=== PATIENT | male | born 1955 | race Caucasian/White ===

== ENCOUNTER 2016-10-27 09:26 | Day surgery (SDC) | payer BC ==
[2016-10-26 10:07] VITALS: BMI 25.8
[~2016-10-27 09:26] MED LIST: ceFAZolin SODIUM 1 GM VIAL IVPB ONE
[2016-10-27] MEDS ORDERED: LIDOCAINE HCL 1%, 10 MG/ML (20ML VIAL) ONE (10:04)
[2016-10-27] MEDS ORDERED: HEPARIN NA (PORCINE) 5,000 UNITS/ML 1ML VIAL ONE ×4 (10:04→16:48)
[2016-10-27] MEDS ORDERED: MIDAZOLAM HCL 2 MG/2 ML SINGLE DOSE VIAL ONE (10:46)
[2016-10-27] MEDS ORDERED: PROPOFOL 20 ML ONE ×3 (10:46→16:26)
[2016-10-27] MEDS ORDERED: ceFAZolin SODIUM 1 GM VIAL ONE (10:57)
[2016-10-27] MEDS ORDERED: ceFAZolin SODIUM 1 GM VIAL IVPB ONE (11:10)
[2016-10-27] MEDS ORDERED: ONDANSETRON 4 MG/2 ML VIAL IVPUSH PRN (11:17)
[2016-10-27] MEDS ORDERED: oxyCODONE HCL 5 MG TABLET PO PRN ×2 (11:17→17:28)
[2016-10-27] MEDS ORDERED: ACETAMINOPHEN 325 MG TABLET (FP) PO PRN (11:17)
[2016-10-27] MEDS ORDERED: LACTATED RINGERS SOLUTION 1,000 ML IV SCH (11:30)
[2016-10-27] MEDS ORDERED: LIDOCAINE HCL 1%, 10 MG/ML (50 mL VIAL) IJ ONE ×2 (12:09)
[2016-10-27] MEDS ORDERED: CLOPIDOGREL BISULFATE 75 MG TABLET (FP) PO ONE (12:32)
--- NOTE | 2016-10-27 12:35 | OP ---
Operative Note - Note: Operative Date: 10/27/16 Pre-Operative Diagnosis: Left great toe ulcer Operation: Aortogram, CO2 angiogram left leg, atherectomy anterior tibial artery , angioplasty anterior tibial artery Post-Operative Diagnosis: Same as Pre-op Surgeon: Benedict Echavarria Anesthesia: Fractional Estimated Blood Loss (mls): 10 Operative Report Dictated: Yes
--- NOTE | 2016-10-27 12:36 | HP ---
Admitting History and Physical - Admission Chief Complaint: left great toe ulcer - Smoking History Smoking history: Never smoked - Alcohol/Substance Use Hx Alcohol Use: No Home Medications - Allergies Allergies/Adverse Reactions: Allergies Allergy/AdvReac Type Severity Reaction Status Date / Time No Known Drug Allergies Allergy Verified 08/27/15 12:33 - Home Medications Home Medications: Ambulatory Orders Amlodipine Besylate 10 mg PO DAILY 01/31/13 Atorvastatin Ca [Lipitor] 40 mg PO HS 01/31/13 Folic Acid 1 mg PO DAILY 01/31/13 Prednisone 5 mg PO DAILY 01/31/13 Tacrolimus [Prograf] 3 mg PO DAILY 01/31/13 Insulin Glargine,Hum.rec.anlog [Lantus Solostar PEN -] 15 units SCJ HS 06/05/15 Apixaban [Eliquis] 5 mg PO BID 10/26/16 Aspirin [ASA -] 81 mg PO DAILY 10/26/16 Febuxostat [Uloric -] 40 mg PO DAILY 10/26/16 Clopidogrel Bisulfate [Plavix -] 75 mg PO DAILY #30 tablet 10/27/16 Clopidogrel Bisulfate [Plavix -] 75 mg PO DAILY #30 tablet 10/27/16 Physical Examination Vital Signs: Vital Signs Temperature 98.6 F 10/27/16 10:21 Pulse Rate 87 10/27/16 10:21 Respiratory Rate 18 10/27/16 10:21 Blood Pressure 141/83 10/27/16 10:21 O2 Sat by Pulse Oximetry (%) 98 10/27/16 10:21 Constitutional: Yes: Well Nourished Eyes: Yes: WNL HENT: Yes: WNL Neck: Yes: WNL Cardiovascular: Yes: WNL Respiratory: Yes: WNL Gastrointestinal: Yes: WNL Assessment/Plan Left great toe ulcer 1. For CO2 angiogram today
[2016-10-27] MEDS ORDERED: CLOPIDOGREL BISULFATE 75 MG TABLET (FP) ONE (13:32)
[2016-10-27] MEDS ORDERED: LIDOCAINE HCL 2% (20ML MULTI-DOSE VIAL) NR ONE (16:25)
[2016-10-27] MEDS ORDERED: SUCCINYLCHOLINE CHLORIDE 200 MG/10 ML VIAL ONE (16:26)
[2016-10-27] MEDS ORDERED: LIDOCAINE HCL 1%, 10 MG/ML (20ML VIAL) IJ ONE (16:30)
[2016-10-27] MEDS ORDERED: IOHEXOL 300 MG/ML INFUS..BTL IV ONE (16:30)
--- NOTE | 2016-10-27 17:23 | OP ---
Operative Note - Note: Operative Date: 10/27/16 Pre-Operative Diagnosis: Left lower extremity ischemia Operation: Aortogram, LLE angiogram, SFA angioplasty with stent placement Findings: SFA stenosis 90% Post-Operative Diagnosis: Same as Pre-op Surgeon: Beendict Echavarria Anesthesia: General Operative Report Dictated: Yes
[2016-10-27 18:31] VITALS: TEMP 98.2
[2016-10-27 20:40] VITALS: BP 154/70; PULSE 76
[2016-10-27] MEDS ORDERED: APIXABAN 2.5 MG TABLET PO SCH (22:00)
--- NOTE | 2016-11-20 23:36 | OP ---
DATE OF OPERATION: 10/27/2016 PREOPERATIVE DIAGNOSIS: Left lower extremity ischemia. POSTOPERATIVE DIAGNOSIS: Left lower extremity ischemia. PROCEDURE: Aortogram, left lower extremity angiogram, superficial femoral artery angioplasty with stent placement, superficial femoral artery stenosis of 90%. SURGEON: Benedict Yuen D.O. ANESTHESIA: General. INDICATION: The patient is a 61-year-old male that comes in with left lower extremity ischemia. He is feeling numbness in his leg, and it was decided that he would need an angiogram. Patient was consented for the procedure understanding all risks, benefits, and alternatives and was then taken to the operating room. DESCRIPTION OF PROCEDURE: Once in the operating room, he was laid on the operating table in a supine manner, and the right lower quadrant was prepped and draped in a sterile surgical manner. We then injected 10 mL of lidocaine 1% over the right common femoral artery. We then went ahead and took a Micropuncture needle and punctured the right common femoral artery. A Micropuncture wire was inserted, and a traditional 5-Irish sheath was inserted. We then inserted a 0.035 floppy guidewire up into the aorta followed by an Omniflush catheter. We then shot an aortogram by injection showing that the aorta and the iliac arteries were without any disease. We then placed our 0.035 floppy guide wire up and over to the left common femoral artery followed by an Omniflush catheter. We then shot an angiogram of the left lower extremity showing that the proximal SFA had a 95% stenosis and a filling defect. At this point, we placed 0.035 stiff guidewire across the lesion, placed a 6 x 45 crossover sheath. 5000 units of IV heparin were administered to the patient. We then went ahead and placed 6 x 4 stent into the SFA which was ballooned in place using a 6 x 4 balloon. Completion angiogram showed that the SFA was now patent. There was no deficit, there was no recoiling of the artery, and there was good brisk flow. At this point, we brought our sheath up and over, and right common femoral artery no bleeding. Areas were then dried and Dermabond was placed. Patient tolerated the procedure without complications. Patient was transferred to PACU in stable condition. BENEDICT YUEN DO [id number]
--- NOTE | 2016-11-25 14:55 | OP ---
DATE OF OPERATION: 10/27/2016 PREOPERATIVE DIAGNOSIS: Left great toe ulcer. POSTOPERATIVE DIAGNOSIS: Left great toe ulcer. PROCEDURE: Aortogram, CO2 angiogram of left lower extremity; atherectomy, anterior tibial artery; angioplasty, anterior tibial artery. SURGEON: Benedict Yuen DO ANESTHESIA: Fractional. BLOOD LOSS: 10 mL. DESCRIPTION OF PROCEDURE: The patient is a 61-year-old male who has a left great toe ulcer. It was decided that he would need a CO2 angiogram due to an increased creatinine. Patient was consented for the procedure, understanding all risks, benefits, and alternatives. He was then taken to the operating room. Once in the operating room, he was laid on the operating table in supine manner. The area of the right groin was prepped and draped in sterile surgical manner. We then injected 10 mL of lidocaine 1% over the right common femoral artery. Micropuncture needle was used to recannulate the right common femoral artery. Micropuncture wire was inserted, A traditional 5-[place] sheath was inserted. A 0.035 floppy guidewire was inserted into the aorta, followed by an Omniflush catheter. We then shot a CO2 aortogram showing that the aorta and the aortic arteries were without any disease. We then used our 0.035 floppy guidewire and went up and over to the left common femoral artery, and our Omniflush catheter was placed there as well. We then shot a CO2 angiogram of the left lower extremity showing that the common femoral artery, the profunda, and the SFA were patent. Popliteal artery was patent. There was severe stenosis of 80% in the anterior tibial artery. There was 2-vessel runoff into the foot. At this point we placed a 0.035 stiff guidewire into the SFA, took out our Omniflush catheter, placed a 6 x 55 crossover sheath up and over. IV heparin 5000 units was administered to the patient. We then went ahead and placed a 0.035 stiff guidewire followed by a Quick-Cross catheter, and we were able to cross our lesion in the anterior tibial artery and place the wire in the foot. We then exchanged for a Viper Wire. We then went ahead and performed CSI Orbital Atherectomy of the anterior tibial artery where the artery was stenotic. Once we finished doing atherectomy on the medium setting, we went ahead placed a 2.5 x 10 balloon and performed angioplasty of the anterior tibial artery. We then shot a completion angiogram by CO2 which showed that the anterior tibial artery was now completely patent all the way into the foot. At this point we brought our sheath up and over, and was deployed in the right common femoral artery. Pressure was held for 5 minutes. There was no bleeding. Area was wet and dried and Dermabond was placed. The patient tolerated the procedure with no complication. Patient transferred to PACU in stable condition. BENEDICT YUEN DO [id number]
== END 2016-10-27 20:43 | disposition home or self-care (01) ==
LOC: JASU-SURG 09:26
PROVIDERS: ATTEND Surgery Vascular Surgery
PROC: B41DZZZ Fluoroscopy of Aorta and Bilateral Lower Extremity Arteries (ICD-10-PCS; 2016-10-27)
PROC: 047L3DZ Dilation of Left Femoral Artery with Intraluminal Device, Percutaneous Approach (ICD-10-PCS; principal; 2016-10-27 10:30)
DX: I70.212 Atherosclerosis of native arteries of extremities with intermittent claudication, left leg (principal); I10 Essential (primary) hypertension; E11.9 Type 2 diabetes mellitus without complications
CPT/HCPCS: 37226; C1877; 76000-TC; 94760; J1644

== ENCOUNTER 2017-05-25 08:00 | Day surgery (SDC) | payer BC ==
[2017-05-24 17:02] VITALS: BMI 24.2
[2017-05-25 09:13] LABS: INR 1.03 (0.82-1.09); PROTHROMBIN TIME (PATIENT) 11.3 SEC (9.98-11.88)
[2017-05-25] MEDS ORDERED: LIDOCAINE HCL 1%, 10 MG/ML (20ML VIAL) ONE (10:23)
[2017-05-25] MEDS ORDERED: HEPARIN NA (PORCINE) 5,000 UNITS/ML 1ML VIAL ONE ×2 (10:23→10:42)
[2017-05-25] MEDS ORDERED: PROPOFOL 20 ML ONE ×2 (10:42)
[2017-05-25] MEDS ORDERED: MIDAZOLAM HCL 2 MG/2 ML SINGLE DOSE VIAL ONE (10:42)
[2017-05-25] MEDS ORDERED: ceFAZolin SODIUM 1 GM VIAL IVPB ONE (11:01)
[2017-05-25] MEDS ORDERED: LIDOCAINE HCL 1%, 10 MG/ML (50 mL VIAL) IJ ONE ×2 (11:07)
[2017-05-25] MEDS ORDERED: LACTATED RINGERS SOLUTION 1,000 ML IV SCH (11:30)
[2017-05-25] MEDS ORDERED: ACETAMINOPHEN 325 MG TABLET (FP) PO PRN (11:30)
[2017-05-25] MEDS ORDERED: oxyCODONE HCL 5 MG TABLET PO PRN (11:30)
[2017-05-25] MEDS ORDERED: ONDANSETRON 4 MG/2 ML VIAL IVPUSH PRN (11:30)
--- NOTE | 2017-05-25 12:04 | OP ---
Operative Note - Note: Operative Date: 05/25/17 Pre-Operative Diagnosis: Right great toe gangrene Operation: Aortogram, RLE angiogram, ant tibial artery atherectomy with angioplasty Post-Operative Diagnosis: Same as Pre-op Surgeon: Benedict Echavarria Anesthesia: Fractional Estimated Blood Loss (mls): 50 Operative Report Dictated: Yes
--- NOTE | 2017-05-25 12:05 | HP ---
Admitting History and Physical - Admission Chief Complaint: right great toe gangrene for 2 weeks - Smoking History Smoking history: Never smoked - Alcohol/Substance Use Hx Alcohol Use: No Home Medications - Allergies Allergies/Adverse Reactions: Allergies Allergy/AdvReac Type Severity Reaction Status Date / Time No Known Drug Allergies Allergy Verified 05/25/17 08:47 - Home Medications Home Medications: Ambulatory Orders Amlodipine Besylate 10 mg PO DAILY 01/31/13 Atorvastatin Ca [Lipitor] 40 mg PO HS 01/31/13 Folic Acid 1 mg PO DAILY 01/31/13 Prednisone 5 mg PO DAILY 01/31/13 Tacrolimus [Prograf] 3 mg PO DAILY 01/31/13 Insulin Glargine,Hum.rec.anlog [Lantus Solostar PEN -] 5 units SCJ TIDCM Apixaban [Eliquis] 5 mg PO BID 10/26/16 Aspirin [ASA -] 81 mg PO DAILY 10/26/16 Febuxostat [Uloric -] 40 mg PO DAILY 10/26/16 Collagenase Clostridium Hist. [Santyl] 1 applic TP DAILY #90 oint...g. 11/14/16 Collagenase Clostridium Hist. [Santyl] 1 applic TP DAILY #90 oint...g. 01/20/17 Physical Examination Vital Signs: Vital Signs Temperature 98.3 F 05/25/17 08:29 Pulse Rate 85 05/25/17 08:29 Respiratory Rate 18 05/25/17 08:29 Blood Pressure 145/84 05/25/17 08:29 O2 Sat by Pulse Oximetry (%) 100 05/25/17 08:38 Constitutional: Yes: Well Nourished Eyes: Yes: WNL HENT: Yes: WNL Neck: Yes: WNL Cardiovascular: Yes: WNL Respiratory: Yes: WNL Gastrointestinal: Yes: WNL Extremities: Yes: WNL Edema: No Peripheral Pulses WNL: No Integumentary: Yes: WNL Wound/Incision: Yes: Clean/Dry Neurological: Yes: WNL ...Motor Strength: WNL Psychiatric: Yes: WNL Assessment/Plan Right great toe gangrene for 2 weeks. 1. For angiogram today
[2017-05-25] MEDS ORDERED: ceFAZolin SODIUM 1 GM VIAL ONE (12:12)
[2017-05-25 14:03] VITALS: PULSE 70
[2017-05-25 14:05] VITALS: BP 130/70; TEMP 98
--- NOTE | 2017-05-25 14:52 | EKG ---
Test Reason : Blood Pressure : / mmHG Vent. Rate : 075 BPM Atrial Rate : 075 BPM P-R Int : 154 ms QRS Dur : 128 ms QT Int : 400 ms P-R-T Axes : 069 063 061 degrees QTc Int : 446 ms NORMAL SINUS RHYTHM RIGHT BUNDLE BRANCH BLOCK ABNORMAL ECG WHEN COMPARED WITH ECG OF 27-AUG-2015 11:02, QUESTIONABLE CHANGE IN QRS AXIS Confirmed by SHRUTI FRAZIER MD ([id number]) on 05/25/2017 2:52:27 PM Referred By: Benedict Echavarria Confirmed By:SHRUTI FRAZIER MD
--- NOTE | 2017-05-25 18:53 | OP ---
DATE OF OPERATION: 05/25/2017 PREOPERATIVE DIAGNOSIS: Right great toe gangrene. POSTOPERATIVE DIAGNOSIS: Right great toe gangrene. PROCEDURE: Aortogram, right lower extremity angiogram, anterior tibial artery atherectomy with angioplasty. SURGEON: Benedict Yuen D.O. ANESTHESIA: Fractional. BLOOD LOSS: 50 mL. INDICATION: The patient is a 62-year-old male who has a 2-week history of right great toe gangrene. It was found he would need an angiogram. Patient was brought in through ambulatory surgery. Patient was consented for the procedure, understanding all risks, benefits, and alternatives, and was then taken to the operating room. DESCRIPTION OF PROCEDURE: Once in the operating room, he was laid on the operating table in a supine manner, and the area of the left and right groin are prepped and draped in a sterile surgical manner. We then injected 10 mL of lidocaine 1% over the left common femoral artery. We then took a Micropuncture needle and punctured the left common femoral artery. A Micropuncture wire was inserted, Micropuncture sheath was inserted, and a traditional 5-[place] Islander sheath was inserted. A 0.035 floppy guidewire was placed into the aorta followed by an Omniflush catheter. We then shot an aortogram via hand injection showing that the aorta and the iliac arteries were without any disease. We were well aware of the fact that the patient had a creatinine of 3.2, and we wanted to minimize our contrast load. All the contrast was diluted 3 to 1, and we were going to only use minimal amount of contrast. A 0.035 stiff guidewire was then placed up and over to the right common femoral artery and Omniflush catheter followed. We then shot an angiogram of the right lower extremity showing that the common femoral artery, the profunda, the SFA were patent. The popliteal artery was patent. The anterior artery had disease beyond the takeoff where there was stenosis of at least 95%, and artery was occluded going from the ankle into the foot. So at this point, we placed a 0.035 stiff guidewire into the SFA. We then took out our Omniflush catheter, 6 x 45 crossover sheath. We then got the wire in the below-knee popliteal artery, and we then used a Quick-Cross catheter. We were able to negotiate the wire into the anterior tibial artery, and across the occlusion. We then placed a Fiberwire down across the occlusion and all the way into the foot. We then went ahead and performed atherectomy, orbital atherectomy of the anterior tibial artery from beyond its takeoff for about 5 cm, and we did that on low and medium. We then used a 2.5 x 6 balloon and performed angioplasty of the anterior tibial artery. We then took the same balloon and went down into the foot and from the forefoot all the way up above the ankle, we were able to perform angioplasty of the anterior tibial artery. Completion angiogram done of the right lower extremity showed that the anterior tibial artery was patent, there was good brisk flow, and it was patent all the way into the foot. Patient now had a palpable DP pulse. We now brought our sheath up and over, and was successfully deployed in the left common femoral artery. Pressure was applied for 5 minutes, and there was no bleeding. Areas were then dried and Dermabond was placed. Patient tolerated the procedure without complications. Total dye load was only 20 mL. Total blood loss 50 mL. Patient tolerated procedure with no complication. Patient had palpable DP pulse in the recovery room. BENEDICT YUEN DO [id number]
--- NOTE | 2017-07-27 07:37 | OP ---
DATE OF OPERATION: 05/25/2017 PREOPERATIVE DIAGNOSIS: Right great toe gangrene. POSTOPERATIVE DIAGNOSIS: Right great toe gangrene. PROCEDURE: Aortogram, right lower extremity angiogram, anterior tibial artery atherectomy with angioplasty. SURGEON: Benedict Yuen MD ANESTHESIA: Fractional. BLOOD LOSS: 50 mL. INDICATIONS: The patient is a 62-year-old male who has right great toe gangrene. 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 It was decided that he would need an angioplasty. Patient was consented for the procedure understanding all risks, benefits, and alternatives, and The patient came into ambulatory surgery. PROCEDURE IN DETAIL: Once the patient was consented for the procedure understanding all risks and benefits, patient was brought into the operating room and laid down in a supine manner. The area of the right and left groin were prepped and draped in the sterile surgical manner. We then went ahead and injected 10 mL of 0.5% lidocaine over the left common femoral artery. We then went ahead and used our micropuncture needle to puncture the left common femoral artery. A micropuncture wire inserted, and a traditional 5-[place] Islander sheath was inserted. A 0.035 floppy guidewire was then placed up into the aorta followed by an Omni Flush catheter. We then shot an aortogram via hand injection showing that the aorta and iliac arteries were without any disease. We then placed our wire back into the Omni Flush catheter and went up and over to the right common femoral artery, and our Omni Flush catheter followed. We then shot an angiogram of the right lower extremity showing that the common femoral artery, the profunda, and the SFA were patent. Popliteal artery was patent. The anterior tibial artery had significant disease at the takeoff and for 5 cm and then reconstituted and then went all the way down into the foot. Patient also had a peritoneal artery. At this point, we placed a 0.035 stiff guidewire into the SFA, removed our Omni Flush catheter, and we then placed a 6 x 45 crossover sheath. Then, 5000 units of IV heparin were administered to the patient. We then placed a 0.035 stiff guidewire down into the popliteal artery followed by a Quick-Cross catheter, and we then selectively were able to cross our anterior tibial artery lesion and place the wire down into the distal anterior tibial artery. We then exchanged the wire for a FiberWire. We then went ahead and used a [employer] Orbital Atherectomy device and performed atherectomy of the anterior tibial artery from its takeoff to about 10 cm. Once that was completed, we shot an angiogram showing that the artery was now patent, and we went ahead and used a 2.5 x 10 balloon and performed angioplasty of the anterior tibial artery. Completion angiogram now showed that the anterior tibial artery was complete . There was a good brisk flow into the foot, and the patient had a palpable DP pulse in his right foot. At this point, no intervention was needed. We brought our sheath up and over, and [employer] device was successfully deployed in the left common femoral artery. The area was wet and dried, and Dermabond was placed. The patient tolerated the procedure with no complications. Patient transferred to PACU in stable condition. Total blood loss was 50 mL. BENEDICT YUEN DO [id number]
== END 2017-05-25 14:08 | disposition home or self-care (01) ==
LOC: JASU-SURG 08:00
PROVIDERS: ATTEND Surgery Vascular Surgery
PROC: 047L3ZZ Dilation of Left Femoral Artery, Percutaneous Approach (ICD-10-PCS; 2017-05-25)
PROC: 047W3ZZ Dilation of Left Foot Artery, Percutaneous Approach (ICD-10-PCS; 2017-05-25)
PROC: B41DYZZ Fluoroscopy of Aorta and Bilateral Lower Extremity Arteries using Other Contrast (ICD-10-PCS; 2017-05-25)
PROC: 047P3ZZ Dilation of Right Anterior Tibial Artery, Percutaneous Approach (ICD-10-PCS; principal; 2017-05-25 09:30)
DX: I70.261 Atherosclerosis of native arteries of extremities with gangrene, right leg (principal); E11.52 Type 2 diabetes mellitus with diabetic peripheral angiopathy with gangrene; Z79.4 Long term (current) use of insulin; I10 Essential (primary) hypertension
CPT/HCPCS: 36247; 37229; C1726; 36415; 76000-TC; 85610; 85730; 93005; 93010; 94760; J1644

== ENCOUNTER 2017-10-25 13:52 | Inpatient (IN) | payer BC ==
[2017-10-25 14:07] VITALS: BMI 24.2
--- NOTE | 2017-10-25 20:24 | PDOC ---
Attending Attestation - Resident Resident Name: Bj Smith - ED Attending Attestation I have performed the following: I have examined & evaluated the patient, The case was reviewed & discussed with the resident, I agree w/resident's findings & plan, Exceptions are as noted - Medical Decision Making 10/25/17 20:24 I, Dr. Isis Hernandez, DO, attest that this document has been prepared under my direction and personally reviewed by me in its entirety. I further attest, that it accurately reflects all work, treatment, procedures and medical decision -making performed by me. 10/25/17 21:51 a/p: 62yo male with 1 week hx of RUE swelling, edema, pain -has a healing scab/wound to lateral aspect of RUE -suspect poss cause of cellulits vs dvt vs. bleeding on coumadin into the arm -pitting edema -bedside doppler + radial pulse -brisk cap refill -will obtain labs, ultrasound, xrays -will start abx given immunosupressed state with cellulitis 10/25/17 22:29 doppler negative for DVT in RUE pt with acute renal failure on labs 10/25/17 22:38 discussed the case with Dr. Celina Andrade who recommends admission, ivf hydration, will add ua added ESR/CRP 10/25/17 22:39 Dr. Andrade recommends admission to the hospitalist service 10/25/17 23:[address] 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 He denies any recent falls or trauma to the area. He does report having a history of lower extremity DVTs. The patient denies any fever or chills. He denies any chest pain, shortness of breath. Denies any abdominal pain. - Physicial Exam PE: 10/25/17 23:09 GENERAL: Awake, alert, and fully oriented, in no acute distress HEAD: No signs of trauma ENT: Auricles normal inspection, hearing grossly normal, nares patent, oropharynx clear EYES: PERRLA, EOMI, sclera anicteric, conjunctiva clear without exudates. Moist mucosa. NECK: Normal ROM, supple, no lymphadenopathy, JVD, or masses LUNGS: Breath sounds equal, clear to auscultation bilaterally. No wheezes, and no crackles HEART: Regular rate and rhythm, normal S1 and S2, no murmurs, rubs or gallops ABDOMEN: Soft, nontender, normoactive bowel sounds. No guarding, no rebound. No masses EXTREMITIES: (+)Right Arm: ecchymosis and coolness to hand, warmth to arm, scab to lateral aspect of forearm, appears very edematous with purple discoloration, pitting edema up to the elbow. Normal range of motion. No clubbing. No cords. Normal pulses and cap refill. NEUROLOGICAL: Cranial nerves II through XII grossly intact. Normal speech, normal gait SKIN: Warm, Dry, normal turgor. <Bridgette Barrios - Last Filed: 10/25/17 23:15> Discharge Disposition - Discharge Dispostion Admit: Yes <Isis Hernandez - Last Filed: 10/25/17 23:07> <Bridgette Barrios - Last Filed: 10/25/17 23:15> - Diagnosis Diabetes, Pain and swelling of right upper extremity, Acute renal failure (ARF) , Cellulitis - Discharge Dispostion Condition at time of disposition: Guarded - Referrals Referrals: Celina Herbert MD [Primary Care Provider] - - Patient Instructions - Post Discharge Activity Attestations - Attestations 10/25/17 23:14 Documentation prepared by Bridgette Barrios, acting as medical billing associate for Isis Hernandez DO. <Bridgette Barrios - Last Filed: 10/25/17 23:15>
[2017-10-25] MEDS ORDERED: PIPERACILLIN/TAZOB 2.25 GM/50 ML PREMIX BAG IVPB ONE (20:39)
--- NOTE | 2017-10-25 20:59 | PDOC ---
History of Present Illness - General Chief Complaint: Edema Stated Complaint: RIGHT HAND SWOLLEN Time Seen by Provider: 10/25/17 19:59 - History of Present Illness Initial Comments: Mr. 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 The patient started noticing R wrist pain 2 weeks ago, assumed it was from his prior gouty flares. He then started to experience pain and swelling in his R upper forearm that progressed down to his distal fingers. He denies inciting trauma to the arm. However, there is a pinpoint superficial scab noted on his R forearm, but patient was unaware of this. He denies generalized symptoms such as fevers, chills, malaise. Denies CP, SOB, abd pain. He does have a history of lower extremity DVTs, but denies any upper extremity clots. States he is compliant with his Warfarin. Past History - Past Medical History Allergies/Adverse Reactions: Allergies Allergy/AdvReac Type Severity Reaction Status Date / Time No Known Drug Allergies Allergy Verified 10/25/17 14:07 Home Medications: Ambulatory Orders Amlodipine Besylate 10 mg PO DAILY 01/31/13 Atorvastatin Ca [Lipitor] 40 mg PO HS 01/31/13 Folic Acid 1 mg PO DAILY 01/31/13 Prednisone 5 mg PO DAILY 01/31/13 Tacrolimus [Prograf] 1.5 mg PO BID 01/31/13 Insulin Glargine,Hum.rec.anlog [Lantus Solostar PEN -] 5 units SCJ TIDCM Aspirin [ASA -] 81 mg PO DAILY 10/26/16 Febuxostat [Uloric -] 40 mg PO DAILY 10/26/16 Warfarin Sodium [Coumadin] 0.5 mg PO HS 10/25/17 Anemia: No Asthma: No Cancer: No Cardiac Disorders: Yes (stentsx2 2010) CVA: No COPD: No CHF: No Dementia: No Diabetes: Yes (IDDM) GI Disorders: No Disorders: No HTN: Yes Hypercholesterolemia: Yes Kidney Stones: No (KIDNEY TRANSPLANT) Liver Disease: No Seizures: No Thyroid Disease: No Other medical history: VASCULAR CIRCULATION PROBLEMS. - Surgical History Abdominal Surgery: No Appendectomy: No Cardiac Surgery: Yes (stentsx2) Cholecystectomy: No Lung Surgery: No Neurologic Surgery: No Orthopedic Surgery: Yes (LEFT FEMUR FRACTURE) - Suicide/Smoking/Psychosocial Hx Smoking History: Never smoked Hx Alcohol Use: No Drug/Substance Use Hx: No Substance Use Type: None Hx Substance Use Treatment: No *Physical Exam - Vital Signs Last Vital Signs Temp Pulse Resp BP Pulse Ox 97.6 F 96 H 20 194/102 99 10/25/17 14:03 10/25/17 14:03 10/25/17 14:03 10/25/17 14:03 10/25/17 14:03 - Physical Exam Comments: GEN: AAOx3, NAD, Lying comfortably HEENT: PERRLA, EOMi, no JVD CV: S1, S2, RRR LUNG: CTABL ABD: Soft, NT, ND, normoactive BS MSK: Circumferential redness and 3+ pitting edema from R elbow to distal fingers. Area of notable warmth in upper forearm with pinpoint superficial scab. R hand is cool, bluish coloration. Difficult to assess pulse w/ edema but loud pulse heard w/ doppler. LUE wnl. Lower extremity nilateral 2-3+ pitting lower extremity edema with mild venous stasis changes (pt states this is due to kidney disease, not heart failure) NEURO: CN 2-12 grossly intact ED Treatment Course - LABORATORY CBC & Chemistry Diagram: 10/26/17 06:00 10/26/17 06:00 - RADIOLOGY Radiology Studies Ordered: Category Date Time Status FOREARM- RIGHT [RAD] Stat Radiology 10/25/17 20:34 Ordered WRIST- RIGHT [RAD] Stat Radiology 10/25/17 20:35 Ordered DUPLEX ART. 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 DDx include Cellulitis especially with possible point of entry and immunocompromised state. Other DDx include RUE DVT (including Phlegmasia Cerulea) but is unlikely in setting of compliance w/ AC. - CBC, CMP, PT/INR - Blood Cx - Will start Vanc/Zosyn renally dosed to cover for possible infection - RUE XR, and Venous + Arterial U/S - Tylenol for pain control - Will give patient's home Norvasc (did not take this AM), and recheck BP Dispo will likely be admission. Patient sees Celina Castellon as his PCP. Will ultimately be admitted as hospital service patient *DC/Admit/Observation/Transfer Diagnosis at time of Disposition: Diabetes, Pain and swelling of right upper extremity, Acute renal failure (ARF) , Cellulitis - Discharge Dispostion Condition at time of disposition: Guarded - Referrals - Patient Instructions - Post Discharge Activity
[2017-10-25] MEDS ORDERED: PIPERACILLIN/TAZOB 2.25 GM 2.25 GM in DEXTROSE 5%-WATER - 100 ML IVPB ONE (21:00)
[2017-10-25] MEDS ORDERED: ACETAMINOPHEN 325 MG TABLET (FP) PO ONE (21:00)
[2017-10-25 21:01] LABS: BASO % 0.2 % (0-2.0); EOS % 1.2 % (0-4.5); HEMOGLOBIN 8.8 GM/dL (11.7-16.9); MCH 28.1 pg (25.7-33.7); MCHC 31.4 g/dl (32.0-35.9); MEAN CELL VOLUME 89.6 fl (80-96); MEAN PLT VOLUME 9.2 fl (7.5-11.1); MONO % 7.4 % (3.8-10.2); NEUT % 79.2 % (42.8-82.8); PLATELET COUNT 250 K/MM3 (134-434); RBC 3.12 M/mm3 (4.00-5.60); RDW 18.2 % (11.9-15.9); WHITE BLOOD COUNT 12.6 K/mm3 (4.0-10.0)
[2017-10-25] MEDS ORDERED: ACETAMINOPHEN 325 MG TABLET (FP) ONE (21:14)
[2017-10-25] MEDS ORDERED: PIPERACILLIN/TAZOBACTAM 2.25 GM VIAL IVPB ONE (21:14)
[2017-10-25] MEDS ORDERED: VANCOMYCIN 1 GRAM (PRE-DOCKED) 1,000 MG/250 ML BAG IVPB ONE (21:14)
[2017-10-25 21:32] LABS: ALBUMIN 2.3 g/dl (3.4-5.0); ALK PHOS 71 U/L (45-117); ANION GAP 13 (8-16); BILIRUBIN,TOTAL 0.4 mg/dL (0.2-1.0); CALCIUM 7.1 mg/dL (8.5-10.1); CHLORIDE 111 mmol/L (98-107); CO2 18 mmol/L (21-32); CREATININE 7.4 mg/dL (0.7-1.3); SGPT/ALT 15 U/L (12-78); SODIUM 142 mmol/L (136-145); TOT PROT 5.5 g/dl (6.4-8.2)
[2017-10-25 21:42] LABS: POTASSIUM 4.6 mmol/L (3.5-5.1); SGOT/AST 15 U/L (15-37)
[2017-10-25 21:44] LABS: BLOOD UREA NITROGEN 150 mg/dL (7-18); GLUCOSE,RANDOM 311 mg/dL (74-106)
[2017-10-25] MEDS ORDERED: SODIUM CHLORIDE 0.9% 1000 ML INFUS.BAG IV ONE (22:35)
[2017-10-25] MEDS: VANCOMYCIN 1,000 MG in DEXTROSE 5%-WATER - 250 ML IVPB SCH (22:37)
[2017-10-25 23:22] LABS: INR 3.96 (0.82-1.09); PROTHROMBIN TIME (PATIENT) 44.7 SEC (9.98-11.88)
[2017-10-25 23:25] LABS: ACTIVATED PTT 46.9 SECONDS (26.9-34.4)
[2017-10-25] MEDS ORDERED: amLODIPine BESYLATE 5 MG TABLET (FP) ONE (23:27)
[2017-10-25] MEDS: amLODIPine BESYLATE 10 MG TABLET (FP) PO SCH (23:29)
--- NOTE | 2017-10-26 00:21 | HP ---
<Rashel Elkins - Last Filed: 10/26/17 00:53> CHIEF COMPLAINT: Right arm swelling PCP: Celina Castellon HISTORY OF PRESENT ILLNESS: Pt is a 62 y/o M with PMH unprovoked LE DVT (on Coumadin w/ INR 5.9 2 days ago, skipped yesterday's dose), b/l LE PAD s/p percutaneous angioplasty by Benedict Echavarria with R Hallux ischemic ulcer, and gout who presented to ED with 2wk of R wrist pain with progressive swelling and redness of the forearm. Pt states he initially thought this was a gouty attack. Denies fever, chills, nausea, vomiting, diarrhea, cough. BP normally 130/80. ER course was notable for: (1) WBC 12.6, Bark Grinder 7.4 (baseline 2.1) (2) Duplex of RUE: superficial thrombphlebitis of superficial basilic vein. No DVT (3) 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), b/l LE PAD s/p percutaneous angioplasty w/ stent 2010 by Benedict Echavarria with R Hallux gangrene, DM, L femur fracture and gout PAST SURGICAL HISTORY: Social History: Smoking: denies Alcohol: denies Drugs: denies Family History: Allergies No Known Drug Allergies Allergy (Verified 10/25/17 14:07) HOME MEDICATIONS: Home Medications Medication Instructions Recorded Amlodipine Besylate 10 mg PO DAILY 01/31/13 Atorvastatin Ca [Lipitor] 40 mg PO HS 01/31/13 Folic Acid 1 mg PO DAILY 01/31/13 Prednisone 5 mg PO DAILY 01/31/13 Tacrolimus [Prograf] 1.5 mg PO BID 01/31/13 Insulin Glargine,Hum.rec.anlog 5 units IDJ TIDCM 06/05/15 [Lantus Solostar PEN -] Aspirin [ASA -] 81 mg PO DAILY 10/26/16 Febuxostat [Uloric -] 40 mg PO DAILY 10/26/16 Warfarin Sodium [Coumadin] 0.5 mg PO HS 10/25/17 REVIEW OF SYSTEMS CONSTITUTIONAL: Absent: fever, chills, diaphoresis, generalized weakness, malaise, loss of appetite, weight change HEENT: Absent: rhinorrhea, nasal congestion, throat pain, throat swelling, difficulty swallowing, mouth swelling, ear pain, eye pain, visual changes CARDIOVASCULAR: Absent: chest pain, syncope, palpitations, irregular heart rate, lightheadedness , peripheral edema RESPIRATORY: Absent: cough, shortness of breath, dyspnea with exertion, orthopnea, wheezing, stridor, hemoptysis GASTROINTESTINAL: Absent: abdominal pain, abdominal distension, nausea, vomiting, diarrhea, constipation, melena, hematochezia GENITOURINARY: Absent: dysuria, frequency, urgency, hesitancy, hematuria, flank pain, genital pain MUSCULOSKELETAL: myalgia, arthralgia, joint swelling Absent: , back pain, neck pain SKIN: rash Absent: , itching, pallor HEMATOLOGIC/IMMUNOLOGIC: Absent: easy bleeding, easy bruising, lymphadenopathy, frequent infections ENDOCRINE: Absent: unexplained weight gain, unexplained weight loss, heat intolerance, cold intolerance NEUROLOGIC: Absent: headache, focal weakness or paresthesias, dizziness, unsteady gait, seizure, mental status changes, bladder or bowel incontinence PSYCHIATRIC: Absent: anxiety, depression, suicidal or homicidal ideation, hallucinations. PHYSICAL EXAMINATION Vital Signs - 24 hr 10/25/17 10/25/17 14:03 23:24 Temperature 97.6 F Pulse Rate 96 H Pulse Rate [ 66 Apical] Respiratory 20 18 Rate Blood Pressure 194/102 Blood Pressure 216/88 [Left Arm] O2 Sat by Pulse 99 100 Oximetry (%) GENERAL: Awake, alert, and fully oriented, in no acute distress. HEAD: Normal with no signs of trauma. EYES: Pupils equal, round and reactive to light, extraocular movements intact, sclera anicteric, conjunctiva clear. No lid lag. EARS, NOSE, THROAT: oropharynx clear without exudates. Moist mucous membranes. NECK: Normal range of motion, supple without lymphadenopathy, JVD, or masses. LUNGS: Breath sounds equal, clear to auscultation bilaterally. No wheezes, and no crackles. No accessory muscle use. HEART: Regular rate and rhythm, normal S1 and S2 with 3/6 syst murmur at LUSB, no rub or gallop. ABDOMEN: Soft, nontender, not distended, normoactive bowel sounds, no guarding, no rebound, no masses. No hepatomegaly or splenomegaly. MUSCULOSKELETAL: inability to make fist w/ right hand limited by pain. Pt can wiggle fingers and has intact sensation. No bony deformities or tenderness. No CVA tenderness. UPPER EXTREMITIES: RUE neurovasc intact. 1+ edema, erythematous. Arm is NOT taught. TTP right medial compartment prox forearm. Small lesion ant prox forearm with surrounding erythema. 1+ pulses, warm, well-perfused. No cyanosis. No clubbing. LOWER EXTREMITIES: 1+ DP on the right. brisk cap refill b/l. R great toe lat aspect ulcer. No calf tenderness. 1+ peripheral edema b/l. NEUROLOGICAL: Cranial nerves II-XII intact. Normal speech. Normal gait. PSYCHIATRIC: Cooperative. Good eye contact. Appropriate mood and affect. SKIN: as above Laboratory Results - last 24 hr 10/25/17 10/25/17 10/25/17 20:40 20:40 22:48 WBC 12.6 H RBC 3.12 L Hgb 8.8 L D Hct 28.0 L MCV 89.6 MCH 28.1 MCHC 31.4 L RDW 18.2 H D Plt Count 250 D MPV 9.2 Neutrophils % 79.2 Lymphocytes % 12.0 D Monocytes % 7.4 Eosinophils % 1.2 Basophils % 0.2 PT with INR 44.70 H INR 3.96 H D PTT (Actin FS) 46.9 H D Sodium 142 Potassium 4.6 Chloride 111 H Carbon Dioxide 18 L Anion Gap 13 BUN 150 H* D Creatinine 7.4 H D Creat Clearance w eGFR 7.49 Random Glucose 311 H* D Uric Acid Calcium 7.1 L Total Bilirubin 0.4 D AST 15 ALT 15 D Alkaline Phosphatase 71 C-Reactive Protein Total Protein 5.5 L Albumin 2.3 L D 10/25/17 10/25/17 22:48 22:48 WBC RBC Hgb Hct MCV MCH MCHC RDW Plt Count MPV Neutrophils % Lymphocytes % Monocytes % Eosinophils % Basophils % PT with INR INR PTT (Actin FS) Sodium Potassium Chloride Carbon Dioxide Anion Gap BUN Creatinine Creat Clearance w eGFR Random Glucose Uric Acid 5.5 Calcium Total Bilirubin AST ALT Alkaline Phosphatase C-Reactive Protein 0.5 H Total Protein Albumin ASSESSMENT/PLAN: Pt is a 62 y/o M w/ PMH R renal transplant, unprovoked DVT, gout who presents to ED with R wrist pain and progressive RUE swelling x 2 weeks. #R arm pain/swelling -DDx includes coumadin tox bleed, coumadin induced skin necrosis, cellulitis -Gout unlikely as swelling is not limited to the joint -arterial disease unlikely as pt has pulses confirmed by doppler, is on AC, and had only superficial thrombophlebitis on Duplex -Demarcate lesion -elevate arm -vascular checks -Emperic vanc/zosyn -repeat doppler if no improvement #Acute on chronic CKD -discussed with Dr. Castellon by ED physician. Dr. Castellon recommended fluid trial -1/2 NS at 125 (pt hypertensive in ED) -monitor urine output -repeat labs in AM -nephro consult (Dr. Celina Castellon) #HTN -Baseline BP 130/80. BP in ED 216/88 -Norvasc in ED -Lopressor PRN for BP > 165/80 #Hx DVT -Pt on Coumadin -INR in ED 3.9 -Hold Coumadin for now #FEN -1/2 NS at 125 -hyperchloremia, pseudohypocalcemia -DM/renal diet #PPx -elevated INR. No Hep #Dispo -Inpt Rashel Elkins MD PGY-1 Visit type - Emergency Visit Emergency Visit: Yes ED Registration Date: 10/25/17 Care time: The patient presented to the Emergency Department on the above date and was hospitalized for further evaluation of their emergent condition. - New Patient This patient is new to me today: Yes Date on this admission: 10/26/17 - Critical Care Critical Care patient: No <Ashlee Almonte - Last Filed: 10/26/17 01:35> ATTENDING PHYSICIAN STATEMENT I saw and evaluated the patient. I reviewed the resident's note and discussed the case with the resident. I agree with the resident's findings and plan as documented. CHIEF COMPLAINT: right arm swelling x 2 weeks 62 year old male with PVD and history of DVT presents with RUE swelling and ecchymoses x 2 weeks . INR is above 3 . HOME MEDICATIONS: Home Medications Medication Instructions Recorded Amlodipine Besylate 10 mg PO DAILY 01/31/13 Atorvastatin Ca [Lipitor] 40 mg PO HS 01/31/13 Folic Acid 1 mg PO DAILY 01/31/13 Prednisone 5 mg PO DAILY 01/31/13 Tacrolimus [Prograf] 1.5 mg PO BID 01/31/13 Insulin Glargine,Hum.rec.anlog 5 units SCJ TIDCM 06/05/15 [Lantus Solostar PEN -] Aspirin [ASA -] 81 mg PO DAILY 10/26/16 Febuxostat [Uloric -] 40 mg PO DAILY 10/26/16 Warfarin Sodium [Coumadin] 0.5 mg PO HS 10/25/17 PHYSICAL EXAMINATION Vital Signs - 24 hr 10/25/17 10/25/17 14:03 23:24 Temperature 97.6 F Pulse Rate 96 H Pulse Rate [ 66 Apical] Respiratory 20 18 Rate Blood Pressure 194/102 Blood Pressure 216/88 [Left Arm] O2 Sat by Pulse 99 100 Oximetry (%) GENERAL: Awake, alert, and fully oriented, in no acute distress. HEAD: Normal with no signs of trauma. EYES: Pupils equal, round and reactive to light, extraocular movements intact, sclera anicteric, conjunctiva clear. No lid lag. EARS, NOSE, THROAT: Ears normal, nares patent, oropharynx clear without exudates. Moist mucous membranes. NECK: Normal range of motion, supple without lymphadenopathy, JVD, or masses. LUNGS: Breath sounds equal, clear to auscultation bilaterally. No wheezes, and no crackles. No accessory muscle use. HEART: Regular rate and rhythm, normal S1 and S2 without murmur, rub or gallop. ABDOMEN: Soft, nontender, not distended, normoactive bowel sounds, no guarding, no rebound, no masses. No hepatomegaly or splenomegaly. MUSCULOSKELETAL: Normal range of motion at all joints. No bony deformities or tenderness. No CVA tenderness. UPPER EXTREMITIES: RUE edema and ecchymoses , pulses are palpable , erytheme of forearm , small scab with surrounding erythema LOWER EXTREMITIES: 2 plus edema NEUROLOGICAL: Cranial nerves II-XII intact. Normal speech. Normal gait. PSYCHIATRIC: Cooperative. Good eye contact. Appropriate mood and affect. SKIN: Warm, dry, normal turgor, no rashes or lesions noted, normal capillary refill. Laboratory Results - last 24 hr 10/25/17 10/25/17 10/25/17 20:40 20:40 22:48 WBC 12.6 H RBC 3.12 L Hgb 8.8 L D Hct 28.0 L MCV 89.6 MCH 28.1 MCHC 31.4 L RDW 18.2 H D Plt Count 250 D MPV 9.2 Neutrophils % 79.2 Lymphocytes % 12.0 D Monocytes % 7.4 Eosinophils % 1.2 Basophils % 0.2 ESR PT with INR 44.70 H INR 3.96 H D PTT (Actin FS) 46.9 H D Sodium 142 Potassium 4.6 Chloride 111 H Carbon Dioxide 18 L Anion Gap 13 BUN 150 H* D Creatinine 7.4 H D Creat Clearance w eGFR 7.49 Random Glucose 311 H* D Uric Acid Calcium 7.1 L Total Bilirubin 0.4 D AST 15 ALT 15 D Alkaline Phosphatase 71 C-Reactive Protein Total Protein 5.5 L Albumin 2.3 L D 10/25/17 10/25/17 10/25/17 22:48 22:48 22:48 WBC RBC Hgb Hct MCV MCH MCHC RDW Plt Count MPV Neutrophils % Lymphocytes % Monocytes % Eosinophils % Basophils % ESR 73 H PT with INR INR PTT (Actin FS) Sodium Potassium Chloride Carbon Dioxide Anion Gap BUN Creatinine Creat Clearance w eGFR Random Glucose Uric Acid 5.5 Calcium Total Bilirubin AST ALT Alkaline Phosphatase C-Reactive Protein 0.5 H Total Protein Albumin ASSESSMENT/PLAN: Agree with assessment and plan above .
[2017-10-26] MEDS ORDERED: METOPROLOL TARTRATE 5 MG/5 ML VIAL IVPUSH PRN (00:45)
[2017-10-26] MEDS ORDERED: SODIUM CHLORIDE 0.45% 1,000 ML IV SCH (00:45)
[2017-10-26 05:16] LABS: URINE APPEARANCE CLEAR; URINE BILIRUBIN NEGATIVE (NEGATIVE); URINE BLOOD 1+ (NEGATIVE); URINE COLOR LTYELLOW; URINE GLUCOSE (UA) 3+ (NEGATIVE); URINE KETONE NEGATIVE (NEGATIVE); URINE LEUK ESTERASE NEGATIVE (NEGATIVE); URINE NITRITE NEGATIVE (NEGATIVE); URINE UROBILINOGEN NEGATIVE mg/dL (0.2-1.0)
[2017-10-26 05:27] LABS: URINE PROTEIN 3+ (NEGATIVE)
[2017-10-26 05:32] LABS: EPI CELLS RARE /HPF (FEW); URINE BACTERIA FEW /hpf (NONE SEEN); URINE MUCUS RARE
[2017-10-26 06:55] LABS: BASO % 0.1 % (0-2.0); EOS % 1.1 % (0-4.5); HEMATOCRIT 27.3 % (35.4-49); HEMOGLOBIN 8.8 GM/dL (11.7-16.9); LYMPH % 12.9 % (8-40); MCH 28.7 pg (25.7-33.7); MCHC 32.3 g/dl (32.0-35.9); MEAN CELL VOLUME 88.7 fl (80-96); MEAN PLT VOLUME 9.7 fl (7.5-11.1); MONO % 6.8 % (3.8-10.2); NEUT % 79.1 % (42.8-82.8); PLATELET COUNT 259 K/MM3 (134-434); RBC 3.08 M/mm3 (4.00-5.60); RDW 18.2 % (11.9-15.9); WHITE BLOOD COUNT 11.8 K/mm3 (4.0-10.0)
[2017-10-26 07:23] LABS: ALBUMIN 2.3 g/dl (3.4-5.0); ANION GAP 13 (8-16); CHLORIDE 112 mmol/L (98-107); CO2 18 mmol/L (21-32); MAGNESIUM 1.8 mg/dL (1.8-2.4); PHOSPHOROUS 5.2 mg/dL (2.5-4.9); POTASSIUM 4.5 mmol/L (3.5-5.1); SGOT/AST 15 U/L (15-37); SGPT/ALT 14 U/L (12-78); SODIUM 143 mmol/L (136-145)
[2017-10-26 07:31] LABS: ALK PHOS 70 U/L (45-117); BILIRUBIN,TOTAL 0.6 mg/dL (0.2-1.0); CREATININE 7.1 mg/dL (0.7-1.3); GLUCOSE,RANDOM 297 mg/dL (74-106); TOT PROT 5.5 g/dl (6.4-8.2)
[2017-10-26 08:10] LABS: BLOOD UREA NITROGEN 142 mg/dL (7-18)
--- NOTE | 2017-10-26 09:15 | PN ---
Teaching Attending Note Name of Resident: Shaka Christensen ATTENDING PHYSICIAN STATEMENT I saw and evaluated the patient. I reviewed the resident's note and discussed the case with the resident. I agree with the resident's findings and plan as documented. SUBJECTIVE: OBJECTIVE: Vital Signs Temperature 98.8 F 10/26/17 07:12 Pulse Rate 85 10/26/17 07:12 Respiratory Rate 16 10/26/17 07:12 Blood Pressure 160/67 10/26/17 07:12 O2 Sat by Pulse Oximetry (%) 100 10/26/17 07:12 CBCD WBC 11.8 K/mm3 (4.0-10.0) H 10/26/17 06:00 RBC 3.08 M/mm3 (4.00-5.60) L 10/26/17 06:00 Hgb 8.8 GM/dL (11.7-16.9) L 10/26/17 06:00 Hct 27.3 % (35.4-49) L 10/26/17 06:00 MCV 88.7 fl (80-96) 10/26/17 06:00 MCHC 32.3 g/dl (32.0-35.9) 10/26/17 06:00 RDW 18.2 % (11.9-15.9) H 10/26/17 06:00 Plt Count 259 K/MM3 (134-434) 10/26/17 06:00 MPV 9.7 fl (7.5-11.1) 10/26/17 06:00 CMP Sodium 143 mmol/L (136-145) 10/26/17 06:00 Potassium 4.5 mmol/L (3.5-5.1) 10/26/17 06:00 Chloride 112 mmol/L (98-107) H 10/26/17 06:00 Carbon Dioxide 18 mmol/L (21-32) L 10/26/17 06:00 Anion Gap 13 (8-16) 10/26/17 06:00 BUN 142 mg/dL (7-18) H* 10/26/17 06:00 Creatinine 7.1 mg/dL (0.7-1.3) H 10/26/17 06:00 Creat Clearance w eGFR 7.86 (>60) 10/26/17 06:00 Random Glucose 297 mg/dL (74-106) H 10/26/17 06:00 Calcium 7.0 mg/dL (8.5-10.1) L 10/26/17 06:00 Total Bilirubin 0.6 mg/dL (0.2-1.0) D 10/26/17 06:00 AST 15 U/L (15-37) 10/26/17 06:00 ALT 14 U/L (12-78) 10/26/17 06:00 Alkaline Phosphatase 70 U/L (45-117) 10/26/17 06:00 Total Protein 5.5 g/dl (6.4-8.2) L 10/26/17 06:00 Albumin 2.3 g/dl (3.4-5.0) L 10/26/17 06:00 Current Medications Generic Name Dose Route Start Last Admin Trade Name Freq PRN Reason Stop Dose Admin Amlodipine Besylate 10 mg 10/25/17 21:30 10/25/17 23:29 Norvasc - PO 10 mg DAILY OZIEL Administration Atorvastatin Calcium 40 mg 10/26/17 22:00 Lipitor - PO HS OZIEL Febuxostat 40 mg 10/26/17 10:00 Uloric - PO DAILY OZIEL Folic Acid 1 mg 10/26/17 10:00 Folic Acid - PO DAILY OZIEL Vancomycin HCl 1,000 mg/ 250 mls @ 250 mls/hr 10/25/17 22:00 10/25/17 22:37 Dextrose IVPB 250 mls/hr BID OZIEL Administration Protocol Sodium Chloride 1,000 mls @ 125 mls/hr 10/26/17 00:45 10/26/17 05:49 1/2 Normal Saline IV 125 mls/hr ASDIR OZIEL Administration Metoprolol Tartrate 5 mg 10/26/17 00:45 Lopressor Injection - IVPUSH Q4H PRN HYPERTENSION Home Medications Medication Instructions Recorded Amlodipine Besylate 10 mg PO DAILY 01/31/13 Atorvastatin Ca [Lipitor] 40 mg PO HS 01/31/13 Folic Acid 1 mg PO DAILY 01/31/13 Prednisone 5 mg PO DAILY 01/31/13 Tacrolimus [Prograf] 1.5 mg PO BID 01/31/13 Insulin Glargine,Hum.rec.anlog 5 units SCJ TIDCM 06/05/15 [Lantus Solostar PEN -] Aspirin [ASA -] 81 mg PO DAILY 10/26/16 Febuxostat [Uloric -] 40 mg PO DAILY 10/26/16 Warfarin Sodium [Coumadin] 0.5 mg PO HS 10/25/17 ASSESSMENT AND PLAN: Patient is a 62 year old gentleman with PMhx of Renal Transplant (2000, [facility]) with baseline cr 3.8-4.5, T2DM,, Hyperetnsion, Gout, Hx of DVT on coumadin who presented with complaints of right arm swelling and pain with possible cellulitis/hematoma. # Acute Right arm swelling/Celluliits cannot r/o hematoma, possible fasciitis ; will get ID , Nephro and vascular to see him, given IV antibiotic. #Acute on chronic Kidney disease with a baseline of creatinine of 3.81 , for a consult #Anion gap Metabolic acidosis , will check his Lactic acid level #Anemia will monitor,iron panel # Acute coagulopathy will hold coumadin since INR is elevated. DVT Px: coumadin on hold
[2017-10-26] MEDS: FOLIC ACID 1 MG TABLET (FP) PO SCH (09:42)
[2017-10-26] MEDS: amLODIPine BESYLATE 10 MG TABLET (FP) PO SCH (09:42)
[2017-10-26] MEDS: VANCOMYCIN 1,000 MG in DEXTROSE 5%-WATER - 250 ML IVPB SCH (09:42)
[2017-10-26] MEDS: FEBUXOSTAT 40 MG TAB PO SCH (09:42)
[2017-10-26] MEDS ORDERED: VANCOMYCIN 1 GRAM (PRE-DOCKED) 1,000 MG/250 ML BAG IVPB ONE (09:43)
--- NOTE | 2017-10-26 11:10 | CON.NEP ---
Consult Consult Specialty:: Nephrology Referred by:: Dr. 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 Pt reports the pain started at the wrist about 2 weeks ago. Arm was red, tender and swollen. Denies fever, chills. On Prograf and Prednisone for immunosuppression. No N/V/D. Reports preserved apatite. No graft tenderness. Making urine. No hematuria, or dysuria. No SOB, Chest pain. - History Source History Provided By: Patient Limitations to Obtaining History: No Limitations - Past Medical History Cardio/Vascular: Yes: HTN Renal/: Yes: Renal Failure, Renal Inusuff Endocrine: Yes: Diabetes Mellitus - Alcohol/Substance Use Hx Alcohol Use: No - Smoking History Smoking history: Never smoked Home Medications - Allergies Allergies/Adverse Reactions: Allergies Allergy/AdvReac Type Severity Reaction Status Date / Time No Known Drug Allergies Allergy Verified 10/25/17 14:07 - Home Medications Home Medications: Ambulatory Orders Amlodipine Besylate 10 mg PO DAILY 01/31/13 Atorvastatin Ca [Lipitor] 40 mg PO HS 01/31/13 Folic Acid 1 mg PO DAILY 01/31/13 Prednisone 5 mg PO DAILY 01/31/13 Tacrolimus [Prograf] 1.5 mg PO BID 01/31/13 Insulin Glargine,Hum.rec.anlog [Lantus Solostar PEN -] 5 units SCJ TIDCM Aspirin [ASA -] 81 mg PO DAILY 10/26/16 Febuxostat [Uloric -] 40 mg PO DAILY 10/26/16 Warfarin Sodium [Coumadin] 0.5 mg PO HS 10/25/17 Review of Systems - Review of Systems Constitutional: denies: Chills, Fever, Lethargy, Loss of Appetite Eyes: reports: No Symptoms HENT: reports: No Symptoms Neck: reports: No Symptoms Cardiovascular: denies: Chest Pain, Edema, Palpitations, Shortness of Breath Respiratory: denies: Cough, Orthopnea, PND, SOB Gastrointestinal: reports: No Symptoms Genitourinary: reports: No Symptoms Musculoskeletal: reports: Joint Pain, Joint Swelling, Muscle Pain, Muscle Weakness Neurological: reports: No Symptoms Nephrology Consult - Height Height: 5 ft 6 in - Weight Weight: 68.039 kg - BMI Body Mass Index (BMI): 24.2 - Lab Results CBC,BMP: CBC, BMP 10/26/17 06:00 10/26/17 06:00 Anion Gap: Anion Gap Anion Gap 13 (8-16) 10/26/17 06:00 - Physical Examination Vital Signs: Vital Signs Temperature 98.8 F 10/26/17 07:12 Pulse Rate 85 10/26/17 07:12 Respiratory Rate 16 10/26/17 07:12 Blood Pressure 160/67 10/26/17 07:12 O2 Sat by Pulse Oximetry (%) 100 10/26/17 07:12 Assessment/Plan 62 year old gentleman with PMhx of Renal Transplant (2000, [facility]) 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 #WESTON on CKD Outpatient Cr was 3.81 in July and 4.39 in may Chronic rise in Cr likely due to chronic allograft nephropathy vs. diabetic nephropathy of transplanted kidney WESTON likely due to renal hypoprofusion in setting of acute infection vs. obstruction vs. tacrolimus toxicity Check US of transplanted kidney r/o obstruction check Urine studies for FeNa, UPCR check Tacrolimus level tomorrow before dose continue prednisone and tacrolimus for now no aute indication for CHILD CARE at this time Dose all meds for CrCl less then 10 #Right arm swelling/Celluliits concern for fasciitis given pt is immunocompromised will get CT of the arm w/o contrast ID and Vascular Surgery consulted continue Abx Dose Vanco by levels #Anion gap Metabolic acidosis check Lactic acid levels isontonic saline trend serum bicarb #Anemia Baseline Hgb ~10 as outpatient check iron studies no acute indication for transfusion Thank you Will follow Eagle Thomas DO
[2017-10-26] MEDS ORDERED: hydrALAZINE HCL 25 MG TABLET (FP) PO PRN (11:18)
--- NOTE | 2017-10-26 11:53 | PN ---
Progress Note (short form) - Note Progress Note: Vascular Surgery Pt seen and examined. Well known to wound care clinic. Comes in with 2 week history of pain in right upper ext. Recently started on prednisone for gout of right wrist. Started to then develop redness in the arm and came to ER. CT scan of right upper ext is ordered to rule out necrotizing fascitis. Blood cultures pending. Will follow Benedict nelson DO
--- NOTE | 2017-10-26 12:10 | PN ---
Progress Note, Physician Chief Complaint: ID Full note dictated Forearm right has blown up and become red and painful over the last week. Preceeding history of gout treated with prednisone with improvement of right wrist and ankle. He is on anticoagulation with coumadin. Denies fever or chills N preceeding trauma histort animal bites or unusual exposures. He is a renal transplant patient and he is diabetic ! - Current Medication List Current Medications: Active Medications Amlodipine Besylate (Norvasc -) 10 mg PO DAILY [facility] Last Admin: 10/26/17 09:42 Dose: 10 mg Atorvastatin Calcium (Lipitor -) 40 mg PO HS OZIEL Febuxostat (Uloric -) 40 mg PO DAILY OZIEL Last Admin: 10/26/17 09:42 Dose: 40 mg Folic Acid (Folic Acid -) 1 mg PO DAILY [facility] Last Admin: 10/26/17 09:42 Dose: 1 mg Hydralazine HCl (Apresoline -) 25 mg PO Q8H PRN PRN Reason: HYPERTENSION Vancomycin HCl 1,000 mg/ (Dextrose) 250 mls @ 250 mls/hr IVPB BID OZIEL PRN Reason: Protocol Last Admin: 10/26/17 09:42 Dose: 250 mls/hr Sodium Chloride (Normal Saline -) 1,000 mls @ 100 mls/hr IV ASDIR OZIEL Prednisone (Deltasone -) 5 mg PO DAILY OZIEL Tacrolimus 1 mg/ Tacrolimus 0. (5 mg) 1.5 mg PO BID [facility] - Objective Vital Signs: Vital Signs Temperature 97.4 F L 10/26/17 11:59 Pulse Rate 80 10/26/17 11:59 Respiratory Rate 19 10/26/17 11:59 Blood Pressure 166/94 10/26/17 11:59 O2 Sat by Pulse Oximetry (%) 100 10/26/17 11:59 Labs: CBC, BMP 10/26/17 06:00 10/26/17 06:00 INR, PTT INR 3.96 (0.82-1.09) H D 10/25/17 22:48 Problem List - Problems (1) Renal transplant disorder Code(s): T86.10 - UNSPECIFIED COMPLICATION OF KIDNEY TRANSPLANT (2) Cellulitis Code(s): L03.90 - CELLULITIS, UNSPECIFIED (3) Diabetes Code(s): E11.9 - TYPE 2 DIABETES MELLITUS WITHOUT COMPLICATIONS Assessment/Plan Microbiology Laboratory Tests 10/25/17 10/25/17 10/25/17 20:40 20:40 22:48 WBC 12.6 H Hgb 8.8 L D Hct 28.0 L Plt Count 250 D ESR BUN 150 H* D Creat Clearance w eGFR 7.49 Random Glucose 311 H* D Total Bilirubin 0.4 D AST 15 ALT 15 D Alkaline Phosphatase 71 C-Reactive Protein 0.5 H 10/25/17 22:48 WBC Hgb Hct Plt Count ESR 73 H BUN Creat Clearance w eGFR Random Glucose Total Bilirubin AST ALT Alkaline Phosphatase C-Reactive Protein Assessment Severe cellulitis of the right forearm with dry eschar anteriorly suggesting portal of entry for infection in this diabetic renal transplant patient. Anterior indurated area but not fluctuant and no air palpated. I doubt necrotizing faciitis but agree with CT scan for collection and extent of infection. No evidence for compartment syndrome as hand is very swollen with echymotic areas of the freedman hand fingers ( on coumadin) Anticoagulation may be playing a role here as well ? could he have bled ?? in the arm Concern would be compartment syndrome related to severe edema of the extremity Plan Blood cultures x [address] imaging of the arm Elevated the hand and arm Luciana Chowdhury MD
[2017-10-26] MEDS: SODIUM CHLORIDE 1,000 ML IV SCH (12:22)
[2017-10-26] MEDS: predniSONE 5 MG TABLET (UD) PO SCH (12:22)
[2017-10-26] MEDS: TACROLIMUS ANHYDROUS 1 MG PO SCH ×2 (12:23→22:51)
[2017-10-26] MEDS: TACROLIMUS 0.5 MG PO SCH ×2 (12:23→22:51)
--- NOTE | 2017-10-26 12:31 | EKG ---
Test Reason : Blood Pressure : / mmHG Vent. Rate : 077 BPM Atrial Rate : 077 BPM P-R Int : 152 ms QRS Dur : 130 ms QT Int : 416 ms P-R-T Axes : 065 043 054 degrees QTc Int : 470 ms NORMAL SINUS RHYTHM RIGHT BUNDLE BRANCH BLOCK ABNORMAL ECG WHEN COMPARED WITH ECG OF 25-MAY-2017 08:04, NO SIGNIFICANT CHANGE WAS FOUND Confirmed by SHRUTI FRAZIER MD ([id number]) on 10/26/2017 12:31:15 PM Referred By: Confirmed By:SHRUTI FRAZIER MD
--- NOTE | 2017-10-26 12:50 | CONS ---
DATE OF CONSULTATION: HISTORY: This is a 62-year-old male with a history of a failed renal transplant in 2000, diabetic, hypertensive with a history of DVT and gout who presents with a [id number] of redness, pain, and swelling predominantly of the right hand and forearm. Because of his history of DVT, he had originally been on Eliquis, but this was recently changed to Coumadin, and according to the patient, his Coumadin levels have been high. Two weeks ago, he developed an episode of gout involving the right wrist and right ankle, which he says he has had before and was treated by Dr. 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 Normally, he is on immunosuppressive therapy for his renal transplant including 5 mg of prednisone, but this was increased. His gouty symptoms improved; however, within the last week, the right forearm began to get red, swollen, and painful for which he is brought to the hospital now. He denies any fevers or chills, and I am asked to see him for necrotizing fasciitis. He had Doppler studies done here of his arm, which showed superficial vein thrombophlebitis but no DVT. He is not on dialysis and does not have any venous access in that arm. He has no history of proceeding trauma to the arm and has no pets, unusual hobbies, or unusual contacts. He lives at home with his son and daughter. PAST MEDICAL HISTORY: As noted above. CURRENT MEDICATIONS: Amlodipine, atorvastatin, prednisone, Tacrolimus, insulin, aspirin, Uloric, Coumadin 0.5 mg. ALLERGIES: None known. SOCIAL HISTORY: Nonsmoker. No history of ETOH. HIV status unknown. FAMILY HISTORY: Reviewed and noncontributory. REVIEW OF SYSTEMS: All systems reviewed and noncontributory. PHYSICAL EXAMINATION: General: He is an alert male in no acute distress. Vital Signs: Temperature 98.8, pulse 85, blood pressure 160/67, respirations 16. Neck: Supple without adenopathy. Lungs: Clear to P and A. Heart: S1, S2. Regular rhythm without murmur. Abdomen: Soft, nontender without organomegaly. Extremities: Reveal diffuse swelling of the right forearm and right hand. He had limited capacity to open his fist due to hand edema. The area of the forearm below the elbow joint was red with confluent erythema and tenderness with induration noted within the anterior forearm area, which was tender to touch but not fluctuant. In the middle of the redness anteriorly was a small, dry, crusted eschar. No lymphadenopathy was noted in the axilla. No erythema, swelling above the elbow joint. The white count was 12.6, hemoglobin 8.8, platelets 250, sedimentation rate 73, BUN 150, creatinine 7.4. Liver enzymes within normal limits. Urinalysis: 3 RBC, 8 WBCs. Two sets of blood cultures drawn on the thus far no growth. ASSESSMENT: A 62-year-old male diabetic with failed renal transplant though not on dialysis presents with right forearm swelling with a background history of recent treatment with steroids for gout. He has a small eschar on the anterior forearm, which may be a portal of entry for infection. I do not feel any gas to suggest a gas-forming organism and/or necrotizing fasciitis, but a CAT scan has been ordered by his restaurant hospitality manager. At this point, it would be important to monitor him for any impending evidence of compartment syndrome related to the significant edema that he has in his hand, though I am able to feel pulses at this time. He should have his arm placed in a sling for management of severe hand edema, and empiric treatment for possible necrotizing fasciitis, which I do not think he has, with vancomycin, clindamycin, and Zosyn. Sedimentation rate and CRP have been ordered. The case was discussed with is restaurant hospitality manager, and a CAT scan of the arm has been suggested and currently pending. Lastly, the possibility of a bleed into the forearm is considered as he was recently switched to Coumadin and has, according to the patient, elevated INR recently. ANGUS KING M.D. [id number]
--- NOTE | 2017-10-26 14:59 | PN ---
Addendum entered and electronically signed by Shaka Christensen, RESIDENT 10/26 15:57: Kidney transplant surgeon is Dr. Rangel at [facility] Original Note: <Shaka Christensen - Last Filed: 10/26/17 15:45> Physical Exam: SUBJECTIVE: Patient seen and examined at bedside. Patient states that his wrist has worsening pain and swelling compared to yesterday. He states that it no extends down to his elbow. Patient states that this has been progressing for around 2 weeks. He is a renal transplant patient who has a hx of unprovoked DVT on coumadin. He states that he was previously on eliquis but was switched to coumadin 2 weeks ago, around the same time the swelling and pain started. Yesterday patient's INR was 5.9 so coumadin was held - today it was 3.96. Patient states that this has not happened to him before. Denies chest pain, SOB , fevers, chills, nausea or vomiting. Patient does say he has some swelling of his legs as well, which he states is new. He is a patient of Dr. Echavarria's for a R hallux ulcer. OBJECTIVE: Vital Signs Period Temp Pulse Resp BP Sys/Lane Pulse Ox Last 24 Hr 97.4 F-98.8 F 66-88 16-20 160-216/67-94 99-100 GENERAL: The patient is awake, alert, and fully oriented, in no acute distress. LUNGS: Breath sounds equal, clear to auscultation bilaterally, no wheezes, no crackles, no accessory muscle use. HEART: Regular rate and rhythm, S1, S2, 3/6 systolic murmur at the 2nd intercostal space. ABDOMEN: Soft, nontender, nondistended, normoactive bowel sounds, no guarding, no rebound, no hepatosplenomegaly, no masses. EXTREMITIES: peripheral pulses intact bilaterally. L arm significant swelling and erythema both on dorsal and ventral side of arm. Tender to palpation on anterior forearm. Scab present on anterior forearm. Decreased ROM of L arm. R arm is without any abnormalities. NEUROLOGICAL: Cranial nerves II through XII grossly intact. Normal speech, gait not observed. PSYCH: Normal mood, normal affect. SKIN: Warm, dry, normal turgor, no rashes or lesions noted Laboratory Results - last 24 hr 10/25/17 10/25/17 10/25/17 20:40 20:40 22:48 WBC 12.6 H RBC 3.12 L Hgb 8.8 L D Hct 28.0 L MCV 89.6 MCH 28.1 MCHC 31.4 L RDW 18.2 H D Plt Count 250 D MPV 9.2 Neutrophils % 79.2 Lymphocytes % 12.0 D Monocytes % 7.4 Eosinophils % 1.2 Basophils % 0.2 ESR PT with INR 44.70 H INR 3.96 H D PTT (Actin FS) 46.9 H D Sodium 142 Potassium 4.6 Chloride 111 H Carbon Dioxide 18 L Anion Gap 13 BUN 150 H* D Creatinine 7.4 H D Creat Clearance w eGFR 7.49 POC Glucometer Random Glucose 311 H* D Uric Acid Calcium 7.1 L Phosphorus Magnesium Total Bilirubin 0.4 D AST 15 ALT 15 D Alkaline Phosphatase 71 C-Reactive Protein Total Protein 5.5 L Albumin 2.3 L D Urine Color Urine Appearance Urine pH Ur Specific Angie Urine Protein Urine Glucose (UA) Urine Ketones Urine Blood Urine Nitrite Urine Bilirubin Urine Urobilinogen Ur Leukocyte Esterase Urine WBC (Auto) Urine RBC (Auto) Ur Epithelial Cells Urine Bacteria Urine Mucus U Random Total Protein Ur Random Sodium Urine Creatinine 10/25/17 10/25/17 10/25/17 22:48 22:48 22:48 WBC RBC Hgb Hct MCV MCH MCHC RDW Plt Count MPV Neutrophils % Lymphocytes % Monocytes % Eosinophils % Basophils % ESR 73 H PT with INR INR PTT (Actin FS) Sodium Potassium Chloride Carbon Dioxide Anion Gap BUN Creatinine Creat Clearance w eGFR POC Glucometer Random Glucose Uric Acid 5.5 Calcium Phosphorus Magnesium Total Bilirubin AST ALT Alkaline Phosphatase C-Reactive Protein 0.5 H Total Protein Albumin Urine Color Urine Appearance Urine pH Ur Specific Angie Urine Protein Urine Glucose (UA) Urine Ketones Urine Blood Urine Nitrite Urine Bilirubin Urine Urobilinogen Ur Leukocyte Esterase Urine WBC (Auto) Urine RBC (Auto) Ur Epithelial Cells Urine Bacteria Urine Mucus U Random Total Protein Ur Random Sodium Urine Creatinine 10/26/17 10/26/17 10/26/17 05:05 06:00 06:00 WBC 11.8 H RBC 3.08 L Hgb 8.8 L Hct 27.3 L MCV 88.7 MCH 28.7 MCHC 32.3 RDW 18.2 H Plt Count 259 MPV 9.7 Neutrophils % 79.1 Lymphocytes % 12.9 Monocytes % 6.8 Eosinophils % 1.1 Basophils % 0.1 ESR PT with INR INR PTT (Actin FS) Sodium 143 Potassium 4.5 Chloride 112 H Carbon Dioxide 18 L Anion Gap 13 BUN 142 H* Creatinine 7.1 H Creat Clearance w eGFR 7.86 POC Glucometer Random Glucose 297 H Uric Acid Calcium 7.0 L Phosphorus 5.2 H Magnesium 1.8 Total Bilirubin 0.6 D AST 15 ALT 14 Alkaline Phosphatase 70 C-Reactive Protein Total Protein 5.5 L Albumin 2.3 L Urine Color Ltyellow Urine Appearance Clear Urine pH 5.0 Ur Specific Angie 1.018 Urine Protein 3+ H Urine Glucose (UA) 3+ H Urine Ketones Negative Urine Blood 1+ H Urine Nitrite Negative Urine Bilirubin Negative Urine Urobilinogen Negative Ur Leukocyte Esterase Negative Urine WBC (Auto) 3 Urine RBC (Auto) 8 Ur Epithelial Cells Rare Urine Bacteria Few Urine Mucus Rare U Random Total Protein Ur Random Sodium Urine Creatinine 10/26/17 10/26/17 10/26/17 12:15 13:12 13:12 WBC RBC Hgb Hct MCV MCH MCHC RDW Plt Count MPV Neutrophils % Lymphocytes % Monocytes % Eosinophils % Basophils % ESR PT with INR INR PTT (Actin FS) Sodium Potassium Chloride Carbon Dioxide Anion Gap BUN Creatinine Creat Clearance w eGFR POC Glucometer [phone] Random Glucose Uric Acid Calcium Phosphorus Magnesium Total Bilirubin AST ALT Alkaline Phosphatase C-Reactive Protein Total Protein Albumin Urine Color Urine Appearance Urine pH Ur Specific Angie Urine Protein Urine Glucose (UA) Urine Ketones Urine Blood Urine Nitrite Urine Bilirubin Urine Urobilinogen Ur Leukocyte Esterase Urine WBC (Auto) Urine RBC (Auto) Ur Epithelial Cells Urine Bacteria Urine Mucus U Random Total Protein Ur Random Sodium 31 Urine Creatinine 62.3 10/26/17 13:12 WBC RBC Hgb Hct MCV MCH MCHC RDW Plt Count MPV Neutrophils % Lymphocytes % Monocytes % Eosinophils % Basophils % ESR PT with INR INR PTT (Actin FS) Sodium Potassium Chloride Carbon Dioxide Anion Gap BUN Creatinine Creat Clearance w eGFR POC Glucometer Random Glucose Uric Acid Calcium Phosphorus Magnesium Total Bilirubin AST ALT Alkaline Phosphatase C-Reactive Protein Total Protein Albumin Urine Color Urine Appearance Urine pH Ur Specific Angie Urine Protein Urine Glucose (UA) Urine Ketones Urine Blood Urine Nitrite Urine Bilirubin Urine Urobilinogen Ur Leukocyte Esterase Urine WBC (Auto) Urine RBC (Auto) Ur Epithelial Cells Urine Bacteria Urine Mucus U Random Total Protein 1061 H Ur Random Sodium Urine Creatinine INR, PTT INR 3.96 (0.82-1.09) H D 10/25/17 22:48 Active Medications Generic Name Dose Route Start Last Admin Trade Name Freq PRN Reason Stop Dose Admin Amlodipine Besylate 10 mg 10/25/17 21:30 10/26/17 09:42 Norvasc - PO 10 mg DAILY OZIEL Administration Atorvastatin Calcium 40 mg 10/26/17 22:00 Lipitor - PO HS OZIEL Febuxostat 40 mg 10/26/17 10:00 10/26/17 09:42 Uloric - PO 40 mg DAILY OZIEL Administration Folic Acid 1 mg 10/26/17 10:00 10/26/17 09:42 Folic Acid - PO 1 mg DAILY OZIEL Administration Hydralazine HCl 25 mg 10/26/17 11:18 Apresoline - PO Q8H PRN HYPERTENSION Sodium Chloride 1,000 mls @ 100 mls/hr 10/26/17 11:30 10/26/17 12:22 Normal Saline - IV 100 mls/hr ASDIR OZIEL Administration Piperacillin/Tazobactam/Dextrose 2.25 gm in 50 mls @ 100 mls/hr 10/26/17 12: 30 Zosyn 2.25gm Ivpb (Premix) IVPB BID [facility] Protocol Clindamycin Phosphate 600 mg in 50 mls @ 100 mls/hr 10/26/17 12:30 Cleocin 600 Mg Premix Ivpb - IVPB Q8H-IV OZIEL Vancomycin HCl 1,000 mg/ 250 mls @ 250 mls/hr 10/26/17 22:00 Dextrose IVPB BID OZIEL Protocol Prednisone 5 mg 10/26/17 11:15 10/26/17 12:22 Deltasone - PO 5 mg DAILY OZIEL Administration Tacrolimus 1 mg/ Tacrolimus 0. 1.5 mg 10/26/17 11:30 10/26/17 12:23 5 mg PO 1.5 mg BID OZIEL Administration ASSESSMENT/PLAN: 62 year old male wiht a past medical history of right renal transplant, unprovoked DVT on coumadin, DM, s/p percutaneous angioplasty of R leg, R hallux ulcer presented to the ED with R hand and arm swelling, tenderness, and erythema suspect for cellulitis #Right Arm Cellulitis: likely 2/2 infection vs reaction of coumadin vs thrombophlebitis -patient was on vancomycin, clindamycin, and zosyn in the ED, continue these medications -US RUE shows superficial thrombphlebitis - but still appears cellulitic in nature -f/u blood cultures -f/u upper extremity CT scan -elevate arm and put in sling #Acute on Chronic Kidney Disease - likely 2/2 chronic nephropathy due to transplant -appreciate nephrology recommendations -hydrate with NS @ 100cc/hr #Right Kidney Transplant: increasing cre suggestive of possible chronic nephropathy -continue tacrolimus -continue prednisone -order tacrolimus level in AM -contact renal transplant physician #Hypertension: hypertensive today -continue amlodipine 10 qd -continue hydralazine 25 q8 #Gout: stable -continue febuxostat #Diabetes Mellitus -will confirm DM medications #Supratherapeutic INR -hold coumadin -repeat [place]/INR in Am -start heparin in AM #FEN: -NS @ 100 -careful with electrolyte repletion in [place]/CKD in renal transplant -diabetic, low sodium diet Prophylaxis: -hold coumadin now due to supratherapeutic state -start heparin in the morning Disposition: -monitor on med surg -Full code Visit type - Emergency Visit Emergency Visit: No - New Patient This patient is new to me today: Yes Date on this admission: 10/26/17 - Critical Care Critical Care patient: No <Gail Doll - Last Filed: 10/26/17 19:45> Physical Exam: SUBJECTIVE: Patient seen and examined Patient seen and examine. will repeat PT/INR in am , continue to hold the coumadin for now. official report of CT of the arm reviewed, discussed with , ID will place the patient's arm on a sling
[2017-10-26 15:12] LABS: INR 3.94 (0.82-1.09); PROTHROMBIN TIME (PATIENT) 44.5 SEC (9.98-11.88)
--- NOTE | 2017-10-26 15:26 | MSN ---
Progress Note (SOAP) - Subjective Chief Complaint: RUE Swelling and pain History of Present Illness: Pt is a 62 y/o male with pmhx of frequent DVT, type II DM, right kidney transplant and gout. Pt came to ED with edema of right upper extremity. Symptoms began 2 weeks ago when he noticed swelling in right wrist which was attributed to gout. Pt decided to come in when swelling started to spread proximally and distally. Swelling currently is up to elbows and tips of fingers. Pt has never experienced this before. He was recently started on coumadin and noticed that these symptoms appeared right after. Pt denies and nausea, chills, vomiting, fever, shortness of breath, chest pain or abdominal pain. - Current Medications Current Medications: Active Medications Amlodipine Besylate (Norvasc -) 10 mg PO DAILY [facility] Last Admin: 10/26/17 09:42 Dose: 10 mg Atorvastatin Calcium (Lipitor -) 40 mg PO HS OZIEL Febuxostat (Uloric -) 40 mg PO DAILY [facility] Last Admin: 10/26/17 09:42 Dose: 40 mg Folic Acid (Folic Acid -) 1 mg PO DAILY [facility] Last Admin: 10/26/17 09:42 Dose: 1 mg Hydralazine HCl (Apresoline -) 25 mg PO Q8H PRN PRN Reason: HYPERTENSION Sodium Chloride (Normal Saline -) 1,000 mls @ 100 mls/hr IV ASDIR [facility] Last Admin: 10/26/17 12:22 Dose: 100 mls/hr Piperacillin/Tazobactam/Dextrose (Zosyn 2.25gm Ivpb (Premix)) 2.25 gm in 50 mls @ 100 mls/hr IVPB BID [facility] PRN Reason: Protocol Clindamycin Phosphate (Cleocin 600 Mg Premix Ivpb -) 600 mg in 50 mls @ 100 mls /hr IVPB Q8H-IV OZIEL Vancomycin HCl 1,000 mg/ (Dextrose) 250 mls @ 250 mls/hr IVPB BID [facility] PRN Reason: Protocol Prednisone (Deltasone -) 5 mg PO DAILY [facility] Last Admin: 10/26/17 12:22 Dose: 5 mg Tacrolimus 1 mg/ Tacrolimus 0. (5 mg) 1.5 mg PO BID [facility] Last Admin: 10/26/17 12:23 Dose: 1.5 mg - Objective Vital Signs: Vital Signs Temperature 97.4 F L 10/26/17 11:59 Pulse Rate 80 10/26/17 11:59 Respiratory Rate 19 10/26/17 11:59 Blood Pressure 166/94 10/26/17 11:59 O2 Sat by Pulse Oximetry (%) 100 10/26/17 11:59 Constitutional: Yes: Well Nourished, No Distress, Calm Cardiovascular: Yes: Regular Rate and Rhythm Respiratory: Yes: Regular, CTA Bilaterally Musculoskeletal: Yes: Joint Swelling, Muscle Pain Extremities: Yes: Erythema, Other (edema) Edema: Yes Edema: RUE: 3+, LLE: 2+, RLE: 2+ Integumentary: Yes: Rash Neurological: Yes: Alert, Oriented ...Motor Strength: Yes: RUE (2/5 routeman) Labs Lab Results: CBC, BMP 10/26/17 06:00 10/26/17 06:00 Problem List - Problems (1) Pain and swelling of right upper extremity Assessment/Plan: MRA of right arm pending Continue abx Code(s): M79.601 - PAIN IN RIGHT ARM; M79.89 - OTHER SPECIFIED SOFT TISSUE DISORDERS (2) Diabetes Assessment/Plan: Continue Novolog and Levemir Monitor blood sugar Code(s): E11.9 - TYPE 2 DIABETES MELLITUS WITHOUT COMPLICATIONS Qualifiers: Diabetes mellitus type: type 2 (3) Diabetic toe ulcer Assessment/Plan: Had angioplasty done Have Dr. Jericho carr Code(s): E11.621 - TYPE 2 DIABETES MELLITUS WITH FOOT ULCER; L97.509 - NON- PRESSURE CHRONIC ULCER OTH PRT UNSP FOOT W UNSP SEVERITY Qualifiers: Diabetes mellitus type: type 2 Laterality: right (4) Renal transplant disorder Assessment/Plan: Continue tacrolimus for immunosuppession Code(s): T86.10 - UNSPECIFIED COMPLICATION OF KIDNEY TRANSPLANT
[2017-10-26] MEDS: CLINDAMYCIN 600MG PREMIX IVPB 600 MG/50 ML BAG IVPB SCH ×2 (17:38→17:41)
[2017-10-26] MEDS: PIPERACILLIN/TAZOB 2.25 GM 2.25 GM/50 ML BAG IVPB SCH ×2 (17:45→22:50)
[2017-10-26] MEDS ORDERED: PT OWN MED DRAWER 7, Y5N ONE (19:19)
[2017-10-26] MEDS ORDERED: VANCOMYCIN 1,000 MG in DEXTROSE 5%-WATER - 250 ML IVPB SCH (22:00)
[2017-10-26] MEDS: ATORVASTATIN CA 40 MG TABLET (FP) PO SCH (22:50)
[2017-10-26] MEDS: INSULIN DETEMIR 100 UNITS/ML MDV SQ SCH (22:50)
[2017-10-26] MEDS: INSULIN SLIDING SCALE (NOVOLOG) 1 VIAL SQ SCH (22:51)
[2017-10-27] MEDS: CLINDAMYCIN 600MG PREMIX IVPB 600 MG/50 ML BAG IVPB SCH ×2 (01:55→11:25)
[2017-10-27] MEDS: INSULIN SLIDING SCALE (NOVOLOG) 1 VIAL SQ SCH ×5 (06:29→22:45)
[2017-10-27 07:40] LABS: BASO % 0.2 % (0-2.0); EOS % 0.7 % (0-4.5); HEMATOCRIT 21.9 % (35.4-49); HEMOGLOBIN 7.1 GM/dL (11.7-16.9); LYMPH % 8.7 % (8-40); MCH 28.6 pg (25.7-33.7); MCHC 32.4 g/dl (32.0-35.9); MEAN CELL VOLUME 88.2 fl (80-96); MEAN PLT VOLUME 9.5 fl (7.5-11.1); NEUT % 83.4 % (42.8-82.8); PLATELET COUNT 190 K/MM3 (134-434); RBC 2.48 M/mm3 (4.00-5.60); RDW 17.7 % (11.9-15.9); WHITE BLOOD COUNT 9.8 K/mm3 (4.0-10.0)
[2017-10-27 07:58] LABS: INR 4.21 (0.82-1.09)
[2017-10-27 08:02] LABS: ALBUMIN 1.9 g/dl (3.4-5.0); ANION GAP 13 (8-16); BILIRUBIN,TOTAL 0.6 mg/dL (0.2-1.0); CHLORIDE 114 mmol/L (98-107); CO2 16 mmol/L (21-32); CREATININE 7.2 mg/dL (0.7-1.3); GLUCOSE,RANDOM 154 mg/dL (74-106); POTASSIUM 4.5 mmol/L (3.5-5.1); SGOT/AST 12 U/L (15-37); SGPT/ALT 11 U/L (12-78); SODIUM 143 mmol/L (136-145); TOT PROT 4.5 g/dl (6.4-8.2)
[2017-10-27 08:03] LABS: ALK PHOS 49 U/L (45-117)
[2017-10-27] MEDS: SODIUM CHLORIDE 1,000 ML IV SCH ×2 (08:12→12:22)
[2017-10-27 08:23] LABS: BLOOD UREA NITROGEN 133 mg/dL (7-18); CALCIUM 6.3 mg/dL (8.5-10.1)
[2017-10-27 08:33] LABS: PROTHROMBIN TIME (PATIENT) 47.6 SEC (9.98-11.88)
[2017-10-27 09:41] LABS: MAGNESIUM 1.7 mg/dL (1.8-2.4); PHOSPHOROUS 5.2 mg/dL (2.5-4.9)
[2017-10-27] MEDS ORDERED: PT OWN MED DRAWER 7, Y5N ONE ×2 (11:09→21:55)
[2017-10-27] MEDS: amLODIPine BESYLATE 10 MG TABLET (FP) PO SCH (11:25)
[2017-10-27] MEDS: FEBUXOSTAT 40 MG TAB PO SCH (11:25)
[2017-10-27] MEDS: TACROLIMUS ANHYDROUS 1 MG PO SCH ×2 (11:26→22:39)
[2017-10-27] MEDS: FOLIC ACID 1 MG TABLET (FP) PO SCH (11:26)
[2017-10-27] MEDS: TACROLIMUS 0.5 MG PO SCH ×2 (11:26→22:39)
[2017-10-27] MEDS: predniSONE 5 MG TABLET (UD) PO SCH (11:26)
[2017-10-27] MEDS: PIPERACILLIN/TAZOB 2.25 GM 2.25 GM/50 ML BAG IVPB SCH ×2 (11:31→22:39)
--- NOTE | 2017-10-27 11:32 | PN ---
Progress Note (short form) - Note Progress Note: Renal follow up for WESTON on CKD/Renal Transplant Pt seen and examined at the bedside no acute complaints arm feels better, still swollen, redness improved no sob, chest pain, abd pain making urine no metallic taste in mouth, N/V, confusion, lethargy, or muscle weakness Vital Signs Temperature 99.3 F 10/27/17 06:51 Pulse Rate 80 10/27/17 06:51 Respiratory Rate 20 10/27/17 06:51 Blood Pressure 133/59 10/27/17 06:51 O2 Sat by Pulse Oximetry (%) 98 10/26/17 21:00 Intake & Output 10/24/17 10/25/17 10/26/17 10/27/17 23:59 23:59 23:59 23:59 Intake Total 128 1999 Balance 128 1999 Weight 68.039 kg 68.039 kg 71.668 kg NAD awake and alert RRR DEc BS at lung bases soft NT/ND Right arm edema, erythema improved, + tenderness no myoclonis/asterxis on left arm CBC, BMP 10/27/17 05:25 10/27/17 05:25 Laboratory Tests 10/27/17 10/27/17 05:25 08:15 Calcium 6.3 L* Phosphorus 5.2 H Magnesium 1.7 L Albumin 1.9 L Current Medications Amlodipine Besylate (Norvasc -) 10 mg PO DAILY [facility] Last Admin: 10/26/17 09:42 Dose: 10 mg Atorvastatin Calcium (Lipitor -) 40 mg PO HS [facility] Last Admin: 10/26/17 22:50 Dose: 40 mg Febuxostat (Uloric -) 40 mg PO DAILY [facility] Last Admin: 10/26/17 09:42 Dose: 40 mg Folic Acid (Folic Acid -) 1 mg PO DAILY [facility] Last Admin: 10/26/17 09:42 Dose: 1 mg Hydralazine HCl (Apresoline -) 25 mg PO Q8H PRN PRN Reason: HYPERTENSION Sodium Chloride (Normal Saline -) 1,000 mls @ 100 mls/hr IV ASDIR [facility] Last Admin: 10/27/17 08:12 Dose: 100 mls/hr Piperacillin/Tazobactam/Dextrose (Zosyn 2.25gm Ivpb (Premix)) 2.25 gm in 50 mls @ 100 mls/hr IVPB BID [facility] PRN Reason: Protocol Last Admin: 10/26/17 22:50 Dose: 100 mls/hr Clindamycin Phosphate (Cleocin 600 Mg Premix Ivpb -) 600 mg in 50 mls @ 100 mls /hr IVPB Q8H-IV [facility] Last Admin: 10/27/17 01:55 Dose: 100 mls/hr Vancomycin HCl 1,000 mg/ (Dextrose) 250 mls @ 250 mls/hr IVPB BID [facility] PRN Reason: Protocol Insulin Aspart (Novolog Vial Sliding Scale -) 1 vial SQ ACHS [facility] PRN Reason: Protocol Last Admin: 10/27/17 06:29 Dose: Not Given Insulin Detemir (Levemir Vial) 15 units SQ HS [facility] Last Admin: 10/26/17 22:50 Dose: 15 units Prednisone (Deltasone -) 5 mg PO DAILY [facility] Last Admin: 10/26/17 12:22 Dose: 5 mg Tacrolimus 1 mg/ Tacrolimus 0. 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 #WESTON on CKD Outpatient Cr was 3.81 in July and 4.39 in may Urine studies consistent with tubular damage pt is non-oliguric by his report no acute indication for [facility] (no overt uremia, hyperkalmeia). Pt does have low serum bicab, will check ABG Tacrolimus level collected, result pending continue Tacrolimus 1.5mg BID, Prednisone 5mg Daily Decrease IVF rate to 75cc per hour and can plan to stop in 24 hours if there is no significant change in renal function Keep MAP > 65 would avoid CHRALES/ARB/NSAIDs/IV contrast at this time dose all meds for CrCl less then 10 if there is no significant improvement in renal function in next 48-72 hour pt may warrant stating dialysis #Right arm swelling/Celluliits CT showed cellulitis and fluid collection (? hematoma) continue Abx as per ID Vascular Sx follow up #Anion gap Metabolic acidosis check Lactic acid levels check ABG if ph < 7.2 will need to start bicarb #Anemia check iron studies transfuse as per protocol if iron stores are replete can start KADE as well Thank you Will follow Eagle Thomas DO
[2017-10-27] MEDS: CALCIUM ACETATE 667 MG CAPSULE (FP) PO SCH ×2 (12:34→17:59)
--- NOTE | 2017-10-27 14:33 | PN ---
Physical Exam: SUBJECTIVE: Patient seen and examined at bedside. Patient states that the pain has subsided in his arm but that the swelling still persists. Patient denies chest pain, SOB, nausea, vomiting diarrhea. OBJECTIVE: Vital Signs Period Temp Pulse Resp BP Sys/Lane Pulse Ox Last 24 Hr 97.6 F-99.3 F 80-95 18-20 123-153/59-92 98-100 GENERAL: The patient is awake, alert, and fully oriented, in no acute distress. HEAD: Normal with no signs of trauma. NECK: Trachea midline, full range of motion, supple. LUNGS: Breath sounds equal, clear to auscultation bilaterally, no wheezes, no crackles, no accessory muscle use. HEART: Regular rate and rhythm, 3/6 systolic murmur noted on exam ABDOMEN: Soft, nontender, nondistended, normoactive bowel sounds, no guarding, no rebound, no hepatosplenomegaly, no masses. EXTREMITIES: 2+ pulses, warm, well-perfused. R arm edematous and erythematous, improved from yesterday's exam. Non-tender to palpation of R arm. Laboratory Results - last 24 hr 10/26/17 10/26/17 10/26/17 06:00 16:32 22:47 WBC RBC Hgb Hct MCV MCH MCHC RDW Plt Count MPV Neutrophils % Lymphocytes % Monocytes % Eosinophils % Basophils % PT with INR 44.50 H INR 3.94 H Sodium Potassium Chloride Carbon Dioxide Anion Gap BUN Creatinine Creat Clearance w eGFR POC Glucometer 269 233 Random Glucose Calcium Phosphorus Magnesium Ferritin Total Bilirubin AST ALT Alkaline Phosphatase Total Protein Albumin Random Vancomycin 10/27/17 10/27/17 10/27/17 05:25 05:25 05:25 WBC 9.8 RBC 2.48 L Hgb 7.1 L D Hct 21.9 L D MCV 88.2 MCH 28.6 MCHC 32.4 RDW 17.7 H Plt Count 190 D MPV 9.5 Neutrophils % 83.4 H Lymphocytes % 8.7 D Monocytes % 7.0 Eosinophils % 0.7 Basophils % 0.2 PT with INR 47.60 H INR 4.21 H* Sodium 143 Potassium 4.5 Chloride 114 H Carbon Dioxide 16 L Anion Gap 13 BUN 133 H* Creatinine 7.2 H Creat Clearance w eGFR 7.73 POC Glucometer Random Glucose 154 H D Calcium 6.3 L* Phosphorus Magnesium Ferritin 336.125 H Total Bilirubin 0.6 AST 12 L ALT 11 L D Alkaline Phosphatase 49 D Total Protein 4.5 L Albumin 1.9 L Random Vancomycin 10/27/17 10/27/17 10/27/17 06:27 08:15 08:15 WBC RBC Hgb Hct MCV MCH MCHC RDW Plt Count MPV Neutrophils % Lymphocytes % Monocytes % Eosinophils % Basophils % PT with INR INR Sodium Potassium Chloride Carbon Dioxide Anion Gap BUN Creatinine Creat Clearance w eGFR POC Glucometer 135 Random Glucose Calcium Phosphorus 5.2 H Magnesium 1.7 L Ferritin Total Bilirubin AST ALT Alkaline Phosphatase Total Protein Albumin Random Vancomycin 20.340 10/27/17 12:18 WBC RBC Hgb Hct MCV MCH MCHC RDW Plt Count MPV Neutrophils % Lymphocytes % Monocytes % Eosinophils % Basophils % PT with INR INR Sodium Potassium Chloride Carbon Dioxide Anion Gap BUN Creatinine Creat Clearance w eGFR POC Glucometer 151 Random Glucose Calcium Phosphorus Magnesium Ferritin Total Bilirubin AST ALT Alkaline Phosphatase Total Protein Albumin Random Vancomycin Active Medications Generic Name Dose Route Start Last Admin Trade Name Freq PRN Reason Stop Dose Admin Amlodipine Besylate 10 mg 10/25/17 21:30 10/27/17 11:25 Norvasc - PO 10 mg DAILY [facility] Administration Atorvastatin Calcium 40 mg 10/26/17 22:00 10/26/17 22:50 Lipitor - PO 40 mg HS [facility] Administration Calcium Acetate 667 mg 10/27/17 12:00 10/27/17 12:34 Phoslo - PO 667 mg TIDCM [facility] Administration Febuxostat 40 mg 10/26/17 10:00 10/27/17 11:25 Uloric - PO 40 mg DAILY [facility] Administration Folic Acid 1 mg 10/26/17 10:00 10/27/17 11:26 Folic Acid - PO 1 mg DAILY [facility] Administration Hydralazine HCl 25 mg 10/26/17 11:18 Apresoline - PO Q8H PRN HYPERTENSION Sodium Chloride 1,000 mls @ 100 mls/hr 10/26/17 11:30 10/27/17 12:22 Normal Saline - IV Not Given ASDIR [facility] Piperacillin/Tazobactam/Dextrose 2.25 gm in 50 mls @ 100 mls/hr 10/26/17 12: 30 10/27/17 11:31 Zosyn 2.25gm Ivpb (Premix) IVPB 100 mls/hr BID [facility] Administration Protocol Clindamycin Phosphate 600 mg in 50 mls @ 100 mls/hr 10/26/17 12:30 10/27/17 11:25 Cleocin 600 Mg Premix Ivpb - IVPB 100 mls/hr Q8H-IV [facility] Administration Vancomycin HCl 1,000 mg/ 250 mls @ 250 mls/hr 10/26/17 22:00 Dextrose IVPB BID [facility] Protocol Insulin Aspart 1 vial 10/26/17 22:00 10/27/17 12:34 Novolog Vial Sliding Scale - SQ 2 units ACHS [facility] Administration Protocol Insulin Detemir 15 units 10/26/17 22:00 10/26/17 22:50 Levemir Vial SQ 15 units HS [facility] Administration Prednisone 5 mg 10/26/17 11:15 10/27/17 11:26 Deltasone - PO 5 mg DAILY [facility] Administration Tacrolimus 1 mg/ Tacrolimus 0. 1.5 mg 10/26/17 11:30 10/27/17 11:26 5 mg PO 1.5 mg BID [facility] Administration INR, PTT INR 4.21 (0.82-1.09) H* 10/27/17 05:25 ASSESSMENT/PLAN: 62 year old male with a history of unprovoked DVT, R renal transplant admitted with R arm swelling and erythema 2/2 cellulitis and muscular hematoma and 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 #Cellulitis of the R arm: improving, arm is still swollen, but less tender to palpation and significantly less erythematous -continue vancomycin 1000 BID, zosyn 2.25 BID, clindamycin 600 Q8 -monitor pulse -US RUE: superficial thrombophlebitis -CT RUE: fluid collection in arm and likely intramuscular hematoma -keep R arm elevated and in a sling #Intramuscular hematoma: improving, less erythematous and edematous -patient had anticoagulation held due to supratherapeutic INR -keep arm in sling -monitor H&H -vascular surgery consultation #Acute on Chronic Kidney Disease with R Renal Transplant: 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 -continue Tacrolimus -continue prednisone -Monitor electrolytes, creatinine -fluids at 75cc/hr and stop after the bag -watch Cre -appreciate nephrology consultation #Diabetes Mellitus: controlled -continue levemir 15 -continue ISS #Hypertension: controlled -continue hydralazine 25 TID -continue amlodipine 10 QD #Gout: stable -continue febuxostat #Supratherapeutic INR: INR 4.21 today -hold anticoagulation #FEN: NS @ 75cc/hr then stop Low Ca and Mg, replete Mg with 64mg MgCl Diabetic, Low sodium diet #Prophylaxis: -AC held due to INR -SCDs #Dispo: -continue to monitor Shaka Christensen D.O., PGY1 Case Discussed with Dr. Russo Visit type - Emergency Visit Emergency Visit: No - New Patient This patient is new to me today: No - Critical Care Critical Care patient: No
--- NOTE | 2017-10-27 15:22 | PN ---
Progress Note, Physician Chief Complaint: ID CT seen and case discussed wit Dr Echavarria Still on Vancomycin Clindamycin Zosyn - Current Medication List Current Medications: Active Medications Amlodipine Besylate (Norvasc -) 10 mg PO DAILY [facility] Last Admin: 10/27/17 11:25 Dose: 10 mg Atorvastatin Calcium (Lipitor -) 40 mg PO HS [facility] Last Admin: 10/26/17 22:50 Dose: 40 mg Calcium Acetate (Phoslo -) 667 mg PO TIDCM [facility] Last Admin: 10/27/17 12:34 Dose: 667 mg Febuxostat (Uloric -) 40 mg PO DAILY [facility] Last Admin: 10/27/17 11:25 Dose: 40 mg Folic Acid (Folic Acid -) 1 mg PO DAILY [facility] Last Admin: 10/27/17 11:26 Dose: 1 mg Hydralazine HCl (Apresoline -) 25 mg PO Q8H PRN PRN Reason: HYPERTENSION Sodium Chloride (Normal Saline -) 1,000 mls @ 100 mls/hr IV ASDIR [facility] Last Admin: 10/27/17 12:22 Dose: Not Given Piperacillin/Tazobactam/Dextrose (Zosyn 2.25gm Ivpb (Premix)) 2.25 gm in 50 mls @ 100 mls/hr IVPB BID [facility] PRN Reason: Protocol Last Admin: 10/27/17 11:31 Dose: 100 mls/hr Clindamycin Phosphate (Cleocin 600 Mg Premix Ivpb -) 600 mg in 50 mls @ 100 mls /hr IVPB Q8H-IV [facility] Last Admin: 10/27/17 11:25 Dose: 100 mls/hr Vancomycin HCl 1,000 mg/ (Dextrose) 250 mls @ 250 mls/hr IVPB BID [facility] PRN Reason: Protocol Insulin Aspart (Novolog Vial Sliding Scale -) 1 vial SQ [facility] PRN Reason: Protocol Last Admin: 10/27/17 12:34 Dose: 2 units Insulin Detemir (Levemir Vial) 15 units SQ [facility] Last Admin: 10/26/17 22:50 Dose: 15 units Magnesium Chloride (Slow-Mag -) 64 mg PO DAILY [facility] Prednisone (Deltasone -) 5 mg PO DAILY [facility] Last Admin: 10/27/17 11:26 Dose: 5 mg Tacrolimus 1 mg/ Tacrolimus 0. (5 mg) 1.5 mg PO BID [facility] Last Admin: 10/27/17 11:26 Dose: 1.5 mg - Objective Vital Signs: Vital Signs Temperature 99.3 F 10/27/17 06:51 Pulse Rate 80 10/27/17 06:51 Respiratory Rate 20 10/27/17 06:51 Blood Pressure 133/59 10/27/17 06:51 O2 Sat by Pulse Oximetry (%) 98 10/26/17 21:00 Constitutional: Yes: No Distress Neck: Yes: WNL, Supple Cardiovascular: Yes: S1, S2 Respiratory: Yes: WNL, Regular, CTA Bilaterally Extremities: Yes: Other (Right thand in sling hand edema less) Labs: CBC, BMP 10/27/17 05:25 10/27/17 05:25 INR, PTT INR 4.21 (0.82-1.09) H* 10/27/17 05:25 Problem List - Problems (1) Renal transplant disorder Code(s): T86.10 - UNSPECIFIED COMPLICATION OF KIDNEY TRANSPLANT (2) Cellulitis Code(s): L03.90 - CELLULITIS, UNSPECIFIED (3) Diabetes Code(s): E11.9 - TYPE 2 DIABETES MELLITUS WITHOUT COMPLICATIONS Qualifiers: Diabetes mellitus type: type 2 Assessment/Plan Microbiology 10/25/17 20:40 Blood - Peripheral Venous Blood Culture - Preliminary NO GROWTH OBTAINED AFTER 24 HOURS, INCUBATION TO CONTINUE FOR 4 DAYS. 10/25/17 20:40 Blood - Peripheral Venous Blood Culture - Preliminary NO GROWTH OBTAINED AFTER 24 HOURS, INCUBATION TO CONTINUE FOR 4 DAYS. Laboratory Tests 10/25/17 10/25/17 10/27/17 22:48 22:48 05:25 WBC 9.8 Hct 21.9 L D Plt Count 190 D ESR 73 H C-Reactive Protein 0.5 H Assessment Extensive hematoma of the right forearm on anticoagulation Less likely infection Plan STOP ZOSYN CLINDA Vanco level Discussed with SABA Chowdhury MD
--- NOTE | 2017-10-27 15:24 | PN ---
Teaching Attending Note Name of Resident: Shaka Christensen ATTENDING PHYSICIAN STATEMENT I saw and evaluated the patient. I reviewed the resident's note and discussed the case with the resident. I agree with the resident's findings and plan as documented. SUBJECTIVE: Patient is feeling better with no acute distress. Denies any shortness of breath , No hemodynamic instability. OBJECTIVE: Vital Signs Temperature 99.3 F 10/27/17 06:51 Pulse Rate 80 10/27/17 06:51 Respiratory Rate 20 10/27/17 06:51 Blood Pressure 133/59 10/27/17 06:51 O2 Sat by Pulse Oximetry (%) 98 10/26/17 21:00 CBCD WBC 9.8 K/mm3 (4.0-10.0) 10/27/17 05:25 RBC 2.48 M/mm3 (4.00-5.60) L 10/27/17 05:25 Hgb 7.1 GM/dL (11.7-16.9) L D 10/27/17 05:25 Hct 21.9 % (35.4-49) L D 10/27/17 05:25 MCV 88.2 fl (80-96) 10/27/17 05:25 MCHC 32.4 g/dl (32.0-35.9) 10/27/17 05:25 RDW 17.7 % (11.9-15.9) H 10/27/17 05:25 Plt Count 190 K/MM3 (134-434) D 10/27/17 05:25 MPV 9.5 fl (7.5-11.1) 10/27/17 05:25 CMP Sodium 143 mmol/L (136-145) 10/27/17 05:25 Potassium 4.5 mmol/L (3.5-5.1) 10/27/17 05:25 Chloride 114 mmol/L (98-107) H 10/27/17 05:25 Carbon Dioxide 16 mmol/L (21-32) L 10/27/17 05:25 Anion Gap 13 (8-16) 10/27/17 05:25 BUN 133 mg/dL (7-18) H* 10/27/17 05:25 Creatinine 7.2 mg/dL (0.7-1.3) H 10/27/17 05:25 Creat Clearance w eGFR 7.73 (>60) 10/27/17 05:25 Random Glucose 154 mg/dL (74-106) H D 10/27/17 05:25 Calcium 6.3 mg/dL (8.5-10.1) L* 10/27/17 05:25 Total Bilirubin 0.6 mg/dL (0.2-1.0) 10/27/17 05:25 AST 12 U/L (15-37) L 10/27/17 05:25 ALT 11 U/L (12-78) L D 10/27/17 05:25 Alkaline Phosphatase 49 U/L (45-117) D 10/27/17 05:25 Total Protein 4.5 g/dl (6.4-8.2) L 10/27/17 05:25 Albumin 1.9 g/dl (3.4-5.0) L 10/27/17 05:25 Current Medications Generic Name Dose Route Start Last Admin Trade Name Freq PRN Reason Stop Dose Admin Amlodipine Besylate 10 mg 10/25/17 21:30 10/27/17 11:25 Norvasc - PO 10 mg DAILY [facility] Administration Atorvastatin Calcium 40 mg 10/26/17 22:00 10/26/17 22:50 Lipitor - PO 40 mg HS [facility] Administration Calcium Acetate 667 mg 10/27/17 12:00 10/27/17 12:34 Phoslo - PO 667 mg TIDCM [facility] Administration Febuxostat 40 mg 10/26/17 10:00 10/27/17 11:25 Uloric - PO 40 mg DAILY [facility] Administration Folic Acid 1 mg 10/26/17 10:00 10/27/17 11:26 Folic Acid - PO 1 mg DAILY [facility] Administration Hydralazine HCl 25 mg 10/26/17 11:18 Apresoline - PO Q8H PRN HYPERTENSION Sodium Chloride 1,000 mls @ 100 mls/hr 10/26/17 11:30 10/27/17 12:22 Normal Saline - IV Not Given ASDIR [facility] Piperacillin/Tazobactam/Dextrose 2.25 gm in 50 mls @ 100 mls/hr 10/26/17 12: 30 10/27/17 11:31 Zosyn 2.25gm Ivpb (Premix) IVPB 100 mls/hr BID [facility] Administration Protocol Insulin Aspart 1 vial 10/26/17 22:00 10/27/17 12:34 Novolog Vial Sliding Scale - SQ 2 units ACHS [facility] Administration Protocol Insulin Detemir 15 units 10/26/17 22:00 10/26/17 22:50 Levemir Vial SQ 15 units HS [facility] Administration Magnesium Chloride 64 mg 10/27/17 15:00 Slow-Mag - PO DAILY [facility] Prednisone 5 mg 10/26/17 11:15 10/27/17 11:26 Deltasone - PO 5 mg DAILY [facility] Administration Tacrolimus 1 mg/ Tacrolimus 0. 1.5 mg 10/26/17 11:30 10/27/17 11:26 5 mg PO 1.5 mg BID [facility] Administration Home Medications Medication Instructions Recorded Amlodipine Besylate 10 mg PO DAILY 01/31/13 Atorvastatin Ca [Lipitor] 40 mg PO HS 01/31/13 Folic Acid 1 mg PO DAILY 01/31/13 Prednisone 5 mg PO DAILY 01/31/13 Tacrolimus [Prograf] 1.5 mg PO BID 01/31/13 Insulin Glargine,Hum.rec.anlog 5 units MIJ TIDCM 06/05/15 [Lantus Solostar PEN -] Aspirin [ASA -] 81 mg PO DAILY 10/26/16 Febuxostat [Uloric -] 40 mg PO DAILY 10/26/16 Warfarin Sodium [Coumadin] 0.5 mg PO HS 10/25/17 Insulin Aspart [Novolog Flexpen] 5 units BID 10/26/17 Insulin Detemir [Levemir Flextouch] 15 units SCJ DAILY 10/26/17 PE: sitting on the bed with no acute distress LUE: swelling slightly better, wrapped the arm. IMPRESSION: 1. Approximately 4.7 x 4.1 x 7.3 cm heterogeneously hyperdense round lesion within the deep volar muscles overlying the mid radius and ulna is presumably an intramuscular hematoma. Underlying neoplasm cannot be excluded. Please correlate clinically and with clinical follow-up to resolution. If there is no meter changes records clerk time, then follow-up contrast-enhanced MRI of the forearm is suggested. 2. Extensive confluent fluid within the subcutaneous fat extending from the mid humerus through the hand, most prominent in the dorsal soft tissues overlying the left hand, wrist and forearm. This fluid is nonspecific but may be attributed to cellulitis in the appropriate clinical setting. 3. Cannot exclude drainable collection/abscess without IV contrast. Please correlate with physical exam. Compartment syndrome cannot be excluded radiologically, requiring clinical correlation. 4. Chronic fragmentation and deformity of the capitate as described above may be attributed to osteonecrosis. Reported By: Cesar Dominguez DO 10/26/17 1726 US of the kidney: Morphologically normal right lower quadrant renal transplant with arterial and venous flow documented to the kidney. Please see above discussion. Reported By: Taurus oCrtez MD 10/26/17 1400 IMPRESSION: There is no sonographic evidence of DVT involving the right arm. Superficial thrombophlebitis is identified. Specifically there is involvement of the superficial basilic vein. RIGHT UPPER EXTREMITY ARTERIAL DOPPLER ULTRASOUND Clinical information: evaluate arterial circulation The exam was performed utilizing grayscale as well as color flow and spectral Doppler sonography. Biphasic waveforms are noted within the right subclavian, axillary, and brachial arteries. There is diminished monophasic waveform flow within the radial and ulnar arteries. Impression: As noted above. Reported By: Glenn Hill MD 10/25/17 2211 ASSESSMENT AND PLAN: Patient is a 62 year old gentleman with PMhx of Renal Transplant ( [facility]) with baseline cr 3.8-4.5, T2DM,, Hyperetnsion, Gout, Hx of DVT on coumadin who presented with complaints of right arm swelling and pain with possible cellulitis/hematoma. # Acute Right arm swelling/Cellulitis, seen by ID was started on IV antibiotic , but CT reported as above hematoma, and as per no fasciitis/ or compartment syndrome , discussed with to discontinue IV antibiotics since no indication of infection at this time, patient is afebrile , will hold IV antibiotics . #Anemia hemoglobin dropped further , will repeat the level now , type and screen if drops further will transfuse one unit, also will give him vit k po 2.5mg x1 discussed with , to give a unit if hemoglobin drops further. #Acute on chronic Kidney disease with a baseline of creatinine of 3.81 , for a consult # Acute coagulopathy will hold coumadin since INR is elevated.continue to hold, will give him a dose of vit.2.5mg x1 DVT Px: coumadin on hold
--- NOTE | 2017-10-27 16:55 | PN ---
Progress Note (short form) - Note Progress Note: Pt seen and examined today. His right hand swelling is a little improved. Vital Signs Period Temp Pulse Resp BP Sys/Lane Pulse Ox Last 24 Hr 97.6 F-99.3 F 80-95 18-20 120-145/59-79 98 RUE:evidence of improved swelling to the hand. Good radial pulse/warm extremity. weakness to finger abduction/adduction. Able to extend thumb. decreased manager quality improvement strength and ability to make a fist. Placed miya wrap from fingers to above elbow and stockingette to hang extremity from IV pole. Ct scan 7x4x4 cm intramuscular collection hyperdense lesion ?hematoma versus mass-no acute fractures viasualized-MRA pending INR, PTT INR 4.21 (0.82-1.09) H* 10/27/17 05:25 CBC, BMP 10/27/17 05:25 10/27/17 05:25 A/P: 62 yo male with most likely hematoma to his RUE holding coumadin, INR 4.2 Strict elevation with miya wrap/stockingette and hanging extremity D/w Dr. Echavarria
[2017-10-27] MEDS ORDERED: PHYTONADIONE 5 MG TABLET PO ONE (17:03)
[2017-10-27] MEDS: MAGNESIUM CL 64 MG TABLET.SA PO SCH (18:01)
--- NOTE | 2017-10-27 18:04 | CONSULT ---
Consult - text type - Consultation Consultation Note: This is a 62 year old gentleman with 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 Pt reports the pain started at the wrist about 2 weeks ago. Arm was red, tender and swollen. Denies fever, chills. On Prograf and Prednisone for immunosuppression. No N/V/D. Reports preserved apatite. No graft tenderness. Making urine. No hematuria, or dysuria. No SOB, Chest pain. - Past Medical History Cardio/Vascular: Yes: HTN Renal/: Yes: Renal Failure, Renal Inusuff Endocrine: Yes: Diabetes Mellitus - Smoking History Smoking history: Never smoked Home Medications - Allergies Allergies/Adverse Reactions: Allergies Allergy/AdvReac Type Severity Reaction Status Date / Time No Known Drug Allergies Allergy Verified 10/25/17 14:07 - Home Medications Home Medications: Ambulatory Orders Amlodipine Besylate 10 mg PO DAILY 01/31/13 Atorvastatin Ca [Lipitor] 40 mg PO HS 01/31/13 Folic Acid 1 mg PO DAILY 01/31/13 Prednisone 5 mg PO DAILY 01/31/13 Tacrolimus [Prograf] 1.5 mg PO BID 01/31/13 Insulin Glargine,Hum.rec.anlog [Lantus Solostar PEN -] 5 units PAJ TIDCM Aspirin [ASA -] 81 mg PO DAILY 10/26/16 Febuxostat [Uloric -] 40 mg PO DAILY 10/26/16 Warfarin Sodium [Coumadin] 0.5 mg PO HS 10/25/17 Current Medications Amlodipine Besylate (Norvasc -) 10 mg PO DAILY [facility] Last Admin: 10/27/17 11:25 Dose: 10 mg Atorvastatin Calcium (Lipitor -) 40 mg PO [facility] Last Admin: 10/26/17 22:50 Dose: 40 mg Calcium Acetate (Phoslo -) 667 mg PO TIDCM [facility] Last Admin: 10/27/17 17:59 Dose: 667 mg Febuxostat (Uloric -) 40 mg PO DAILY [facility] Last Admin: 10/27/17 11:25 Dose: 40 mg Folic Acid (Folic Acid -) 1 mg PO DAILY [facility] Last Admin: 10/27/17 11:26 Dose: 1 mg Hydralazine HCl (Apresoline -) 25 mg PO Q8H PRN PRN Reason: HYPERTENSION Sodium Chloride (Normal Saline -) 1,000 mls @ 100 mls/hr IV ASDIR [facility] Last Admin: 10/27/17 12:22 Dose: Not Given Piperacillin/Tazobactam/Dextrose (Zosyn 2.25gm Ivpb (Premix)) 2.25 gm in 50 mls @ 100 mls/hr IVPB BID [facility] PRN Reason: Protocol Last Admin: 10/27/17 11:31 Dose: 100 mls/hr Insulin Aspart (Novolog Vial Sliding Scale -) 1 vial SQ ACHS [facility] PRN Reason: Protocol Last Admin: 10/27/17 18:01 Dose: 4 units Insulin Detemir (Levemir Vial) 15 units SQ HS [facility] Last Admin: 10/26/17 22:50 Dose: 15 units Magnesium Chloride (Slow-Mag -) 64 mg PO DAILY [facility] Last Admin: 10/27/17 18:01 Dose: 64 mg Prednisone (Deltasone -) 5 mg PO DAILY [facility] Last Admin: 10/27/17 11:26 Dose: 5 mg Tacrolimus 1 mg/ Tacrolimus 0. (5 mg) 1.5 mg PO BID [facility] Last Admin: 10/27/17 11:26 Dose: 1.5 mg - Physical Examination Vital Signs: Last Vital Signs Temp Pulse Resp BP Pulse Ox 99 F 85 20 120/76 98 10/27/17 14:00 10/27/17 14:00 10/27/17 14:00 10/27/17 14:00 10/26/17 21:00 Cor: RSR, No murmurs, No gallops Lungs: Clear to P&A Abd: Soft, Normal bowel sounds, No organomegaly Ext:No significant edema Skin: No rashes, Integument intact Assessment/Plan 62 year old gentleman with PMhx of Renal Transplant (2000, 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 Being treated for cellulitis Anemia : anemia of chronic disease due to [place] on CKD f/u iron studies replete iron based on iron studies and to consider procrit per renal protocol once iron repleted transfuse PRBCs if hempglobin drops further Coagulopathy--coumadin on hold ? due to ongoing infection/meds? 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
[2017-10-27 19:43] LABS: BASO % 0.1 % (0-2.0); EOS % 0.2 % (0-4.5); HEMATOCRIT 23.2 % (35.4-49); HEMOGLOBIN 7.5 GM/dL (11.7-16.9); LYMPH % 3.8 % (8-40); MCH 28.8 pg (25.7-33.7); MCHC 32.3 g/dl (32.0-35.9); MEAN PLT VOLUME 9.2 fl (7.5-11.1); MONO % 3.7 % (3.8-10.2); NEUT % 92.2 % (42.8-82.8); PLATELET COUNT 199 K/MM3 (134-434); RBC 2.61 M/mm3 (4.00-5.60); RDW 17.9 % (11.9-15.9); WHITE BLOOD COUNT 9.9 K/mm3 (4.0-10.0)
[2017-10-27] MEDS ORDERED: INSULIN (NOVOLOG) ASPART 100 UNITS/ML 10ML VIAL ONE (22:35)
[2017-10-27] MEDS: INSULIN DETEMIR 100 UNITS/ML MDV SQ SCH (22:37)
[2017-10-27] MEDS: ATORVASTATIN CA 40 MG TABLET (FP) PO SCH (22:38)
[2017-10-28] MEDS: SODIUM CHLORIDE 1,000 ML IV SCH ×2 (00:42→12:34)
[2017-10-28] MEDS: INSULIN SLIDING SCALE (NOVOLOG) 1 VIAL SQ SCH ×4 (07:40→22:01)
[2017-10-28 07:43] LABS: BASO % 0.5 % (0-2.0); EOS % 0.8 % (0-4.5); HEMATOCRIT 22.9 % (35.4-49); HEMOGLOBIN 7.4 GM/dL (11.7-16.9); LYMPH % 9.8 % (8-40); MCH 28.8 pg (25.7-33.7); MCHC 32.2 g/dl (32.0-35.9); MEAN CELL VOLUME 89.3 fl (80-96); MEAN PLT VOLUME 9.3 fl (7.5-11.1); MONO % 7.1 % (3.8-10.2); NEUT % 81.8 % (42.8-82.8); PLATELET COUNT 198 K/MM3 (134-434); RBC 2.56 M/mm3 (4.00-5.60); RDW 18.7 % (11.9-15.9); WHITE BLOOD COUNT 10.7 K/mm3 (4.0-10.0)
[2017-10-28 08:05] LABS: INR 2.47 (0.82-1.09); PROTHROMBIN TIME (PATIENT) 27.9 SEC (9.98-11.88)
[2017-10-28 08:07] LABS: SERUM IRON SATURATION 24 % (15-55); TOTAL IRON BINDING CAPACITY 204 ug/dL (250-450); UIBC 156 ug/dL (111-343)
[2017-10-28 08:37] LABS: ALK PHOS 50 U/L (45-117)
[2017-10-28] MEDS: FOLIC ACID 1 MG TABLET (FP) PO SCH ×2 (08:52→10:40)
[2017-10-28] MEDS: CALCIUM ACETATE 667 MG CAPSULE (FP) PO SCH ×3 (08:52→16:51)
[2017-10-28] MEDS: predniSONE 5 MG TABLET (UD) PO SCH ×2 (08:52→10:40)
[2017-10-28] MEDS: amLODIPine BESYLATE 10 MG TABLET (FP) PO SCH ×2 (08:52→10:40)
[2017-10-28] MEDS: MAGNESIUM CL 64 MG TABLET.SA PO SCH ×2 (08:53→10:41)
[2017-10-28] MEDS ORDERED: PT OWN MED DRAWER 7, Y5N ONE ×2 (09:00→22:03)
[2017-10-28] MEDS: TACROLIMUS ANHYDROUS 1 MG PO SCH ×2 (09:03→22:48)
[2017-10-28] MEDS: TACROLIMUS 0.5 MG PO SCH ×2 (09:03→22:48)
[2017-10-28] MEDS: PIPERACILLIN/TAZOB 2.25 GM 2.25 GM/50 ML BAG IVPB SCH ×2 (09:05→21:05)
[2017-10-28] MEDS: FEBUXOSTAT 40 MG TAB PO SCH (09:05)
[2017-10-28 11:33] LABS: ANION GAP 13 (8-16); BILIRUBIN,TOTAL 0.4 mg/dL (0.2-1.0); CHLORIDE 119 mmol/L (98-107); CO2 16 mmol/L (21-32); GLUCOSE,RANDOM 160 mg/dL (74-106); MAGNESIUM 1.7 mg/dL (1.8-2.4); PHOSPHOROUS 5.4 mg/dL (2.5-4.9); POTASSIUM 5.2 mmol/L (3.5-5.1); SGOT/AST 15 U/L (15-37); SGPT/ALT 15 U/L (12-78); SODIUM 148 mmol/L (136-145)
--- NOTE | 2017-10-28 11:43 | PN ---
Physical Exam: SUBJECTIVE: Patient seen and examined Patient is comfortable with no acute distress, arm is better, continues to elevate the arm. OBJECTIVE: Vital Signs Temperature 98.3 F 10/28/17 10:00 Pulse Rate 84 10/28/17 10:00 Respiratory Rate 20 10/28/17 10:00 Blood Pressure 147/65 10/28/17 10:00 O2 Sat by Pulse Oximetry (%) 99 10/27/17 21:00 GENERAL: The patient is awake, alert, and fully oriented, in no acute distress. HEAD: Normal with no signs of trauma. EYES: PERRL, extraocular movements intact, sclera anicteric, conjunctiva clear. ENT: Ears normal, oropharynx clear without exudates, moist mucous membranes. NECK: Trachea midline, full range of motion, supple. LUNGS: Breath sounds equal, clear to auscultation bilaterally, no wheezes, no crackles, no accessory muscle use. HEART: Regular rate and rhythm, S1, S2 without murmur, rub or gallop. ABDOMEN: Soft, nontender, nondistended, normoactive bowel sounds, no guarding, no rebound, no masses. EXTREMITIES: 2+ pulses, warm, well-perfused, no edema. NEUROLOGICAL: Cranial nerves II through XII grossly intact. Normal speech, gait not observed. PSYCH: Normal mood, normal affect. SKIN: Warm, dry, normal turgor, no rashes or lesions noted CBCD WBC 10.7 K/mm3 (4.0-10.0) H 10/28/17 05:25 RBC 2.56 M/mm3 (4.00-5.60) L 10/28/17 05:25 Hgb 7.4 GM/dL (11.7-16.9) L 10/28/17 05:25 Hct 22.9 % (35.4-49) L 10/28/17 05:25 MCV 89.3 fl (80-96) 10/28/17 05:25 MCHC 32.2 g/dl (32.0-35.9) 10/28/17 05:25 RDW 18.7 % (11.9-15.9) H 10/28/17 05:25 Plt Count 198 K/MM3 (134-434) 10/28/17 05:25 MPV 9.3 fl (7.5-11.1) 10/28/17 05:25 CMP Sodium 143 mmol/L (136-145) 10/27/17 05:25 Potassium 4.5 mmol/L (3.5-5.1) 10/27/17 05:25 Chloride 114 mmol/L (98-107) H 10/27/17 05:25 Carbon Dioxide 16 mmol/L (21-32) L 10/27/17 05:25 Anion Gap 13 (8-16) 10/27/17 05:25 BUN 133 mg/dL (7-18) H* 10/27/17 05:25 Creatinine 7.2 mg/dL (0.7-1.3) H 10/27/17 05:25 Creat Clearance w eGFR 7.73 (>60) 10/27/17 05:25 Random Glucose 154 mg/dL (74-106) H D 10/27/17 05:25 Calcium 6.3 mg/dL (8.5-10.1) L* 10/27/17 05:25 Total Bilirubin 0.6 mg/dL (0.2-1.0) 10/27/17 05:25 AST 12 U/L (15-37) L 10/27/17 05:25 ALT 11 U/L (12-78) L D 10/27/17 05:25 Alkaline Phosphatase 49 U/L (45-117) D 10/27/17 05:25 Total Protein 4.5 g/dl (6.4-8.2) L 10/27/17 05:25 Albumin 1.9 g/dl (3.4-5.0) L 10/27/17 05:25 Active Medications Generic Name Dose Route Start Last Admin Trade Name Freq PRN Reason Stop Dose Admin Amlodipine Besylate 10 mg 10/25/17 21:30 10/28/17 10:40 Norvasc - PO Not Given DAILY OZIEL Atorvastatin Calcium 40 mg 10/26/17 22:00 10/27/17 22:38 Lipitor - PO 40 mg HS [facility]IEL Administration Calcium Acetate 667 mg 10/27/17 12:00 10/28/17 08:52 Phoslo - PO 667 mg TIDCM [facility] Administration Febuxostat 40 mg 10/26/17 10:00 10/28/17 09:05 Uloric - PO 40 mg DAILY [facility] Administration Folic Acid 1 mg 10/26/17 10:00 10/28/17 10:40 Folic Acid - PO Not Given DAILY [facility] Hydralazine HCl 25 mg 10/26/17 11:18 Apresoline - PO Q8H PRN HYPERTENSION Sodium Chloride 1,000 mls @ 100 mls/hr 10/26/17 11:30 10/28/17 00:42 Normal Saline - IV 100 mls/hr ASDIR [facility] Administration Piperacillin/Tazobactam/Dextrose 2.25 gm in 50 mls @ 100 mls/hr 10/26/17 12: 30 10/28/17 09:05 Zosyn 2.25gm Ivpb (Premix) IVPB 100 mls/hr BID [facility] Administration Protocol Insulin Aspart 1 vial 10/26/17 22:00 10/28/17 07:40 Novolog Vial Sliding Scale - SQ Not Given ACHS [facility] Protocol Insulin Detemir 15 units 10/26/17 22:00 10/27/17 22:37 Levemir Vial SQ 15 units [facility] Administration Magnesium Chloride 64 mg 10/27/17 15:00 10/28/17 10:41 Slow-Mag - PO Not Given DAILY [facility] Prednisone 5 mg 10/26/17 11:15 10/28/17 10:40 Deltasone - PO Not Given DAILY [facility] Tacrolimus 1 mg/ Tacrolimus 0. 1.5 mg 10/26/17 11:30 10/28/17 09:03 5 mg PO 1.5 mg BID [facility] Administration Home Medications Medication Instructions Recorded Amlodipine Besylate 10 mg PO DAILY 01/31/13 Atorvastatin Ca [Lipitor] 40 mg PO HS 01/31/13 Folic Acid 1 mg PO DAILY 01/31/13 Prednisone 5 mg PO DAILY 01/31/13 Tacrolimus [Prograf] 1.5 mg PO BID 01/31/13 Insulin Glargine,Hum.rec.anlog 5 units SCJ TIDCM 06/05/15 [Lantus Solostar PEN -] Aspirin [ASA -] 81 mg PO DAILY 10/26/16 Febuxostat [Uloric -] 40 mg PO DAILY 10/26/16 Warfarin Sodium [Coumadin] 0.5 mg PO HS 10/25/17 Insulin Aspart [Novolog Flexpen] 5 units BID 10/26/17 Insulin Detemir [Levemir Flextouch] 15 units SCJ DAILY 10/26/17 IMPRESSION: 1. Approximately 4.7 x 4.1 x 7.3 cm heterogeneously hyperdense round lesion within the deep volar muscles overlying the mid radius and ulna is presumably an intramuscular hematoma. Underlying neoplasm cannot be excluded. Please correlate clinically and with clinical follow-up to resolution. If there is no loom changer time, then follow-up contrast-enhanced MRI of the forearm is suggested. 2. Extensive confluent fluid within the subcutaneous fat extending from the mid humerus through the hand, most prominent in the dorsal soft tissues overlying the left hand, wrist and forearm. This fluid is nonspecific but may be attributed to cellulitis in the appropriate clinical setting. 3. Cannot exclude drainable collection/abscess without IV contrast. Please correlate with physical exam. Compartment syndrome cannot be excluded radiologically, requiring clinical correlation. 4. Chronic fragmentation and deformity of the capitate as described above may be attributed to osteonecrosis. Reported By: Cesar Dominguez DO 10/26/17 1726 US of the kidney: Morphologically normal right lower quadrant renal transplant with arterial and venous flow documented to the kidney. Please see above discussion. Reported By: Taurus Cortez MD 10/26/17 1400 IMPRESSION: There is no sonographic evidence of DVT involving the right arm. Superficial thrombophlebitis is identified. Specifically there is involvement of the superficial basilic vein. RIGHT UPPER EXTREMITY ARTERIAL DOPPLER ULTRASOUND Clinical information: evaluate arterial circulation The exam was performed utilizing grayscale as well as color flow and spectral Doppler sonography. Biphasic waveforms are noted within the right subclavian, axillary, and brachial arteries. There is diminished monophasic waveform flow within the radial and ulnar arteries. Impression: As noted above. Reported By: Glenn Hill MD 10/25/17 2211 ASSESSMENT AND PLAN: Patient is a 62 year old gentleman with PMhx of Renal Transplant (2000, [place]) with baseline cr 3.8-4.5, T2DM,, Hyperetnsion, Gout, Hx of DVT on coumadin who presented with complaints of right arm swelling and pain with possible cellulitis/hematoma. # Acute Right arm swelling/Cellulitis, seen by ID was started on IV antibiotic , but CT reported as above hematoma, and as per no fasciitis/ or compartment syndrome , discussed with to discontinue IV antibiotics since no indication of infection at this time, patient is afebrile , will hold IV antibiotics . #Anemia hemoglobin dropped further , will repeat the level now , type and screen if drops further will transfuse one unit, also will give him vit k po 2.5mg x1 ,discussed with , to give a unit if hemoglobin drops further. #Acute on chronic Kidney disease with a baseline of creatinine of 3.81 , for a consult # Acute coagulopathy will hold coumadin since INR is elevated.continue to hold, will give him a dose of vit. 2.5mg x1 DVT Px: coumadin 0.5mg ordered, dsicussed with as per sugegestion to start him back on coumadin 0.5mg
[2017-10-28 11:44] LABS: BLOOD UREA NITROGEN 120 mg/dL (7-18); CALCIUM 6.1 mg/dL (8.5-10.1); CREATININE 7.4 mg/dL (0.7-1.3)
[2017-10-28] MEDS ORDERED: FUROSEMIDE 40 MG/4 ML INJECTABLE VIAL IVPUSH ONE (15:00)
[2017-10-28] MEDS ORDERED: WARFARIN NA 1 MG TABLET (FP) PO ONE (18:00)
[2017-10-28] MEDS ORDERED: HEPARIN NA (PORCINE) 5,000 UNITS/ML 1ML VIAL IVPUSH PRN ×2 (20:04)
[2017-10-28] MEDS ORDERED: SODIUM CHLORIDE 0.45% IV SCH (20:15)
[2017-10-28] MEDS ORDERED: HEPARIN IV SCH (20:15)
[2017-10-28] MEDS: ATORVASTATIN CA 40 MG TABLET (FP) PO SCH (21:59)
[2017-10-28] MEDS: INSULIN DETEMIR 100 UNITS/ML MDV SQ SCH (22:00)
--- NOTE | 2017-10-28 22:06 | PN ---
Progress Note (short form) - Note Progress Note: esrd s/p allograft kidney admitted with randee s/p ivf developed gen edema and sob Current Medications Amlodipine Besylate (Norvasc -) 10 mg PO DAILY [facility] Last Admin: 10/28/17 10:40 Dose: Not Given Atorvastatin Calcium (Lipitor -) 40 mg PO HS [facility] Last Admin: 10/27/17 22:38 Dose: 40 mg Calcium Acetate (Phoslo -) 667 mg PO TIDCM [facility] Last Admin: 10/28/17 16:51 Dose: 667 mg Febuxostat (Uloric -) 40 mg PO DAILY [facility] Last Admin: 10/28/17 09:05 Dose: 40 mg Folic Acid (Folic Acid -) 1 mg PO DAILY [facility] Last Admin: 10/28/17 10:40 Dose: Not Given Heparin Sodium (Porcine) (Heparin -) 1,000 unit IVPUSH PRN PRN PRN Reason: Heparin Heparin Sodium (Porcine) (Heparin -) 5,000 unit IVPUSH PRN PRN PRN Reason: Heparin Hydralazine HCl (Apresoline -) 25 mg PO Q8H PRN PRN Reason: HYPERTENSION Sodium Chloride (Normal Saline -) 1,000 mls @ 100 mls/hr IV ASDIR [facility] Last Admin: 10/28/17 12:34 Dose: 100 mls/hr Piperacillin/Tazobactam/Dextrose (Zosyn 2.25gm Ivpb (Premix)) 2.25 gm in 50 mls @ 100 mls/hr IVPB BID [facility] PRN Reason: Protocol Last Admin: 10/28/17 21:05 Dose: 100 mls/hr Heparin Sodium (Porcine) 25, (000 unit/ Sodium Chloride) 500 mls @ 20 mls/hr IV TITR OZIEL; 1,000 UNIT/HR PRN Reason: Protocol Insulin Aspart (Novolog Vial Sliding Scale -) 1 vial SQ ACHS [facility] PRN Reason: Protocol Last Admin: 10/28/17 17:30 Dose: 2 units Insulin Detemir (Levemir Vial) 15 units SQ HS [facility] Last Admin: 10/27/17 22:37 Dose: 15 units Magnesium Chloride (Slow-Mag -) 64 mg PO DAILY [facility] Last Admin: 10/28/17 10:41 Dose: Not Given Prednisone (Deltasone -) 5 mg PO DAILY [facility] Last Admin: 10/28/17 10:40 Dose: Not Given Tacrolimus 1 mg/ Tacrolimus 0. (5 mg) 1.5 mg PO BID [facility] Last Admin: 10/28/17 09:03 Dose: 1.5 mg Last Vital Signs Temp Pulse Resp BP Pulse Ox 98.8 F 88 18 130/65 99 10/28/17 17:30 10/28/17 17:30 10/28/17 17:30 10/28/17 17:30 10/28/17 10:00 lungs clear heart reg abd soft nontender ext no edema IMP- randee/ckd s/p kidney transplant Plan- trial of iv lasix for fluid overload symptoms daily wights strict I and O
[2017-10-29 01:24] LABS: HEMATOCRIT 22.9 % (35.4-49); HEMOGLOBIN 7.5 GM/dL (11.7-16.9); MCH 28.9 pg (25.7-33.7); MCHC 32.6 g/dl (32.0-35.9); MEAN CELL VOLUME 88.6 fl (80-96); MEAN PLT VOLUME 9.5 fl (7.5-11.1); PLATELET COUNT 210 K/MM3 (134-434); RBC 2.59 M/mm3 (4.00-5.60); RDW 18.4 % (11.9-15.9); WHITE BLOOD COUNT 9.6 K/mm3 (4.0-10.0)
[2017-10-29] MEDS: INSULIN SLIDING SCALE (NOVOLOG) 1 VIAL SQ SCH ×4 (06:25→23:09)
[2017-10-29 07:32] LABS: INR 1.42 (0.82-1.09)
[2017-10-29] MEDS: CALCIUM ACETATE 667 MG CAPSULE (FP) PO SCH ×3 (08:53→17:21)
[2017-10-29] MEDS: predniSONE 5 MG TABLET (UD) PO SCH (09:17)
[2017-10-29] MEDS: FOLIC ACID 1 MG TABLET (FP) PO SCH (09:17)
[2017-10-29] MEDS: amLODIPine BESYLATE 10 MG TABLET (FP) PO SCH (09:18)
[2017-10-29] MEDS: FEBUXOSTAT 40 MG TAB PO SCH (09:18)
[2017-10-29] MEDS: MAGNESIUM CL 64 MG TABLET.SA PO SCH (09:18)
[2017-10-29] MEDS: TACROLIMUS ANHYDROUS 1 MG PO SCH ×2 (09:20→23:09)
[2017-10-29] MEDS: TACROLIMUS 0.5 MG PO SCH ×2 (09:20→23:09)
[2017-10-29] MEDS ORDERED: PT OWN MED DRAWER 7, Y5N ONE ×3 (09:22→22:44)
[2017-10-29] MEDS: PIPERACILLIN/TAZOB 2.25 GM 2.25 GM/50 ML BAG IVPB SCH ×2 (09:27→23:10)
[2017-10-29] MEDS ORDERED: HEPARIN SOD,PORK IN 0.45% NACL 25,000 UNITS/500 ML INFUS.BAG IVPB SCH (10:43)
[2017-10-29] MEDS ORDERED: SODIUM POLYSTYRENE SULFONATE 15 GM/60 ML BOTTLE PO ONE (11:37)
--- NOTE | 2017-10-29 11:44 | PN ---
Progress Note (short form) - Note Progress Note: Vital Signs Temperature 98.2 F 10/29/17 08:13 Pulse Rate 85 10/29/17 08:13 Respiratory Rate 20 10/29/17 08:15 Blood Pressure 143/79 10/29/17 08:13 O2 Sat by Pulse Oximetry (%) 100 10/29/17 08:15 GENERAL: The patient is awake, alert, and fully oriented, in no acute distress. HEAD: Normal with no signs of trauma. EYES: PERRL, extraocular movements intact, sclera anicteric, conjunctiva clear. ENT: Ears normal, oropharynx clear without exudates, moist mucous membranes. NECK: Trachea midline, full range of motion, supple. LUNGS: Breath sounds equal, clear to auscultation bilaterally, no wheezes, no crackles, no accessory muscle use. HEART: Regular rate and rhythm, S1, S2 without murmur, rub or gallop. ABDOMEN: Soft, nontender, nondistended, normoactive bowel sounds, no guarding, no rebound, no masses. EXTREMITIES: 2+ pulses, warm, well-perfused, no edema. NEUROLOGICAL: Cranial nerves II through XII grossly intact. Normal speech, gait not observed. PSYCH: Normal mood, normal affect. SKIN: Warm, dry, normal turgor, no rashes or lesions noted CBCD WBC 9.6 K/mm3 (4.0-10.0) 10/29/17 00:55 RBC 2.59 M/mm3 (4.00-5.60) L 10/29/17 00:55 Hgb 7.5 GM/dL (11.7-16.9) L 10/29/17 00:55 Hct 22.9 % (35.4-49) L 10/29/17 00:55 MCV 88.6 fl (80-96) 10/29/17 00:55 MCHC 32.6 g/dl (32.0-35.9) 10/29/17 00:55 RDW 18.4 % (11.9-15.9) H 10/29/17 00:55 Plt Count 210 K/MM3 (134-434) 10/29/17 00:55 MPV 9.5 fl (7.5-11.1) 10/29/17 00:55 CMP Sodium 148 mmol/L (136-145) H 10/28/17 05:25 Potassium 5.2 mmol/L (3.5-5.1) H 10/28/17 05:25 Chloride 119 mmol/L (98-107) H 10/28/17 05:25 Carbon Dioxide 16 mmol/L (21-32) L 10/28/17 05:25 Anion Gap 13 (8-16) 10/28/17 05:25 BUN 120 mg/dL (7-18) H* 10/28/17 05:25 Creatinine 7.4 mg/dL (0.7-1.3) H 10/28/17 05:25 Creat Clearance w eGFR 7.49 (>60) 10/28/17 05:25 Random Glucose 160 mg/dL (74-106) H 10/28/17 05:25 Calcium 6.1 mg/dL (8.5-10.1) L* 10/28/17 05:25 Total Bilirubin 0.4 mg/dL (0.2-1.0) D 10/28/17 05:25 AST 15 U/L (15-37) D 10/28/17 05:25 ALT 15 U/L (12-78) D 10/28/17 05:25 Alkaline Phosphatase 50 U/L (45-117) 10/28/17 05:25 Total Protein 5.0 g/dl (6.4-8.2) L 10/28/17 05:25 Albumin 2.0 g/dl (3.4-5.0) L 10/28/17 05:25 Current Medications Generic Name Dose Route Start Last Admin Trade Name Cori PRN Reason Stop Dose Admin Amlodipine Besylate 10 mg 10/25/17 21:30 10/29/17 09:18 Norvasc - PO 10 mg DAILY [facility] Administration Atorvastatin Calcium 40 mg 10/26/17 22:00 10/28/17 21:59 Lipitor - PO 40 mg HS [facility] Administration Calcium Acetate 667 mg 10/27/17 12:00 10/29/17 08:53 Phoslo - PO 667 mg TIDCM [facility] Administration Febuxostat 40 mg 10/26/17 10:00 10/29/17 09:18 Uloric - PO 40 mg DAILY [facility] Administration Folic Acid 1 mg 10/26/17 10:00 10/29/17 09:17 Folic Acid - PO 1 mg DAILY [facility] Administration Heparin Sodium (Porcine) 1,000 unit 10/28/17 20:04 Heparin - IVPUSH PRN PRN Heparin Heparin Sodium (Porcine) 5,000 unit 10/28/17 20:04 Heparin - IVPUSH PRN PRN Heparin Hydralazine HCl 25 mg 10/26/17 11:18 Apresoline - PO Q8H PRN HYPERTENSION Sodium Chloride 1,000 mls @ 100 mls/hr 10/26/17 11:30 10/28/17 12:34 Normal Saline - IV 100 mls/hr ASDIR [facility] Administration Piperacillin/Tazobactam/Dextrose 2.25 gm in 50 mls @ 100 mls/hr 10/26/17 12: 30 10/29/17 09:27 Zosyn 2.25gm Ivpb (Premix) IVPB 100 mls/hr BID [facility]EL Administration Protocol HEPARIN SOD,PORK IN 0.45% NACL 25,000 units in 500 mls @ 20 mls/hr 10/29/17 10 :43 10/29/17 11:20 Heparin-1/2ns 25,000 Units/500 IVPB 1,000 unit/hr TITR OZIEL 20 mls/hr Protocol Administration 1,000 UNIT/HR Insulin Aspart 1 vial 10/26/17 22:00 10/29/17 11:20 Novolog Vial Sliding Scale - SQ Not Given ACHS [facility] Protocol Insulin Detemir 15 units 10/26/17 22:00 10/28/17 22:00 Levemir Vial SQ 5 units HS [facility] Administration Magnesium Chloride 64 mg 10/27/17 15:00 10/29/17 09:18 Slow-Mag - PO 64 mg DAILY [facility] Administration Prednisone 5 mg 10/26/17 11:15 10/29/17 09:17 Deltasone - PO 5 mg DAILY [facility] Administration Sodium Polystyrene Sulfonate 30 gm 10/29/17 11:37 Kayexalate - PO 10/29/17 11:38 ONCE ONE Tacrolimus 1 mg/ Tacrolimus 0. 1.5 mg 10/26/17 11:30 10/29/17 09:20 5 mg PO 1.5 mg BID O[facility]EL Administration Warfarin Sodium 1 mg 10/29/17 18:00 Coumadin - PO 10/29/17 18:01 ONCE@1800 ONE Home Medications Medication Instructions Recorded Amlodipine Besylate 10 mg PO DAILY 01/31/13 Atorvastatin Ca [Lipitor] 40 mg PO HS 01/31/13 Folic Acid 1 mg PO DAILY 01/31/13 Prednisone 5 mg PO DAILY 01/31/13 Tacrolimus [Prograf] 1.5 mg PO BID 01/31/13 Insulin Glargine,Hum.rec.anlog 5 units SCJ TIDCM 06/05/15 [Lantus Solostar PEN -] Aspirin [ASA -] 81 mg PO DAILY 10/26/16 Febuxostat [Uloric -] 40 mg PO DAILY 10/26/16 Warfarin Sodium [Coumadin] 0.5 mg PO HS 10/25/17 Insulin Aspart [Novolog Flexpen] 5 units BID 10/26/17 Insulin Detemir [Levemir Flextouch] 15 units SCJ DAILY 10/26/17 IMPRESSION: 1. Approximately 4.7 x 4.1 x 7.3 cm heterogeneously hyperdense round lesion within the deep volar muscles overlying the mid radius and ulna is presumably an intramuscular hematoma. Underlying neoplasm cannot be excluded. Please correlate clinically and with clinical follow-up to resolution. If there is no roll changer time, then follow-up contrast-enhanced MRI of the forearm is suggested. 2. Extensive confluent fluid within the subcutaneous fat extending from the mid humerus through the hand, most prominent in the dorsal soft tissues overlying the left hand, wrist and forearm. This fluid is nonspecific but may be attributed to cellulitis in the appropriate clinical setting. 3. Cannot exclude drainable collection/abscess without IV contrast. Please correlate with physical exam. Compartment syndrome cannot be excluded radiologically, requiring clinical correlation. 4. Chronic fragmentation and deformity of the capitate as described above may be attributed to osteonecrosis. Reported By: Cesar Dominguez DO 10/26/17 1726 US of the kidney: Morphologically normal right lower quadrant renal transplant with arterial and venous flow documented to the kidney. Please see above discussion. Reported By: Taurus Cortez MD 10/26/17 1400 IMPRESSION: There is no sonographic evidence of DVT involving the right arm. Superficial thrombophlebitis is identified. Specifically there is involvement of the superficial basilic vein. RIGHT UPPER EXTREMITY ARTERIAL DOPPLER ULTRASOUND Clinical information: evaluate arterial circulation The exam was performed utilizing grayscale as well as color flow and spectral Doppler sonography. Biphasic waveforms are noted within the right subclavian, axillary, and brachial arteries. There is diminished monophasic waveform flow within the radial and ulnar arteries. Impression: As noted above. Reported By: Glenn Hill MD 10/25/17 1723 ASSESSMENT AND PLAN: Patient is a 62 year old gentleman with PMhx of Renal Transplant ( [facility]) with baseline cr 3.8-4.5, T2DM,, Hyperetnsion, Gout, Hx of DVT on coumadin who presented with complaints of right arm swelling and pain with possible cellulitis/hematoma. #Acute on chronic Kidney disease with a baseline of creatinine of 3.81 with transplanted kidney , no change in terms of BUN/Cr. most likely will be needing Dialysis , on the case discussed with covering for , will hold IVF for now # Acute Right arm swelling/Cellulitis, seen by ID was started on IV antibiotic , but CT reported as above hematoma, and as per no fasciitis/ or compartment syndrome , discussed with to discontinue IV antibiotics since no indication of infection at this time, patient is afebrile , will hold IV antibiotics . #Anemia hemoglobin dropped further , will repeat the level now , type and screen if drops further will transfuse one unit, also will give him vit k po 2.5mg x1 ,discussed with , to give a unit if hemoglobin drops further. # Acute coagulopathy will hold coumadin since INR is elevated.continue to hold, will give him a dose of vit. 2.5mg x1 DVT Px: coumadin 0.5mg ordered, dsicussed with as per sugegestion to start him back on coumadin 0.5mg
[2017-10-29] MEDS: SODIUM CHLORIDE 1,000 ML IV SCH ×2 (12:14→12:20)
[2017-10-29] MEDS ORDERED: WARFARIN NA 1 MG TABLET (FP) PO ONE (18:00)
--- NOTE | 2017-10-29 19:03 | PN ---
Progress Note (short form) - Note Progress Note: esrd s/p allograft kidney admitted with randee s/p ivf developed gen edema and sob Active Medications Amlodipine Besylate (Norvasc -) 10 mg PO DAILY [facility] Last Admin: 10/29/17 09:18 Dose: 10 mg Atorvastatin Calcium (Lipitor -) 40 mg PO HS [facility] Last Admin: 10/28/17 21:59 Dose: 40 mg Calcium Acetate (Phoslo -) 667 mg PO TIDCM [facility] Last Admin: 10/29/17 17:21 Dose: 667 mg Febuxostat (Uloric -) 40 mg PO DAILY [facility] Last Admin: 10/29/17 09:18 Dose: 40 mg Folic Acid (Folic Acid -) 1 mg PO DAILY [facility] Last Admin: 10/29/17 09:17 Dose: 1 mg Heparin Sodium (Porcine) (Heparin -) 1,000 unit IVPUSH PRN PRN PRN Reason: Heparin Heparin Sodium (Porcine) (Heparin -) 5,000 unit IVPUSH PRN PRN PRN Reason: Heparin Hydralazine HCl (Apresoline -) 25 mg PO Q8H PRN PRN Reason: HYPERTENSION Sodium Chloride (Normal Saline -) 1,000 mls @ 100 mls/hr IV ASDIR [facility] Last Admin: 10/29/17 12:20 Dose: Not Given Piperacillin/Tazobactam/Dextrose (Zosyn 2.25gm Ivpb (Premix)) 2.25 gm in 50 mls @ 100 mls/hr IVPB BID ZOIEL PRN Reason: Protocol Last Admin: 10/29/17 09:27 Dose: 100 mls/hr HEPARIN SOD,PORK IN 0.45% NACL (Heparin-1/2ns 25,000 Units/500) 25,000 units in 500 mls @ 20 mls/hr IVPB TITR OZIEL; 1,000 UNIT/HR PRN Reason: Protocol Last Admin: 10/29/17 11:20 Dose: 1,000 unit/hr, 20 mls/hr Insulin Aspart (Novolog Vial Sliding Scale -) 1 vial SQ ACHS [facility] PRN Reason: Protocol Last Admin: 10/29/17 17:21 Dose: 4 units Insulin Detemir (Levemir Vial) 15 units SQ HS [facility] Last Admin: 10/28/17 22:00 Dose: 5 units Magnesium Chloride (Slow-Mag -) 64 mg PO DAILY [facility] Last Admin: 10/29/17 09:18 Dose: 64 mg Prednisone (Deltasone -) 5 mg PO DAILY [facility] Last Admin: 10/29/17 09:17 Dose: 5 mg Tacrolimus 1 mg/ Tacrolimus 0. (5 mg) 1.5 mg PO BID [facility] Last Admin: 10/29/17 09:20 Dose: 1.5 mg Last Vital Signs Temp Pulse Resp BP Pulse Ox 98.6 F 88 20 140/78 100 10/29/17 16:54 10/29/17 16:54 10/29/17 16:54 10/29/17 16:54 10/29/17 08:15 Intake & Output 10/26/17 10/27/17 10/28/17 10/29/17 23:59 23:59 23:59 23:59 Intake Total 128 2100 840 500 Output Total 2 Balance 128 2100 838 500 Weight 150 lb 158 lb 161 lb 161 lb 6.4 oz lungs clear heart reg abd soft nontender ext no edema CBC, BMP 10/29/17 00:55 10/28/17 05:25 IMP- randee/ckd s/p kidney transplant Plan- trial of iv lasix x1 for fluid overload symptoms daily weights strict I and O
[2017-10-29] MEDS: ATORVASTATIN CA 40 MG TABLET (FP) PO SCH (23:08)
[2017-10-29] MEDS: INSULIN DETEMIR 100 UNITS/ML MDV SQ SCH (23:10)
[2017-10-30] MEDS: INSULIN SLIDING SCALE (NOVOLOG) 1 VIAL SQ SCH ×4 (06:32→23:32)
[2017-10-30 07:13] LABS: MCH 28.6 pg (25.7-33.7); MCHC 31.8 g/dl (32.0-35.9); MEAN CELL VOLUME 90.2 fl (80-96); MEAN PLT VOLUME 9.2 fl (7.5-11.1); PLATELET COUNT 211 K/MM3 (134-434); RBC 2.33 M/mm3 (4.00-5.60); WHITE BLOOD COUNT 11.9 K/mm3 (4.0-10.0)
[2017-10-30 07:32] LABS: INR 1.27 (0.82-1.09); PROTHROMBIN TIME (PATIENT) 14.4 SEC (9.98-11.88)
[2017-10-30 07:38] LABS: ALBUMIN 1.9 g/dl (3.4-5.0); ANION GAP 13 (8-16); BILIRUBIN,TOTAL 0.5 mg/dL (0.2-1.0); CHLORIDE 115 mmol/L (98-107); CO2 17 mmol/L (21-32); GLUCOSE,RANDOM 186 mg/dL (74-106); POTASSIUM 4.6 mmol/L (3.5-5.1); SGOT/AST 20 U/L (15-37); SGPT/ALT 17 U/L (12-78); SODIUM 145 mmol/L (136-145); TOT PROT 5.3 g/dl (6.4-8.2)
[2017-10-30 07:44] LABS: ALK PHOS 44 U/L (45-117)
[2017-10-30] MEDS: CALCIUM ACETATE 667 MG CAPSULE (FP) PO SCH ×3 (07:50→17:31)
[2017-10-30 08:24] LABS: HEMOGLOBIN 6.7 GM/dL (11.7-16.9)
[2017-10-30] MEDS: morphine CARPU-JECT 10 MG/1 ML DISP.SYRIN IVPUSH ONE ×2 (09:04→09:56)
[2017-10-30] MEDS: TACROLIMUS 0.5 MG PO SCH (09:05)
[2017-10-30] MEDS: TACROLIMUS ANHYDROUS 1 MG PO SCH (09:05)
[2017-10-30] MEDS: FEBUXOSTAT 40 MG TAB PO SCH (09:05)
[2017-10-30] MEDS: MAGNESIUM CL 64 MG TABLET.SA PO SCH (09:05)
[2017-10-30] MEDS: amLODIPine BESYLATE 10 MG TABLET (FP) PO SCH (09:07)
[2017-10-30] MEDS: FOLIC ACID 1 MG TABLET (FP) PO SCH (09:10)
[2017-10-30] MEDS: predniSONE 5 MG TABLET (UD) PO SCH (09:10)
[2017-10-30 09:12] LABS: BLOOD UREA NITROGEN 138 mg/dL (7-18); CALCIUM 6.5 mg/dL (8.5-10.1); CREATININE 8.1 mg/dL (0.7-1.3)
[2017-10-30] MEDS: PIPERACILLIN/TAZOB 2.25 GM 2.25 GM/50 ML BAG IVPB SCH (09:12)
--- NOTE | 2017-10-30 09:50 | PN ---
Progress Note (short form) - Note Progress Note: Pt with right arm swelling, no pain noted. Vital Signs Period Temp Pulse Resp BP Sys/Lane Pulse Ox Last 24 Hr 98.3 F-98.8 F 85-91 18-81 112-140/33-78 100-100 RUE: good cap refill, hand with swelling and ecchymosis. forearm/upper ext soft. Replaced miya wraps and hung RUE on stockingette and pillow elevation. US: Left popliteal DVT INR, PTT INR 1.27 (0.82-1.09) H 10/30/17 06:15 CBC, BMP 10/30/17 05:10 10/30/17 05:10 A/P: 62 yo male with RUE swelling, on IV heparin for new DVT on LLE strict RUE arm elevation renal f/u if HD is needed, pt with slight worsening of BUN/Cret Pt on IV heparin and slight drop in h&H, continue to monitor closely Surgery to follow pt for RUE swelling and any other vascular needs regarding DVT and rising BUn/Cret levels D/w Dr. Echavarria
[2017-10-30] MEDS: HYDROmorphone HCL CARPU-JECT 2 MG/1 ML DISP.SYRIN IVPUSH PRN ×2 (12:42→16:31)
[2017-10-30] MEDS ORDERED: FUROSEMIDE 40 MG/4 ML INJECTABLE VIAL IVPUSH ONE ×2 (15:30→18:15)
--- NOTE | 2017-10-30 15:35 | PN ---
<Shaka Christensen - Last Filed: 10/30/17 15:58> Physical Exam: SUBJECTIVE: Patient seen and examined at bedside. Patient reports significant left sided abdominal pain since last night. He states that the pain does not radiate anywhere and was sudden in onset. He states it is exacerbated by movement. Patient reports no associated nausea, vomiting, diarrhea, fevers, or chills. OBJECTIVE: Vital Signs Period Temp Pulse Resp BP Sys/Lane Pulse Ox Last 24 Hr 98.3 F-98.8 F 85-91 18-81 112-140/33-78 100-100 GENERAL: The patient is awake, alert, and fully oriented, in moderate distress HEAD: Normal with no signs of trauma. EYES: PERRL, extraocular movements intact, sclera anicteric, conjunctiva clear. No ptosis. ENT: Ears normal, nares patent, oropharynx clear without exudates, moist mucous membranes. NECK: Trachea midline, full range of motion, supple. LUNGS: Breath sounds equal, clear to auscultation bilaterally, no wheezes, no crackles, no accessory muscle use. HEART: Regular rate and rhythm, S1, S2, 3/6 systolic murmur appreciated on exam ABDOMEN: Soft, mildly tender to palpation on L side, nondistended, normoactive bowel sounds, no guarding, norebound, no hepatosplenomegaly, no masses. EXTREMITIES: 2+ pulses, warm, well-perfused, R arm mildly swollen and erythema that has improved since previous exam. Patient has improved mobility in arm and hand. Less tender to palpation. NEUROLOGICAL: Cranial nerves II through XII grossly intact. Normal speech, gait not observed. PSYCH: Normal mood, normal affect. SKIN: Warm, dry, normal turgor, no rashes or lesions noted Laboratory Results - last 24 hr 10/27/17 10/27/17 10/29/17 08:15 19:20 16:54 WBC RBC Hgb Hct MCV MCH MCHC RDW Plt Count MPV PT with INR INR PTT (Actin FS) Sodium Potassium Chloride Carbon Dioxide Anion Gap BUN Creatinine Creat Clearance w eGFR POC Glucometer 230 Random Glucose Calcium Total Bilirubin AST ALT Alkaline Phosphatase Total Protein Albumin Tacrolimus 6.8 Blood Type O POSITIVE Antibody Screen Negative Crossmatch See Detail 10/29/17 10/30/17 10/30/17 22:35 05:10 05:10 WBC 11.9 H RBC 2.33 L Hgb 6.7 L* D Hct 21.0 L MCV 90.2 MCH 28.6 MCHC 31.8 L RDW 19.0 H Plt Count 211 MPV 9.2 PT with INR INR PTT (Actin FS) Sodium 145 Potassium 4.6 Chloride 115 H Carbon Dioxide 17 L Anion Gap 13 BUN 138 H* Creatinine 8.1 H* Creat Clearance w eGFR 6.75 POC Glucometer 234 Random Glucose 186 H Calcium 6.5 L* Total Bilirubin 0.5 D AST 20 D ALT 17 Alkaline Phosphatase 44 L Total Protein 5.3 L Albumin 1.9 L Tacrolimus Blood Type Antibody Screen Crossmatch 10/30/17 10/30/17 10/30/17 06:09 06:15 06:15 WBC RBC Hgb Hct MCV MCH MCHC RDW Plt Count MPV PT with INR 14.40 H INR 1.27 H PTT (Actin FS) 87.8 H D Sodium Potassium Chloride Carbon Dioxide Anion Gap BUN Creatinine Creat Clearance w eGFR POC Glucometer 227 Random Glucose Calcium Total Bilirubin AST ALT Alkaline Phosphatase Total Protein Albumin Tacrolimus Blood Type Antibody Screen Crossmatch 10/30/17 10/30/17 10:35 11:49 WBC RBC Hgb Hct MCV MCH MCHC RDW Plt Count MPV PT with INR INR PTT (Actin FS) Sodium Potassium Chloride Carbon Dioxide Anion Gap BUN Creatinine Creat Clearance w eGFR POC Glucometer 257 Random Glucose Calcium Total Bilirubin AST ALT Alkaline Phosphatase Total Protein Albumin Tacrolimus Blood Type O POSITIVE Antibody Screen Crossmatch Active Medications Generic Name Dose Route Start Last Admin Trade Name Freq PRN Reason Stop Dose Admin Amlodipine Besylate 10 mg 10/25/17 21:30 10/30/17 09:07 Norvasc - PO 10 mg DAILY OZIEL Administration Atorvastatin Calcium 40 mg 10/26/17 22:00 10/29/17 23:08 Lipitor - PO 40 mg HS OZIEL Administration Calcium Acetate 667 mg 10/27/17 12:00 10/30/17 11:53 Phoslo - PO Not Given TIDCM OZIEL Febuxostat 40 mg 10/26/17 10:00 10/30/17 09:05 Uloric - PO 40 mg DAILY O[facility]IEL Administration Folic Acid 1 mg 10/26/17 10:00 10/30/17 09:10 Folic Acid - PO 1 mg DAILY O[facility]IEL Administration Heparin Sodium (Porcine) 1,000 unit 10/28/17 20:04 Heparin - IVPUSH PRN PRN Heparin Heparin Sodium (Porcine) 5,000 unit 10/28/17 20:04 Heparin - IVPUSH PRN PRN Heparin Hydralazine HCl 25 mg 10/26/17 11:18 Apresoline - PO Q8H PRN HYPERTENSION Hydromorphone HCl 1 mg 10/30/17 12:16 10/30/17 12:42 Dilaudid Injection - IVPUSH 1 mg Q6H PRN Administration PAIN Piperacillin/Tazobactam/Dextrose 2.25 gm in 50 mls @ 100 mls/hr 10/26/17 12: 30 10/30/17 09:12 Zosyn 2.25gm Ivpb (Premix) IVPB 100 mls/hr BID OZIEL Administration Protocol HEPARIN SOD,PORK IN 0.45% NACL 25,000 units in 500 mls @ 20 mls/hr 10/29/17 10 :43 10/30/17 08:29 Heparin-1/2ns 25,000 Units/500 IVPB 900 unit/hr TITR OZIEL 18 mls/hr Protocol Titration 1,000 UNIT/HR Insulin Aspart 1 vial 10/26/17 22:00 10/30/17 11:51 Novolog Vial Sliding Scale - SQ 6 units ACHS OZIEL Administration Protocol Insulin Detemir 15 units 10/26/17 22:00 10/29/17 23:10 Levemir Vial SQ 5 units HS OZIEL Administration Magnesium Chloride 64 mg 10/27/17 15:00 10/30/17 09:05 Slow-Mag - PO 64 mg DAILY [facility] Administration Prednisone 5 mg 10/26/17 11:15 10/30/17 09:10 Deltasone - PO 5 mg DAILY [facility] Administration Tacrolimus 1 mg/ Tacrolimus 0. 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 #Hematoma of the R arm: improving, arm is still swollen, but less tender to palpation and significantly less erythematous -continue -zosyn 2.25 BID for previous suspicion of cellulitis -anticoagulation held, heparin drip held -keep R arm elevated and in a sling -monitor H&H -appreciate vascular surgery recommendations #Hematoma of L flank: new in onset from last night, 14.4 x 7.2 x 12.1cm in size -hold heparin drip -Transfuse 2 FFP and 2 PRBC -f/u CT abdomen/pelvis NO contrast for evaluation of the extent of the hematoma -appreciate vascular recommendations #Anemia: Hgb of 6.7 today, likely 2/2 acute blood loss -transfuse 2U PRBCs -transfuse 2 FFP -remeasure CBC at 7pm #Acute on Chronic Kidney Disease with R Renal Transplant: 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 -continue Tacrolimus -continue prednisone -Dr. Echavarria to perform filter and permacath procedure tomorrow, dialysis to follow -NPO for now -Monitor electrolytes, creatinine -held fluids, pt receiving blood -appreciate nephrology consultation #DVT of Left Lower Extremity -Heparin held due to acute bleed -IVC filter placement tomorrow #Diabetes Mellitus: controlled -continue levemir 15 -continue ISS #Hypertension: controlled -continue hydralazine 25 TID -continue amlodipine 10 QD #Gout: stable -continue febuxostat #Supratherapeutic INR: INR 1.42 today -hold anticoagulation, hold heparin drip #FEN: No standing fluids replete lytes as necessary NPO for now #Prophylaxis: -AC held due to INR -SCDs #Dispo: -continue to monitor Shaka Christensen D.O., PGY1 Case Discussed with Dr. Russo Visit type - Emergency Visit Emergency Visit: No - New Patient This patient is new to me today: No - Critical Care Critical Care patient: No <Gail Doll - Last Filed: 10/30/17 22:23> Physical Exam: Patient seen and examined with the education intern. will discontinue all the anticoagulation, discussed with , patient received 2 units of pRBC, 2 units of FFP. Patient has an iVC filter, no further AC is needed since patient is very sensitive to coumadin. Patient is going to permacat in am for dialysis since having WESTON; patient agrees to the plan. npo after midnight .
--- NOTE | 2017-10-30 17:46 | PN ---
Progress Note (short form) - Note Progress Note: Renal follow up for WESTON on CKD/Renal Transplant Pt seen and examined at the bedside complaining of left LQ pain no sob, sob, N/V Hgb droped to 6.7 Vital Signs Temperature 98.4 F 10/30/17 07:32 Pulse Rate 91 H 10/30/17 07:32 Respiratory Rate 18 10/30/17 07:48 Blood Pressure 118/37 10/30/17 07:32 O2 Sat by Pulse Oximetry (%) 100 10/30/17 07:48 Intake & Output 10/27/17 10/28/17 10/29/17 10/30/17 23:59 23:59 23:59 23:59 Intake Total 2100 840 1100 1342 Output Total 2 Balance 2100 838 1100 1342 Weight 71.668 kg 73.028 kg 73.21 kg 73.936 kg NAD awake and alert RRR DEc BS at lung bases soft NT/ND Right arm edema, erythema improved, + tenderness no myoclonis/asterxis on left arm CBC, BMP 10/30/17 05:10 10/30/17 05:10 Current Medications Amlodipine Besylate (Norvasc -) 10 mg PO DAILY [facility] Last Admin: 10/30/17 09:07 Dose: 10 mg Atorvastatin Calcium (Lipitor -) 40 mg PO HS [facility] Last Admin: 10/29/17 23:08 Dose: 40 mg Calcium Acetate (Phoslo -) 667 mg PO TIDCM [facility] Last Admin: 10/30/17 17:31 Dose: 667 mg Febuxostat (Uloric -) 40 mg PO DAILY [facility] Last Admin: 10/30/17 09:05 Dose: 40 mg Folic Acid (Folic Acid -) 1 mg PO DAILY [facility] Last Admin: 10/30/17 09:10 Dose: 1 mg Heparin Sodium (Porcine) (Heparin -) 1,000 unit IVPUSH PRN PRN PRN Reason: Heparin Heparin Sodium (Porcine) (Heparin -) 5,000 unit IVPUSH PRN PRN PRN Reason: Heparin Hydralazine HCl (Apresoline -) 25 mg PO Q8H PRN PRN Reason: HYPERTENSION Hydromorphone HCl (Dilaudid Injection -) 1 mg IVPUSH Q6H PRN PRN Reason: PAIN Last Admin: 10/30/17 16:31 Dose: 1 mg Piperacillin/Tazobactam/Dextrose (Zosyn 2.25gm Ivpb (Premix)) 2.25 gm in 50 mls @ 100 mls/hr IVPB BID OZIEL PRN Reason: Protocol Last Admin: 10/30/17 09:12 Dose: 100 mls/hr HEPARIN SOD,PORK IN 0.45% NACL (Heparin-1/2ns 25,000 Units/500) 25,000 units in 500 mls @ 20 mls/hr IVPB TITR OZIEL; 1,000 UNIT/HR PRN Reason: Protocol Last Titration: 10/30/17 08:29 Dose: 900 unit/hr, 18 mls/hr Insulin Aspart (Novolog Vial Sliding Scale -) 1 vial SQ ACHS OZIEL PRN Reason: Protocol Last Admin: 10/30/17 17:28 Dose: 2 units Insulin Detemir (Levemir Vial) 15 units SQ HS [facility] Last Admin: 10/29/17 23:10 Dose: 5 units Magnesium Chloride (Slow-Mag -) 64 mg PO DAILY [facility] Last Admin: 10/30/17 09:05 Dose: 64 mg Prednisone (Deltasone -) 5 mg PO DAILY [facility] Last Admin: 10/30/17 09:10 Dose: 5 mg Tacrolimus 1 mg/ Tacrolimus 0. 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 #WESTON on CKD renal function w/o improvement thus far will plan to start dialysis as inpatient tomorrow will need tunneled HD catheter, Dr. Echavarria aware continue tacrolimus, prednsone will decrease tacrolimus to 1mg Dialy as level was 6 #Arm Hematoma supportive care Abx as per ID #Acute Anemia holding heparin gtt b/c of worsening anemia pt reports having a IVF filter Vascular following for DVT repeat CBC transfuse PRBC as per primary Thank you Will follow Eagle Thomas DO
[2017-10-30] MEDS ORDERED: HYDROmorphone HCL CARPU-JECT 2 MG/1 ML DISP.SYRIN IVPUSH PRN (19:16)
--- NOTE | 2017-10-30 20:24 | PN ---
Progress Note (short form) - Note Progress Note: VAscular Surgery Pt seen and examined. CT scan reviewed. Pt has a IVC filter in place. Will do permacath [place] at 3pm. Benedict nelson DO
[2017-10-30 20:30] LABS: HEMATOCRIT 17.7 % (35.4-49); MCH 29.5 pg (25.7-33.7); MCHC 31.6 g/dl (32.0-35.9); MEAN CELL VOLUME 93.4 fl (80-96); MEAN PLT VOLUME 9.6 fl (7.5-11.1); PLATELET COUNT 165 K/MM3 (134-434); RDW 16.8 % (11.9-15.9); WHITE BLOOD COUNT 17.8 K/mm3 (4.0-10.0)
[2017-10-30 20:42] LABS: HEMOGLOBIN 5.6 GM/dL (11.7-16.9)
--- NOTE | 2017-10-30 20:53 | PN ---
Progress Note (short form) - Note Progress Note: PAtient seen and examined c/o LLQ pain DEnies any pain in RUE lethargic but answering questions appropriately Last Vital Signs Temp Pulse Resp BP Pulse Ox 98.4 F 91 H 18 118/37 100 10/30/17 07:32 10/30/17 07:32 10/30/17 07:48 10/30/17 07:32 10/30/17 07:48 Cor: RSR, No murmurs, No gallops Lungs: Clear to P&A Abd: Soft, Normal bowel sounds, mildLLQ tenderness Ext:1+ edema Abnormal Lab Results 10/27/17 10/30/17 10/30/17 19:20 05:10 05:10 WBC 11.9 H RBC 2.33 L Hgb 6.7 L* D Hct 21.0 L MCHC 31.8 L RDW 19.0 H PT with INR INR PTT (Actin FS) Chloride 115 H Carbon Dioxide 17 L BUN 138 H* Creatinine 8.1 H* Random Glucose 186 H Calcium 6.5 L* Alkaline Phosphatase 44 L Total Protein 5.3 L Albumin 1.9 L Crossmatch See Detail 10/30/17 10/30/17 10/30/17 06:15 06:15 19:50 WBC 17.8 H D RBC 1.90 L Hgb 5.6 L* D Hct 17.7 L D MCHC 31.6 L RDW 16.8 H D PT with INR 14.40 H INR 1.27 H PTT (Actin FS) 87.8 H D Chloride Carbon Dioxide BUN Creatinine Random Glucose Calcium Alkaline Phosphatase Total Protein Albumin Crossmatch Home Medication List Medication Instructions Recorded Confirmed Type Amlodipine Besylate 10 mg PO DAILY 01/31/13 10/25/17 History Atorvastatin Ca [Lipitor] 40 mg PO HS 01/31/13 10/25/17 History Folic Acid 1 mg PO DAILY 01/31/13 10/25/17 History Prednisone 5 mg PO DAILY 01/31/13 10/25/17 History Tacrolimus [Prograf] 1.5 mg PO BID 01/31/13 10/25/17 History Insulin Glargine,Hum.rec.anlog 5 units SCJ TIDCM 06/05/15 10/25/17 History [Lantus Solostar PEN -] Aspirin [ASA -] 81 mg PO DAILY 10/26/16 10/25/17 History Febuxostat [Uloric -] 40 mg PO DAILY 10/26/16 10/25/17 History Warfarin Sodium [Coumadin] 0.5 mg PO HS 10/25/17 10/25/17 History Insulin Aspart [Novolog Flexpen] 5 units BID 10/26/17 10/26/17 History Insulin Detemir [Levemir Flextouch] 15 units SCJ DAILY 10/26/17 10/26/17 History Active Medications Generic Name Dose Route Start Last Admin Trade Name Freq PRN Reason Stop Dose Admin Amlodipine Besylate 10 mg 10/25/17 21:30 10/30/17 09:07 Norvasc - PO 10 mg DAILY OZIEL Administration Atorvastatin Calcium 40 mg 10/26/17 22:00 10/29/17 23:08 Lipitor - PO 40 mg HS OZIEL Administration Calcium Acetate 667 mg 10/27/17 12:00 10/30/17 17:31 Phoslo - PO 667 mg TIDCM OZIEL Administration Febuxostat 40 mg 10/26/17 10:00 10/30/17 09:05 Uloric - PO 40 mg DAILY O[facility]IEL Administration Folic Acid 1 mg 10/26/17 10:00 10/30/17 09:10 Folic Acid - PO 1 mg DAILY O[facility]IEL Administration Hydralazine HCl 25 mg 10/26/17 11:18 Apresoline - PO Q8H PRN HYPERTENSION Hydromorphone HCl 0.5 mg 10/30/17 19:16 Dilaudid Injection - IVPUSH Q6H PRN PAIN >6 Piperacillin/Tazobactam/Dextrose 2.25 gm in 50 mls @ 100 mls/hr 10/26/17 12: 30 10/30/17 09:12 Zosyn 2.25gm Ivpb (Premix) IVPB 100 mls/hr BID [facility] Administration Protocol Insulin Aspart 1 vial 10/26/17 22:00 10/30/17 17:28 Novolog Vial Sliding Scale - SQ 2 units ACHS [facility] Administration Protocol Insulin Detemir 15 units 10/26/17 22:00 10/29/17 23:10 Levemir Vial SQ 5 units HS O[facility]IEL Administration Magnesium Chloride 64 mg 10/27/17 15:00 10/30/17 09:05 Slow-Mag - PO 64 mg DAILY OZIEL Administration Prednisone 5 mg 10/26/17 11:15 10/30/17 09:10 Deltasone - PO 5 mg DAILY O[facility]IEL Administration Tacrolimus 1 mg 10/30/17 22:00 Prograf PO BID OZIEL A/P 62 year old gentleman with PMhx of Renal Transplant (2000, [facility]) 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 Being treated for cellulitis/RUE hematoma.INR 4 .21 on presentation Coumadin held. INR corrected and became subtherapeutic.Dveloped LLE DVT. Was on heparin. Now with Lt. perirenal hematoma\ Suspect uremic platelet dysfunction Given active LT. perirenal bleeding, dropping hgb despite blood transfusion will give DDAVP to correct uremic platelet dysfunction--0.3mcg/kg over 30mins. PT/PTT-nl off a/c discussed with renal and primary teams disucssed benefits risks of DDAVP with patients daughter Carese [phone]. discussed side effects including allergic reactions, hyponatermia, thrombosis But given active bleeding/ benefits outweigh risks Anemia : anemia of chronic disease due to WESTON on CKD + acute bleed acute perirenal hematoma transfuse PRBCs to hgb >8 h/o multiple DVTs in lower extremity--off a/c due to bleed h/o ivc filter
--- NOTE | 2017-10-30 21:47 | HOSP ---
Subjective - Review of Symptoms Subjective: Pt. Seen at bedside States he feel ok Physical: VS: Vital Signs Period Temp Pulse Resp BP Sys/Lane Pulse Ox Last 24 Hr 98.4 F-98.5 F 87-91 18-81 118-135/37-52 100 GEN:NAD, AA0X3 CARD: RRR S1, S2 RESP: CTAB ABD: Soft, Non-Distended, NTD EXT: RUE edema and erythema R. Arm Hematoma/ Abdominal Hematoma S/P 1 U PRBC w. 1 more ordered H&H As follows 5.03/25, 1 more U PRBC ordered, repeat to keep Hgb >7 Will give PRBC until Hgb >7 Contacted IR, No urgent treatment at this point, will continue to Stabilize DDVAP 4mcg/kg IVPB Rest as per resident note Physical Examination Vital Signs: Vital Signs Temperature 98.4 F 10/30/17 07:32 Pulse Rate 91 H 10/30/17 07:32 Respiratory Rate 18 10/30/17 07:48 Blood Pressure 118/37 10/30/17 07:32 O2 Sat by Pulse Oximetry (%) 100 10/30/17 07:48 Labs: CBC, BMP 10/30/17 19:50 10/30/17 05:10
[2017-10-30 22:17] LABS: INR 1.27 (0.82-1.09); PROTHROMBIN TIME (PATIENT) 14.4 SEC (9.98-11.88)
[2017-10-30] MEDS ORDERED: DESMOPRESSIN ACETATE 4 MCG/ML AMP IVPB ONE (22:27)
--- NOTE | 2017-10-30 22:30 | HOSP ---
Subjective - Review of Symptoms Events since last encounter: Was called to see pt because Hb decreased from 6.7 to 5.6 after 1 PRBC. On review of record, CT abd/pelv revealed a 10cm perinephric hematoma. Pt was also noted to be uremic. Pt was noted to have INR 1.27. On exam, pt was hemodynamically stable and responsive. PT had purple discoloration of RUE with bruising on both UE. Heart, lung, abd unremarkable. Current plan is to give 2 PRBCs, f/u CBC and give DDAVP for likely uremic platelet dysfunction. Spoke with IR (Dr. Alonzo). As pt is currently stable, IR reccomends no intervention at this moment. He noted that if an IR procedure would be pursued, pt would first need a CT angio as he would have to confirm the location of a bleed prior to performing a procedure. 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 Benedict Echavarria) who follows the pt. Dr. Echavarria noted that pt is due to have a port placed tomorrow and that he will need HD. But he also felt that since the patient is currently stable, 2 PRBCs and DDAVP would be an appropriate course of action. He noted that a Hb above 8 would be ideal for tomorrow. Spoke with Heme/Onc (Dr. Grace) who was also in contact with Dr. Thomas regarding this patient. Both felt that the patient very likely has uremic platelet dysfunction and would benefit from DDAVP. Dr. Grace recommended that the patient be followed closely, and if there is an indication that he is bleeding/continues to bleed, 10 units of cryoprecipitate should be given. She noted that the low volume infusion should have minimal effect on the patient's volume status. Physical Examination Vital Signs: Vital Signs Temperature 98.4 F 10/30/17 07:32 Pulse Rate 91 H 10/30/17 07:32 Respiratory Rate 18 10/30/17 07:48 Blood Pressure 118/37 10/30/17 07:32 O2 Sat by Pulse Oximetry (%) 100 10/30/17 07:48 Labs: CBC, BMP 10/30/17 19:50 10/30/17 05:10 Visit type - Emergency Visit Emergency Visit: No - New Patient This patient is new to me today: Yes Date on this admission: 10/30/17 - Critical Care Critical Care patient: No
[2017-10-30] MEDS: INSULIN DETEMIR 100 UNITS/ML MDV SQ SCH (23:32)
[2017-10-30] MEDS ORDERED: PT OWN MED DRAWER 7, Y5N ONE (23:34)
[2017-10-30] MEDS: ATORVASTATIN CA 40 MG TABLET (FP) PO SCH (23:59)
[2017-10-30] MEDS: TACROLIMUS ANHYDROUS 1 MG CAPSULE PO SCH (23:59)
[2017-10-31] MEDS: PIPERACILLIN/TAZOB 2.25 GM 2.25 GM/50 ML BAG IVPB SCH
--- NOTE | 2017-10-31 05:59 | PN ---
<Shaka Christensen - Last Filed: 10/31/17 13:14> Physical Exam: SUBJECTIVE: Patient seen and examined at bedside. Patient's arm is wrapped in a white bandage. He states that he has some L sided abdominal pain, non-radiating 3/10. He states that his arm has significantly improved with decreased swelling and erythema. Patient complains of mild hiccups that prevented him from sleeping. Patient denies chest pain, SOB, nausea, vomiting diarrhea. OBJECTIVE: Vital Signs Period Temp Pulse Resp BP Sys/Lane Pulse Ox Last 24 Hr 97.1 F-98.4 F 80-94 - 107-129/37-70 99-100 GENERAL: The patient is awake, alert, and fully oriented, in no acute distress. HEAD: Normal with no signs of trauma. EYES: PERRL, extraocular movements intact, sclera anicteric, conjunctiva clear. No ptosis. LUNGS: Breath sounds equal, clear to auscultation bilaterally, no wheezes, no crackles, no accessory muscle use. HEART: Regular rate and rhythm, S1, S2, 3/6 systolic murmur appreciated on exam ABDOMEN: Soft, mildly tender to palpation on L side, non-radiating, nondistended , normoactive bowel sounds, no guarding, norebound, no hepatosplenomegaly, no masses. EXTREMITIES: 2+ pulses, warm, well-perfused, R arm mildly swollen and erythema that has improved since previous exam. Patient has improved mobility in arm and hand. NEUROLOGICAL: Cranial nerves II through XII grossly intact. Normal speech, gait not observed. PSYCH: Normal mood, normal affect. SKIN: Warm, dry, normal turgor, no rashes or lesions noted Laboratory Results - last 24 hr 10/27/17 10/27/17 10/30/17 08:15 19:20 05:10 WBC 11.9 H RBC 2.33 L Hgb 6.7 L* D Hct 21.0 L MCV 90.2 MCH 28.6 MCHC 31.8 L RDW 19.0 H Plt Count 211 MPV 9.2 PT with INR INR PTT (Actin FS) Fibrinogen Sodium Potassium Chloride Carbon Dioxide Anion Gap BUN Creatinine Creat Clearance w eGFR POC Glucometer Random Glucose Calcium Total Bilirubin AST ALT Alkaline Phosphatase Total Protein Albumin Tacrolimus 6.8 Blood Type O POSITIVE Antibody Screen Negative Crossmatch See Detail 10/30/17 10/30/17 10/30/17 05:10 06:09 06:15 WBC RBC Hgb Hct MCV MCH MCHC RDW Plt Count MPV PT with INR 14.40 H INR 1.27 H PTT (Actin FS) Fibrinogen Sodium 145 Potassium 4.6 Chloride 115 H Carbon Dioxide 17 L Anion Gap 13 BUN 138 H* Creatinine 8.1 H* Creat Clearance w eGFR 6.75 POC Glucometer 227 Random Glucose 186 H Calcium 6.5 L* Total Bilirubin 0.5 D AST 20 D ALT 17 Alkaline Phosphatase 44 L Total Protein 5.3 L Albumin 1.9 L Tacrolimus Blood Type Antibody Screen Crossmatch 10/30/17 10/30/17 10/30/17 06:15 10:35 11:49 WBC RBC Hgb Hct MCV MCH MCHC RDW Plt Count MPV PT with INR INR PTT (Actin FS) 87.8 H D Fibrinogen Sodium Potassium Chloride Carbon Dioxide Anion Gap BUN Creatinine Creat Clearance w eGFR POC Glucometer 257 Random Glucose Calcium Total Bilirubin AST ALT Alkaline Phosphatase Total Protein Albumin Tacrolimus Blood Type O POSITIVE Antibody Screen Crossmatch 10/30/17 10/30/17 10/30/17 17:16 19:50 19:50 WBC 17.8 H D RBC 1.90 L Hgb 5.6 L* D Hct 17.7 L D MCV 93.4 MCH 29.5 MCHC 31.6 L RDW 16.8 H D Plt Count 165 D MPV 9.6 PT with INR INR PTT (Actin FS) 29.0 D Fibrinogen Sodium Potassium Chloride Carbon Dioxide Anion Gap BUN Creatinine Creat Clearance w eGFR POC Glucometer 187 Random Glucose Calcium Total Bilirubin AST ALT Alkaline Phosphatase Total Protein Albumin Tacrolimus Blood Type Antibody Screen Crossmatch 10/30/17 10/30/17 10/30/17 21:30 21:50 21:50 WBC RBC Hgb Hct MCV MCH MCHC RDW Plt Count MPV PT with INR 14.40 H INR 1.27 H PTT (Actin FS) Fibrinogen 400.0 Sodium Potassium Chloride Carbon Dioxide Anion Gap BUN Creatinine Creat Clearance w eGFR POC Glucometer Random Glucose Calcium Total Bilirubin AST ALT Alkaline Phosphatase Total Protein Albumin Tacrolimus Blood Type O POSITIVE Antibody Screen Negative Crossmatch See Detail Active Medications Generic Name Dose Route Start Last Admin Trade Name Freq PRN Reason Stop Dose Admin Amlodipine Besylate 10 mg 10/25/17 21:30 10/30/17 09:07 Norvasc - PO 10 mg DAILY OZIEL Administration Atorvastatin Calcium 40 mg 10/26/17 22:00 10/30/17 23:59 Lipitor - PO 40 mg HS OZIEL Administration Calcium Acetate 667 mg 10/27/17 12:00 10/30/17 17:31 Phoslo - PO 667 mg TIDCM OZIEL Administration Febuxostat 40 mg 10/26/17 10:00 10/30/17 09:05 Uloric - PO 40 mg DAILY OZIEL Administration Folic Acid 1 mg 10/26/17 10:00 10/30/17 09:10 Folic Acid - PO 1 mg DAILY OZIEL Administration Hydralazine HCl 25 mg 10/26/17 11:18 Apresoline - PO Q8H PRN HYPERTENSION Hydromorphone HCl 0.5 mg 10/30/17 19:16 Dilaudid Injection - IVPUSH Q6H PRN PAIN >6 Piperacillin/Tazobactam/Dextrose 2.25 gm in 50 mls @ 100 mls/hr 10/26/17 12: 30 10/31/17 00:00 Zosyn 2.25gm Ivpb (Premix) IVPB 100 mls/hr BID [facility] Administration Protocol Insulin Aspart 1 vial 10/26/17 22:00 10/30/17 23:32 Novolog Vial Sliding Scale - SQ Not Given ACHS [facility] Protocol Insulin Detemir 15 units 10/26/17 22:00 10/30/17 23:32 Levemir Vial SQ Not Given HS [facility] Magnesium Chloride 64 mg 10/27/17 15:00 10/30/17 09:05 Slow-Mag - PO 64 mg DAILY OZIEL Administration Prednisone 5 mg 10/26/17 11:15 10/30/17 09:10 Deltasone - PO 5 mg DAILY OZIEL Administration Tacrolimus 1 mg 10/30/17 22:00 10/30/17 23:59 Prograf PO 1 mg BID OZIEL Administration ASSESSMENT/PLAN: US Pelvis: 14.4cm x 7.2cm x 12.1cm collection in L flank suspicious for hematoma CT Abd/Pelvis: An approximately 26 x 10 x 8 cm acute left posterior perirenal/ perirenal hematoma is seen at the level of the abdomen and pelvis. The hematoma appears partially clotted. 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 #Acute on Chronic Kidney Disease with R Renal Transplant: 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, creatinine stable -continue Tacrolimus -continue prednisone -Pt to get dialyzed today using 2k bath to decrease the potassium -to get 2nd dialysis tomorrow -appreciate nephrology consultation -NPO for now -Monitor electrolytes, creatinine -s/p 2 U PRBC, 2 more ordered by nephrology with dialysis to maintain a Hgb > 8 -Nephrology giving [id number] units Epogen IV with hemodialysis #Hematoma of L flank: progressing, [id number] -d/c heparin drip -s/p transfusion of 2UPRBC and 2 FFP, giving 2 more with dialysis today -monitor H&H -monitor BP -s/p DDAVP administration -appreciate vascular recommendations #Hematoma of the R arm: Arm wrapped in miya - improved -continue -zosyn 2.25 BID for previous suspicion of cellulitis -> consider D/ Cing abx -anticoagulation held, heparin drip held in the setting of acute blood loss anemia -keep R arm elevated and in a sling -monitor H&H -appreciate vascular surgery recommendations #Anemia: Hgb of 6.6 today after 1 U PRBC, likely 2/2 acute blood loss -s/p 2 U PRBC, 2 more ordered by nephrology with dialysis to maintain a Hgb > 8 , total of 4 units will be transfused today -Nephrology giving [id number] units Epogen IV with hemodialysis -transfused 2 FFP -repeat CBC in at midnight #DVT of Left Lower Extremity: pt has IVC filter -Heparin held due to acute bleed #Diabetes Mellitus: controlled -continue levemir 15 -continue ISS #Hypertension: controlled -continue hydralazine 25 TID -continue amlodipine 10 QD #Gout: stable -continue febuxostat #Supratherapeutic INR: INR -hold anticoagulation, hold heparin drip #FEN: No standing fluids, patient is receiving blood products as stated above Careful with repletion - pt getting dialysis NPO for now #Prophylaxis: -AC held due to INR -SCDs #Disposition: -transfer to ICU for hemodynamic monitoring Shaka Christensen D.O., PGY1 Case Discussed with Dr. Russo Visit type - Emergency Visit Emergency Visit: No - New Patient This patient is new to me today: No - Critical Care Critical Care patient: Yes Total Critical Care Time (in minutes): 50 Critical Care Statement: The care of this patient involved high complexity decision making to prevent further life threatening deterioration of the patient 's condition and/or to evaluate & treat vital organ system(s) failure or risk of failure. <Gail Doll - Last Filed: 11/08/17 08:29> Physical Exam: Coumadin and heparin was on hold since patient was getting it for having DVT of lower extremity.
[2017-10-31] MEDS: INSULIN SLIDING SCALE (NOVOLOG) 1 VIAL SQ SCH ×4 (06:42→22:47)
[2017-10-31 07:33] LABS: BASO % 0.4 % (0-2.0); HEMATOCRIT 20.8 % (35.4-49); LYMPH % 3.2 % (8-40); MCH 29.8 pg (25.7-33.7); MCHC 32.8 g/dl (32.0-35.9); MEAN CELL VOLUME 90.7 fl (80-96); MEAN PLT VOLUME 9.6 fl (7.5-11.1); MONO % 5.5 % (3.8-10.2); NEUT % 90.9 % (42.8-82.8); PLATELET COUNT 130 K/MM3 (134-434); RBC 2.29 M/mm3 (4.00-5.60); RDW 16.5 % (11.9-15.9); WHITE BLOOD COUNT 19.2 K/mm3 (4.0-10.0)
[2017-10-31] MEDS: CALCIUM ACETATE 667 MG CAPSULE (FP) PO SCH ×3 (08:00→17:09)
[2017-10-31 08:19] LABS: ANION GAP 17 (8-16); CALCIUM 6.4 mg/dL (8.5-10.1); CHLORIDE 112 mmol/L (98-107); CO2 13 mmol/L (21-32); CREATININE 8.7 mg/dL (0.7-1.3); GLUCOSE,RANDOM 235 mg/dL (74-106); MAGNESIUM 1.8 mg/dL (1.8-2.4); PHOSPHOROUS 7.8 mg/dL (2.5-4.9); SODIUM 142 mmol/L (136-145)
[2017-10-31 08:27] LABS: BLOOD UREA NITROGEN 134 mg/dL (7-18); POTASSIUM 6.3 mmol/L (3.5-5.1)
[2017-10-31] MEDS ORDERED: CALCIUM GLUCONATE 10% - 1,000 MG/10 ML VIAL IVPUSH ONE (08:28)
[2017-10-31] MEDS ORDERED: ONDANSETRON 4 MG/2 ML VIAL IVPUSH ONE ×2 (08:29→10:45)
[2017-10-31 08:35] LABS: INR 1.29 (0.82-1.09)
[2017-10-31 08:37] LABS: ACTIVATED PTT 28.8 SECONDS (26.9-34.4)
--- NOTE | 2017-10-31 08:37 | HOSP ---
Subjective - Review of Symptoms Subjective: Rapid response was called at 8:25am and nurse reported that patient had 1 episode of hematemesis. On examination, patient states that he just recently became nauseous. He has felt pressure and discomfort in his stomach since last night. Patient's vitals were stable with a BP of 136/62 and a HR of 90. Patient' s vomitus appeared dark brown/black with clots/coffee ground-type material. Patient is currently receiving 2nd unit of PRBCs for anemia 2/2 retroperitoneal bleed. A/P: Vomiting, no obvious GI bleed - looks like dependency case manager-colored coffee material that he ingested last night, but not classic "coffee ground" appearance -4mg zofran given -1gm calcium gluconate given -call put out to Dr. Mccarty to have pt transferred to ICU Physical Examination Vital Signs: Vital Signs Temperature 97.1 F L 10/31/17 05:58 Pulse Rate 94 H 10/31/17 05:58 Respiratory Rate 22 10/31/17 05:58 Blood Pressure 129/45 10/31/17 05:58 O2 Sat by Pulse Oximetry (%) 99 10/30/17 21:00 Labs: CBC, BMP 10/31/17 06:30 Visit type - Emergency Visit Emergency Visit: No - New Patient This patient is new to me today: No - Critical Care Critical Care patient: No
[2017-10-31] MEDS ORDERED: CALCIUM GLUCONATE 10% - 1,000 MG/10 ML VIAL IVPB ONE (08:45)
[2017-10-31 08:48] LABS: HEMOGLOBIN 6.8 GM/dL (11.7-16.9)
[2017-10-31 09:01] LABS: PROTHROMBIN TIME (PATIENT) 14.6 SEC (9.98-11.88)
[2017-10-31] MEDS ORDERED: INSULIN REGULAR HUMAN 100 UNITS/ML *VIAL IVPUSH ONE (09:41)
[2017-10-31] MEDS ORDERED: DEXTROSE 50%-WATER - 25 GM/50 ML VIAL IVPUSH ONE (09:41)
--- NOTE | 2017-10-31 09:59 | PN ---
Progress Note (short form) - Note Progress Note: Renal follow up for WESTON on CKD/Renal Transplant Pt transferred to ICU s/p coffee ground emesis Hgb 6.8 this am continues to have Abd pain K is 6.3 this am BP is low Vital Signs Temperature 97.7 F 10/31/17 09:08 Pulse Rate 88 10/31/17 09:08 Respiratory Rate 20 10/31/17 09:08 Blood Pressure 132/61 10/31/17 09:08 O2 Sat by Pulse Oximetry (%) 99 10/30/17 21:00 Intake & Output 10/28/17 10/29/17 10/30/17 10/31/17 23:59 23:59 23:59 23:59 Intake Total 840 1100 1342 Output Total 2 Balance 838 1100 1342 Weight 73.028 kg 73.21 kg 73.936 kg NAD awake and alert RRR DEc BS at lung bases soft NT/ND Right arm edema, erythema improved, + tenderness no myoclonis/asterxis on left arm CBC, BMP 10/31/17 06:30 10/31/17 06:30 Current Medications Albumin Human (Albumin Human 25%) 12.5 gm IVPB Q30M [facility] Amlodipine Besylate (Norvasc -) 10 mg PO DAILY [facility] Last Admin: 10/30/17 09:07 Dose: 10 mg Atorvastatin Calcium (Lipitor -) 40 mg PO HS [facility] Last Admin: 10/30/17 23:59 Dose: 40 mg Calcium Acetate (Phoslo -) 667 mg PO TIDCM [facility] Last Admin: 10/30/17 17:31 Dose: 667 mg Chlorhexidine Gluconate (Hibiclens For Decolonization -) 1 applic TP HS [facility] Epoetin Agustín (Epogen -) 20,000 unit IVPUSH ONCE ONE Stop: 10/31/17 09:52 Febuxostat (Uloric -) 40 mg PO DAILY [facility] Last Admin: 10/30/17 09:05 Dose: 40 mg Folic Acid (Folic Acid -) 1 mg PO DAILY [facility] Last Admin: 10/30/17 09:10 Dose: 1 mg Hydralazine HCl (Apresoline -) 25 mg PO Q8H PRN PRN Reason: HYPERTENSION Hydromorphone HCl (Dilaudid Injection -) 0.5 mg IVPUSH Q6H PRN PRN Reason: PAIN >6 Piperacillin/Tazobactam/Dextrose (Zosyn 2.25gm Ivpb (Premix)) 2.25 gm in 50 mls @ 100 mls/hr IVPB BID OZIEL PRN Reason: Protocol Last Admin: 10/31/17 00:00 Dose: 100 mls/hr Insulin Aspart (Novolog Vial Sliding Scale -) 1 vial SQ ACHS OZIEL PRN Reason: Protocol Last Admin: 10/31/17 06:42 Dose: Not Given Insulin Detemir (Levemir Vial) 15 units SQ HS [facility] Last Admin: 10/30/17 23:32 Dose: Not Given Magnesium Chloride (Slow-Mag -) 64 mg PO DAILY [facility] Last Admin: 10/30/17 09:05 Dose: 64 mg Mupirocin (Bactroban Ointment (For Decolonization) -) 1 applic NS BID [facility] Stop: 11/05/17 09:59 Prednisone (Deltasone -) 5 mg PO DAILY [facility] Last Admin: 10/30/17 09:10 Dose: 5 mg Tacrolimus (Prograf) 1 mg PO BID [facility] Last Admin: 10/30/17 23:59 Dose: 1 mg 62 year old gentleman with PMhx of Renal Transplant (2000, [facility]) 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 #WESTON on CKD pt will need urgent dialysis via temporary dialysis catheter this am will use 2k bath to bring down the potassium continue tacrolimus and prednsone will plan for 2nd dialysis tomorrow #Acute Anemia holding heparin gtt b/c of worsening anemia no further need for A/C as pt has IVC filter will transfuse 2 units PRBC with dialysis this am with goal Hgb > 8 will give Epogen [id number] units IV with HD #Anion Gap metabolic acidosis from renal failure check lactic acid #Hypocalcemia corrected Ca is 8.08 Eagle Thomas DO
--- NOTE | 2017-10-31 10:25 | PN ---
Progress Note (short form) - Note Progress Note: Patient seen and examined. Events noted transferred to ICU O/E: GEneral: Slightly lethargic HEENT: NCAT Cor: RRR Lungs: CTA b/l Neuro: drowsy Extremities: RUE +edema +hematoma. , +edema bilateral LE. Last Vital Signs Temp Pulse Resp BP Pulse Ox 97.7 F 88 20 132/61 100 10/31/17 09:08 10/31/17 09:08 10/31/17 09:08 10/31/17 09:08 10/31/17 08:30 CBC, BMP 10/31/17 06:30 10/31/17 06:30 Current Medications Generic Name Dose Route Start Last Admin Trade Name Freq PRN Reason Stop Dose Admin Albumin Human 12.5 gm 10/31/17 12:00 Albumin Human 25% IVPB 10/31/17 13:31 Q30M [facility] Amlodipine Besylate 10 mg 10/25/17 21:30 10/30/17 09:07 Norvasc - PO 10 mg DAILY OZIEL Administration Atorvastatin Calcium 40 mg 10/26/17 22:00 10/30/17 23:59 Lipitor - PO 40 mg HS [facility] Administration Calcium Acetate 667 mg 10/27/17 12:00 10/31/17 08:00 Phoslo - PO Not Given TIDCM [facility] Chlorhexidine Gluconate 1 applic 10/31/17 22:00 Hibiclens For Decolonization - TP HS OZIEL Epoetin Agustín 20,000 unit 10/31/17 12:00 Procrit - IVPUSH 10/31/17 12:01 ONCE ONE Febuxostat 40 mg 10/26/17 10:00 10/30/17 09:05 Uloric - PO 40 mg DAILY OZIEL Administration Folic Acid 1 mg 10/26/17 10:00 10/30/17 09:10 Folic Acid - PO 1 mg DAILY OZIEL Administration Hydralazine HCl 25 mg 10/26/17 11:18 Apresoline - PO Q8H PRN HYPERTENSION Hydromorphone HCl 0.5 mg 10/30/17 19:16 Dilaudid Injection - IVPUSH Q6H PRN PAIN >6 Piperacillin/Tazobactam/Dextrose 2.25 gm in 50 mls @ 100 mls/hr 10/26/17 12: 30 10/31/17 00:00 Zosyn 2.25gm Ivpb (Premix) IVPB 100 mls/hr BID OZIEL Administration Protocol Insulin Aspart 1 vial 10/26/17 22:00 10/31/17 06:42 Novolog Vial Sliding Scale - SQ Not Given ACHS [facility] Protocol Insulin Detemir 15 units 10/26/17 22:00 10/30/17 23:32 Levemir Vial SQ Not Given HS OZIEL Magnesium Chloride 64 mg 10/27/17 15:00 10/30/17 09:05 Slow-Mag - PO 64 mg DAILY OZIEL Administration Mupirocin 1 applic 10/31/17 10:00 Bactroban Ointment (For Decolonization) - NS 11/05/17 09:59 BID OZIEL Prednisone 5 mg 10/26/17 11:15 10/30/17 09:10 Deltasone - PO 5 mg DAILY OZIEL Administration Tacrolimus 1 mg 10/30/17 22:00 10/30/17 23:59 Prograf PO 1 mg BID OZIEL Administration High suspicion for Uremic bleeding Progressive Renal Failure. H/o Renal Transplant on tacro/Prednisone h/o DVT ( on coumadin as an OP ) Danielle-renal Hematoma RUE hematoma / cellulitis Supratherapeutic INR on presentation DM HTN Gout. For HD today Continued Uremic bleed s/p ddAVP x 1 on 10/30 PRBCs transfusions in HD if continued bleed post HD, need to consider cryo, d/w Renal CBC q12h, Type/screen active epogen per renal Therapeutic AC on hold, due to active bleeding. monitor tacro levels, low suspicion for MAHA, check labs critically ill.
[2017-10-31] MEDS ORDERED: DEXTROSE 50%-WATER - 25 GM/50 ML VIAL ONE (10:30)
[2017-10-31] MEDS ORDERED: INSULIN REGULAR HUMAN 100 UNITS/ML *VIAL ONE (10:31)
[2017-10-31] MEDS ORDERED: HYDROmorphone HCL CARPU-JECT 2 MG/1 ML DISP.SYRIN IVPUSH PRN (10:45)
[2017-10-31] MEDS ORDERED: hydrALAZINE HCL 25 MG TABLET (FP) PO PRN (10:45)
[2017-10-31 11:52] LABS: LDH 296 U/L (87-241)
[2017-10-31] MEDS: ALBUMIN HUMAN 25% 12.5 GM/50 ML VIAL IVPB SCH ×4 (12:00→14:00)
[2017-10-31] MEDS ORDERED: EPOETIN ALFA 20,000 UNIT/1 ML VIAL IVPUSH ONE (12:00)
[2017-10-31] MEDS: MUPIROCIN 2% TOPICAL OINTMENT FOR DECOLONIZATION NS SCH ×2 (14:09→23:30)
--- NOTE | 2017-10-31 14:21 | CONSULT ---
Consultation: REQUESTING PROVIDER: CONSULT REQUEST: We have been asked to medically evaluate this patient for ( specify). HISTORY OF PRESENT ILLNESS: The patient is a 62 year old male with a history of DM, right kidney transplant , and DVT on warfarin who presented to the ED for RUE swelling and redness. The patient was subsequently admitted for treatment of cellulitis in the setting of acute renal failure. He was noted to have coffe ground emesis earlier this morning with associated abdominal pain. He had a notable anemia with a hgb of 6.8, hyperkalemia to 6.3 as well as hypotension prompting him to be transferred to the ICU for urgent dialysis and further management. 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), b/l LE PAD s/p percutaneous angioplasty w/ stent 2010 by Benedict Echavarria with R Hallux gangrene, DM, L femur fracture and gout PAST SURGICAL HISTORY: Social History: Smoking: denies Alcohol: denies Drugs: denies Family History: Allergies No Known Drug Allergies Allergy (Verified 10/25/17 14:07) REVIEW OF SYSTEMS: CONSTITUTIONAL: Absent: fever, chills, diaphoresis, generalized weakness, malaise, loss of appetite, weight change HEENT: Absent: rhinorrhea, nasal congestion, throat pain, throat swelling, difficulty swallowing, mouth swelling, ear pain, eye pain, visual changes CARDIOVASCULAR: Absent: chest pain, syncope, palpitations, irregular heart rate, lightheadedness , RESPIRATORY: Absent: cough, shortness of breath, dyspnea with exertion, orthopnea, wheezing, stridor, hemoptysis GASTROINTESTINAL: Lower abdominal pain, Nausea, Vomiting Absent: abdominal distension, diarrhea, constipation, melena, GENITOURINARY: Absent: dysuria, frequency, urgency, hesitancy, hematuria, flank pain, genital pain MUSCULOSKELETAL: Peripheral edema Absent: myalgia, arthralgia, joint swelling, back pain, neck pain SKIN: Right arm redness Absent: itching, pallor HEMATOLOGIC/IMMUNOLOGIC: Absent: easy bleeding, easy bruising, lymphadenopathy, frequent infections ENDOCRINE: Absent: unexplained weight gain, unexplained weight loss, heat intolerance, cold intolerance NEUROLOGIC: Absent: headache, focal weakness or paresthesias, dizziness, unsteady gait, seizure, mental status changes, bladder or bowel incontinence PSYCHIATRIC: Absent: anxiety, depression, suicidal or homicidal ideation, hallucinations. PHYSICAL EXAMINATION Vital Signs - 24 hr 10/30/17 10/30/17 10/30/17 21:00 22:00 23:00 Temperature 98.1 F Pulse Rate 80 Respiratory 20 Rate Blood Pressure 107/70 110/48 O2 Sat by Pulse 99 Oximetry (%) 10/31/17 10/31/17 10/31/17 05:58 08:30 09:08 Temperature 97.1 F L 97.7 F Pulse Rate 94 H 88 Respiratory 22 20 Rate Blood Pressure 129/45 132/61 O2 Sat by Pulse 100 Oximetry (%) 10/31/17 10/31/17 10/31/17 09:30 10:00 10:50 Temperature 97.7 F Pulse Rate 88 90 105 H Respiratory 18 18 20 Rate Blood Pressure 126/80 119/76 129/58 O2 Sat by Pulse Oximetry (%) 10/31/17 10/31/17 10/31/17 10:55 11:25 11:55 Temperature Pulse Rate 104 H 105 H 102 H Respiratory 20 20 20 Rate Blood Pressure 106/65 119/76 114/70 O2 Sat by Pulse Oximetry (%) 10/31/17 10/31/17 10/31/17 12:02 12:25 12:55 Temperature Pulse Rate 98 H 97 H 95 H Respiratory 18 20 18 Rate Blood Pressure 114/82 136/79 154/98 O2 Sat by Pulse Oximetry (%) 10/31/17 10/31/17 10/31/17 13:25 13:30 14:02 Temperature 97.6 F Pulse Rate 95 H 94 H 98 H Respiratory 18 18 18 Rate Blood Pressure 159/86 146/82 112/62 O2 Sat by Pulse Oximetry (%) GENERAL: Awake, alert, and fully oriented, in no acute distress. HEAD: Normal with no signs of trauma. EYES: Pupils equal, round and reactive to light, extraocular movements intact, sclera anicteric, conjunctiva clear. No lid lag. EARS, NOSE, THROAT: Ears normal, nares patent, oropharynx clear without exudates. Moist mucous membranes. NECK: Normal range of motion, supple without lymphadenopathy, or masses. LUNGS: Breath sounds equal, clear to auscultation bilaterally. No wheezes, and no crackles. No accessory muscle use. HEART: Regular rate and rhythm, normal S1 and S2 without murmur, rub or gallop. ABDOMEN: Soft, not distended, normoactive bowel sounds, Mild lower diffuse lower abdominal tenderness to palpation, no guarding, no rebound, no masses. No hepatomegaly or splenomegaly. MUSCULOSKELETAL: Normal range of motion at all joints. No bony deformities or tenderness. No CVA tenderness. UPPER EXTREMITIES: 2+ pulses, warm, well-perfused. No cyanosis. No clubbing. Cap refill <2 seconds. Peripheral edema noted. LOWER EXTREMITIES: Right femoral dialysis catheter in place. 2+ pulses, warm, well-perfused. No calf tenderness. No peripheral edema. NEUROLOGICAL: Normal speech. Normal gait. PSYCHIATRIC: Cooperative. Good eye contact. Appropriate mood and affect. SKIN: Warm, dry, normal turgor, no rashes or lesions noted. Laboratory Results - last 24 hr 10/27/17 10/30/17 10/30/17 19:20 17:16 19:50 WBC RBC Hgb Hct MCV MCH MCHC RDW Plt Count MPV Neutrophils % Lymphocytes % Monocytes % Eosinophils % Basophils % Retic Count PT with INR INR PTT (Actin FS) 29.0 D Fibrinogen Sodium Potassium Chloride Carbon Dioxide Anion Gap BUN Creatinine POC Glucometer 187 Random Glucose Calcium Phosphorus Magnesium LD Total Dnoqg-1-Bccjgggqw (%) Vneng-9-Pmceajrft (%) Beta Globulins (%) Gamma Globulins (%) M-Morgan % Hepatitis C Antibody Ref Test Comments Blood Type O POSITIVE Antibody Screen Negative Crossmatch See Detail 10/30/17 10/30/17 10/30/17 19:50 21:30 21:50 WBC 17.8 H D RBC 1.90 L Hgb 5.6 L* D Hct 17.7 L D MCV 93.4 MCH 29.5 MCHC 31.6 L RDW 16.8 H D Plt Count 165 D MPV 9.6 Neutrophils % Lymphocytes % Monocytes % Eosinophils % Basophils % Retic Count PT with INR 14.40 H INR 1.27 H PTT (Actin FS) Fibrinogen Sodium Potassium Chloride Carbon Dioxide Anion Gap BUN Creatinine POC Glucometer Random Glucose Calcium Phosphorus Magnesium LD Total Nohbe-3-Ptcxasgqi (%) Kgqlw-2-Akfxxfcvc (%) Beta Globulins (%) Gamma Globulins (%) M-Morgan % Hepatitis C Antibody Ref Test Comments Blood Type O POSITIVE Antibody Screen Negative Crossmatch See Detail 10/30/17 10/31/17 10/31/17 21:50 05:24 06:30 WBC RBC Hgb Hct MCV MCH MCHC RDW Plt Count MPV Neutrophils % Lymphocytes % Monocytes % Eosinophils % Basophils % Retic Count PT with INR INR PTT (Actin FS) Cancelled Fibrinogen 400.0 Sodium Potassium Chloride Carbon Dioxide Anion Gap BUN Creatinine POC Glucometer 262 Random Glucose Calcium Phosphorus Magnesium LD Total Ckuxd-8-Edxhndlmg (%) Ciajs-5-Ngcbqqplj (%) Beta Globulins (%) Gamma Globulins (%) M-Morgan % Hepatitis C Antibody Ref Test Comments Blood Type Antibody Screen Crossmatch 10/31/17 10/31/17 10/31/17 06:30 06:30 06:30 WBC 19.2 H RBC 2.29 L D Hgb 6.8 L* D Hct 20.8 L D MCV 90.7 MCH 29.8 MCHC 32.8 RDW 16.5 H Plt Count 130 L D MPV 9.6 Neutrophils % 90.9 H Lymphocytes % 3.2 L D Monocytes % 5.5 Eosinophils % 0.0 D Basophils % 0.4 Retic Count PT with INR 14.60 H INR 1.29 H PTT (Actin FS) 28.8 Fibrinogen 365.0 Sodium 142 Potassium 6.3 H* D Chloride 112 H Carbon Dioxide 13 L D Anion Gap 17 H BUN 134 H* Creatinine 8.7 H* POC Glucometer Random Glucose 235 H D Calcium 6.4 L* Phosphorus 7.8 H D Magnesium 1.8 LD Total 296 H Jhubv-5-Qiorymvhv (%) Yxetu-2-Poozodphp (%) Beta Globulins (%) Gamma Globulins (%) M-Morgan % Hepatitis C Antibody Ref Test Comments Blood Type Antibody Screen Crossmatch 10/31/17 10/31/17 10/31/17 06:30 06:30 08:27 WBC RBC Hgb Hct MCV MCH MCHC RDW Plt Count MPV Neutrophils % Lymphocytes % Monocytes % Eosinophils % Basophils % Retic Count PT with INR INR PTT (Actin FS) Fibrinogen Cancelled Sodium Potassium Chloride Carbon Dioxide Anion Gap BUN Creatinine POC Glucometer 296 Random Glucose Calcium Phosphorus Magnesium LD Total Tgioc-4-Gawkthuza (%) Cancelled Ovvwc-3-Bhbyueyrx (%) Cancelled Beta Globulins (%) Cancelled Gamma Globulins (%) Cancelled M-Morgan % Cancelled Hepatitis C Antibody Ref Test Comments Cancelled Blood Type Antibody Screen Crossmatch 10/31/17 10/31/17 10:32 11:00 WBC RBC Hgb Hct MCV MCH MCHC RDW Plt Count MPV Neutrophils % Lymphocytes % Monocytes % Eosinophils % Basophils % Retic Count 2.38 H PT with INR INR PTT (Actin FS) Fibrinogen Sodium Potassium Chloride Carbon Dioxide Anion Gap BUN Creatinine POC Glucometer Random Glucose Calcium Phosphorus Magnesium LD Total Kvxcr-8-Dwrolsvcb (%) Ozxab-1-Hvelqcnzi (%) Beta Globulins (%) Gamma Globulins (%) M-Morgan % Hepatitis C Antibody Cancelled Ref Test Comments Blood Type Antibody Screen Crossmatch Active Medications Generic Name Dose Route Start Last Admin Trade Name Freq PRN Reason Stop Dose Admin Amlodipine Besylate 10 mg 11/01/17 10:00 Norvasc - PO DAILY [facility] Atorvastatin Calcium 40 mg 10/31/17 22:00 Lipitor - PO HS [facility] Calcium Acetate 667 mg 10/31/17 12:00 10/31/17 14:09 Phoslo - PO Not Given TIDCM [facility] Chlorhexidine Gluconate 1 applic 10/31/17 22:00 Hibiclens For Decolonization - TP HS [facility] Febuxostat 40 mg 11/01/17 10:00 Uloric - PO DAILY [facility] Folic Acid 1 mg 11/01/17 10:00 Folic Acid - PO DAILY [facility] Hydralazine HCl 25 mg 10/31/17 10:45 Apresoline - PO Q8H PRN HYPERTENSION Hydromorphone HCl 0.5 mg 10/31/17 10:45 Dilaudid Injection - IVPUSH Q6H PRN PAIN >6 Piperacillin/Tazobactam/Dextrose 2.25 gm in 50 mls @ 100 mls/hr 10/31/17 22: 00 Zosyn 2.25gm Ivpb (Premix) IVPB BID [facility] Protocol Insulin Aspart 1 vial 10/31/17 11:00 Novolog Vial Sliding Scale - SQ ACHS [facility] Protocol Insulin Detemir 15 units 10/31/17 22:00 Levemir Vial SQ HS [facility] Magnesium Chloride 64 mg 11/01/17 10:00 Slow-Mag - PO DAILY [facility] Mupirocin 1 applic 10/31/17 10:00 10/31/17 14:09 Bactroban Ointment (For Decolonization) - NS 11/05/17 09:59 Not Given BID [facility] Prednisone 5 mg 11/01/17 10:00 Deltasone - PO DAILY [facility] Tacrolimus 1 mg 10/31/17 22:00 Prograf PO BID [facility] ASSESSMENT/PLAN: The patient is a 62 year old male with a history of DM, right kidney transplant , and DVT on warfarin who presented to the ED for RUE swelling and redness. The patient was subsequently admitted for treatment of cellulitis in the setting of acute renal failure transferred to the ICU for coffee ground emesis, anemia, hyperkalemia, and hypotension. NEURO No Issues currently. -Awake and Oriented x3 CV #Anemia Hgb was noted to be 6.8 earlier this morning likely due to acute blood loss. -Will transfuse 2 more PRBC ordered by nephrology with dialysis to maintain a Hgb > 8, total of 4 units will be transfused today -Nephrology giving 72860 units Epogen IV with hemodialysis -Will transfuse 2 FFP -Will repeat cbc in the evening post dialysis and transfusion. #Hypertension -Will continue hydralazine 25 TID -Will continue amlodipine 10 QD RESP No Issues currently. -Will continue to monitor ENDO #Diabetes Mellitus -continue levemir 15 -continue ISS Renal #Acute on Chronic Kidney Disease with R Renal Transplant Patient noted to have a hyperkalemia of 6.3 earlier today and had a right femoral temporary dialysis catheter placed for urgent dialysis. -Will continue Tacrolimus -Will continue prednisone -The patient is to get 2nd dialysis tomorrow -NPO for now -Will continue to monitor electrolytes, creatinine HEME #Supratherapeutic INR -Will hold anticoagulation and hold heparin drip MSK #Hematoma and Cellulities of the Right arm (Improving) -Continue -zosyn 2.25 BID for previous suspicion of cellulitis -Anticoagulation held, heparin drip held in the setting of acute blood loss anemia -Keep R arm elevated and in a sling -Will continue to monitor FEN/GI -Replete electrolytes PRN carefully, will monitor -No standing fluids as the patient is receiving blood products -Remain NPO at this time. PPX -Holding anticoaguation at this time due to acute blood loss anemia and supratherapeutic INR. Dispo: We will continue to follow the patient. Thank you for this consultative opportunity. Visit type - Emergency Visit Emergency Visit: No - New Patient This patient is new to me today: Yes Date on this admission: 10/31/17 - Critical Care Critical Care patient: Yes Total Critical Care Time (in minutes): 35 Critical Care Statement: The care of this patient involved high complexity decision making to prevent further life threatening deterioration of the patient 's condition and/or to evaluate & treat vital organ system(s) failure or risk of failure.
[2017-10-31] MEDS ORDERED: INSULIN (NOVOLOG) ASPART 100 UNITS/ML 10ML VIAL ONE (16:50)
--- NOTE | 2017-10-31 17:01 | PN ---
Teaching Attending Note Name of Resident: Kadeem Sarah ATTENDING PHYSICIAN STATEMENT I saw and evaluated the patient. I reviewed the resident's note and discussed the case with the resident. I agree with the resident's findings and plan as documented. SUBJECTIVE: 62 m, DM, right kidney transplant, and DVT on warfarin. Admitted via the ER due to RUE swelling and redness. Admitted to the medical floor for treatment of cellulitis in the setting of acute renal failure. He was also noted to have coffee ground emesis this AM. Hemoglobin was 6.8 and noted to have hyperkalemia to 6.3. Transferred to the ICU for urgent dialysis and further management. Intake & Output 10/28/17 10/29/17 10/30/17 10/31/17 23:59 23:59 23:59 23:59 Intake Total 840 1100 1342 400 Output Total 2 Balance 838 1100 1342 400 Weight 161 lb 161 lb 6.4 oz 163 lb Last Vital Signs Temp Pulse Resp BP Pulse Ox 97.6 F 98 H 18 112/62 100 10/31/17 13:30 10/31/17 14:02 10/31/17 14:02 10/31/17 14:02 10/31/17 08:30 Active Medications Amlodipine Besylate (Norvasc -) 10 mg PO DAILY [facility] Atorvastatin Calcium (Lipitor -) 40 mg PO HS [facility] Calcium Acetate (Phoslo -) 667 mg PO TIDCM [facility] Last Admin: 10/31/17 14:09 Dose: Not Given Chlorhexidine Gluconate (Hibiclens For Decolonization -) 1 applic TP HS [facility] Febuxostat (Uloric -) 40 mg PO DAILY [facility] Folic Acid (Folic Acid -) 1 mg PO DAILY [facility] Hydralazine HCl (Apresoline -) 25 mg PO Q8H PRN PRN Reason: HYPERTENSION Hydromorphone HCl (Dilaudid Injection -) 0.5 mg IVPUSH Q6H PRN PRN Reason: PAIN >6 Piperacillin/Tazobactam/Dextrose (Zosyn 2.25gm Ivpb (Premix)) 2.25 gm in 50 mls @ 100 mls/hr IVPB BID [facility] PRN Reason: Protocol Insulin Aspart (Novolog Vial Sliding Scale -) 1 vial SQ ACHS [facility] PRN Reason: Protocol Last Admin: 10/31/17 14:51 Dose: Not Given Insulin Detemir (Levemir Vial) 15 units SQ HS [facility] Magnesium Chloride (Slow-Mag -) 64 mg PO DAILY [facility] Mupirocin (Bactroban Ointment (For Decolonization) -) 1 applic NS BID [facility] Stop: 11/05/17 09:59 Last Admin: 10/31/17 14:09 Dose: Not Given Prednisone (Deltasone -) 5 mg PO DAILY [facility] Tacrolimus (Prograf) 1 mg PO BID [facility] GENERAL: Awake, alert, and fully oriented, in no acute distress. HEAD: Normal with no signs of trauma. EYES: sclera anicteric, conjunctiva clear. EARS, NOSE, THROAT: Dry mucous membranes. NECK: Normal range of motion, supple without lymphadenopathy, or masses. LUNGS: Breath sounds equal, clear to auscultation bilaterally. No wheezes, and no crackles. No accessory muscle use. HEART: Regular rate and rhythm, normal S1 and S2 without murmur, rub or gallop. ABDOMEN: Soft, not distended, normoactive bowel sounds, Mild lower diffuse lower abdominal tenderness to palpation, no guarding, no rebound, no masses. No hepatomegaly or splenomegaly. MUSCULOSKELETAL: Normal range of motion at all joints. No bony deformities or tenderness. No CVA tenderness. UPPER EXTREMITIES: (+) RUE swelling erythema and swelling / bandaged LOWER EXTREMITIES: Right femoral dialysis catheter in place. 2+ pulses, warm, well-perfused. No calf tenderness. No peripheral edema. NEUROLOGICAL: Normal speech. Normal gait. PSYCHIATRIC: Cooperative. Good eye contact. Appropriate mood and affect. SKIN: RUE erythema Laboratory Results - last 24 hr 10/27/17 10/30/17 10/30/17 19:20 17:16 19:50 WBC RBC Hgb Hct MCV MCH MCHC RDW Plt Count MPV Neutrophils % Lymphocytes % Monocytes % Eosinophils % Basophils % Retic Count PT with INR INR PTT (Actin FS) 29.0 D Fibrinogen Sodium Potassium Chloride Carbon Dioxide Anion Gap BUN Creatinine POC Glucometer 187 Random Glucose Calcium Phosphorus Magnesium LD Total Kyeug-9-Uucyattxq (%) Dsyhy-9-Yggfbyuto (%) Beta Globulins (%) Gamma Globulins (%) M-Morgan % Hepatitis C Antibody Ref Test Comments Blood Type O POSITIVE Antibody Screen Negative Crossmatch See Detail 10/30/17 10/30/17 10/30/17 19:50 21:30 21:50 WBC 17.8 H D RBC 1.90 L Hgb 5.6 L* D Hct 17.7 L D MCV 93.4 MCH 29.5 MCHC 31.6 L RDW 16.8 H D Plt Count 165 D MPV 9.6 Neutrophils % Lymphocytes % Monocytes % Eosinophils % Basophils % Retic Count PT with INR 14.40 H INR 1.27 H PTT (Actin FS) Fibrinogen Sodium Potassium Chloride Carbon Dioxide Anion Gap BUN Creatinine POC Glucometer Random Glucose Calcium Phosphorus Magnesium LD Total Rjyct-3-Lmepxnkly (%) Ysysq-0-Mnrhwagjf (%) Beta Globulins (%) Gamma Globulins (%) M-Morgan % Hepatitis C Antibody Ref Test Comments Blood Type O POSITIVE Antibody Screen Negative Crossmatch See Detail 10/30/17 10/31/17 10/31/17 21:50 05:24 06:30 WBC RBC Hgb Hct MCV MCH MCHC RDW Plt Count MPV Neutrophils % Lymphocytes % Monocytes % Eosinophils % Basophils % Retic Count PT with INR INR PTT (Actin FS) Cancelled Fibrinogen 400.0 Sodium Potassium Chloride Carbon Dioxide Anion Gap BUN Creatinine POC Glucometer 262 Random Glucose Calcium Phosphorus Magnesium LD Total Gvmfb-9-Ujiknbbqo (%) Rmfrt-8-Donsyggbu (%) Beta Globulins (%) Gamma Globulins (%) M-Morgan % Hepatitis C Antibody Ref Test Comments Blood Type Antibody Screen Crossmatch 10/31/17 10/31/17 10/31/17 06:30 06:30 06:30 WBC 19.2 H RBC 2.29 L D Hgb 6.8 L* D Hct 20.8 L D MCV 90.7 MCH 29.8 MCHC 32.8 RDW 16.5 H Plt Count 130 L D MPV 9.6 Neutrophils % 90.9 H Lymphocytes % 3.2 L D Monocytes % 5.5 Eosinophils % 0.0 D Basophils % 0.4 Retic Count PT with INR 14.60 H INR 1.29 H PTT (Actin FS) 28.8 Fibrinogen 365.0 Sodium 142 Potassium 6.3 H* D Chloride 112 H Carbon Dioxide 13 L D Anion Gap 17 H BUN 134 H* Creatinine 8.7 H* POC Glucometer Random Glucose 235 H D Calcium 6.4 L* Phosphorus 7.8 H D Magnesium 1.8 LD Total 296 H Dieht-4-Qoxcpmagy (%) Mjloi-0-Roednatyf (%) Beta Globulins (%) Gamma Globulins (%) M-Morgan % Hepatitis C Antibody Ref Test Comments Blood Type Antibody Screen Crossmatch 10/31/17 10/31/17 10/31/17 06:30 06:30 08:27 WBC RBC Hgb Hct MCV MCH MCHC RDW Plt Count MPV Neutrophils % Lymphocytes % Monocytes % Eosinophils % Basophils % Retic Count PT with INR INR PTT (Actin FS) Fibrinogen Cancelled Sodium Potassium Chloride Carbon Dioxide Anion Gap BUN Creatinine POC Glucometer 296 Random Glucose Calcium Phosphorus Magnesium LD Total Lavcq-8-Dgokgjbwn (%) Cancelled Hedep-1-Dnszjssmq (%) Cancelled Beta Globulins (%) Cancelled Gamma Globulins (%) Cancelled M-Morgan % Cancelled Hepatitis C Antibody Ref Test Comments Cancelled Blood Type Antibody Screen Crossmatch 10/31/17 10/31/17 10:32 11:00 WBC RBC Hgb Hct MCV MCH MCHC RDW Plt Count MPV Neutrophils % Lymphocytes % Monocytes % Eosinophils % Basophils % Retic Count 2.38 H PT with INR INR PTT (Actin FS) Fibrinogen Sodium Potassium Chloride Carbon Dioxide Anion Gap BUN Creatinine POC Glucometer Random Glucose Calcium Phosphorus Magnesium LD Total Ihujw-7-Tpeymoxwl (%) Hyqgs-4-Jglnlqawc (%) Beta Globulins (%) Gamma Globulins (%) M-Morgan % Hepatitis C Antibody Cancelled Ref Test Comments Blood Type Antibody Screen Crossmatch Active Medications Generic Name Dose Route Start Last Admin Trade Name Freq PRN Reason Stop Dose Admin Amlodipine Besylate 10 mg 11/01/17 10:00 Norvasc - PO DAILY [facility] Atorvastatin Calcium 40 mg 10/31/17 22:00 Lipitor - PO HS [facility] Calcium Acetate 667 mg 10/31/17 12:00 10/31/17 14:09 Phoslo - PO Not Given TIDCM [facility] Chlorhexidine Gluconate 1 applic 10/31/17 22:00 Hibiclens For Decolonization - TP HS [facility] Febuxostat 40 mg 11/01/17 10:00 Uloric - PO DAILY [facility] Folic Acid 1 mg 11/01/17 10:00 Folic Acid - PO DAILY [facility] Hydralazine HCl 25 mg 10/31/17 10:45 Apresoline - PO Q8H PRN HYPERTENSION Hydromorphone HCl 0.5 mg 10/31/17 10:45 Dilaudid Injection - IVPUSH Q6H PRN PAIN >6 Piperacillin/Tazobactam/Dextrose 2.25 gm in 50 mls @ 100 mls/hr 10/31/17 22: 00 Zosyn 2.25gm Ivpb (Premix) IVPB BID [facility] Protocol Insulin Aspart 1 vial 10/31/17 11:00 Novolog Vial Sliding Scale - SQ ACHS [facility] Protocol Insulin Detemir 15 units 10/31/17 22:00 Levemir Vial SQ HS [facility] Magnesium Chloride 64 mg 11/01/17 10:00 Slow-Mag - PO DAILY [facility] Mupirocin 1 applic 10/31/17 10:00 10/31/17 14:09 Bactroban Ointment (For Decolonization) - NS 11/05/17 09:59 Not Given BID [facility] Prednisone 5 mg 11/01/17 10:00 Deltasone - PO DAILY [facility] Tacrolimus 1 mg 10/31/17 22:00 Prograf PO BID [facility] ASSESSMENT/PLAN: Acute on CKD with Hyperkalemia DM Right kidney transplant DVT on warfarin RUE swelling and redness. Cellulitis Coffee ground emesis Anemia PLAN: Emergent HD at the bedside Follow electrolytes O2 as needed Normal transfusion thresholds GI evaluation BP control Glycemic control ABX coverage AC held ICU monitoring Dr Mccarty Critical care time spent in reviewing chart, evaluating patient and formulating plan - 36 minutes.
--- NOTE | 2017-10-31 17:08 | PROC ---
Central Line Insertion Indication: Other (HD access) Risks and Benefits Explained: Yes Consent on Chart: Yes Central Line: Dialysis Cath, Tri Lumen Anesthesia: 1% Lidocaine Sterile Technique: Yes Ultrasound Guided Assistance: Yes Position: Right Femoral Sterile Dressing Applied: Yes
--- NOTE | 2017-10-31 19:26 | PN ---
Teaching Attending Note Name of Resident: Shaka Christensen ATTENDING PHYSICIAN STATEMENT I saw and evaluated the patient. I reviewed the resident's note and discussed the case with the resident. I agree with the resident's findings and plan as documented. SUBJECTIVE: Patient was transferred to ICU since patient needs to have perma cath. c/o having left sided pain OBJECTIVE: Vital Signs Temperature 97.6 F 10/31/17 13:30 Pulse Rate 99 H 10/31/17 17:53 Respiratory Rate 18 10/31/17 17:53 Blood Pressure 141/70 10/31/17 17:53 O2 Sat by Pulse Oximetry (%) 100 10/31/17 08:30 CBCD WBC 19.2 K/mm3 (4.0-10.0) H 10/31/17 06:30 RBC 2.29 M/mm3 (4.00-5.60) L D 10/31/17 06:30 Hgb 6.8 GM/dL (11.7-16.9) L* D 10/31/17 06:30 Hct 20.8 % (35.4-49) L D 10/31/17 06:30 MCV 90.7 fl (80-96) 10/31/17 06:30 MCHC 32.8 g/dl (32.0-35.9) 10/31/17 06:30 RDW 16.5 % (11.9-15.9) H 10/31/17 06:30 Plt Count 130 K/MM3 (134-434) L D 10/31/17 06:30 MPV 9.6 fl (7.5-11.1) 10/31/17 06:30 CMP Sodium 142 mmol/L (136-145) 10/31/17 06:30 Potassium 6.3 mmol/L (3.5-5.1) H* D 10/31/17 06:30 Chloride 112 mmol/L (98-107) H 10/31/17 06:30 Carbon Dioxide 13 mmol/L (21-32) L D 10/31/17 06:30 Anion Gap 17 (8-16) H 10/31/17 06:30 BUN 134 mg/dL (7-18) H* 10/31/17 06:30 Creatinine 8.7 mg/dL (0.7-1.3) H* 10/31/17 06:30 Creat Clearance w eGFR 6.75 (>60) 10/30/17 05:10 Random Glucose 235 mg/dL (74-106) H D 10/31/17 06:30 Calcium 6.4 mg/dL (8.5-10.1) L* 10/31/17 06:30 Total Bilirubin 0.5 mg/dL (0.2-1.0) D 10/30/17 05:10 AST 20 U/L (15-37) D 10/30/17 05:10 ALT 17 U/L (12-78) 10/30/17 05:10 Alkaline Phosphatase 44 U/L (45-117) L 10/30/17 05:10 Total Protein 5.3 g/dl (6.4-8.2) L 10/30/17 05:10 Albumin 1.9 g/dl (3.4-5.0) L 10/30/17 05:10 Current Medications Generic Name Dose Route Start Last Admin Trade Name Freq PRN Reason Stop Dose Admin Amlodipine Besylate 10 mg 11/01/17 10:00 Norvasc - PO DAILY [facility] Atorvastatin Calcium 40 mg 10/31/17 22:00 Lipitor - PO HS [facility] Calcium Acetate 667 mg 10/31/17 12:00 10/31/17 17:09 Phoslo - PO 667 mg TIDCM [facility] Administration Chlorhexidine Gluconate 1 applic 10/31/17 22:00 Hibiclens For Decolonization - TP HS [facility] Febuxostat 40 mg 11/01/17 10:00 Uloric - PO DAILY [facility] Folic Acid 1 mg 11/01/17 10:00 Folic Acid - PO DAILY [facility] Hydralazine HCl 25 mg 10/31/17 10:45 Apresoline - PO Q8H PRN HYPERTENSION Hydromorphone HCl 0.5 mg 10/31/17 10:45 Dilaudid Injection - IVPUSH Q6H PRN PAIN >6 Piperacillin/Tazobactam/Dextrose 2.25 gm in 50 mls @ 100 mls/hr 10/31/17 22: 00 Zosyn 2.25gm Ivpb (Premix) IVPB BID [facility] Protocol Insulin Aspart 1 vial 10/31/17 11:00 10/31/17 17:03 Novolog Vial Sliding Scale - SQ 2 units ACHS [facility] Administration Protocol Insulin Detemir 15 units 10/31/17 22:00 Levemir Vial SQ HS [facility] Magnesium Chloride 64 mg 11/01/17 10:00 Slow-Mag - PO DAILY [facility] Mupirocin 1 applic 10/31/17 10:00 10/31/17 14:09 Bactroban Ointment (For Decolonization) - NS 11/05/17 09:59 Not Given BID [facility] Prednisone 5 mg 11/01/17 10:00 Deltasone - PO DAILY [facility] Tacrolimus 1 mg 10/31/17 22:00 Prograf PO BID [facility] Home Medications Medication Instructions Recorded Amlodipine Besylate 10 mg PO DAILY 01/31/13 Atorvastatin Ca [Lipitor] 40 mg PO HS 01/31/13 Folic Acid 1 mg PO DAILY 01/31/13 Prednisone 5 mg PO DAILY 01/31/13 Tacrolimus [Prograf] 1.5 mg PO BID 01/31/13 Insulin Glargine,Hum.rec.anlog 5 units SCJ TIDCM 06/05/15 [Lantus Solostar PEN -] Aspirin [ASA -] 81 mg PO DAILY 10/26/16 Febuxostat [Uloric -] 40 mg PO DAILY 10/26/16 Warfarin Sodium [Coumadin] 0.5 mg PO HS 10/25/17 Insulin Aspart [Novolog Flexpen] 5 units BID 10/26/17 Insulin Detemir [Levemir Flextouch] 15 units SCJ DAILY 10/26/17 PE: left uppen qudrant US Pelvis: 14.4cm x 7.2cm x 12.1cm collection in L flank suspicious for hematoma CT Abd/Pelvis: An approximately 26 x 10 x 8 cm acute left posterior perirenal/ perirenal hematoma is seen at the level of the abdomen and pelvis. The hematoma appears partially clotted. 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 continue, #Hematoma of L flank: Due to Uremic bleed with progressive renal failure s/p transfusion of 2UPRBC and 2 FFP, giving 2 more with dialysis #Hematoma of the R arm: Arm wrapped in miya - improved continue -zosyn 2.25 BID for previous suspicion of cellulitis -> consider D/Cing abx #Anemia: Hgb of 6.6 s/p transfusions now around 11 is the level of creatinie #DVT of Left Lower Extremity: patient has on IVC filter, no AC is needed #Diabetes Mellitus: controlled continue levemir 15, and ISS #Hypertension: controlled continue hydralazine & amlodipine #Gout: stable continue febuxostat #Supratherapeutic INR: Patient presented with Supratherapeutic INR on Coumadin that was started at [facility], patient has an IVC filter #DVT Px: HOLD AC for life SCDs only
[2017-10-31 19:33] LABS: BASO % 0.4 % (0-2.0); EOS % 0.9 % (0-4.5); HEMATOCRIT 32.3 % (35.4-49); HEMOGLOBIN 11.1 GM/dL (11.7-16.9); LYMPH % 2.9 % (8-40); MCH 28.8 pg (25.7-33.7); MCHC 34.4 g/dl (32.0-35.9); MEAN CELL VOLUME 83.9 fl (80-96); MEAN PLT VOLUME 9.6 fl (7.5-11.1); NEUT % 88.8 % (42.8-82.8); PLATELET COUNT 116 K/MM3 (134-434); RBC 3.85 M/mm3 (4.00-5.60); RDW 15.8 % (11.9-15.9); WHITE BLOOD COUNT 19.3 K/mm3 (4.0-10.0)
[2017-10-31 20:14] LABS: ANION GAP 15 (8-16); BLOOD UREA NITROGEN 79 mg/dL (7-18); CHLORIDE 109 mmol/L (98-107); CO2 20 mmol/L (21-32); GLUCOSE,RANDOM 90 mg/dL (74-106); MAGNESIUM 1.6 mg/dL (1.8-2.4); PHOSPHOROUS 5.5 mg/dL (2.5-4.9); POTASSIUM 3.6 mmol/L (3.5-5.1); SODIUM 144 mmol/L (136-145)
[2017-10-31 20:25] LABS: CALCIUM 6.7 mg/dL (8.5-10.1)
[2017-10-31] MEDS ORDERED: PT OWN MED DRAWER 7, Y5N ONE (21:16)
[2017-10-31] MEDS ORDERED: MAGNESIUM 2GM/50ML STERILE WATER IVPB IVPB ONE (21:38)
[2017-10-31] MEDS ORDERED: PIPERACILLIN/TAZOB 2.25 GM 2.25 GM/50 ML BAG IVPB SCH (22:00)
[2017-10-31] MEDS ORDERED: MAGNESIUM SULF 50% (8.12 MEQ/2 ML-1 GM VIAL) ONE (22:12)
[2017-10-31] MEDS: TACROLIMUS ANHYDROUS 1 MG CAPSULE PO SCH (22:30)
[2017-10-31] MEDS: CHLORHEXIDINE GLUCONATE 4% CLEANSER FOR DECOLONIZATION TP SCH (22:30)
[2017-10-31] MEDS: ATORVASTATIN CA 40 MG TABLET (FP) PO SCH (22:30)
[2017-10-31] MEDS: INSULIN DETEMIR 100 UNITS/ML MDV SQ SCH (22:47)
[2017-10-31] MEDS: PIPERACILLIN/TAZOB 2.25 GM 2.25 GM in DEXTROSE 5%-WATER - 100 ML IVPB SCH (23:29)
[2017-11-01] MEDS: INSULIN SLIDING SCALE (NOVOLOG) 1 VIAL SQ SCH ×3 (06:58→17:30)
[2017-11-01 07:45] LABS: HEMATOCRIT 30.7 % (35.4-49); HEMOGLOBIN 10.2 GM/dL (11.7-16.9); MCH 28.1 pg (25.7-33.7); MCHC 33.3 g/dl (32.0-35.9); MEAN CELL VOLUME 84.4 fl (80-96); MEAN PLT VOLUME 9.5 fl (7.5-11.1); PLATELET COUNT 121 K/MM3 (134-434); RBC 3.64 M/mm3 (4.00-5.60); RDW 16.7 % (11.9-15.9); WHITE BLOOD COUNT 22.8 K/mm3 (4.0-10.0)
--- NOTE | 2017-11-01 08:04 | EKG ---
Test Reason : Blood Pressure : / mmHG Vent. Rate : 084 BPM Atrial Rate : 084 BPM P-R Int : 176 ms QRS Dur : 116 ms QT Int : 440 ms P-R-T Axes : 000 -05 035 degrees QTc Int : 519 ms NORMAL SINUS RHYTHM INCOMPLETE RIGHT BUNDLE BRANCH BLOCK NONSPECIFIC ST ABNORMALITY PROLONGED QT ABNORMAL ECG WHEN COMPARED WITH ECG OF 26-OCT-2017 00:37, NONSPECIFIC T WAVE ABNORMALITY NO LONGER EVIDENT IN ANTERIOR LEADS Confirmed by REI GAMINO, GLENN ([id number]) on 11/01/2017 8:04:07 AM Referred By: JAMILAH FISHER Confirmed By:GLENN MINAYA MD
[2017-11-01 08:09] LABS: HBSAG SCREEN Negative (Negative); HEP B CORE AB, TOT Negative (Negative)
[2017-11-01 08:48] LABS: CHLORIDE 107 mmol/L (98-107); POTASSIUM 4.2 mmol/L (3.5-5.1); SODIUM 143 mmol/L (136-145)
[2017-11-01] MEDS: CALCIUM ACETATE 667 MG CAPSULE (FP) PO SCH ×3 (09:00→19:49)
[2017-11-01 09:33] LABS: ANION GAP 16 (8-16); BLOOD UREA NITROGEN 84 mg/dL (7-18); CO2 20 mmol/L (21-32); GLUCOSE,RANDOM 129 mg/dL (74-106)
[2017-11-01 09:36] LABS: CREATININE 6.5 mg/dL (0.7-1.3); PHOSPHOROUS 5.8 mg/dL (2.5-4.9)
[2017-11-01 09:41] LABS: CALCIUM 6.5 mg/dL (8.5-10.1)
--- NOTE | 2017-11-01 09:41 | PN ---
Progress Note (short form) - Note Progress Note: Pt received right femoral trialysis catheter and HD yesterday. s/p PRBC transfusion. He states that his right arm is less swollen and can now make a fist. Vital Signs Period Temp Pulse Resp BP Sys/Lane Pulse Ox Last 24 Hr 97.6 F-99.5 F 90-106 18-22 106-159/58-98 100 GEN: Alert and responds to questions approproately RUE: warm with ecchymosis to hand, decreased swelling and able to make a fist Right groin: catheter in place, no bleeding noted. Left arm: swelling to med arm CBC, BMP 11/01/17 06:35 11/01/17 06:35 CT scan: IVC filter seen in place, [id number] left perirenal hematoma A/P: 62 yo male with acute blood loss from left perirenal bleed. s/p transfusion of PRBC and HD Right arm improvement with miya wrap and elevation H&H improved continue to monitor daily HD as per renal, please advise if senior care access needed LLE DVT, IVC filter in place, AC held secondary to bleeding
--- NOTE | 2017-11-01 09:49 | PN ---
Progress Note (short form) - Note Progress Note: Renal follow up for WESTON on CKD/Renal Transplant Pt seen and examined in the ICU awake and alert s/p first dialysis yesterday via femoral catheter tolerated it well no sob, chest pain abd pain is improved making urine no fever, chills for 2nd dialysis today Vital Signs Temperature 99.2 F 11/01/17 06:00 Pulse Rate 106 H 11/01/17 08:00 Respiratory Rate 22 11/01/17 08:00 Blood Pressure 135/67 11/01/17 08:00 O2 Sat by Pulse Oximetry (%) 100 10/31/17 21:49 Intake & Output 10/29/17 10/30/17 10/31/17 11/01/17 23:59 23:59 23:59 23:59 Intake Total 1100 1342 960 50 Output Total 300 300 Balance 1100 1342 660 -250 Weight 73.21 kg 73.936 kg 76.4 kg NAD awake and alert tachycardic CTA soft, + tenderness in Abd + edema in LE up to mid torrez CBC, BMP 11/01/17 06:35 11/01/17 06:35 Current Medications Amlodipine Besylate (Norvasc -) 10 mg PO DAILY [facility] Atorvastatin Calcium (Lipitor -) 40 mg PO HS [facility] Last Admin: 10/31/17 22:30 Dose: 40 mg Calcium Acetate (Phoslo -) 667 mg PO TIDCM [facility] Last Admin: 10/31/17 17:09 Dose: 667 mg Chlorhexidine Gluconate (Hibiclens For Decolonization -) 1 applic TP HS [facility] Last Admin: 10/31/17 22:30 Dose: 1 applic Febuxostat (Uloric -) 40 mg PO DAILY [facility] Folic Acid (Folic Acid -) 1 mg PO DAILY [facility] Hydralazine HCl (Apresoline -) 25 mg PO Q8H PRN PRN Reason: HYPERTENSION Hydromorphone HCl (Dilaudid Injection -) 0.5 mg IVPUSH Q6H PRN PRN Reason: PAIN >6 Insulin Aspart (Novolog Vial Sliding Scale -) 1 vial SQ ACHS [facility] PRN Reason: Protocol Last Admin: 11/01/17 06:58 Dose: 2 units Insulin Detemir (Levemir Vial) 15 units SQ [facility] Last Admin: 10/31/17 22:47 Dose: Not Given Magnesium Chloride (Slow-Mag -) 64 mg PO DAILY [facility] Mupirocin (Bactroban Ointment (For Decolonization) -) 1 applic NS BID [facility] Stop: 11/05/17 09:59 Last Admin: 10/31/17 23:30 Dose: 1 applic Prednisone (Deltasone -) 5 mg PO DAILY [facility] Tacrolimus (Prograf) 1 mg PO BID [facility] Last Admin: 10/31/17 22:30 Dose: 1 mg 62 year old gentleman with PMhx of Renal Transplant (2000, 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 #WESTON on CKD will proceed with 2nd dialysis today continue tacrolimus and prednisone trend BUN/Cr dose all meds for CrCl less then 15 #Acute Anemia improved s/p PRBC transfusion Trend H/H will continue KADE with HD #Sepsis off Antibiotics WBC remains high ID following Eagle Thomas DO
[2017-11-01] MEDS: MUPIROCIN 2% TOPICAL OINTMENT FOR DECOLONIZATION NS SCH (10:00)
--- NOTE | 2017-11-01 12:22 | PN ---
Progress Note, Physician History of Present Illness: feeling better today, swelling improved in arm. denies nausea, chest pain, sob, dysuria - Current Medication List Current Medications: Active Medications Amlodipine Besylate (Norvasc -) 10 mg PO DAILY [facility] Atorvastatin Calcium (Lipitor -) 40 mg PO [facility] Last Admin: 10/31/17 22:30 Dose: 40 mg Calcium Acetate (Phoslo -) 667 mg PO TIDCM [facility] Last Admin: 10/31/17 17:09 Dose: 667 mg Chlorhexidine Gluconate (Hibiclens For Decolonization -) 1 applic TP [facility] Last Admin: 10/31/17 22:30 Dose: 1 applic Febuxostat (Uloric -) 40 mg PO DAILY [facility] Folic Acid (Folic Acid -) 1 mg PO DAILY [facility] Hydralazine HCl (Apresoline -) 25 mg PO Q8H PRN PRN Reason: HYPERTENSION Hydromorphone HCl (Dilaudid Injection -) 0.5 mg IVPUSH Q6H PRN PRN Reason: PAIN >6 Insulin Aspart (Novolog Vial Sliding Scale -) 1 vial SQ [facility] PRN Reason: Protocol Last Admin: 11/01/17 06:58 Dose: 2 units Insulin Detemir (Levemir Vial) 15 units SQ [facility] Last Admin: 10/31/17 22:47 Dose: Not Given Magnesium Chloride (Slow-Mag -) 64 mg PO DAILY [facility] Mupirocin (Bactroban Ointment (For Decolonization) -) 1 applic NS BID [facility] Stop: 11/05/17 09:59 Last Admin: 10/31/17 23:30 Dose: 1 applic Prednisone (Deltasone -) 5 mg PO DAILY [facility] Tacrolimus (Prograf) 1 mg PO BID [facility] Last Admin: 10/31/17 22:30 Dose: 1 mg - Objective Vital Signs: Vital Signs Temperature 98.6 F 11/01/17 10:00 Pulse Rate 116 H 11/01/17 12:00 Respiratory Rate 18 11/01/17 12:00 Blood Pressure 180/85 11/01/17 12:00 O2 Sat by Pulse Oximetry (%) 100 10/31/17 21:49 Constitutional: Yes: No Distress, Calm Eyes: Yes: Conjunctiva Clear, EOM Intact HENT: Yes: Atraumatic, Normocephalic Neck: Yes: Supple, Trachea Midline Cardiovascular: Yes: Regular Rate and Rhythm, Murmur Respiratory: Yes: Regular, CTA Bilaterally Gastrointestinal: Yes: Normal Bowel Sounds, Soft, Tenderness (LUQ) Musculoskeletal: Yes: Other (RUE with hematoma/edema) Edema: Yes Edema: RUE: 3+ (dark coloration) Peripheral Pulses WNL: Yes Labs: CBC, BMP 11/01/17 06:35 11/01/17 06:35 INR, PTT INR 1.29 (0.82-1.09) H 10/31/17 06:30 Fibrinogen 365.0 mg/dL (238-498) 10/31/17 06:30 Assessment/Plan 62 year old man with DM, HTN, Gout, hx of right kidney transplant with allograft nephropathy, and DVT on warfarin with hx of IVC filter who was admitted for developed RUE ecchymoses, and WESTON being treated with HD for metabolic derangements and transferred to the ICU for coffee ground emesis, anemia, hyperkalemia, and hypotension. Renal #Acute on Chronic Kidney Insuff right femoral temporary dialysis catheter placed 10/31 - electrolytes imbalances have improved with dialysis, received dialysis today - phoslo TID, Mg 64mg po daily #Renal transplant - continue Tacrolimus 1mg po BID - continue prednisone 5mg daily CV #Anemia, likely due to acute blood loss, improved post transfusion, h/h stable today -transfused 4 untis PRBC 10/31 to maintain a Hgb > 8 - transfused 2 FFP 10/31 - folic acid po daily #HLD - lipitor 40mg po hs #Hypertension - hydralazine 25mg po q8hr prn - amlodipine 10mg po QD ENDO #Diabetes Mellitus -levemir 15 sq, HS - NISS ACHS with BGMs #Gout - uloric po daily HEME #Supratherapeutic INR - given active coffee ground emesis and acute blood loss anemia, defer ac for now MSK #Hematoma and Cellulities of the Right arm (Improving)/hematoma of left flank due to retroperitoneal bleed -Anticoagulation held, heparin drip held in the setting of acute blood loss anemia -Keep R arm elevated with CHARLES wrap - repeat abd/pelvis CT due to continued abd pain FEN/GI -Replete electrolytes PRN carefully, will monitor -No standing fluids as the patient is receiving blood products -Remain NPO at this time. PPX -Holding anticoaguation at this time due to acute blood loss anemia and supratherapeutic INR. SCD for DVT prophylaxis if needed, pt does have IVC filter Dispo: Patient is stable for further monitoring on med-surg floor
[2017-11-01] MEDS ORDERED: PT OWN MED DRAWER 7, Y5N ONE ×3 (13:31→21:54)
[2017-11-01] MEDS: amLODIPine BESYLATE 10 MG TABLET (FP) PO SCH (13:36)
[2017-11-01] MEDS: predniSONE 5 MG TABLET (UD) PO SCH (13:37)
[2017-11-01] MEDS: FOLIC ACID 1 MG TABLET (FP) PO SCH (13:37)
[2017-11-01] MEDS: TACROLIMUS ANHYDROUS 1 MG CAPSULE PO SCH (13:38)
[2017-11-01] MEDS: MAGNESIUM CL 64 MG TABLET.SA PO SCH (13:38)
[2017-11-01] MEDS: FEBUXOSTAT 40 MG TAB PO SCH (13:38)
[2017-11-01] MEDS ORDERED: ACETAMINOPHEN 1000 MG/100 ML VIAL (NON FORMULARY) IVPB ONE (15:00)
--- NOTE | 2017-11-01 15:08 | PN ---
Teaching Attending Note Name of Resident: Howard Man ATTENDING PHYSICIAN STATEMENT I saw and evaluated the patient. I reviewed the resident's note and discussed the case with the resident. I agree with the resident's findings and plan as documented. SUBJECTIVE: Pt seen and examined in the ICU. No specific complaints. Receiving HD with correction of metabolic derangements. Some left sided abdominal pain. OBJECTIVE: Last Vital Signs Temp Pulse Resp BP Pulse Ox 100.3 F H 108 H 22 166/80 100 11/01/17 14:35 11/01/17 14:35 11/01/17 14:35 11/01/17 14:35 10/31/17 21:49 Intake & Output 10/29/17 10/30/17 10/31/17 11/01/17 23:59 23:59 23:59 23:59 Intake Total 1100 1342 960 50 Output Total 300 300 Balance 1100 1342 660 -250 Weight 73.21 kg 73.936 kg 76.4 kg Gen: NAD at rest Heart: tachycardic, regular Lung: decreased breath sounds at the bases Abd: soft, nontender Ext: UE edema CBC, BMP 11/01/17 06:35 11/01/17 06:35 Active Medications Acetaminophen (Tylenol -) 650 mg PO ONCE ONE Stop: 11/01/17 14:59 Amlodipine Besylate (Norvasc -) 10 mg PO DAILY [facility] Last Admin: 11/01/17 13:36 Dose: 10 mg Atorvastatin Calcium (Lipitor -) 40 mg PO HS [facility] Last Admin: 10/31/17 22:30 Dose: 40 mg Calcium Acetate (Phoslo -) 667 mg PO TIDCM [facility] Last Admin: 11/01/17 13:37 Dose: 667 mg Chlorhexidine Gluconate (Hibiclens For Decolonization -) 1 applic TP HS [facility] Last Admin: 10/31/17 22:30 Dose: 1 applic Febuxostat (Uloric -) 40 mg PO DAILY [facility] Last Admin: 11/01/17 13:38 Dose: 40 mg Folic Acid (Folic Acid -) 1 mg PO DAILY [facility] Last Admin: 11/01/17 13:37 Dose: 1 mg Hydralazine HCl (Apresoline -) 25 mg PO Q8H PRN PRN Reason: HYPERTENSION Hydromorphone HCl (Dilaudid Injection -) 0.5 mg IVPUSH Q6H PRN PRN Reason: PAIN >6 Insulin Aspart (Novolog Vial Sliding Scale -) 1 vial SQ ACHS [facility] PRN Reason: Protocol Last Admin: 11/01/17 13:38 Dose: 4 units Insulin Detemir (Levemir Vial) 15 units SQ HS [facility] Last Admin: 10/31/17 22:47 Dose: Not Given Magnesium Chloride (Slow-Mag -) 64 mg PO DAILY [facility] Last Admin: 11/01/17 13:38 Dose: 64 mg Mupirocin (Bactroban Ointment (For Decolonization) -) 1 applic NS BID [facility] Stop: 11/05/17 09:59 Last Admin: 11/01/17 10:00 Dose: 1 applic Prednisone (Deltasone -) 5 mg PO DAILY [facility] Last Admin: 11/01/17 13:37 Dose: 5 mg Tacrolimus (Prograf) 1 mg PO BID [facility] Last Admin: 11/01/17 13:38 Dose: 1 mg ASSESSMENT AND PLAN: Acute on Chronic Renal Failure s/p Renal Transplant Left Perirenal Hematoma Anemia HTN DM h/o DVT - monitor H/H - transfuse PRBC - f/u repeat CT A/P - pain control - HD per renal - monitor lytes - BP control - mechanical DVT prophylaxis - can monitor on floor
[2017-11-01] MEDS ORDERED: ACETAMINOPHEN 325 MG TABLET (FP) PO ONE (15:15)
[2017-11-01] MEDS ORDERED: VANCOMYCIN 1,250 MG in DEXTROSE 5%-WATER - 250 ML IVPB ONE (17:15)
--- NOTE | 2017-11-01 18:03 | PN ---
Physical Exam: SUBJECTIVE: Patient seen and examined at bedside. Patient is due for second dialysis today. Patient states that he feels improved but slightly cold. Denies chest pain, SOB, nausea, vomiting, diarrhea. OBJECTIVE: Vital Signs Period Temp Pulse Resp BP Sys/Lane Pulse Ox Last 24 Hr 98.6 F-100.3 F 78-116 18-22 126-180/63-104 100 GENERAL: The patient is awake, alert, and fully oriented, in no acute distress. HEAD: Normal with no signs of trauma. EYES: PERRL, extraocular movements intact, sclera anicteric, conjunctiva clear. No ptosis. LUNGS: Breath sounds equal, clear to auscultation bilaterally, no wheezes, no crackles, no accessory muscle use. HEART: Regular rate and rhythm, S1, S2, 3/6 systolic murmur appreciated on exam ABDOMEN: Soft, mildly tender to palpation on L side, non-radiating, nondistended , normoactive bowel sounds, no guarding, norebound, no hepatosplenomegaly, no masses. EXTREMITIES: 2+ pulses, warm, well-perfused, R arm mildly swollen and erythema that has improved since previous exam. Patient has improved mobility in arm and hand. NEUROLOGICAL: Cranial nerves II through XII grossly intact. Normal speech, gait not observed. PSYCH: Normal mood, normal affect. SKIN: Warm, dry, normal turgor, no rashes or lesions noted Laboratory Results - last 24 hr 10/31/17 10/31/17 10/31/17 11:00 12:24 13:00 WBC RBC Hgb Hct MCV MCH MCHC RDW Plt Count MPV Neutrophils % Lymphocytes % Monocytes % Eosinophils % Basophils % Haptoglobin 57 PTT (Actin FS) Sodium Potassium Chloride Carbon Dioxide Anion Gap BUN Creatinine POC Glucometer [phone] Random Glucose Calcium Phosphorus Magnesium Hepatitis A Ab Total Negative Hep Bs Antigen Negative Hep Bs Antibody Reactive Hep B Core Total Ab Negative Hepatitis C Antibody 0.1 10/31/17 10/31/17 11/01/17 18:30 18:30 06:35 WBC 19.3 H 22.8 H RBC 3.85 L D 3.64 L Hgb 11.1 L D 10.2 L Hct 32.3 L D 30.7 L MCV 83.9 D 84.4 MCH 28.8 28.1 MCHC 34.4 33.3 RDW 15.8 16.7 H Plt Count 116 L 121 L MPV 9.6 9.5 Neutrophils % 88.8 H Lymphocytes % 2.9 L Monocytes % 7.0 Eosinophils % 0.9 D Basophils % 0.4 Haptoglobin PTT (Actin FS) Sodium 144 Potassium 3.6 D Chloride 109 H Carbon Dioxide 20 L D Anion Gap 15 BUN 79 H D Creatinine 6.0 H D POC Glucometer Random Glucose 90 D Calcium 6.7 L* Phosphorus 5.5 H D Magnesium 1.6 L Hepatitis A Ab Total Hep Bs Antigen Hep Bs Antibody Hep B Core Total Ab Hepatitis C Antibody 11/01/17 11/01/17 06:35 06:35 WBC RBC Hgb Hct MCV MCH MCHC RDW Plt Count MPV Neutrophils % Lymphocytes % Monocytes % Eosinophils % Basophils % Haptoglobin PTT (Actin FS) 27.2 Sodium 143 Potassium 4.2 Chloride 107 Carbon Dioxide 20 L Anion Gap 16 BUN 84 H Creatinine 6.5 H POC Glucometer Random Glucose 129 H D Calcium 6.5 L* Phosphorus 5.8 H Magnesium 2.0 D Hepatitis A Ab Total Hep Bs Antigen Hep Bs Antibody Hep B Core Total Ab Hepatitis C Antibody Active Medications Generic Name Dose Route Start Last Admin Trade Name Freq PRN Reason Stop Dose Admin Amlodipine Besylate 10 mg 11/01/17 10:00 11/01/17 13:36 Norvasc - PO 10 mg DAILY [facility] Administration Atorvastatin Calcium 40 mg 10/31/17 22:00 10/31/17 22:30 Lipitor - PO 40 mg HS [facility] Administration Calcium Acetate 667 mg 10/31/17 12:00 11/01/17 13:37 Phoslo - PO 667 mg TIDCM [facility] Administration Chlorhexidine Gluconate 1 applic 10/31/17 22:00 10/31/17 22:30 Hibiclens For Decolonization - TP 1 applic HS [facility] Administration Febuxostat 40 mg 11/01/17 10:00 11/01/17 13:38 Uloric - PO 40 mg DAILY [facility] Administration Folic Acid 1 mg 11/01/17 10:00 11/01/17 13:37 Folic Acid - PO 1 mg DAILY [facility] Administration Hydralazine HCl 25 mg 10/31/17 10:45 Apresoline - PO Q8H PRN HYPERTENSION Hydromorphone HCl 0.5 mg 10/31/17 10:45 Dilaudid Injection - IVPUSH Q6H PRN PAIN >6 Piperacillin Sod/Tazobactam 100 mls @ 200 mls/hr 11/01/17 22:00 Sod 2.25 gm/ Dextrose IVPB BID [facility] Vancomycin HCl 1,250 mg/ 250 mls @ 166.667 mls/hr 11/01/17 17:15 Dextrose IVPB 11/01/17 18:44 ONCE ONE Protocol Insulin Aspart 1 vial 10/31/17 11:00 11/01/17 13:38 Novolog Vial Sliding Scale - SQ 4 units ACHS [facility] Administration Protocol Insulin Detemir 15 units 10/31/17 22:00 10/31/17 22:47 Levemir Vial SQ Not Given HS [facility] Magnesium Chloride 64 mg 11/01/17 10:00 11/01/17 13:38 Slow-Mag - PO 64 mg DAILY [facility] Administration Mupirocin 1 applic 10/31/17 10:00 11/01/17 10:00 Bactroban Ointment (For Decolonization) - NS 11/05/17 09:59 1 applic BID [facility] Administration Prednisone 5 mg 11/01/17 10:00 11/01/17 13:37 Deltasone - PO 5 mg DAILY [facility] Administration Tacrolimus 1 mg 10/31/17 22:00 11/01/17 13:38 Prograf PO 1 mg BID [facility] Administration IMAGING: US Pelvis: 14.4cm x 7.2cm x 12.1cm collection in L flank suspicious for hematoma CT Abd/Pelvis: An approximately 26 x 10 x 8 cm acute left posterior perirenal/ perirenal hematoma is seen at the level of the abdomen and pelvis. The hematoma appears partially clotted. 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 #Acute on Chronic Kidney Disease with R Renal Transplant: 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, creatinine stable -continue Tacrolimus -continue prednisone -Pt s/p 2nd dialysis today, BMP in AM -appreciate nephrology consultation -Diet restarted -s/p 5 U PRBC, goal > 8, s/p [id number] epogen #Sepsis: cause unknown at this time, possibly hematoma infection -patient febrile at 100.7, elevated WBC, tachycardic -CXR, Blood Cx, UA -Vanc/Zosyn administered -Appreciate ID consult -new abdominal CT shows stable hematoma #Hematoma of L flank: stable, [id number] -s/p transfusion of 5UPRBC and 2 FFP -monitor H&H -monitor BP -appreciate vascular recommendations #Hematoma of the R arm: Arm wrapped in miya - improved -keep R arm elevated and in a sling -monitor H&H -appreciate vascular surgery recommendations #Anemia: Hgb of 10.2 today after 5 U PRBC, likely 2/2 acute blood loss -s/p 5 U PRBC, Hgb > 8 -s/p [id number] units Epogen IV with hemodialysis -transfused 2 FFP -repeat CBC in AM #DVT of Left Lower Extremity: pt has IVC filter -Heparin held due to acute bleed #Diabetes Mellitus: controlled -continue levemir 15 -continue ISS #Hypertension: controlled -continue hydralazine 25 TID -continue amlodipine 10 QD #Gout: stable -continue febuxostat #Supratherapeutic INR: INR -hold anticoagulation, hold heparin drip #FEN: No standing fluids Careful with repletion - pt getting dialysis Diet restarted #Prophylaxis: -AC held due to INR -SCDs #Disposition: -Continue ICU monitoring Shaka Christensen D.O., PGY1 Visit type - Emergency Visit Emergency Visit: No - New Patient This patient is new to me today: No - Critical Care Critical Care patient: Yes Total Critical Care Time (in minutes): 35 Critical Care Statement: The care of this patient involved high complexity decision making to prevent further life threatening deterioration of the patient 's condition and/or to evaluate & treat vital organ system(s) failure or risk of failure.
--- NOTE | 2017-11-01 18:08 | PN ---
Teaching Attending Note Name of Resident: Shaka Christensen ATTENDING PHYSICIAN STATEMENT I saw and evaluated the patient. I reviewed the resident's note and discussed the case with the resident. I agree with the resident's findings and plan as documented. SUBJECTIVE: pain in L flank, has fever , no SOB or cough. no N/V . felt cold at time of evaluation during HD at around 10 am OBJECTIVE: NAD CV : RRR, 2/6 SM at LUSB, Lungs: decreased breath sounds at bases. Abd; soft, TTp in L flank , no rebound tenderness or guarding . no bruising Ext: no edema on LE . R forearm with bruising extending to palm and fingers ASSESSMENT AND PLAN: 62 y/o man with h/o CKD,s/p renal transplant unprovoked DVT, and other medical problems who presented with R arm swelling and was found to have R arm hematoma. Hospital course was complicated by retroperitonel hematoma. 1- Fever and leukocytosis : worry about infected hematoma. other causes like PNA /c diff/UTI in DDx - Repeat Cxray with effusions and atelectasis, doubt PNA . - No urinary sx - check C diff - repeat CT with stable size bleed. - repeat blood cx - resume zosyn ( last dose at 11 pm last night ) - d/w Dr. Jerez, give a dose of vanc 2- R upper EXT hematoma , improving . 3- L retroperitoneal hematoma, 'stable HB after transfusion. - repeat CT today with stable size - possible hemorrhage in alveoli and in stomach. - check OB in stool - repeat Hb this evening - repeat INR 4- Acute blood loss anemia : due to hematomas. s/p transfusion - follow HB 5- h/o DVT in LE : no pharmacologic AC. SCDs has IVC filter 6- HTN: cont meds 7- DM : SSI and levemir 8- CKD s/p renal transplant with chronic rejection: - HD today - plan for perma cath
[2017-11-01 20:20] LABS: HEMATOCRIT 30.5 % (35.4-49); HEMOGLOBIN 10.5 GM/dL (11.7-16.9); MCHC 34.3 g/dl (32.0-35.9); MEAN CELL VOLUME 84.6 fl (80-96); MEAN PLT VOLUME 9.3 fl (7.5-11.1); PLATELET COUNT 129 K/MM3 (134-434); WHITE BLOOD COUNT 19.5 K/mm3 (4.0-10.0)
[2017-11-01] MEDS: PIPERACILLIN/TAZOB 2.25 GM 2.25 GM in DEXTROSE 5%-WATER - 100 ML IVPB SCH (22:00)
[2017-11-01] MEDS ORDERED: PIPERACILLIN/TAZOB 2.25 GM/50 ML PREMIX BAG IVPB SCH (22:00)
[2017-11-02] MEDS: CHLORHEXIDINE GLUCONATE 4% CLEANSER FOR DECOLONIZATION TP SCH (00:12)
[2017-11-02] MEDS: MUPIROCIN 2% TOPICAL OINTMENT FOR DECOLONIZATION NS SCH ×2 (00:12→09:18)
[2017-11-02] MEDS: INSULIN DETEMIR 100 UNITS/ML MDV SQ SCH (00:13)
[2017-11-02] MEDS: ATORVASTATIN CA 40 MG TABLET (FP) PO SCH (00:13)
[2017-11-02] MEDS: INSULIN SLIDING SCALE (NOVOLOG) 1 VIAL SQ SCH ×4 (00:14→17:11)
[2017-11-02] MEDS: TACROLIMUS ANHYDROUS 1 MG CAPSULE PO SCH ×2 (00:28→09:18)
[2017-11-02 06:05] LABS: FREE KAPPA,SERUM 273.8 mg/L (3.3-19.4)
--- NOTE | 2017-11-02 06:57 | PN ---
Progress Note, Physician Chief Complaint: ID Tmax 100.3 and he was given cano of Vancomycin and standing doses of Zosyn He does not appears "toxic" mild tachycardia noted Apparently had been on Zosyn previously - Current Medication List Current Medications: Active Medications Amlodipine Besylate (Norvasc -) 10 mg PO DAILY [facility] Last Admin: 11/01/17 13:36 Dose: 10 mg Atorvastatin Calcium (Lipitor -) 40 mg PO HS [facility] Last Admin: 11/02/17 00:13 Dose: 40 mg Calcium Acetate (Phoslo -) 667 mg PO TIDCM [facility] Last Admin: 11/01/17 19:49 Dose: 667 mg Chlorhexidine Gluconate (Hibiclens For Decolonization -) 1 applic TP [facility] Last Admin: 11/02/17 00:12 Dose: 1 applic Febuxostat (Uloric -) 40 mg PO DAILY [facility] Last Admin: 11/01/17 13:38 Dose: 40 mg Folic Acid (Folic Acid -) 1 mg PO DAILY [facility] Last Admin: 11/01/17 13:37 Dose: 1 mg Hydralazine HCl (Apresoline -) 25 mg PO Q8H PRN PRN Reason: HYPERTENSION Hydromorphone HCl (Dilaudid Injection -) 0.5 mg IVPUSH Q6H PRN PRN Reason: PAIN >6 Piperacillin Sod/Tazobactam (Sod 2.25 gm/ Dextrose) 100 mls @ 200 mls/hr IVPB BID [facility] Insulin Aspart (Novolog Vial Sliding Scale -) 1 vial SQ ACHS [facility] PRN Reason: Protocol Last Admin: 11/02/17 00:14 Dose: Not Given Insulin Detemir (Levemir Vial) 15 units SQ [facility] Last Admin: 11/02/17 00:13 Dose: Not Given Magnesium Chloride (Slow-Mag -) 64 mg PO DAILY [facility] Last Admin: 11/01/17 13:38 Dose: 64 mg Mupirocin (Bactroban Ointment (For Decolonization) -) 1 applic NS BID [facility] Stop: 11/05/17 09:59 Last Admin: 11/02/17 00:12 Dose: 1 applic Prednisone (Deltasone -) 5 mg PO DAILY [facility] Last Admin: 11/01/17 13:37 Dose: 5 mg Tacrolimus (Prograf) 1 mg PO BID [facility] Last Admin: 11/02/17 00:28 Dose: 1 mg - Objective Vital Signs: Vital Signs Temperature 99 F 11/02/17 05:00 Pulse Rate 98 H 11/02/17 03:00 Respiratory Rate 22 11/02/17 03:00 Blood Pressure 152/73 11/02/17 03:00 O2 Sat by Pulse Oximetry (%) 100 11/01/17 21:00 Constitutional: Yes: No Distress HENT: Yes: WNL, Atraumatic Neck: Yes: WNL, Supple Cardiovascular: Yes: Regular Rate and Rhythm, S1, S2 Respiratory: Yes: WNL, Regular, CTA Bilaterally, Diminished Gastrointestinal: Yes: WNL, Normal Bowel Sounds, Soft. No: Tenderness, Tenderness, Rebound Edema: No Labs: INR, PTT INR 1.29 (0.82-1.09) H 10/31/17 06:30 Fibrinogen 365.0 mg/dL (238-498) 10/31/17 06:30 Problem List - Problems (1) Renal transplant disorder Code(s): T86.10 - UNSPECIFIED COMPLICATION OF KIDNEY TRANSPLANT (2) Cellulitis Code(s): L03.90 - CELLULITIS, UNSPECIFIED (3) Diabetes Code(s): E11.9 - TYPE 2 DIABETES MELLITUS WITHOUT COMPLICATIONS Qualifiers: Diabetes mellitus type: type 2 Assessment/Plan Laboratory Tests 11/01/17 11/01/17 11/02/17 06:35 20:05 06:12 WBC 19.5 H Pending Hgb Pending Hct Pending Plt Count Pending BUN 84 H Assessment 62 year old man S/P renal transplant originally seen for what I thought was hematoma rather then cellulitis of the right forearm. Now has developed abd pains and large retroperitoneal hematoma secondary anticoagulation. Along with this he has mild tachycardia leukocytosis and low grade temps. He does not appear acutely ill and had already been on Zosyn before this from admission. Blood cultures sent which I would be surprised if positive. The tachycardia and leukocytosis likely secondary to the hematoma which could cause all of this but await cultures this morning Plan Await cultures this morning and I would stop the Zosyn and observe I agree he is at high risk for infection given his history Findings discussed with housestaff and critical care time spent today 35 minutes Luciana GAMINO
[2017-11-02 07:18] LABS: CHLORIDE 105 mmol/L (98-107); POTASSIUM 3.5 mmol/L (3.5-5.1); SODIUM 143 mmol/L (136-145)
[2017-11-02 07:24] LABS: ALBUMIN 1.8 g/dl (3.4-5.0); ALK PHOS 62 U/L (45-117); ANION GAP 13 (8-16); BILIRUBIN,TOTAL 0.8 mg/dL (0.2-1.0); BLOOD UREA NITROGEN 51 mg/dL (7-18); CO2 25 mmol/L (21-32); GLUCOSE,RANDOM 192 mg/dL (74-106); INR 1.31 (0.82-1.09); PHOSPHOROUS 4.2 mg/dL (2.5-4.9); PROTHROMBIN TIME (PATIENT) 14.8 SEC (9.98-11.88); SGOT/AST 31 U/L (15-37); SGPT/ALT 24 U/L (12-78); TOT PROT 4.5 g/dl (6.4-8.2)
[2017-11-02 07:39] LABS: HEMATOCRIT 32.2 % (35.4-49); HEMOGLOBIN 10.8 GM/dL (11.7-16.9); MCH 28.7 pg (25.7-33.7); MCHC 33.5 g/dl (32.0-35.9); MEAN CELL VOLUME 85.5 fl (80-96); MEAN PLT VOLUME 9.4 fl (7.5-11.1); PLATELET COUNT 122 K/MM3 (134-434); RBC 3.77 M/mm3 (4.00-5.60); RDW 16.9 % (11.9-15.9); WHITE BLOOD COUNT 15.8 K/mm3 (4.0-10.0)
--- NOTE | 2017-11-02 07:49 | PN ---
Physical Exam: SUBJECTIVE: Patient seen and examined at bedside. Patient states that he feels better than yesterday. He reports being less cold and not feverish. He complains of a mild cough productive of white sputum. Denies abdominal pain, nausea, vomiting, chest pain, chills, R arm pain or tenderness. OBJECTIVE: Vital Signs Period Temp Pulse Resp BP Sys/Lane Pulse Ox Last 24 Hr 98.6 F-100.3 F 78-116 18-22 126-180/58-104 100-100 GENERAL: The patient is awake, alert, and fully oriented, in no acute distress. HEAD: Normal with no signs of trauma. EYES: PERRL, extraocular movements intact, sclera anicteric, conjunctiva clear. No ptosis. LUNGS: Breath sounds equal, clear to auscultation bilaterally, no wheezes, no crackles, no accessory muscle use. HEART: Regular rate and rhythm, S1, S2, 3/6 systolic murmur appreciated on exam ABDOMEN: Soft, mildly tender to palpation on L side, non-radiating, nondistended , normoactive bowel sounds, no guarding, norebound, no hepatosplenomegaly, no masses. EXTREMITIES: 2+ pulses, warm, well-perfused, R arm mildly swollen and erythema that has improved since previous exam. Patient has improved mobility in arm and hand. NEUROLOGICAL: Cranial nerves II through XII grossly intact. Normal speech, gait not observed. PSYCH: Normal mood, normal affect. SKIN: Warm, dry, normal turgor, no rashes or lesions noted Laboratory Results - last 24 hr 10/31/17 10/31/17 11/01/17 06:30 11:00 06:35 WBC 22.8 H RBC 3.64 L Hgb 10.2 L Hct 30.7 L MCV 84.4 MCH 28.1 MCHC 33.3 RDW 16.7 H Plt Count 121 L MPV 9.5 PTT (Actin FS) Sodium Potassium Chloride Carbon Dioxide Anion Gap BUN Creatinine Random Glucose Calcium Phosphorus Magnesium Senhn-8-Rsbhxcjmm (%) Cancelled Ocglm-9-Hosoanuyr (%) Cancelled Beta Globulins (%) Cancelled Gamma Globulins (%) Cancelled M-Morgan % Cancelled Free [place] LC, Quant 273.8 H Free Lambda LC, Quant 135.9 H Free [place]/Lambda Ratio 2.01 H Hepatitis A Ab Total Negative Hep Bs Antigen Negative Hep Bs Antibody Reactive Hep B Core Total Ab Negative Hepatitis C Antibody 0.1 Ref Test Comments Cancelled 11/01/17 11/01/17 11/01/17 06:35 06:35 20:05 WBC 19.5 H RBC 3.60 L Hgb 10.5 L Hct 30.5 L MCV 84.6 MCH 29.0 MCHC 34.3 RDW 17.0 H Plt Count 129 L MPV 9.3 PTT (Actin FS) 27.2 Sodium 143 Potassium 4.2 Chloride 107 Carbon Dioxide 20 L Anion Gap 16 BUN 84 H Creatinine 6.5 H Random Glucose 129 H D Calcium 6.5 L* Phosphorus 5.8 H Magnesium 2.0 D Xoqjf-9-Hmbgqozji (%) Fowfd-6-Tchtdjsnb (%) Beta Globulins (%) Gamma Globulins (%) M-Morgan % Free [place] LC, Quant Free Lambda LC, Quant Free [place]/Lambda Ratio Hepatitis A Ab Total Hep Bs Antigen Hep Bs Antibody Hep B Core Total Ab Hepatitis C Antibody Ref Test Comments Active Medications Generic Name Dose Route Start Last Admin Trade Name Freq PRN Reason Stop Dose Admin Amlodipine Besylate 10 mg 11/01/17 10:00 11/01/17 13:36 Norvasc - PO 10 mg DAILY [facility] Administration Atorvastatin Calcium 40 mg 10/31/17 22:00 11/02/17 00:13 Lipitor - PO 40 mg HS [facility] Administration Calcium Acetate 667 mg 10/31/17 12:00 11/01/17 19:49 Phoslo - PO 667 mg TIDCM [facility] Administration Chlorhexidine Gluconate 1 applic 10/31/17 22:00 11/02/17 00:12 Hibiclens For Decolonization - TP 1 applic HS [facility] Administration Febuxostat 40 mg 11/01/17 10:00 11/01/17 13:38 Uloric - PO 40 mg DAILY [facility] Administration Folic Acid 1 mg 11/01/17 10:00 11/01/17 13:37 Folic Acid - PO 1 mg DAILY [facility] Administration Hydralazine HCl 25 mg 10/31/17 10:45 Apresoline - PO Q8H PRN HYPERTENSION Hydromorphone HCl 0.5 mg 10/31/17 10:45 Dilaudid Injection - IVPUSH Q6H PRN PAIN >6 Piperacillin Sod/Tazobactam 100 mls @ 200 mls/hr 11/01/17 22:00 Sod 2.25 gm/ Dextrose IVPB BID [facility] Insulin Aspart 1 vial 10/31/17 11:00 11/02/17 07:34 Novolog Vial Sliding Scale - SQ Not Given ACHS [facility] Protocol Insulin Detemir 15 units 10/31/17 22:00 11/02/17 00:13 Levemir Vial SQ Not Given HS [facility] Magnesium Chloride 64 mg 11/01/17 10:00 11/01/17 13:38 Slow-Mag - PO 64 mg DAILY [facility] Administration Mupirocin 1 applic 10/31/17 10:00 11/02/17 00:12 Bactroban Ointment (For Decolonization) - NS 11/05/17 09:59 1 applic BID [facility] Administration Prednisone 5 mg 11/01/17 10:00 11/01/17 13:37 Deltasone - PO 5 mg DAILY [facility] Administration Tacrolimus 1 mg 10/31/17 22:00 11/02/17 00:28 Prograf PO 1 mg BID [facility] Administration ASSESSMENT/PLAN: 62 year old male with a history of unprovoked DVT, R renal transplant admitted with R arm swelling and erythema 2/2 cellulitis and muscular hematoma and 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 #Acute on Chronic Kidney Disease with R Renal Transplant: 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, creatinine stable -continue Tacrolimus -continue prednisone -Pt s/p 2nd dialysis yesterday, tolerated well -appreciate nephrology consultation -plan tunneled HD catheter tomorrow- vascular on board -Diet restarted, NPO after midnight -s/p 5 U PRBC, goal > 8, s/p [id number] epogen #Sepsis: stable -patient afebrile now -No Abx and observe -Appreciate ID consult -new abdominal CT shows stable hematoma #Hematoma of L flank: stable, [id number] -s/p transfusion of 5UPRBC and 2 FFP -monitor H&H -monitor BP -appreciate vascular recommendations #Hematoma of the R arm: Arm wrapped in miya - improved -keep R arm elevated and in a sling -monitor H&H -appreciate vascular surgery recommendations #Anemia: Hgb of 10.8 today, stable -s/p 5 U PRBC, Hgb > 8 -s/p 51942 units Epogen IV with hemodialysis -s/p transfused 2 FFP -repeat CBC in AM #DVT of Left Lower Extremity: pt has IVC filter -Heparin held due to acute bleed -SCDs on unaffected leg (R) #Diabetes Mellitus: controlled -continue levemir 15 -continue ISS #Hypertension: controlled -continue hydralazine 25 TID -continue amlodipine 10 QD #Gout: stable -continue febuxostat #Supratherapeutic INR: INR -hold anticoagulation, hold heparin drip #FEN: No standing fluids Careful with repletion - pt getting dialysis Diet restarted, NPO after midnight #Prophylaxis: -AC held due to INR -SCDs #Disposition: -Tx to med surg Shaka Christensen D.O., PGY1 Visit type - Emergency Visit Emergency Visit: No - New Patient This patient is new to me today: No - Critical Care Critical Care patient: Yes Total Critical Care Time (in minutes): 35 Critical Care Statement: The care of this patient involved high complexity decision making to prevent further life threatening deterioration of the patient 's condition and/or to evaluate & treat vital organ system(s) failure or risk of failure.
[2017-11-02 08:43] LABS: CALCIUM 6.4 mg/dL (8.5-10.1)
[2017-11-02] MEDS ORDERED: PT OWN MED DRAWER 7, Y5N ONE (09:06)
[2017-11-02] MEDS: CALCIUM ACETATE 667 MG CAPSULE (FP) PO SCH ×3 (09:16→17:54)
[2017-11-02] MEDS: FEBUXOSTAT 40 MG TAB PO SCH (09:16)
[2017-11-02] MEDS: predniSONE 5 MG TABLET (UD) PO SCH (09:16)
[2017-11-02] MEDS: FOLIC ACID 1 MG TABLET (FP) PO SCH (09:16)
[2017-11-02] MEDS: PIPERACILLIN/TAZOB 2.25 GM 2.25 GM in DEXTROSE 5%-WATER - 100 ML IVPB SCH ×2 (09:16→09:17)
[2017-11-02] MEDS: amLODIPine BESYLATE 10 MG TABLET (FP) PO SCH (09:16)
[2017-11-02] MEDS: MAGNESIUM CL 64 MG TABLET.SA PO SCH (09:16)
--- NOTE | 2017-11-02 10:31 | PN ---
Progress Note (short form) - Note Progress Note: Patient seen and examined. feels much better. O/E: GEneral: NAD HEENT: NCAT Cor: RRR Lungs: CTA b/l Neuro: drowsy Extremities: +RuE much improved Last Vital Signs Temp Pulse Resp BP Pulse Ox 99 F 106 H 22 128/76 100 11/02/17 05:00 11/02/17 08:00 11/02/17 08:00 11/02/17 08:00 11/01/17 21:00 CBC, BMP 11/02/17 06:12 11/02/17 06:12 Current Medications Generic Name Dose Route Start Last Admin Trade Name Freq PRN Reason Stop Dose Admin Amlodipine Besylate 10 mg 11/01/17 10:00 11/02/17 09:16 Norvasc - PO 10 mg DAILY [facility] Administration Atorvastatin Calcium 40 mg 10/31/17 22:00 11/02/17 00:13 Lipitor - PO 40 mg HS [facility] Administration Calcium Acetate 667 mg 10/31/17 12:00 11/02/17 09:16 Phoslo - PO 667 mg TIDCM [facility] Administration Chlorhexidine Gluconate 1 applic 10/31/17 22:00 11/02/17 00:12 Hibiclens For Decolonization - TP 1 applic HS [facility] Administration Febuxostat 40 mg 11/01/17 10:00 11/02/17 09:16 Uloric - PO 40 mg DAILY [facility] Administration Folic Acid 1 mg 11/01/17 10:00 11/02/17 09:16 Folic Acid - PO 1 mg DAILY [facility] Administration Hydralazine HCl 25 mg 10/31/17 10:45 Apresoline - PO Q8H PRN HYPERTENSION Hydromorphone HCl 0.5 mg 10/31/17 10:45 Dilaudid Injection - IVPUSH Q6H PRN PAIN >6 Piperacillin Sod/Tazobactam 100 mls @ 200 mls/hr 11/01/17 22:00 11/02/17 09: 17 Sod 2.25 gm/ Dextrose IVPB 200 mls/hr BID [facility] Administration Insulin Aspart 1 vial 10/31/17 11:00 11/02/17 07:34 Novolog Vial Sliding Scale - SQ Not Given ACHS [facility] Protocol Insulin Detemir 15 units 10/31/17 22:00 11/02/17 00:13 Levemir Vial SQ Not Given HS [facility] Magnesium Chloride 64 mg 11/01/17 10:00 11/02/17 09:16 Slow-Mag - PO 64 mg DAILY [facility] Administration Mupirocin 1 applic 10/31/17 10:00 11/02/17 09:18 Bactroban Ointment (For Decolonization) - NS 11/05/17 09:59 1 applic BID [facility] Administration Prednisone 5 mg 11/01/17 10:00 11/02/17 09:16 Deltasone - PO 5 mg DAILY [facility] Administration Tacrolimus 1 mg 10/31/17 22:00 11/02/17 09:18 Prograf PO 1 mg BID [facility] Administration Anemia in the setting of uremic bleeding, now stabilized H/o Renal Transplant on tacro/Prednisone h/o DVT ( on coumadin as an OP ) Danielle-renal Hematoma RUE hematoma Supratherapeutic INR on presentation DM HTN Gout. s/p HD bleeding stabilized CBC stable monitor labs hematoma much improved. KADE per renal
--- NOTE | 2017-11-02 12:35 | PN ---
Teaching Attending Note Name of Resident: Kadeem Sarah ATTENDING PHYSICIAN STATEMENT I saw and evaluated the patient. I reviewed the resident's note and discussed the case with the resident. I agree with the resident's findings and plan as documented. SUBJECTIVE: Patient seen and examined in the ICU. Feels better. No CP or SOB. Abdominal discomfort is resolving. CT noted: Do not suspect hemorrhage as suggested on reading OBJECTIVE: Intake & Output 10/30/17 10/31/17 11/01/17 11/02/17 23:59 23:59 23:59 23:59 Intake Total 1342 960 570 Output Total 300 300 Balance 1342 660 270 Weight 163 lb 168 lb 6.931 oz 167 lb 9 oz Last Vital Signs Temp Pulse Resp BP Pulse Ox 99.2 F 110 H 22 132/60 100 11/02/17 10:00 11/02/17 12:00 11/02/17 12:00 11/02/17 12:00 11/02/17 09:00 Active Medications Amlodipine Besylate (Norvasc -) 10 mg PO DAILY [facility] Last Admin: 11/02/17 09:16 Dose: 10 mg Atorvastatin Calcium (Lipitor -) 40 mg PO HS [facility] Last Admin: 11/02/17 00:13 Dose: 40 mg Calcium Acetate (Phoslo -) 667 mg PO TIDCM [facility] Last Admin: 11/02/17 09:16 Dose: 667 mg Chlorhexidine Gluconate (Hibiclens For Decolonization -) 1 applic TP HS [facility] Last Admin: 11/02/17 00:12 Dose: 1 applic Febuxostat (Uloric -) 40 mg PO DAILY [facility] Last Admin: 11/02/17 09:16 Dose: 40 mg Folic Acid (Folic Acid -) 1 mg PO DAILY [facility] Last Admin: 11/02/17 09:16 Dose: 1 mg Hydralazine HCl (Apresoline -) 25 mg PO Q8H PRN PRN Reason: HYPERTENSION Hydromorphone HCl (Dilaudid Injection -) 0.5 mg IVPUSH Q6H PRN PRN Reason: PAIN >6 Piperacillin Sod/Tazobactam (Sod 2.25 gm/ Dextrose) 100 mls @ 200 mls/hr IVPB BID [facility] Last Admin: 11/02/17 09:17 Dose: 200 mls/hr Insulin Aspart (Novolog Vial Sliding Scale -) 1 vial SQ ACHS [facility] PRN Reason: Protocol Last Admin: 11/02/17 11:38 Dose: 6 units Insulin Detemir (Levemir Vial) 15 units SQ HS [facility] Last Admin: 11/02/17 00:13 Dose: Not Given Magnesium Chloride (Slow-Mag -) 64 mg PO DAILY [facility] Last Admin: 11/02/17 09:16 Dose: 64 mg Mupirocin (Bactroban Ointment (For Decolonization) -) 1 applic NS BID [facility] Stop: 11/05/17 09:59 Last Admin: 11/02/17 09:18 Dose: 1 applic Prednisone (Deltasone -) 5 mg PO DAILY [facility] Last Admin: 11/02/17 09:16 Dose: 5 mg Tacrolimus (Prograf) 1 mg PO BID [facility] Last Admin: 11/02/17 09:18 Dose: 1 mg Gen: NAD at rest Heart: tachycardic, regular Lung: decreased breath sounds at the bases Abd: soft, nontender Ext: UE edema Laboratory Results - last 24 hr 10/27/17 10/31/17 11/01/17 19:20 06:30 20:05 WBC 19.5 H RBC 3.60 L Hgb 10.5 L Hct 30.5 L MCV 84.6 MCH 29.0 MCHC 34.3 RDW 17.0 H Plt Count 129 L MPV 9.3 PT with INR INR PTT (Actin FS) Sodium Potassium Chloride Carbon Dioxide Anion Gap BUN Creatinine Creat Clearance w eGFR Random Glucose Calcium Phosphorus Magnesium Total Bilirubin AST ALT Alkaline Phosphatase Total Protein Albumin Znazg-0-Thqtcfmrz (%) Cancelled Dinzg-2-Irfmnssjm (%) Cancelled Beta Globulins (%) Cancelled Gamma Globulins (%) Cancelled M-Morgan % Cancelled Free [place] LC, Quant 273.8 H Free Lambda LC, Quant 135.9 H Free [place]/Lambda Ratio 2.01 H Ref Test Comments Cancelled Blood Type O POSITIVE Antibody Screen Negative Crossmatch See Detail 11/02/17 11/02/17 11/02/17 06:12 06:12 06:12 WBC 15.8 H RBC 3.77 L Hgb 10.8 L Hct 32.2 L MCV 85.5 MCH 28.7 MCHC 33.5 RDW 16.9 H Plt Count 122 L MPV 9.4 PT with INR 14.80 H INR 1.31 H PTT (Actin FS) 28.0 Sodium Potassium Chloride Carbon Dioxide Anion Gap BUN Creatinine Creat Clearance w eGFR Random Glucose Calcium Phosphorus Magnesium Total Bilirubin AST ALT Alkaline Phosphatase Total Protein Albumin Nyoyp-1-Rfbrazdqt (%) Ntcsy-0-Kyevwbbxq (%) Beta Globulins (%) Gamma Globulins (%) M-Morgan % Free [place] LC, Quant Free Lambda LC, Quant Free [place]/Lambda Ratio Ref Test Comments Blood Type Antibody Screen Crossmatch 11/02/17 06:12 WBC RBC Hgb Hct MCV MCH MCHC RDW Plt Count MPV PT with INR INR PTT (Actin FS) Sodium 143 Potassium 3.5 Chloride 105 Carbon Dioxide 25 D Anion Gap 13 BUN 51 H D Creatinine 5.0 H D Creat Clearance w eGFR 11.78 Random Glucose 192 H D Calcium 6.4 L* Phosphorus 4.2 D Magnesium 2.0 Total Bilirubin 0.8 D AST 31 D ALT 24 D Alkaline Phosphatase 62 D Total Protein 4.5 L Albumin 1.8 L Oskks-6-Dqfhorymz (%) Ycebm-7-Alnisgxpc (%) Beta Globulins (%) Gamma Globulins (%) M-Morgan % Free [place] LC, Quant Free Lambda LC, Quant Free [place]/Lambda Ratio Ref Test Comments Blood Type Antibody Screen Crossmatch ASSESSMENT AND PLAN: Acute on Chronic Renal Failure s/p Renal Transplant Left Perirenal Hematoma Anemia HTN DM h/o DVT - monitor H/H - Normal Transfusion thresholds - pain control - HD per renal - monitor lytes - BP control - mechanical DVT prophylaxis - Floor Dr Mccarty Critical care time spent in reviewing chart, evaluating patient and formulating plan - 36 minutes.
--- NOTE | 2017-11-02 12:36 | PN ---
Physical Exam: SUBJECTIVE: Patient seen and examined The patient is a 62 year old male with a history of DM, right kidney transplant , and DVT on warfarin who presented to the ED for RUE swelling and redness. The patient was subsequently admitted for treatment of cellulitis in the setting of acute renal failure transferred to the ICU for coffee ground emesis, anemia, hyperkalemia, and hypotension. The patient reports significant improvement in his symptoms at this time and has no complaints. Otherwise no acute events overnight. OBJECTIVE: Vital Signs Period Temp Pulse Resp BP Sys/Lane Pulse Ox Last 24 Hr 99 F-100.3 F 93-110 18-22 121-166/58-80 100-100 GENERAL: The patient is awake, alert, and fully oriented, in no acute distress. HEAD: Normal with no signs of trauma. EYES: sclera anicteric, conjunctiva clear. No ptosis. ENT: oropharynx clear without exudates, moist mucous membranes. NECK: Trachea midline, full range of motion, supple. LUNGS: Breath sounds equal, clear to auscultation bilaterally, no wheezes, no crackles, no accessory muscle use. HEART: Regular rate and rhythm, S1, S2 without murmur, rub or gallop. ABDOMEN: Soft, nontender, nondistended, normoactive bowel sounds, no guarding, no rebound, no hepatosplenomegaly, no masses. EXTREMITIES: 2+ pulses, warm, well-perfused, 2+ pitting edema. NEUROLOGICAL: Normal speech, gait not observed. PSYCH: Normal mood, normal affect. SKIN: Warm, dry, normal turgor, no rashes or lesions noted Laboratory Results - last 24 hr 10/27/17 10/31/17 11/01/17 19:20 06:30 20:05 WBC 19.5 H RBC 3.60 L Hgb 10.5 L Hct 30.5 L MCV 84.6 MCH 29.0 MCHC 34.3 RDW 17.0 H Plt Count 129 L MPV 9.3 PT with INR INR PTT (Actin FS) Sodium Potassium Chloride Carbon Dioxide Anion Gap BUN Creatinine Creat Clearance w eGFR Random Glucose Calcium Phosphorus Magnesium Total Bilirubin AST ALT Alkaline Phosphatase Total Protein Albumin Xcnun-9-Asgugosxt (%) Cancelled Qbxth-6-Qlahhzzyi (%) Cancelled Beta Globulins (%) Cancelled Gamma Globulins (%) Cancelled M-Morgan % Cancelled Free Brodnax LC, Quant 273.8 H Free Lambda LC, Quant 135.9 H Free Brodnax/Lambda Ratio 2.01 H Ref Test Comments Cancelled Blood Type O POSITIVE Antibody Screen Negative Crossmatch See Detail 11/02/17 11/02/17 11/02/17 06:12 06:12 06:12 WBC 15.8 H RBC 3.77 L Hgb 10.8 L Hct 32.2 L MCV 85.5 MCH 28.7 MCHC 33.5 RDW 16.9 H Plt Count 122 L MPV 9.4 PT with INR 14.80 H INR 1.31 H PTT (Actin FS) 28.0 Sodium Potassium Chloride Carbon Dioxide Anion Gap BUN Creatinine Creat Clearance w eGFR Random Glucose Calcium Phosphorus Magnesium Total Bilirubin AST ALT Alkaline Phosphatase Total Protein Albumin Ureey-9-Bekubprvu (%) Nzrxm-3-Kjeuihrjq (%) Beta Globulins (%) Gamma Globulins (%) M-Morgan % Free Brodnax LC, Quant Free Lambda LC, Quant Free Brodnax/Lambda Ratio Ref Test Comments Blood Type Antibody Screen Crossmatch 11/02/17 06:12 WBC RBC Hgb Hct MCV MCH MCHC RDW Plt Count MPV PT with INR INR PTT (Actin FS) Sodium 143 Potassium 3.5 Chloride 105 Carbon Dioxide 25 D Anion Gap 13 BUN 51 H D Creatinine 5.0 H D Creat Clearance w eGFR 11.78 Random Glucose 192 H D Calcium 6.4 L* Phosphorus 4.2 D Magnesium 2.0 Total Bilirubin 0.8 D AST 31 D ALT 24 D Alkaline Phosphatase 62 D Total Protein 4.5 L Albumin 1.8 L Gycyp-3-Psjnloelz (%) Gyjtm-6-Yqrmvuucy (%) Beta Globulins (%) Gamma Globulins (%) M-Morgan % Free Brodnax LC, Quant Free Lambda LC, Quant Free Brodnax/Lambda Ratio Ref Test Comments Blood Type Antibody Screen Crossmatch Active Medications Generic Name Dose Route Start Last Admin Trade Name Freq PRN Reason Stop Dose Admin Amlodipine Besylate 10 mg 11/01/17 10:00 11/02/17 09:16 Norvasc - PO 10 mg DAILY OZIEL Administration Atorvastatin Calcium 40 mg 10/31/17 22:00 11/02/17 00:13 Lipitor - PO 40 mg HS OZIEL Administration Calcium Acetate 667 mg 10/31/17 12:00 11/02/17 09:16 Phoslo - PO 667 mg TIDCM OZIEL Administration Chlorhexidine Gluconate 1 applic 10/31/17 22:00 11/02/17 00:12 Hibiclens For Decolonization - TP 1 applic HS OZIEL Administration Febuxostat 40 mg 11/01/17 10:00 11/02/17 09:16 Uloric - PO 40 mg DAILY OZIEL Administration Folic Acid 1 mg 11/01/17 10:00 11/02/17 09:16 Folic Acid - PO 1 mg DAILY OZIEL Administration Hydralazine HCl 25 mg 10/31/17 10:45 Apresoline - PO Q8H PRN HYPERTENSION Hydromorphone HCl 0.5 mg 10/31/17 10:45 Dilaudid Injection - IVPUSH Q6H PRN PAIN >6 Piperacillin Sod/Tazobactam 100 mls @ 200 mls/hr 11/01/17 22:00 11/02/17 09: 17 Sod 2.25 gm/ Dextrose IVPB 200 mls/hr BID OZIEL Administration Insulin Aspart 1 vial 10/31/17 11:00 11/02/17 11:38 Novolog Vial Sliding Scale - SQ 6 units ACHS OZIEL Administration Protocol Insulin Detemir 15 units 10/31/17 22:00 11/02/17 00:13 Levemir Vial SQ Not Given HS [facility] Magnesium Chloride 64 mg 11/01/17 10:00 11/02/17 09:16 Slow-Mag - PO 64 mg DAILY OZIEL Administration Mupirocin 1 applic 10/31/17 10:00 11/02/17 09:18 Bactroban Ointment (For Decolonization) - NS 11/05/17 09:59 1 applic BID OZIEL Administration Prednisone 5 mg 11/01/17 10:00 11/02/17 09:16 Deltasone - PO 5 mg DAILY OZIEL Administration Tacrolimus 1 mg 10/31/17 22:00 11/02/17 09:18 Prograf PO 1 mg BID OZIEL Administration ASSESSMENT/PLAN: The patient is a 62 year old male with a history of DM, right kidney transplant , and DVT on warfarin who presented to the ED for RUE swelling and redness. The patient was subsequently admitted for treatment of cellulitis in the setting of acute renal failure transferred to the ICU for coffee ground emesis, anemia, hyperkalemia, and hypotension. NEURO No Issues currently. -Awake and Oriented x3 CV #Anemia (Stable) Hgb was noted to be 6.8 earlier this week likely due to acute blood loss. Patient's Hgb has remained stable since transfusion. -Was transfused with a total of 4 units will be transfused. -Will continue to monitor. #Hypertension -Will continue hydralazine 25 TID -Will continue amlodipine 10 QD RESP No Issues currently. -Will continue to monitor ENDO #Diabetes Mellitus -continue levemir 15 -continue ISS Renal #Acute on Chronic Kidney Disease with R Renal Transplant Patient noted to have a hyperkalemia of 6.3 and had a right femoral temporary dialysis catheter placed for urgent dialysis earlier in the week. -Will continue Tacrolimus -Will continue prednisone -The patient to have permicath placed tomorrow. -NPO after midnight. -Will continue to monitor electrolytes, creatinine HEME #Supratherapeutic INR -Will hold anticoagulation and hold heparin drip MSK #Hematoma and Cellulities of the Right arm (Improving) -Will stope zosyn 2.25 BID per ID recs. -Anticoagulation held, heparin drip held in the setting of acute blood loss anemia -Will continue to monitor FEN/GI -Replete electrolytes PRN carefully, will monitor -No standing fluids as the patient is receiving blood products PPX -Holding anticoaguation at this time due to acute blood loss anemia and supratherapeutic INR. -Mechanical DVT prophylaxis. Dispo: Patient is stable for monitoring on the floors. Visit type - Emergency Visit Emergency Visit: No - New Patient This patient is new to me today: No - Critical Care Critical Care patient: Yes Total Critical Care Time (in minutes): 35 Critical Care Statement: The care of this patient involved high complexity decision making to prevent further life threatening deterioration of the patient 's condition and/or to evaluate & treat vital organ system(s) failure or risk of failure.
--- NOTE | 2017-11-02 13:10 | PN ---
Progress Note (short form) - Note Progress Note: Vascular Surgery Pt seen and examined. Will do PC placement carlton as long as the cx remain negative. Please clear from a ID standpoint in am. Benedict nelson DO
--- NOTE | 2017-11-02 13:39 | PN ---
Teaching Attending Note Name of Resident: Shaka Christensen ATTENDING PHYSICIAN STATEMENT I saw and evaluated the patient. I reviewed the resident's note and discussed the case with the resident. I agree with the resident's findings and plan as documented. SUBJECTIVE: no fever or chills. has no abd pain , has no pain in R arm . OBJECTIVE: NAD CV : RRR, 2/6 SM at LUSB, Lungs: decreased breath sounds at bases. Abd; soft, TTp in L flank , no rebound tenderness or guarding . no bruising Ext: 2+ pitting edema on LE . R forearm with bruising on ventral side extending to palm and fingers and dorsal hand ASSESSMENT AND PLAN: 62 y/o man with h/o CKD,s/p renal transplant unprovoked DVT, and other medical problems who presented with R arm swelling and was found to have R arm hematoma. Hospital course was complicated by retroperitonel hematoma. 1- Fever and leukocytosis : appreciate ID help - monitor off abx - c diff neg - Repeat Cxray with effusions and atelectasis, doubt PNA . - No urinary sx - follow blood cx 2- R upper EXT hematoma , improving . 3- L retroperitoneal hematoma, 'stable HB after transfusion. - repeat CT with stable size - possible hemorrhage in alveoli and in stomach. - check OB in stool - Hbthis evening 4- Acute blood loss anemia : due to hematomas. s/p transfusion - follow HB 5- h/o DVT in LE : no pharmacologic AC. 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
--- NOTE | 2017-11-02 14:37 | PN ---
Progress Note (short form) - Note Progress Note: Renal follow up for WESTON on CKD/Renal Transplant Pt seen and examined in the ICU awake and alert feels better, but has some abd pain making urine s/p 2nd dialysis session yesterday Vital Signs Temperature 99.2 F 11/02/17 10:00 Pulse Rate 110 H 11/02/17 12:00 Respiratory Rate 22 11/02/17 12:00 Blood Pressure 132/60 11/02/17 12:00 O2 Sat by Pulse Oximetry (%) 100 11/02/17 09:00 Intake & Output 10/30/17 10/31/17 11/01/17 11/02/17 23:59 23:59 23:59 23:59 Intake Total 1342 960 570 Output Total 300 300 Balance 1342 660 270 Weight 73.936 kg 76.4 kg 76.005 kg NAD RRR CTA + Abd tenderness + Edema in LE CBC, BMP 11/02/17 06:12 11/02/17 06:12 Current Medications Amlodipine Besylate (Norvasc -) 10 mg PO DAILY [facility] Last Admin: 11/02/17 09:16 Dose: 10 mg Atorvastatin Calcium (Lipitor -) 40 mg PO HS [facility] Last Admin: 11/02/17 00:13 Dose: 40 mg Calcium Acetate (Phoslo -) 667 mg PO TIDCM [facility] Last Admin: 11/02/17 12:53 Dose: 667 mg Chlorhexidine Gluconate (Hibiclens For Decolonization -) 1 applic TP [facility] Last Admin: 11/02/17 00:12 Dose: 1 applic Febuxostat (Uloric -) 40 mg PO DAILY [facility] Last Admin: 11/02/17 09:16 Dose: 40 mg Folic Acid (Folic Acid -) 1 mg PO DAILY [facility] Last Admin: 11/02/17 09:16 Dose: 1 mg Hydralazine HCl (Apresoline -) 25 mg PO Q8H PRN PRN Reason: HYPERTENSION Hydromorphone HCl (Dilaudid Injection -) 0.5 mg IVPUSH Q6H PRN PRN Reason: PAIN >6 Insulin Aspart (Novolog Vial Sliding Scale -) 1 vial SQ [facility] PRN Reason: Protocol Last Admin: 11/02/17 11:38 Dose: 6 units Insulin Detemir (Levemir Vial) 15 units SQ [facility] Last Admin: 11/02/17 00:13 Dose: Not Given Magnesium Chloride (Slow-Mag -) 64 mg PO DAILY [facility] Last Admin: 11/02/17 09:16 Dose: 64 mg Mupirocin (Bactroban Ointment (For Decolonization) -) 1 applic NS BID [facility] Stop: 11/05/17 09:59 Last Admin: 11/02/17 09:18 Dose: 1 applic Prednisone (Deltasone -) 5 mg PO DAILY [facility] Last Admin: 11/02/17 09:16 Dose: 5 mg Tacrolimus (Prograf) 1 mg PO BID [facility] Last Admin: 11/02/17 09:18 Dose: 1 mg 62 year old gentleman with PMhx of Renal Transplant (2000, [facility]) 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 #WESTON on CKD tolerated dialysis x 2 no acute indication for [employer] today will need tunneled HD catheter, discussed with vascular Sx and will do tomorrow will plan for dialysis tomorrow following OR social work consult for outpatient dialysis placement dose all meds for CrCl less then 15 #Acute Anemia Hgb is stable no further A/c will continue KADE with HD #Sepsis all cutlures negative at this time off abx WBC is improving Eagle Thomas DO
[2017-11-02 17:04] LABS: HEMATOCRIT 29.6 % (35.4-49); HEMOGLOBIN 10.1 GM/dL (11.7-16.9); MCH 29.2 pg (25.7-33.7); MEAN CELL VOLUME 85.9 fl (80-96); MEAN PLT VOLUME 9.1 fl (7.5-11.1); PLATELET COUNT 136 K/MM3 (134-434); RBC 3.45 M/mm3 (4.00-5.60); RDW 16.5 % (11.9-15.9)
[2017-11-03] MEDS ORDERED: PT OWN MED DRAWER 7, Y5N ONE ×2 (00:25→21:28)
[2017-11-03] MEDS: MUPIROCIN 2% TOPICAL OINTMENT FOR DECOLONIZATION NS SCH ×2 (01:02→12:13)
[2017-11-03] MEDS: INSULIN DETEMIR 100 UNITS/ML MDV SQ SCH (01:03)
[2017-11-03] MEDS: CHLORHEXIDINE GLUCONATE 4% CLEANSER FOR DECOLONIZATION TP SCH (01:03)
[2017-11-03] MEDS: TACROLIMUS ANHYDROUS 1 MG CAPSULE PO SCH ×5 (01:04→22:58)
[2017-11-03] MEDS: ATORVASTATIN CA 40 MG TABLET (FP) PO SCH (01:04)
[2017-11-03] MEDS: INSULIN SLIDING SCALE (NOVOLOG) 1 VIAL SQ SCH ×5 (01:04→21:51)
[2017-11-03 06:12] LABS: HEMATOCRIT 28.6 % (35.4-49); HEMOGLOBIN 9.8 GM/dL (11.7-16.9); MCH 29.4 pg (25.7-33.7); MCHC 34.3 g/dl (32.0-35.9); MEAN CELL VOLUME 85.9 fl (80-96); MEAN PLT VOLUME 9.3 fl (7.5-11.1); PLATELET COUNT 143 K/MM3 (134-434); RBC 3.33 M/mm3 (4.00-5.60); RDW 17.3 % (11.9-15.9)
[2017-11-03 07:04] LABS: ALBUMIN 1.5 g/dl (3.4-5.0); ANION GAP 14 (8-16); BLOOD UREA NITROGEN 56 mg/dL (7-18); CHLORIDE 107 mmol/L (98-107); CO2 24 mmol/L (21-32); GLUCOSE,RANDOM 149 mg/dL (74-106); MAGNESIUM 1.9 mg/dL (1.8-2.4); PHOSPHOROUS 4.4 mg/dL (2.5-4.9); POTASSIUM 3.6 mmol/L (3.5-5.1); SGOT/AST 24 U/L (15-37); SGPT/ALT 19 U/L (12-78); SODIUM 145 mmol/L (136-145)
[2017-11-03 07:05] LABS: ALK PHOS 60 U/L (45-117); BILIRUBIN,TOTAL 0.9 mg/dL (0.2-1.0); TOT PROT 4.1 g/dl (6.4-8.2)
[2017-11-03 08:27] LABS: CALCIUM 6.4 mg/dL (8.5-10.1)
--- NOTE | 2017-11-03 08:50 | PN ---
Physical Exam: SUBJECTIVE: Patient seen and examined The patient is a 62 year old male with a history of DM, right kidney transplant , and DVT on warfarin who presented to the ED for RUE swelling and redness. The patient was subsequently admitted for treatment of cellulitis in the setting of acute renal failure transferred to the ICU for coffee ground emesis, anemia, hyperkalemia, and hypotension. The patient currently denies any complaints. Otherwise no acute events overnight. Patient to have permicath placed today. OBJECTIVE: Vital Signs Period Temp Pulse Resp BP Sys/Lane Pulse Ox Last 24 Hr 99.2 F-100.1 F 90-110 20-30 121-165/60-77 100-100 GENERAL: The patient is awake, alert, and fully oriented, in no acute distress. HEAD: Normal with no signs of trauma. EYES: sclera anicteric, conjunctiva clear. No ptosis. ENT: oropharynx clear without exudates, moist mucous membranes. NECK: Trachea midline, full range of motion, supple. LUNGS: Breath sounds equal, clear to auscultation bilaterally, no wheezes, no crackles, no accessory muscle use. HEART: Regular rate and rhythm, S1, S2 without murmur, rub or gallop. ABDOMEN: Soft, nontender, nondistended, normoactive bowel sounds, no guarding, no rebound, no hepatosplenomegaly, no masses. EXTREMITIES: 2+ pulses, warm, well-perfused, 2+ pitting edema. NEUROLOGICAL: Normal speech, gait not observed. PSYCH: Normal mood, normal affect. SKIN: Warm, dry, normal turgor, no rashes or lesions noted Laboratory Results - last 24 hr 10/27/17 10/30/17 11/02/17 19:20 21:30 06:12 WBC RBC Hgb Hct MCV MCH MCHC RDW Plt Count MPV PTT (Actin FS) 28.0 Sodium Potassium Chloride Carbon Dioxide Anion Gap BUN Creatinine Creat Clearance w eGFR POC Glucometer Random Glucose Calcium Phosphorus Magnesium Total Bilirubin AST ALT Alkaline Phosphatase Total Protein Albumin Stool Occult Blood Blood Type O POSITIVE O POSITIVE Antibody Screen Negative Negative Crossmatch See Detail See Detail 11/02/17 11/02/17 11/03/17 15:10 16:00 05:40 WBC 14.0 H 11.0 H RBC 3.45 L 3.33 L Hgb 10.1 L 9.8 L Hct 29.6 L 28.6 L MCV 85.9 85.9 MCH 29.2 29.4 MCHC 34.0 34.3 RDW 16.5 H 17.3 H Plt Count 136 143 MPV 9.1 9.3 PTT (Actin FS) Sodium Potassium Chloride Carbon Dioxide Anion Gap BUN Creatinine Creat Clearance w eGFR POC Glucometer Random Glucose Calcium Phosphorus Magnesium Total Bilirubin AST ALT Alkaline Phosphatase Total Protein Albumin Stool Occult Blood Cancelled Blood Type Antibody Screen Crossmatch 11/03/17 11/03/17 11/03/17 05:40 05:40 05:58 WBC RBC Hgb Hct MCV MCH MCHC RDW Plt Count MPV PTT (Actin FS) 26.7 L Sodium 145 Potassium 3.6 Chloride 107 Carbon Dioxide 24 Anion Gap 14 BUN 56 H Creatinine 6.0 H Creat Clearance w eGFR 9.55 POC Glucometer 189.92035 Random Glucose 149 H D Calcium 6.4 L* Phosphorus 4.4 Magnesium 1.9 Total Bilirubin 0.9 AST 24 D ALT 19 D Alkaline Phosphatase 60 Total Protein 4.1 L Albumin 1.5 L Stool Occult Blood Blood Type Antibody Screen Crossmatch Active Medications Generic Name Dose Route Start Last Admin Trade Name Freq PRN Reason Stop Dose Admin Amlodipine Besylate 10 mg 11/01/17 10:00 11/02/17 09:16 Norvasc - PO 10 mg DAILY OZIEL Administration Atorvastatin Calcium 40 mg 10/31/17 22:00 11/03/17 01:04 Lipitor - PO 40 mg HS OZIEL Administration Calcium Acetate 667 mg 10/31/17 12:00 11/02/17 17:54 Phoslo - PO 667 mg TIDCM OZIEL Administration Chlorhexidine Gluconate 1 applic 10/31/17 22:00 11/03/17 01:03 Hibiclens For Decolonization - TP 1 applic HS OZIEL Administration Epoetin Agustín 6,000 unit 11/03/17 09:00 Epogen - IVPUSH 11/03/17 09:01 ONCE ONE Febuxostat 40 mg 11/01/17 10:00 11/02/17 09:16 Uloric - PO 40 mg DAILY OZIEL Administration Folic Acid 1 mg 11/01/17 10:00 11/02/17 09:16 Folic Acid - PO 1 mg DAILY OZIEL Administration Hydralazine HCl 25 mg 10/31/17 10:45 Apresoline - PO Q8H PRN HYPERTENSION Hydromorphone HCl 0.5 mg 10/31/17 10:45 Dilaudid Injection - IVPUSH Q6H PRN PAIN >6 Insulin Aspart 1 vial 10/31/17 11:00 11/03/17 07:13 Novolog Vial Sliding Scale - SQ Not Given ACHS [facility] Protocol Insulin Detemir 15 units 10/31/17 22:00 11/03/17 01:03 Levemir Vial SQ Not Given HS OZIEL Magnesium Chloride 64 mg 11/01/17 10:00 11/02/17 09:16 Slow-Mag - PO 64 mg DAILY OZIEL Administration Mupirocin 1 applic 10/31/17 10:00 11/03/17 01:02 Bactroban Ointment (For Decolonization) - NS 11/05/17 09:59 1 applic BID OZIEL Administration Prednisone 5 mg 11/01/17 10:00 11/02/17 09:16 Deltasone - PO 5 mg DAILY OZIEL Administration Tacrolimus 1 mg 10/31/17 22:00 11/03/17 01:04 Prograf PO 1 mg BID OZIEL Administration ASSESSMENT/PLAN: The patient is a 62 year old male with a history of DM, right kidney transplant , and DVT on warfarin who presented to the ED for RUE swelling and redness. The patient was subsequently admitted for treatment of cellulitis in the setting of acute renal failure transferred to the ICU for coffee ground emesis, anemia, hyperkalemia, and hypotension. NEURO No Issues currently. -Awake and Oriented x3 CV #Anemia (Stable) Hgb was noted to be 6.8 earlier this week likely due to acute blood loss. Patient's Hgb has remained stable since transfusion. -Was transfused with a total of 4 units will be transfused. -Will continue to monitor. #Hypertension -Will continue hydralazine 25 TID -Will continue amlodipine 10 QD RESP No Issues currently. -Will continue to monitor ENDO #Diabetes Mellitus -continue levemir 15 -continue ISS Renal #Acute on Chronic Kidney Disease with R Renal Transplant Patient noted to have a hyperkalemia of 6.3 and had a right femoral temporary dialysis catheter placed for urgent dialysis earlier in the week. -Will continue Tacrolimus -Will continue prednisone -The patient to have permicath placed today. -Will continue to monitor electrolytes, creatinine HEME #Supratherapeutic INR -Will hold anticoagulation and hold heparin drip MSK #Hematoma and Cellulities of the Right arm (Improving) -Will stope zosyn 2.25 BID per ID recs. -Anticoagulation held, heparin drip held in the setting of acute blood loss anemia -Will continue to monitor FEN/GI -Replete electrolytes PRN carefully, will monitor -No standing fluids as the patient is receiving blood products PPX -Holding anticoaguation at this time due to acute blood loss anemia. -Mechanical DVT prophylaxis. Dispo: Patient is stable for monitoring on the floors. Visit type - Emergency Visit Emergency Visit: No - New Patient This patient is new to me today: No - Critical Care Critical Care patient: No
[2017-11-03] MEDS ORDERED: EPOETIN ALFA 2,000 UNIT/1 ML VIAL IVPUSH ONE (09:00)
--- NOTE | 2017-11-03 09:43 | PN ---
Progress Note, Physician Chief Complaint: The patient seen in the ICU. Feels weak. Denies any chest pains. No shortness of breath. Put out about 300 ml. Temp 99.2 F Stable BP Tentatively scheduled for Permacath insertion, if the blood cultures are negative. 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 The patient has been started on dialysis. - Current Medication List Current Medications: Active Medications Amlodipine Besylate (Norvasc -) 10 mg PO DAILY [facility] Last Admin: 11/02/17 09:16 Dose: 10 mg Atorvastatin Calcium (Lipitor -) 40 mg PO HS [facility] Last Admin: 11/03/17 01:04 Dose: 40 mg Calcium Acetate (Phoslo -) 667 mg PO TIDCM [facility] Last Admin: 11/02/17 17:54 Dose: 667 mg Chlorhexidine Gluconate (Hibiclens For Decolonization -) 1 applic TP [facility] Last Admin: 11/03/17 01:03 Dose: 1 applic Epoetin Agustín (Epogen -) 6,000 unit IVPUSH ONCE ONE Stop: 11/03/17 09:01 Febuxostat (Uloric -) 40 mg PO DAILY [facility] Last Admin: 11/02/17 09:16 Dose: 40 mg Folic Acid (Folic Acid -) 1 mg PO DAILY [facility] Last Admin: 11/02/17 09:16 Dose: 1 mg Hydralazine HCl (Apresoline -) 25 mg PO Q8H PRN PRN Reason: HYPERTENSION Hydromorphone HCl (Dilaudid Injection -) 0.5 mg IVPUSH Q6H PRN PRN Reason: PAIN >6 Insulin Aspart (Novolog Vial Sliding Scale -) 1 vial SQ [facility] PRN Reason: Protocol Last Admin: 11/03/17 07:13 Dose: Not Given Insulin Detemir (Levemir Vial) 15 units SQ [facility] Last Admin: 11/03/17 01:03 Dose: Not Given Magnesium Chloride (Slow-Mag -) 64 mg PO DAILY [facility] Last Admin: 11/02/17 09:16 Dose: 64 mg Mupirocin (Bactroban Ointment (For Decolonization) -) 1 applic NS BID [facility] Stop: 11/05/17 09:59 Last Admin: 11/03/17 01:02 Dose: 1 applic Prednisone (Deltasone -) 5 mg PO DAILY [facility] Last Admin: 11/02/17 09:16 Dose: 5 mg Tacrolimus (Prograf) 1 mg PO BID [facility] Last Admin: 11/03/17 01:04 Dose: 1 mg - Objective Vital Signs: Vital Signs Temperature 99.2 F 11/03/17 02:00 Pulse Rate 91 H 11/03/17 06:00 Respiratory Rate 22 11/03/17 06:00 Blood Pressure 131/73 11/03/17 06:00 O2 Sat by Pulse Oximetry (%) 100 11/02/17 20:09 Constitutional: Yes: Anxious Eyes: Yes: Conjunctiva Clear HENT: Yes: Atraumatic Neck: Yes: Trachea Midline Cardiovascular: Yes: S1, S2 Respiratory: Yes: CTA Bilaterally, Diminished Gastrointestinal: Yes: Normal Bowel Sounds, Soft Genitourinary: No: Bladder Distention, CVA Tenderness - Left, CVA Tenderness - Right, Hematuria Edema: Yes (With cellulitis of the ar) Neurological: Yes: Alert, Oriented Labs: CBC, BMP 11/03/17 05:40 11/03/17 05:40 INR, PTT INR 1.31 (0.82-1.09) H 11/02/17 06:12 Fibrinogen 365.0 mg/dL (238-498) 10/31/17 06:30 Problem List - Problems (1) Acute renal failure (ARF) Code(s): N17.9 - ACUTE KIDNEY FAILURE, UNSPECIFIED (2) Cellulitis Code(s): L03.90 - CELLULITIS, UNSPECIFIED (3) Diabetes Code(s): E11.9 - TYPE 2 DIABETES MELLITUS WITHOUT COMPLICATIONS Qualifiers: Diabetes mellitus type: type 2 (4) Pain and swelling of right upper extremity Code(s): M79.601 - PAIN IN RIGHT ARM; M79.89 - OTHER SPECIFIED SOFT TISSUE DISORDERS (5) Arterial atherosclerosis Code(s): I70.8 - ATHEROSCLEROSIS OF OTHER ARTERIES Assessment/Plan 62 year old gentleman with PMhx of Renal Transplant (2000, ) 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 WESTON on CKD.. Tolerated dialysis. The patient is scheduled for placement of tunnelled HD catheter today...pending negative Blood cultures. Will dialyse after the same. Social work consult for outpatient dialysis placement Dose all meds for CrCl less then 15 Acute Anemia Hgb is stable The patient would eventually switch to [facility] ( [facility]). Reviewed plans with the patient. Thank you. Celina Herbert MD
[2017-11-03] MEDS: CALCIUM ACETATE 667 MG CAPSULE (FP) PO SCH ×3 (10:16→17:42)
[2017-11-03] MEDS ORDERED: hydrALAZINE HCL 25 MG TABLET (FP) PO PRN (10:17)
[2017-11-03] MEDS: FEBUXOSTAT 40 MG TAB PO SCH ×2 (11:18→12:14)
[2017-11-03] MEDS: PIPERACILLIN/TAZOB 2.25 GM 2.25 GM/50 ML BAG IVPB SCH (11:18)
[2017-11-03] MEDS: amLODIPine BESYLATE 10 MG TABLET (FP) PO SCH ×2 (11:18→12:14)
[2017-11-03] MEDS: FOLIC ACID 1 MG TABLET (FP) PO SCH ×2 (11:18→12:14)
[2017-11-03] MEDS: predniSONE 5 MG TABLET (UD) PO SCH ×2 (11:18→12:14)
[2017-11-03] MEDS: MAGNESIUM CL 64 MG TABLET.SA PO SCH ×2 (11:18→12:14)
[2017-11-03] MEDS ORDERED: amLODIPine BESYLATE 10 MG TABLET (FP) PO SCH (12:15)
[2017-11-03] MEDS ORDERED: FEBUXOSTAT 40 MG TAB PO SCH (12:15)
[2017-11-03] MEDS ORDERED: MAGNESIUM CL 64 MG TABLET.SA PO SCH (12:15)
[2017-11-03] MEDS ORDERED: FOLIC ACID 1 MG TABLET (FP) PO SCH (12:15)
[2017-11-03] MEDS ORDERED: predniSONE 5 MG TABLET (UD) PO SCH (12:15)
--- NOTE | 2017-11-03 13:10 | PN ---
Progress Note (short form) - Note Progress Note: Patient seen and examined Transferred from ICU Tired, weak Denies SOB, chest pains Non productive cough Last Vital Signs Temp Pulse Resp BP Pulse Ox 99.2 F 91 H 22 131/73 100 11/03/17 02:00 11/03/17 06:00 11/03/17 06:00 11/03/17 06:00 11/02/17 20:09 HEENT: left ptosis Oropharynx:coated tongue Cor: RSR, No murmurs, No gallops Lungs: rales bilateral bases Abd: Soft, Normal bowel sounds, No organomegaly Ext- RUE swelling , edema resolving ecchymosis; LUE swelling Skin:LE stasis CBC, BMP 11/03/17 05:40 11/03/17 05:40 Current Medications Generic Name Dose Route Start Last Admin Trade Name Freq PRN Reason Stop Dose Admin Amlodipine Besylate 10 mg 11/03/17 12:15 11/03/17 12:22 Norvasc - PO 10 mg DAILY [facility] Administration Atorvastatin Calcium 40 mg 11/03/17 22:00 Lipitor - PO HS [facility] Calcium Acetate 667 mg 11/03/17 12:00 11/03/17 11:24 Phoslo - PO Not Given TIDCM [facility] Epoetin Agustín 6,000 unit 11/03/17 09:00 Epogen - IVPUSH 11/03/17 09:01 ONCE ONE Febuxostat 40 mg 11/03/17 12:15 Uloric - PO DAILY [facility] Folic Acid 1 mg 11/03/17 12:15 11/03/17 12:22 Folic Acid - PO 1 mg DAILY [facility] Administration Hydralazine HCl 25 mg 11/03/17 10:17 Apresoline - PO Q8H PRN HYPERTENSION Insulin Aspart 1 vial 11/03/17 11:00 11/03/17 12:24 Novolog Vial Sliding Scale - SQ 2 units ACHS [facility] Administration Protocol Insulin Detemir 15 units 11/03/17 22:00 Levemir Vial SQ HS [facility] Magnesium Chloride 64 mg 11/03/17 12:15 Slow-Mag - PO DAILY [facility] Prednisone 5 mg 11/03/17 12:15 11/03/17 12:22 Deltasone - PO 5 mg DAILY [facility] Administration Tacrolimus 1 mg 11/03/17 12:15 Prograf PO BID [facility] Impression: AKIon CKD-s/p transplant S/P chronic rejection RUE hematoma,cellulitis Retroperitoneal hematoma h/o DVT Plan: Holding a/c in view of bleeding Permacath HD. EPO per renal protocol.
--- NOTE | 2017-11-03 14:01 | PN ---
Progress Note, Physician Chief Complaint: ID Looks comfortable some minimal left flank pain No fever or tmax 100 - Current Medication List Current Medications: Active Medications Amlodipine Besylate (Norvasc -) 10 mg PO DAILY [facility] Last Admin: 11/03/17 12:22 Dose: 10 mg Atorvastatin Calcium (Lipitor -) 40 mg PO HS [facility] Calcium Acetate (Phoslo -) 667 mg PO TIDCM [facility] Last Admin: 11/03/17 11:24 Dose: Not Given Epoetin Agustín (Epogen -) 6,000 unit IVPUSH ONCE ONE Stop: 11/03/17 09:01 Febuxostat (Uloric -) 40 mg PO DAILY [facility] Folic Acid (Folic Acid -) 1 mg PO DAILY [facility] Last Admin: 11/03/17 12:22 Dose: 1 mg Hydralazine HCl (Apresoline -) 25 mg PO Q8H PRN PRN Reason: HYPERTENSION Insulin Aspart (Novolog Vial Sliding Scale -) 1 vial SQ ACHS [facility] PRN Reason: Protocol Last Admin: 11/03/17 12:24 Dose: 2 units Insulin Detemir (Levemir Vial) 15 units SQ HS [facility] Magnesium Chloride (Slow-Mag -) 64 mg PO DAILY [facility] Prednisone (Deltasone -) 5 mg PO DAILY [facility] Last Admin: 11/03/17 12:22 Dose: 5 mg Tacrolimus (Prograf) 1 mg PO BID [facility] - Objective Vital Signs: Vital Signs Temperature 99.2 F 11/03/17 02:00 Pulse Rate 91 H 11/03/17 06:00 Respiratory Rate 22 11/03/17 06:00 Blood Pressure 131/73 11/03/17 06:00 O2 Sat by Pulse Oximetry (%) 100 11/02/17 20:09 Constitutional: Yes: Well Nourished, No Distress Neck: Yes: WNL, Supple Cardiovascular: Yes: Regular Rate and Rhythm, S1, S2. No: Murmur Respiratory: Yes: WNL, Regular, CTA Bilaterally Gastrointestinal: Yes: WNL, Normal Bowel Sounds, Soft. No: Tenderness, Tenderness, Rebound Edema: No Labs: CBC, BMP 11/03/17 05:40 11/03/17 05:40 INR, PTT INR 1.31 (0.82-1.09) H 11/02/17 06:12 Fibrinogen 365.0 mg/dL (238-498) 10/31/17 06:30 Problem List - Problems (1) Renal transplant disorder Code(s): T86.10 - UNSPECIFIED COMPLICATION OF KIDNEY TRANSPLANT (2) Cellulitis Code(s): L03.90 - CELLULITIS, UNSPECIFIED (3) Diabetes Code(s): E11.9 - TYPE 2 DIABETES MELLITUS WITHOUT COMPLICATIONS Qualifiers: Diabetes mellitus type: type 2 Assessment/Plan Microbiology 11/01/17 10:30 Blood - Post-Dialysis Blood Culture - Preliminary NO GROWTH OBTAINED AFTER 48 HOURS, INCUBATION TO CONTINUE FOR 3 DAYS. 11/01/17 10:00 Blood - Post-Dialysis Blood Culture - Preliminary NO GROWTH OBTAINED AFTER 48 HOURS, INCUBATION TO CONTINUE FOR 3 DAYS. Laboratory Tests 11/03/17 05:40 WBC 11.0 H Hct 28.6 L Plt Count 143 Assessmemt Coagulopthy retroperitoneal hematoma Thus far no evidence for infection. I would observe off antibiotic Hematoma may be suurce of fevers Plan Kindly recall with any questions regarding resumption of antibiotics or other concerns Thanks Luciana AGMINO
--- NOTE | 2017-11-03 17:37 | PN ---
Teaching Attending Note Name of Resident: Shaka Christensen ATTENDING PHYSICIAN STATEMENT I saw and evaluated the patient. I reviewed the resident's note and discussed the case with the resident. I agree with the resident's findings and plan as documented. SUBJECTIVE: No fever or chills. No abd pain, no SOB . OBJECTIVE: NAD CV : RRR, 2/6 SM at LUSB, Lungs: decreased breath sounds at bases. Abd; soft, TTp in L flank , no rebound tenderness or guarding . no bruising Ext: 2+ pitting edema on LE . R forearm with bruising on ventral side extending to palm and fingers and dorsal hand , with nl motor function ASSESSMENT AND PLAN: 62 y/o man with h/o CKD,s/p renal transplant unprovoked DVT, and other medical problems who presented with R arm swelling and was found to have R arm hematoma. Hospital course was complicated by retroperitonel hematoma. 1- Fever and leukocytosis : no evidence of infection - monitor off abx 2- R upper EXT hematoma , improving . 3- L retroperitoneal hematoma, stable HB after transfusion. - no need tro repeat scan unless HB drop again - OB in stool due to possible bleed in stomach seen on CT ( still pending ) 4- Acute blood loss anemia: stable 5- h/o DVT in LE: no pharmacologic AC. SCDs has IVC filter 6- HTN: cont meds 7- DM: SSI and levemir 8- CKD s/p renal transplant with chronic rejection: - HD per renal - plan for perma cath, Blood cx Neg x 48 hr Tx to med surg is pending.
[2017-11-03] MEDS ORDERED: HEPARIN NA (PORCINE) 5,000 UNITS/ML 1ML VIAL ONE (17:39)
[2017-11-03] MEDS ORDERED: LIDOCAINE HCL 1%, 10 MG/ML (20ML VIAL) ONE (17:39)
[2017-11-03] MEDS ORDERED: MIDAZOLAM HCL 2 MG/2 ML SINGLE DOSE VIAL ONE (17:42)
--- NOTE | 2017-11-03 17:49 | PN ---
Physical Exam: SUBJECTIVE: Patient seen and examined at bedside. No acute complaints. No fevers , chills, nausea, vomiting diarrhea. Patient does state he has been tired today. OBJECTIVE: Vital Signs Period Temp Pulse Resp BP Sys/Lane Pulse Ox Last 24 Hr 98.5 F-100.1 F 90-101 20-30 121-165/66-82 93-100 GENERAL: The patient is awake, alert, and fully oriented, in no acute distress. HEAD: Normal with no signs of trauma. EYES: PERRL, extraocular movements intact, sclera anicteric, conjunctiva clear. No ptosis. LUNGS: Breath sounds equal, clear to auscultation bilaterally, no wheezes, no crackles, no accessory muscle use. HEART: Regular rate and rhythm, S1, S2, 3/6 systolic murmur appreciated on exam ABDOMEN: Soft, mildly tender to palpation on L side, non-radiating, nondistended , normoactive bowel sounds, no guarding, norebound, no hepatosplenomegaly, no masses. EXTREMITIES: 2+ pulses, warm, well-perfused, R arm mildly swollen and erythema that has improved since previous exam. Patient has improved mobility in arm and hand. NEUROLOGICAL: Cranial nerves II through XII grossly intact. Normal speech, gait not observed. PSYCH: Normal mood, normal affect. SKIN: Warm, dry, normal turgor, no rashes or lesions noted Laboratory Results - last 24 hr 10/30/17 10/31/17 10/31/17 21:30 16:59 22:32 WBC RBC Hgb Hct MCV MCH MCHC RDW Plt Count MPV PTT (Actin FS) Sodium Potassium Chloride Carbon Dioxide Anion Gap BUN Creatinine Creat Clearance w eGFR POC Glucometer 155.36048 125.21260 Random Glucose Calcium Phosphorus Magnesium Total Bilirubin AST ALT Alkaline Phosphatase Total Protein Albumin Blood Type O POSITIVE Antibody Screen Negative Crossmatch See Detail 11/01/17 11/01/17 11/01/17 05:33 11:43 17:40 WBC RBC Hgb Hct MCV MCH MCHC RDW Plt Count MPV PTT (Actin FS) Sodium Potassium Chloride Carbon Dioxide Anion Gap BUN Creatinine Creat Clearance w eGFR POC Glucometer 158.72585 230.09862 208.85407 Random Glucose Calcium Phosphorus Magnesium Total Bilirubin AST ALT Alkaline Phosphatase Total Protein Albumin Blood Type Antibody Screen Crossmatch 0111/02/17 11/02/17 22:31 10:55 17:10 WBC RBC Hgb Hct MCV MCH MCHC RDW Plt Count MPV PTT (Actin FS) Sodium Potassium Chloride Carbon Dioxide Anion Gap BUN Creatinine Creat Clearance w eGFR POC Glucometer 235.48381 246.41428 235.98421 Random Glucose Calcium Phosphorus Magnesium Total Bilirubin AST ALT Alkaline Phosphatase Total Protein Albumin Blood Type Antibody Screen Crossmatch 11/02/17 11/03/17 11/03/17 23:14 05:40 05:40 WBC 11.0 H RBC 3.33 L Hgb 9.8 L Hct 28.6 L MCV 85.9 MCH 29.4 MCHC 34.3 RDW 17.3 H Plt Count 143 MPV 9.3 PTT (Actin FS) 26.7 L Sodium Potassium Chloride Carbon Dioxide Anion Gap BUN Creatinine Creat Clearance w eGFR POC Glucometer 188.15186 Random Glucose Calcium Phosphorus Magnesium Total Bilirubin AST ALT Alkaline Phosphatase Total Protein Albumin Blood Type Antibody Screen Crossmatch 11/03/17 11/03/17 11/03/17 05:40 05:58 12:23 WBC RBC Hgb Hct MCV MCH MCHC RDW Plt Count MPV PTT (Actin FS) Sodium 145 Potassium 3.6 Chloride 107 Carbon Dioxide 24 Anion Gap 14 BUN 56 H Creatinine 6.0 H Creat Clearance w eGFR 9.55 POC Glucometer 189.87637 157 Random Glucose 149 H D Calcium 6.4 L* Phosphorus 4.4 Magnesium 1.9 Total Bilirubin 0.9 AST 24 D ALT 19 D Alkaline Phosphatase 60 Total Protein 4.1 L Albumin 1.5 L Blood Type Antibody Screen Crossmatch Active Medications Generic Name Dose Route Start Last Admin Trade Name Freq PRN Reason Stop Dose Admin Amlodipine Besylate 10 mg 11/03/17 12:15 11/03/17 12:22 Norvasc - PO 10 mg DAILY [facility] Administration Atorvastatin Calcium 40 mg 11/03/17 22:00 Lipitor - PO HS [facility] Calcium Acetate 667 mg 11/03/17 12:00 11/03/17 17:42 Phoslo - PO Not Given TIDCM [facility] Epoetin Agustín 6,000 unit 11/03/17 09:00 Epogen - IVPUSH 11/03/17 09:01 ONCE ONE Febuxostat 40 mg 11/03/17 12:15 01/26/18 14:21 Uloric - PO Not Given DAILY [facility] Folic Acid 1 mg 11/03/17 12:15 11/03/17 12:22 Folic Acid - PO 1 mg DAILY [facility] Administration Hydralazine HCl 25 mg 11/03/17 10:17 Apresoline - PO Q8H PRN HYPERTENSION Insulin Aspart 1 vial 11/03/17 11:00 11/03/17 17:42 Novolog Vial Sliding Scale - SQ Not Given ACHS [facility] Protocol Insulin Detemir 15 units 11/03/17 22:00 Levemir Vial SQ HS [facility] Magnesium Chloride 64 mg 11/03/17 12:15 11/03/17 14:20 Slow-Mag - PO Not Given DAILY [facility] Prednisone 5 mg 11/03/17 12:15 11/03/17 12:22 Deltasone - PO 5 mg DAILY [facility] Administration Tacrolimus 1 mg 11/03/17 12:15 11/03/17 14:30 Prograf PO 1 mg BID [facility] Administration ASSESSMENT/PLAN: 62 year old male with a history of unprovoked DVT, R renal transplant admitted with R arm swelling and erythema 2/2 cellulitis and muscular hematoma and 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 #Acute on Chronic Kidney Disease with R Renal Transplant: 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, creatinine stable -continue Tacrolimus, discuss with renal if patient needs these medications if patient is on dialysis -continue prednisone -no indication for dialysis -appreciate nephrology consultation -plan tunneled HD catheter, given blood cx results negative -Diet restarted, NPO after midnight -s/p 5 U PRBC, goal > 8, s/p [id number] epogen #Sepsis: resolved -patient afebrile now -No Abx and observe -Appreciate ID consult -new abdominal CT shows stable hematoma #Hematoma of L flank: stable, [id number] -s/p transfusion of 5UPRBC and 2 FFP -monitor H&H -monitor BP -appreciate vascular recommendations #Hematoma of the R arm: Arm wrapped in miya - improved -keep R arm elevated and in a sling -monitor H&H -appreciate vascular surgery recommendations #Anemia: Hgb of 10.8 today, stable -s/p 5 U PRBC, Hgb > 8 -s/p 22900 units Epogen IV with hemodialysis -s/p transfused 2 FFP -repeat CBC in AM #DVT of Left Lower Extremity: pt has IVC filter -Heparin held due to acute bleed -SCDs on unaffected leg (R) #Diabetes Mellitus: controlled -continue levemir 15 -continue ISS #Hypertension: controlled -continue hydralazine 25 TID -continue amlodipine 10 QD #Gout: stable -continue febuxostat #Supratherapeutic INR: INR -hold anticoagulation, hold heparin drip #FEN: No standing fluids Careful with repletion - pt getting dialysis Diet restarted, NPO for procedure #Prophylaxis: -AC held due to INR -SCD on one leg #Disposition: -monitor on med surg Shaka Christensen D.O., PGY-1 Visit type - Emergency Visit Emergency Visit: No - New Patient This patient is new to me today: No - Critical Care Critical Care patient: No
[2017-11-03] MEDS ORDERED: ceFAZolin SODIUM 1 GM VIAL IVPB ONE (17:50)
[2017-11-03] MEDS ORDERED: ceFAZolin SODIUM 1 GM VIAL ONE (17:58)
--- NOTE | 2017-11-03 18:43 | OP ---
Operative Note - Note: Operative Date: 11/03/17 Pre-Operative Diagnosis: ESRD Operation: Insertion of permacath Post-Operative Diagnosis: Same as Pre-op Surgeon: eBnedict Echavarria Anesthesia: Fractional Estimated Blood Loss (mls): 50 Operative Report Dictated: Yes
[2017-11-03] MEDS ORDERED: CHLORHEXIDINE GLUCONATE 4% CLEANSER FOR DECOLONIZATION TP SCH (22:00)
[2017-11-03] MEDS ORDERED: ATORVASTATIN CA 40 MG TABLET (FP) PO SCH (22:00)
[2017-11-03] MEDS ORDERED: MUPIROCIN 2% TOPICAL OINTMENT FOR DECOLONIZATION NS SCH (22:00)
[2017-11-03] MEDS ORDERED: INSULIN DETEMIR 100 UNITS/ML MDV SQ SCH (22:00)
[2017-11-04] MEDS: INSULIN SLIDING SCALE (NOVOLOG) 1 VIAL SQ SCH ×4 (06:21→23:25)
[2017-11-04] MEDS ORDERED: EPOETIN ALFA 2,000 UNIT/1 ML VIAL IVPUSH ONE (07:19)
[2017-11-04] MEDS ORDERED: hydrALAZINE HCL 25 MG TABLET (FP) PO PRN (07:19)
[2017-11-04] MEDS: CALCIUM ACETATE 667 MG CAPSULE (FP) PO SCH ×3 (07:34→17:47)
[2017-11-04] MEDS ORDERED: oxyCODONE HCL 5 MG TABLET PO ONE (08:30)
[2017-11-04] MEDS ORDERED: ACETAMINOPHEN 325 MG TABLET (FP) PO ONE (08:30)
--- NOTE | 2017-11-04 08:59 | OP ---
DATE OF OPERATION: 11/03/2017 PREOPERATIVE DIAGNOSIS: End-stage renal disease. POSTOPERATIVE DIAGNOSIS: End-stage renal disease. PROCEDURE: Insertion of left subclavian Perm-A-Cath. SURGEON: Benedict Yuen DO ANESTHESIA: Fractional. BLOOD LOSS: 50 mL. The patient is a 62-year-old male that has end-stage renal disease that needs a temporary dialysis catheter placement. Patient was consented for the procedure, understanding all risks, benefits and alternatives, then taken to the operating room. In the operating room, we took our ultrasound machine that looked at the right IJ and it was closed. The right subclavian did not look open as well. There was a lot of venous congestion on the right side of the chest. We then went over to the left side and the left IJ was patent. At this point, we decided that that is where we would work. We then went ahead and prepped and draped the left neck and chest in a sterile surgical manner. Under ultrasound guidance, we did visualize the left internal jugular vein and 10 mL of lidocaine 1% was injected there. We took a micropuncture needle and punctured the left internal jugular vein and a micropuncture guidewire was inserted. We then placed our micropuncture sheath and a 0.035 floppy guidewire was placed into the IVC. We then injected 10 mL of lidocaine 1% about 2 cm below the puncture site. We then took an 11 blade and made a 1-cm incision at the puncture site. We took a 15 blade and made a 1 cm incision below the puncture site. At this point, we tunneled the Perm-A-Cath up to the puncture site. We then took our breakaway sheath and placed it over the guidewire into the vein under fluoroscopy. Once we placed it under fluoroscopy and the catheter and guidewire were removed, the catheter was placed in down the sheath. The sheath was broken away and the catheter was placed inside the vein. Neck of the catheter was nice and smooth. Tip of the catheter was located outside the right atrium. We then mima back on each port of the catheter until there was good flow. Heparinized saline was injected, 2000 units of IV heparin was injected into each port. We then went ahead and took 4-0 Biosyn and 2 simple sutures were placed in the puncture site, 3-0 nylon used and the catheter was attached to the skin. Biopatch, Steri-Strips, 4 x 4, Tegaderms were placed. Patient tolerated the procedure with no complication. Patient was transferred to PACU in stable condition where chest x-ray will be ordered. BENEDICT YUEN DO [id number]
[2017-11-04 09:45] LABS: HEMATOCRIT 26.8 % (35.4-49); HEMOGLOBIN 8.9 GM/dL (11.7-16.9); MCHC 33.3 g/dl (32.0-35.9); MEAN CELL VOLUME 87.3 fl (80-96); MEAN PLT VOLUME 8.9 fl (7.5-11.1); PLATELET COUNT 136 K/MM3 (134-434); RBC 3.07 M/mm3 (4.00-5.60); RDW 17.3 % (11.9-15.9); WHITE BLOOD COUNT 5.9 K/mm3 (4.0-10.0)
[2017-11-04 10:09] LABS: ANION GAP 13 (8-16); BLOOD UREA NITROGEN 69 mg/dL (7-18); CHLORIDE 107 mmol/L (98-107); CO2 24 mmol/L (21-32); GLUCOSE,RANDOM 209 mg/dL (74-106); POTASSIUM 3.3 mmol/L (3.5-5.1); SODIUM 144 mmol/L (136-145)
--- NOTE | 2017-11-04 10:32 | PN ---
Progress Note (short form) - Note Progress Note: Renal follow up for WESTON on CKD/Renal Transplant Pt seen and examined during dialysis no acute complaints catheter with good flow BP stable Vital Signs Temperature 98.4 F 11/04/17 08:25 Pulse Rate 86 11/04/17 09:00 Respiratory Rate 18 11/04/17 09:00 Blood Pressure 159/102 11/04/17 09:00 O2 Sat by Pulse Oximetry (%) 97 11/03/17 21:00 Intake & Output 11/01/17 11/02/17 11/03/17 11/04/17 23:59 23:59 23:59 23:59 Intake Total 570 820 150 Output Total 300 Balance 270 820 150 Weight 76.4 kg 76.005 kg 75.75 kg NAD RRR CTA + Abd tenderness + Edema in LE CBC, BMP 11/04/17 08:40 11/04/17 08:40 Current Medications Amlodipine Besylate (Norvasc -) 10 mg PO DAILY [facility] Atorvastatin Calcium (Lipitor -) 40 mg PO HS [facility] Calcium Acetate (Phoslo -) 667 mg PO TIDCM [facility] Last Admin: 11/04/17 07:34 Dose: 667 mg Febuxostat (Uloric -) 40 mg PO DAILY [facility] Folic Acid (Folic Acid -) 1 mg PO DAILY [facility] Hydralazine HCl (Apresoline -) 25 mg PO Q8H PRN PRN Reason: HYPERTENSION Insulin Aspart (Novolog Vial Sliding Scale -) 1 vial SQ ACHS [facility] PRN Reason: Protocol Insulin Detemir (Levemir Vial) 15 units SQ HS [facility] Magnesium Chloride (Slow-Mag -) 64 mg PO DAILY [facility] Prednisone (Deltasone -) 5 mg PO DAILY [facility] Tacrolimus (Prograf) 1 mg PO BID [facility] 62 year old gentleman with PMhx of Renal Transplant (2000, [facility]) 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 #WESTON on CKD tolerating dialysis well today continue tacolimus and prednisone outpatient HD unit placement #Acute Anemia Hgb is stable no further A/c will continue KADE with HD #Sepsis all cutlures negative at this time off abx WBC is improving Eagle Thomas DO
[2017-11-04 10:38] LABS: CALCIUM 6.9 mg/dL (8.5-10.1)
[2017-11-04] MEDS: amLODIPine BESYLATE 10 MG TABLET (FP) PO SCH (12:10)
[2017-11-04] MEDS: FEBUXOSTAT 40 MG TAB PO SCH (12:13)
[2017-11-04] MEDS: TACROLIMUS ANHYDROUS 1 MG CAPSULE PO SCH ×2 (12:13→23:25)
[2017-11-04] MEDS: predniSONE 5 MG TABLET (UD) PO SCH (12:13)
[2017-11-04] MEDS: MAGNESIUM CL 64 MG TABLET.SA PO SCH (12:13)
[2017-11-04] MEDS: FOLIC ACID 1 MG TABLET (FP) PO SCH (12:13)
[2017-11-04] MEDS ORDERED: PT OWN MED DRAWER 7, Y5N ONE ×2 (12:23→23:20)
--- NOTE | 2017-11-04 13:16 | PN ---
Physical Exam: SUBJECTIVE: Patient seen and examined at bedside during dialysis. Patient is in no acute distress. Mild pain reported on the L flank OBJECTIVE: Vital Signs Period Temp Pulse Resp BP Sys/Lane Pulse Ox Last 24 Hr 97.4 F-99.6 F 60-103 16-20 100-162/61-105 96-100 GENERAL: The patient is awake, alert, and fully oriented, in no acute distress. HEAD: Normal with no signs of trauma. EYES: PERRL, extraocular movements intact, sclera anicteric, conjunctiva clear. No ptosis. LUNGS: Breath sounds equal, clear to auscultation bilaterally, no wheezes, no crackles, no accessory muscle use. HEART: Regular rate and rhythm, S1, S2, 3/6 systolic murmur appreciated on exam ABDOMEN: Soft, mildly tender to palpation on L flank, non-radiating, nondistended, normoactive bowel sounds, no guarding, norebound, no hepatosplenomegaly, no masses. EXTREMITIES: 2+ pulses, warm, well-perfused, R arm mildly swollen and erythema that has improved since previous exam. Patient has improved mobility in arm and hand. NEUROLOGICAL: Cranial nerves II through XII grossly intact. Normal speech, gait not observed. PSYCH: Normal mood, normal affect. SKIN: Warm, dry, normal turgor, no rashes or lesions noted Laboratory Results - last 24 hr 10/31/17 10/31/17 11/01/17 16:59 22:32 05:33 WBC RBC Hgb Hct MCV MCH MCHC RDW Plt Count MPV Sodium Potassium Chloride Carbon Dioxide Anion Gap BUN Creatinine POC Glucometer 155.55425 125.74951 158.53087 Random Glucose Calcium 11/01/17 11/01/17 11/01/17 11:43 17:40 22:31 WBC RBC Hgb Hct MCV MCH MCHC RDW Plt Count MPV Sodium Potassium Chloride Carbon Dioxide Anion Gap BUN Creatinine POC Glucometer 230.36821 208.30715 235.79284 Random Glucose Calcium 11/02/17 11/02/17 11/02/17 10:55 17:10 23:14 WBC RBC Hgb Hct MCV MCH MCHC RDW Plt Count MPV Sodium Potassium Chloride Carbon Dioxide Anion Gap BUN Creatinine POC Glucometer 246.85324 235.53762 188.15183 Random Glucose Calcium 11/03/17 11/04/1711/04/18 21:50 06:20 08:40 WBC 5.9 D RBC 3.07 L Hgb 8.9 L Hct 26.8 L MCV 87.3 MCH 29.0 MCHC 33.3 RDW 17.3 H Plt Count 136 MPV 8.9 Sodium Potassium Chloride Carbon Dioxide Anion Gap BUN Creatinine POC Glucometer 190 231 Random Glucose Calcium 11/04/17 11/04/17 11/04/17 08:40 11:30 12:15 WBC RBC Hgb Hct MCV MCH MCHC RDW Plt Count MPV Sodium 144 Potassium 3.3 L Chloride 107 Carbon Dioxide 24 Anion Gap 13 BUN 69 H D 28 H D Creatinine 7.0 H 3.0 H D POC Glucometer 184 Random Glucose 209 H D Calcium 6.9 L* Active Medications Generic Name Dose Route Start Last Admin Trade Name Freq PRN Reason Stop Dose Admin Amlodipine Besylate 10 mg 11/04/17 10:00 11/04/17 12:10 Norvasc - PO Not Given DAILY [facility] Atorvastatin Calcium 40 mg 11/04/17 22:00 Lipitor - PO HS [facility] Calcium Acetate 667 mg 11/04/17 08:00 11/04/17 12:18 Phoslo - PO 667 mg TIDCM [facility] Administration Febuxostat 40 mg 11/04/17 10:00 11/04/17 12:13 Uloric - PO 40 mg DAILY [facility] Administration Folic Acid 1 mg 11/04/17 10:00 11/04/17 12:13 Folic Acid - PO 1 mg DAILY [facility] Administration Hydralazine HCl 25 mg 11/04/17 07:19 Apresoline - PO Q8H PRN HYPERTENSION Insulin Aspart 1 vial 11/04/17 11:00 11/04/17 12:17 Novolog Vial Sliding Scale - SQ 2 units ACHS [facility] Administration Protocol Insulin Detemir 15 units 11/04/17 22:00 Levemir Vial SQ HS [facility] Magnesium Chloride 64 mg 11/04/17 10:00 11/04/17 12:13 Slow-Mag - PO 64 mg DAILY [facility] Administration Prednisone 5 mg 11/04/17 10:00 11/04/17 12:13 Deltasone - PO 5 mg DAILY [facility] Administration Tacrolimus 1 mg 11/04/17 10:00 11/04/17 12:13 Prograf PO 1 mg BID [facility] Administration ASSESSMENT/PLAN: 62 year old male with a history of unprovoked DVT, R renal transplant admitted with R arm swelling and erythema 2/2 cellulitis and muscular hematoma and 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 manuel discussed with social work nurse about outpatient dialysis possibility -appreciate nephrology consultation -s/p 5 U PRBC, goal > 8, s/p [id number] epogen -repeat CBC 2pm #Sepsis: resolved -patient afebrile now -No Abx and observe -Appreciate ID consult -new abdominal CT shows stable hematoma #Hematoma of L flank: stable, [id number] -s/p transfusion of 5UPRBC and 2 FFP -monitor H&H -monitor BP -appreciate vascular recommendations #Hematoma of the R arm: Arm wrapped in miya - improved -keep R arm elevated and in a sling -monitor H&H -appreciate vascular surgery recommendations #Anemia: Hgb of 10.8 today, stable -s/p 5 U PRBC, Hgb > 8 -s/p 68855 units Epogen IV with hemodialysis -s/p transfused 2 FFP -repeat CBC 2pm and in AM #DVT of Left Lower Extremity: pt has IVC filter -Heparin held due to acute bleed -SCDs on unaffected leg (R) #Diabetes Mellitus: controlled -continue levemir 15 -continue ISS #Hypertension: controlled -continue hydralazine 25 TID -continue amlodipine 10 QD #Gout: stable -continue febuxostat #Supratherapeutic INR: INR -hold anticoagulation, hold heparin drip #FEN: No standing fluids Careful with repletion - pt getting dialysis restarted diet #Prophylaxis: -AC held due to INR -SCD on one leg #Disposition: -monitor on med surg -Dialyzed today, will likely get /Kathy/Sat dialysis Shaka Christensen D.O., PGY-1 Visit type - Emergency Visit Emergency Visit: No - New Patient This patient is new to me today: No - Critical Care Critical Care patient: No
[2017-11-04 14:10] LABS: HEMATOCRIT 31.1 % (35.4-49); HEMOGLOBIN 10.3 GM/dL (11.7-16.9); MCH 28.9 pg (25.7-33.7); MCHC 33.2 g/dl (32.0-35.9); MEAN PLT VOLUME 8.5 fl (7.5-11.1); PLATELET COUNT 153 K/MM3 (134-434); RBC 3.57 M/mm3 (4.00-5.60); RDW 16.9 % (11.9-15.9); WHITE BLOOD COUNT 8.9 K/mm3 (4.0-10.0)
--- NOTE | 2017-11-04 19:13 | PN ---
Teaching Attending Note Name of Resident: Shaka Christensen ATTENDING PHYSICIAN STATEMENT I saw and evaluated the patient. I reviewed the resident's note and discussed the case with the resident. I agree with the resident's findings and plan as documented. SUBJECTIVE: no fever or chills . has minimal discomfort in L flank , but no N/V, no numbnes in R arm , OBJECTIVE: NAD CV : RRR, 2/6 SM at LUSB, Lungs: decreased breath sounds at bases. Abd; soft, TTp in L flank , no rebound tenderness or guarding . no bruising Ext: 2+ pitting edema on LE . R forearm with bruising on ventral side extending to palm and fingers and dorsal hand , with nl motor function ASSESSMENT AND PLAN: 62 y/o man with h/o CKD,s/p renal transplant unprovoked DVT, and other medical problems who presented with R arm swelling and was found to have R arm hematoma. Hospital course was complicated by retroperitonel hematoma. 1- Fever and leukocytosis :resolved ,. no evidence of infection - monitor off abx 2- R upper EXT hematoma , improving . Hb repeated today, stable 3- L retroperitoneal hematoma, stable HB after transfusion. - no need to repeat scan unless HB drop again - OB in stool due to possible bleed in stomach seen on CT ( still pending ) 4- Acute blood loss anemia: stable 5- h/o DVT in LE: no pharmacologic AC. SCDs has IVC filter 6- HTN: cont meds. Bp on lower side. will monitor . 7- DM: SSI and levemir 8- CKD s/p renal transplant with chronic rejection: - HD today - cont taculimus and prednisone - arrangements are being made for out pt HD HLOC . dc is not safe with no out pt HD arrangements
[2017-11-04] MEDS: ATORVASTATIN CA 40 MG TABLET (FP) PO SCH (23:25)
[2017-11-04] MEDS: INSULIN DETEMIR 100 UNITS/ML MDV SQ SCH ×2 (23:27→23:30)
[2017-11-05] MEDS: INSULIN SLIDING SCALE (NOVOLOG) 1 VIAL SQ SCH ×4 (06:06→23:17)
[2017-11-05] MEDS: CALCIUM ACETATE 667 MG CAPSULE (FP) PO SCH ×3 (08:37→17:36)
--- NOTE | 2017-11-05 09:47 | PN ---
Progress Note (short form) - Note Progress Note: Renal follow up for WESTON on CKD/Renal Transplant Pt seen and examined at the bedside has loose BMs (x 3 yesterday) Cdiff is negative no abd pain no fever, chills no sob, CP Vital Signs Temperature 98.3 F 11/05/17 07:42 Pulse Rate 83 11/05/17 07:42 Respiratory Rate 20 11/05/17 07:42 Blood Pressure 104/81 11/05/17 07:42 O2 Sat by Pulse Oximetry (%) 94 L 11/04/17 21:00 NAD RRR CTA trace edema in LE CBC, BMP 11/04/17 13:20 Current Medications Amlodipine Besylate (Norvasc -) 10 mg PO DAILY [facility] Last Admin: 11/04/17 12:10 Dose: Not Given Atorvastatin Calcium (Lipitor -) 40 mg PO HS [facility] Last Admin: 11/04/17 23:25 Dose: 40 mg Calcium Acetate (Phoslo -) 667 mg PO TIDCM [facility] Last Admin: 11/05/17 08:37 Dose: 667 mg Febuxostat (Uloric -) 40 mg PO DAILY [facility] Last Admin: 11/04/17 12:13 Dose: 40 mg Folic Acid (Folic Acid -) 1 mg PO DAILY [facility] Last Admin: 11/04/17 12:13 Dose: 1 mg Hydralazine HCl (Apresoline -) 25 mg PO Q8H PRN PRN Reason: HYPERTENSION Insulin Aspart (Novolog Vial Sliding Scale -) 1 vial SQ ACHS [facility] PRN Reason: Protocol Last Admin: 11/05/17 06:06 Dose: Not Given Insulin Detemir (Levemir Vial) 15 units SQ HS [facility] Last Admin: 11/04/17 23:30 Dose: Not Given Magnesium Chloride (Slow-Mag -) 64 mg PO DAILY [facility] Last Admin: 11/04/17 12:13 Dose: 64 mg Prednisone (Deltasone -) 5 mg PO DAILY [facility] Last Admin: 11/04/17 12:13 Dose: 5 mg Tacrolimus (Prograf) 1 mg PO BID [facility] Last Admin: 11/04/17 23:25 Dose: 1 mg 62 year old gentleman with PMhx of Renal Transplant (2000, ) 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 #WESTON on CKD outpatient dialysis planning (pt has a unit that is close to his home that he would like to go to) no acute inidcation for dialysis today next treatment planed for tomorrow continue tacolimus/prednisone #Acute Anemia Hgb is stable no further A/c will continue KADE with HD #Sepsis all cutlures negative at this time off abx WBC is improving #Diarrhea C-diff is negative Eagle Thomas DO
[2017-11-05 09:52] LABS: ANION GAP 7 (8-16); BLOOD UREA NITROGEN 40 mg/dL (7-18); CHLORIDE 105 mmol/L (98-107); CO2 29 mmol/L (21-32); CREATININE 5.1 mg/dL (0.7-1.3); GLUCOSE,RANDOM 183 mg/dL (74-106); POTASSIUM 3.4 mmol/L (3.5-5.1); SODIUM 141 mmol/L (136-145)
[2017-11-05 09:55] LABS: CALCIUM 6.8 mg/dL (8.5-10.1)
[2017-11-05] MEDS ORDERED: PT OWN MED DRAWER 7, Y5N ONE (10:23)
[2017-11-05] MEDS: amLODIPine BESYLATE 10 MG TABLET (FP) PO SCH (10:26)
[2017-11-05] MEDS: TACROLIMUS ANHYDROUS 1 MG CAPSULE PO SCH ×2 (10:27→23:17)
[2017-11-05] MEDS: FOLIC ACID 1 MG TABLET (FP) PO SCH (10:27)
[2017-11-05] MEDS: predniSONE 5 MG TABLET (UD) PO SCH (10:27)
[2017-11-05] MEDS: FEBUXOSTAT 40 MG TAB PO SCH (10:27)
[2017-11-05] MEDS: MAGNESIUM CL 64 MG TABLET.SA PO SCH (10:27)
--- NOTE | 2017-11-05 15:56 | PN ---
Progress Note (short form) - Note Progress Note: Subjective: no fever or chills . no pain. . no SOB . Objective: Vital Signs: Last Vital Signs Temp Pulse Resp BP Pulse Ox 98.9 F 92 H 22 112/71 96 11/05/17 14:48 11/05/17 14:48 11/05/17 14:48 11/05/17 14:48 11/05/17 09:00 Laboratory Results - last 24 hr 11/04/17 11/04/17 11/05/17 17:48 23:23 06:05 Sodium Potassium Chloride Carbon Dioxide Anion Gap BUN Creatinine POC Glucometer 246 196 136 Random Glucose Calcium 11/05/17 11/05/17 09:15 11:55 Sodium 141 Potassium 3.4 L Chloride 105 Carbon Dioxide 29 D Anion Gap 7 L BUN 40 H D Creatinine 5.1 H D POC Glucometer 182 Random Glucose 183 H Calcium 6.8 L* Physical Exam: NAD CV: RRR, 2/6 SM at LUSB. Lungs: decreased breath sounds at bases. Abd; soft, TTp in L flank , no rebound tenderness or guarding . no bruising Ext: 2+ pitting edema on LE . R forearm with bruising on ventral side extending to palm and fingers and dorsal hand , with nl motor function ASSESSMENT AND PLAN: 62 y/o man with h/o CKD,s/p renal transplant unprovoked DVT, and other medical problems who presented with R arm swelling and was found to have R arm hematoma. Hospital course was complicated by retroperitonel hematoma. 1- Fever and leukocytosis :resolved. no evidence of infection - monitor off abx 2- R upper EXT hematoma , improving .stable HB 3- L retroperitoneal hematoma, stable HB after transfusion. - no need to repeat scan unless HB drop again - OB in stool due to possible bleed in stomach seen on CT ( still pending ) 4- Acute blood loss anemia: stable 5- H/o DVT in LE: no pharmacologic AC. SCDs has IVC filter 6- HTN: cont meds. Bp improved 7- DM: SSI and levemir 8- CKD s/p renal transplant with chronic rejection: - HD per renal - cont taculimus and prednisone - pt family is arranging for peritoneal dialysis possible dc tomorrow Visit type - Emergency Visit Emergency Visit: Yes ED Registration Date: 10/25/17 Care time: The patient presented to the Emergency Department on the above date and was hospitalized for further evaluation of their emergent condition. - New Patient This patient is new to me today: No - Critical Care Critical Care patient: No
[2017-11-05] MEDS: ATORVASTATIN CA 40 MG TABLET (FP) PO SCH (23:16)
[2017-11-05] MEDS: INSULIN DETEMIR 100 UNITS/ML MDV SQ SCH (23:18)
[2017-11-06] MEDS: INSULIN SLIDING SCALE (NOVOLOG) 1 VIAL SQ SCH ×4 (06:06→22:54)
[2017-11-06] MEDS ORDERED: INSULIN (NOVOLOG) ASPART 100 UNITS/ML 10ML VIAL ONE ×3 (07:06→22:16)
[2017-11-06 09:50] LABS: HEMATOCRIT 29.9 % (35.4-49); HEMOGLOBIN 9.6 GM/dL (11.7-16.9); MCH 28.1 pg (25.7-33.7); MCHC 32.1 g/dl (32.0-35.9); MEAN CELL VOLUME 87.7 fl (80-96); MEAN PLT VOLUME 8.5 fl (7.5-11.1); PLATELET COUNT 157 K/MM3 (134-434); RBC 3.41 M/mm3 (4.00-5.60); RDW 16.9 % (11.9-15.9); WHITE BLOOD COUNT 8.6 K/mm3 (4.0-10.0)
[2017-11-06 10:10] LABS: ANION GAP 10 (8-16); BLOOD UREA NITROGEN 45 mg/dL (7-18); CHLORIDE 106 mmol/L (98-107); CO2 27 mmol/L (21-32); CREATININE 5.9 mg/dL (0.7-1.3); GLUCOSE,RANDOM 160 mg/dL (74-106); POTASSIUM 3.4 mmol/L (3.5-5.1); SODIUM 143 mmol/L (136-145)
[2017-11-06] MEDS ORDERED: PT OWN MED DRAWER 7, Y5N ONE (10:17)
--- NOTE | 2017-11-06 10:20 | PN ---
Progress Note (short form) - Note Progress Note: Resting in NAD. No CP or SOB. No acute events overnight. OBJECTIVE: Intake & Output 11/03/17 11/04/17 11/05/17 11/06/17 23:59 23:59 23:59 23:59 Intake Total 150 200 Balance 150 200 Weight 167 lb 151 lb 9 oz 151 lb 5 oz Last Vital Signs Temp Pulse Resp BP Pulse Ox 99.0 F 93 H 20 138/75 98 11/06/17 07:47 11/06/17 07:47 11/06/17 07:47 11/06/17 07:47 11/05/17 21:00 Active Medications Amlodipine Besylate (Norvasc -) 10 mg PO DAILY [facility] Last Admin: 11/05/17 10:26 Dose: 10 mg Atorvastatin Calcium (Lipitor -) 40 mg PO HS [facility] Last Admin: 11/05/17 23:16 Dose: 40 mg Calcium Acetate (Phoslo -) 667 mg PO TIDCM [facility] Last Admin: 11/05/17 17:36 Dose: 667 mg Febuxostat (Uloric -) 40 mg PO DAILY [facility] Last Admin: 11/05/17 10:27 Dose: 40 mg Folic Acid (Folic Acid -) 1 mg PO DAILY [facility] Last Admin: 11/05/17 10:27 Dose: 1 mg Hydralazine HCl (Apresoline -) 25 mg PO Q8H PRN PRN Reason: HYPERTENSION Insulin Aspart (Novolog Vial Sliding Scale -) 1 vial SQ ACHS [facility] PRN Reason: Protocol Last Admin: 11/06/17 06:06 Dose: Not Given Insulin Detemir (Levemir Vial) 15 units SQ HS [facility] Last Admin: 11/05/17 23:18 Dose: Not Given Magnesium Chloride (Slow-Mag -) 64 mg PO DAILY [facility] Last Admin: 11/05/17 10:27 Dose: 64 mg Prednisone (Deltasone -) 5 mg PO DAILY [facility] Last Admin: 11/05/17 10:27 Dose: 5 mg Tacrolimus (Prograf) 1 mg PO BID [facility] Last Admin: 11/05/17 23:17 Dose: 1 mg Gen: NAD at rest Heart: regular Lung: decreased breath sounds at the bases Abd: soft, nontender Ext: less edema Laboratory Results - last 24 hr 11/05/17 11/05/17 11/05/17 11:55 16:35 22:48 WBC RBC Hgb Hct MCV MCH MCHC RDW Plt Count MPV POC Glucometer 182 250 231 11/06/17 11/06/17 05:48 09:20 WBC 8.6 RBC 3.41 L Hgb 9.6 L Hct 29.9 L MCV 87.7 MCH 28.1 MCHC 32.1 RDW 16.9 H Plt Count 157 MPV 8.5 POC Glucometer 126 ASSESSMENT AND PLAN: Acute on Chronic Renal Failure s/p Renal Transplant Left Perirenal Hematoma Anemia HTN DM h/o DVT - Normal Transfusion thresholds - HD per renal - BP control - mechanical DVT prophylaxis Dr Mccarty
[2017-11-06] MEDS: CALCIUM ACETATE 667 MG CAPSULE (FP) PO SCH ×3 (10:21→17:37)
[2017-11-06] MEDS: amLODIPine BESYLATE 10 MG TABLET (FP) PO SCH (10:22)
[2017-11-06] MEDS: TACROLIMUS ANHYDROUS 1 MG CAPSULE PO SCH ×2 (10:22→22:54)
[2017-11-06] MEDS: predniSONE 5 MG TABLET (UD) PO SCH (10:22)
[2017-11-06] MEDS: MAGNESIUM CL 64 MG TABLET.SA PO SCH (10:22)
[2017-11-06] MEDS: FOLIC ACID 1 MG TABLET (FP) PO SCH (10:22)
[2017-11-06 10:29] LABS: CALCIUM 6.7 mg/dL (8.5-10.1)
[2017-11-06] MEDS: FEBUXOSTAT 40 MG TAB PO SCH (15:39)
--- NOTE | 2017-11-06 16:32 | PN ---
Progress Note (short form) - Note Progress Note: Renal follow up for WESTON on CKD/Renal Transplant Pt seen and examined at the bedside awake and alert no acute complaints Vital Signs Temperature 98.2 F 11/06/17 14:59 Pulse Rate 85 11/06/17 14:59 Respiratory Rate 16 11/06/17 14:59 Blood Pressure 140/85 11/06/17 14:59 O2 Sat by Pulse Oximetry (%) 98 11/05/17 21:00 Intake & Output 11/03/17 11/04/17 11/05/17 11/06/17 23:59 23:59 23:59 23:59 Intake Total 150 200 Balance 150 200 Weight 75.75 kg 68.748 kg 68.634 kg NAD RRR CTA trace edema in LE CBC, BMP 11/06/17 09:20 11/06/17 09:20 Current Medications Amlodipine Besylate (Norvasc -) 10 mg PO DAILY [facility] Last Admin: 11/06/17 10:22 Dose: 10 mg Atorvastatin Calcium (Lipitor -) 40 mg PO HS [facility] Last Admin: 11/05/17 23:16 Dose: 40 mg Calcium Acetate (Phoslo -) 667 mg PO TIDCM [facility] Last Admin: 11/06/17 11:03 Dose: 667 mg Febuxostat (Uloric -) 40 mg PO DAILY [facility] Last Admin: 11/06/17 15:39 Dose: 40 mg Folic Acid (Folic Acid -) 1 mg PO DAILY [facility] Last Admin: 11/06/17 10:22 Dose: 1 mg Hydralazine HCl (Apresoline -) 25 mg PO Q8H PRN PRN Reason: HYPERTENSION Last Admin: 11/06/17 10:28 Dose: 25 mg Insulin Aspart (Novolog Vial Sliding Scale -) 1 vial SQ ACHS [facility] PRN Reason: Protocol Last Admin: 11/06/17 11:02 Dose: 2 units Insulin Detemir (Levemir Vial) 15 units SQ HS [facility] Last Admin: 11/05/17 23:18 Dose: Not Given Magnesium Chloride (Slow-Mag -) 64 mg PO DAILY [facility] Last Admin: 11/06/17 10:22 Dose: 64 mg Prednisone (Deltasone -) 5 mg PO DAILY [facility] Last Admin: 11/06/17 10:22 Dose: 5 mg Tacrolimus (Prograf) 1 mg PO BID [facility] Last Admin: 11/06/17 10:22 Dose: 1 mg 62 year old gentleman with PMhx of Renal Transplant (2000, [facility]) 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 #WESTON on CKD now ESRD on HD no acute indication for dialysis today outpatient dialysis placement pending will plan for next dialysis tomorrow continue tacolimus and prednisone #Acute Anemia Hgb is stable will continue KADE with HD Eagle Thomas DO
--- NOTE | 2017-11-06 17:24 | PN ---
Physical Exam: SUBJECTIVE: Patient seen and examined at bedside. No acute complaints and no overnight events. OBJECTIVE: Vital Signs Period Temp Pulse Resp BP Sys/Lane Pulse Ox Last 24 Hr 98.1 F-99.1 F 80-95 16-20 138-155/58-85 98 GENERAL: The patient is awake, alert, and fully oriented, in no acute distress. HEAD: Normal with no signs of trauma. EYES: PERRL, extraocular movements intact, sclera anicteric, conjunctiva clear. No ptosis. LUNGS: Breath sounds equal, clear to auscultation bilaterally, no wheezes, no crackles, no accessory muscle use. HEART: Regular rate and rhythm, S1, S2, 3/6 systolic murmur appreciated on exam ABDOMEN: Soft, non-tender to palpation nondistended, normoactive bowel sounds, no guarding, norebound, no hepatosplenomegaly, no masses. EXTREMITIES: 2+ pulses, warm, well-perfused, R arm significantly improved with less erythema and swelling. Patient has improved mobility in arm and hand. NEUROLOGICAL: Cranial nerves II through XII grossly intact. Normal speech, gait not observed. PSYCH: Normal mood, normal affect. SKIN: Warm, dry, normal turgor, no rashes or lesions noted Laboratory Results - last 24 hr 11/05/17 11/06/17 11/06/17 22:48 05:48 09:20 WBC 8.6 RBC 3.41 L Hgb 9.6 L Hct 29.9 L MCV 87.7 MCH 28.1 MCHC 32.1 RDW 16.9 H Plt Count 157 MPV 8.5 Sodium Potassium Chloride Carbon Dioxide Anion Gap BUN Creatinine POC Glucometer 231 126 Random Glucose Calcium 11/06/17 11/06/17 09:20 10:59 WBC RBC Hgb Hct MCV MCH MCHC RDW Plt Count MPV Sodium 143 Potassium 3.4 L Chloride 106 Carbon Dioxide 27 Anion Gap 10 BUN 45 H Creatinine 5.9 H POC Glucometer 185 Random Glucose 160 H Calcium 6.7 L* Active Medications Generic Name Dose Route Start Last Admin Trade Name Freq PRN Reason Stop Dose Admin Amlodipine Besylate 10 mg 11/04/17 10:00 11/06/17 10:22 Norvasc - PO 10 mg DAILY [facility] Administration Atorvastatin Calcium 40 mg 11/04/17 22:00 11/05/17 23:16 Lipitor - PO 40 mg HS [facility] Administration Calcium Acetate 667 mg 11/04/17 08:00 11/06/17 11:03 Phoslo - PO 667 mg TIDCM [facility] Administration Epoetin Agustín 6,000 unit 11/07/17 09:00 Epogen - IVPUSH 11/07/17 09:01 ONCE ONE Febuxostat 40 mg 11/04/17 10:00 11/06/17 15:39 Uloric - PO 40 mg DAILY [facility] Administration Folic Acid 1 mg 11/04/17 10:00 11/06/17 10:22 Folic Acid - PO 1 mg DAILY [facility] Administration Hydralazine HCl 25 mg 11/04/17 07:19 11/06/17 10:28 Apresoline - PO 25 mg Q8H PRN Administration HYPERTENSION Insulin Aspart 1 vial 11/04/17 11:00 11/06/17 11:02 Novolog Vial Sliding Scale - SQ 2 units ACHS [facility] Administration Protocol Insulin Detemir 15 units 11/04/17 22:00 11/05/17 23:18 Levemir Vial SQ Not Given HS [facility] Magnesium Chloride 64 mg 11/04/17 10:00 11/06/17 10:22 Slow-Mag - PO 64 mg DAILY [facility] Administration Prednisone 5 mg 11/04/17 10:00 11/06/17 10:22 Deltasone - PO 5 mg DAILY [facility] Administration Tacrolimus 1 mg 11/04/17 10:00 11/06/17 10:22 Prograf PO 1 mg BID [facility] Administration CBC, BMP 11/06/17 09:20 11/06/17 09:20 ASSESSMENT/PLAN: 62 year old male with a history of unprovoked DVT, R renal transplant admitted with R arm swelling and erythema 2/2 cellulitis and muscular hematoma and 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 #Acute on Chronic Kidney Disease with R Renal Transplant: 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, creatinine stable at 5.9 -continue Tacrolimus, will continue to stay on these medications -continue prednisone -pt s/p permacath placement in L chest wall and dialysis -patient wants outpatient dialysis at a center in the [place] - case management will follow up with placement there -appreciate nephrology consultation -s/p 5 U PRBC, goal > 8, s/p [id number] epogen -CBC in AM #Hematoma of L flank: stable, [id number] on old CT -s/p transfusion of 5UPRBC and 2 FFP during this hospital course -monitor H&H -monitor BP -appreciate vascular recommendations #Hematoma of the R arm: improved -keep R arm elevated as much as possible -monitor H&H -appreciate vascular surgery recommendations #Anemia: Hgb of 9.6 today, stable -s/p 5 U PRBC, Hgb > 8 -s/p 16958 units Epogen IV with hemodialysis -s/p transfused 2 FFP -repeat CBC in AM #DVT of Left Lower Extremity: pt has IVC filter -Heparin held due to acute bleed -SCDs on unaffected leg (R) #Diabetes Mellitus: controlled -continue levemir 15 -continue ISS #Hypertension: controlled -continue hydralazine 25 TID -continue amlodipine 10 QD #Gout: stable -continue febuxostat #Supratherapeutic INR: INR -hold anticoagulation, hold heparin drip #FEN: No standing fluids Careful with repletion - pt getting dialysis restarted diet #Prophylaxis: -AC held due to INR -SCD on one leg #Disposition: -monitor on med surg -likely DC tomorrow Visit type - Emergency Visit Emergency Visit: No - New Patient This patient is new to me today: No - Critical Care Critical Care patient: No
--- NOTE | 2017-11-06 19:02 | PN ---
Teaching Attending Note Name of Resident: Shaka Christensen ATTENDING PHYSICIAN STATEMENT I saw and evaluated the patient. I reviewed the resident's note and discussed the case with the resident. I agree with the resident's findings and plan as documented. SUBJECTIVE: No fevr or chills, no SOB, no ABD pain OBJECTIVE: NAD CV: RRR, 2/6 SM at LUSB. Lungs: decreased breath sounds at bases. Abd; soft, TTp in L flank , no rebound tenderness or guarding . no bruising Ext: 2+ pitting edema on LE . R forearm with bruising on ventral side extending to palm and fingers and dorsal hand , with nl motor function radial pulse not felt on both sides ASSESSMENT AND PLAN: 62 y/o man with h/o CKD,s/p renal transplant unprovoked DVT, and other medical problems who presented with R arm swelling and was found to have R arm hematoma. Hospital course was complicated by retroperitonel hematoma. 1- Fever and leukocytosis: resolved. no evidence of infection - monitor off abx 2- R upper EXT hematoma , improving .stable HB 3- L retroperitoneal hematoma, stable HB after transfusion. 4- Acute blood loss anemia: stable 5- H/o DVT in LE: no pharmacologic AC. SCDs has IVC filter 6- HTN: cont meds. Bp improved 7- DM: SSI and levemir 8- CKD s/p renal transplant with chronic rejection: - HD tomorrow - cont taculimus and prednisone - d/w Dr. Thomas, cont HD for now and then will be transitioned to HD ( hold off now due to retroperitoneal hematoma ) Dc pendig out pt HD arrangements
--- NOTE | 2017-11-06 19:20 | PN ---
Progress Note (short form) - Note Progress Note: PAtient seen and examined feels well. no complaints Last Vital Signs Temp Pulse Resp BP Pulse Ox 98.6 F 93 H 20 133/73 98 11/06/17 18:01 11/06/17 18:01 11/06/17 18:01 11/06/17 18:01 11/06/17 09:00 Cor: RSR, No murmurs, No gallops Lungs: Clear to P&A Abd: Soft, Normal bowel sounds, mildLLQ tenderness Ext:1+ edema Abnormal Lab Results 11/06/17 11/06/17 09:20 09:20 RBC 3.41 L Hgb 9.6 L Hct 29.9 L RDW 16.9 H Potassium 3.4 L BUN 45 H Creatinine 5.9 H Random Glucose 160 H Calcium 6.7 L* Home Medication List Medication Instructions Recorded Confirmed Type Amlodipine Besylate 10 mg PO DAILY 01/31/13 10/25/17 History Atorvastatin Ca [Lipitor] 40 mg PO HS 01/31/13 10/25/17 History Folic Acid 1 mg PO DAILY 01/31/13 10/25/17 History Prednisone 5 mg PO DAILY 01/31/13 10/25/17 History Tacrolimus [Prograf] 1.5 mg PO BID 01/31/13 10/25/17 History Insulin Glargine,Hum.rec.anlog 5 units SCJ TIDCM 06/05/15 10/25/17 History [Lantus Solostar PEN -] Febuxostat [Uloric -] 40 mg PO DAILY 10/26/16 10/25/17 History Insulin Aspart [Novolog Flexpen] 5 units BID 10/26/17 10/26/17 History Insulin Detemir [Levemir Flextouch] 15 units SCJ DAILY 10/26/17 10/26/17 History Active Medications Generic Name Dose Route Start Last Admin Trade Name Freq PRN Reason Stop Dose Admin Amlodipine Besylate 10 mg 11/04/17 10:00 11/06/17 10:22 Norvasc - PO 10 mg DAILY [facility] Administration Atorvastatin Calcium 40 mg 11/04/17 22:00 11/05/17 23:16 Lipitor - PO 40 mg HS [facility] Administration Calcium Acetate 667 mg 11/04/17 08:00 11/06/17 17:37 Phoslo - PO 667 mg TIDCM [facility] Administration Epoetin Agustín 6,000 unit 11/07/17 09:00 Epogen - IVPUSH 11/07/17 09:01 ONCE ONE Febuxostat 40 mg 11/04/17 10:00 11/06/17 15:39 Uloric - PO 40 mg DAILY [facility] Administration Folic Acid 1 mg 11/04/17 10:00 11/06/17 10:22 Folic Acid - PO 1 mg DAILY [facility] Administration Hydralazine HCl 25 mg 11/04/17 07:19 11/06/17 10:28 Apresoline - PO 25 mg Q8H PRN Administration HYPERTENSION Insulin Aspart 1 vial 11/04/17 11:00 11/06/17 17:38 Novolog Vial Sliding Scale - SQ 4 units ACHS [facility] Administration Protocol Insulin Detemir 15 units 11/04/17 22:00 11/05/17 23:18 Levemir Vial SQ Not Given HS [facility] Magnesium Chloride 64 mg 11/04/17 10:00 11/06/17 10:22 Slow-Mag - PO 64 mg DAILY [facility] Administration Prednisone 5 mg 11/04/17 10:00 11/06/17 10:22 Deltasone - PO 5 mg DAILY [facility] Administration Tacrolimus 1 mg 11/04/17 10:00 11/06/17 10:22 Prograf PO 1 mg BID [facility] Administration A/P 62 year old gentleman with PMhx of Renal Transplant (2000, ) 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 WESTON/CKD/Graft rejection--started hemodialysis RUE hematoma/retroperitoneal hematoma--stable Anemia : anemia of chronic disease due to WESTON on CKD + acute bleed Epo per renal protocol h/o multiple DVTs in lower extremity--off a/c due to bleed h/o ivc filter ? DVT prophylaxis
[2017-11-06] MEDS: INSULIN DETEMIR 100 UNITS/ML MDV SQ SCH (22:53)
[2017-11-06] MEDS: ATORVASTATIN CA 40 MG TABLET (FP) PO SCH (22:54)
[2017-11-07] MEDS: INSULIN SLIDING SCALE (NOVOLOG) 1 VIAL SQ SCH ×3 (06:09→17:04)
[2017-11-07] MEDS: CALCIUM ACETATE 667 MG CAPSULE (FP) PO SCH ×3 (08:35→17:09)
[2017-11-07] MEDS ORDERED: EPOETIN ALFA 3,000 UNIT/1 ML ML IVPUSH ONE (09:00)
[2017-11-07 09:05] LABS: HEMATOCRIT 30.5 % (35.4-49); HEMOGLOBIN 9.7 GM/dL (11.7-16.9); MCH 28.1 pg (25.7-33.7); MEAN PLT VOLUME 8.6 fl (7.5-11.1); PLATELET COUNT 179 K/MM3 (134-434); RBC 3.47 M/mm3 (4.00-5.60); RDW 17.4 % (11.9-15.9); WHITE BLOOD COUNT 8.9 K/mm3 (4.0-10.0)
[2017-11-07 09:27] LABS: ANION GAP 9 (8-16); BLOOD UREA NITROGEN 47 mg/dL (7-18); CHLORIDE 107 mmol/L (98-107); CO2 28 mmol/L (21-32); CREATININE 6.3 mg/dL (0.7-1.3); GLUCOSE,RANDOM 152 mg/dL (74-106); PHOSPHOROUS 3.6 mg/dL (2.5-4.9); POTASSIUM 3.5 mmol/L (3.5-5.1); SODIUM 144 mmol/L (136-145)
[2017-11-07 10:29] LABS: CALCIUM 6.7 mg/dL (8.5-10.1)
--- NOTE | 2017-11-07 12:05 | PN ---
Progress Note (short form) - Note Progress Note: Resting in NAD. No CP or SOB. No acute events overnight. OBJECTIVE: Intake & Output 11/04/17 11/05/17 11/06/17 11/07/17 23:59 23:59 23:59 23:59 Intake Total 200 100 Balance 200 100 Weight 151 lb 9 oz 151 lb 5 oz 164 lb 11.2 oz Last Vital Signs Temp Pulse Resp BP Pulse Ox 98.1 F 93 H 18 176/98 98 11/07/17 08:25 11/07/17 11:40 11/07/17 11:40 11/07/17 11:40 11/06/17 21:00 Active Medications Amlodipine Besylate (Norvasc -) 10 mg PO DAILY [facility] Last Admin: 11/06/17 10:22 Dose: 10 mg Atorvastatin Calcium (Lipitor -) 40 mg PO HS [facility] Last Admin: 11/06/17 22:54 Dose: 40 mg Calcium Acetate (Phoslo -) 667 mg PO TIDCM [facility] Last Admin: 11/07/17 08:35 Dose: Not Given Febuxostat (Uloric -) 40 mg PO DAILY [facility] Last Admin: 11/06/17 15:39 Dose: 40 mg Folic Acid (Folic Acid -) 1 mg PO DAILY [facility] Last Admin: 11/06/17 10:22 Dose: 1 mg Hydralazine HCl (Apresoline -) 25 mg PO Q8H PRN PRN Reason: HYPERTENSION Last Admin: 11/06/17 10:28 Dose: 25 mg Insulin Aspart (Novolog Vial Sliding Scale -) 1 vial SQ ACHS [facility] PRN Reason: Protocol Last Admin: 11/07/17 06:09 Dose: Not Given Insulin Detemir (Levemir Vial) 15 units SQ [facility] Last Admin: 11/06/17 22:53 Dose: Not Given Magnesium Chloride (Slow-Mag -) 64 mg PO DAILY [facility] Last Admin: 11/06/17 10:22 Dose: 64 mg Prednisone (Deltasone -) 5 mg PO DAILY [facility] Last Admin: 11/06/17 10:22 Dose: 5 mg Tacrolimus (Prograf) 1 mg PO BID [facility] Last Admin: 11/06/17 22:54 Dose: 1 mg Gen: NAD at rest Heart: regular Lung: decreased breath sounds at the bases Abd: soft, nontender Ext: less edema Laboratory Results - last 24 hr 11/06/17 11/06/17 11/07/17 17:35 21:46 05:39 WBC RBC Hgb Hct MCV MCH MCHC RDW Plt Count MPV Sodium Potassium Chloride Carbon Dioxide Anion Gap BUN Creatinine POC Glucometer 228 227 121 Random Glucose Calcium Phosphorus 11/07/17 11/07/17 08:30 08:30 WBC 8.9 RBC 3.47 L Hgb 9.7 L Hct 30.5 L MCV 88.0 MCH 28.1 MCHC 32.0 RDW 17.4 H Plt Count 179 MPV 8.6 Sodium 144 Potassium 3.5 Chloride 107 Carbon Dioxide 28 Anion Gap 9 BUN 47 H Creatinine 6.3 H POC Glucometer Random Glucose 152 H Calcium 6.7 L* Phosphorus 3.6 ASSESSMENT AND PLAN: Acute on Chronic Renal Failure s/p Renal Transplant Left Perirenal Hematoma Anemia HTN DM h/o DVT - Normal Transfusion thresholds - HD per renal - BP control - mechanical DVT prophylaxis Dr Mccarty
[2017-11-07] MEDS ORDERED: PT OWN MED DRAWER 7, Y5N ONE (12:19)
[2017-11-07] MEDS: FOLIC ACID 1 MG TABLET (FP) PO SCH (12:33)
[2017-11-07] MEDS: predniSONE 5 MG TABLET (UD) PO SCH (12:33)
[2017-11-07] MEDS: amLODIPine BESYLATE 10 MG TABLET (FP) PO SCH (12:33)
[2017-11-07] MEDS: TACROLIMUS ANHYDROUS 1 MG CAPSULE PO SCH (12:34)
[2017-11-07] MEDS: MAGNESIUM CL 64 MG TABLET.SA PO SCH (12:34)
[2017-11-07] MEDS: FEBUXOSTAT 40 MG TAB PO SCH (13:26)
--- NOTE | 2017-11-07 14:21 | PN ---
Teaching Attending Note Name of Resident: Shaka Christensen ATTENDING PHYSICIAN STATEMENT I saw and evaluated the patient. I reviewed the resident's note and discussed the case with the resident. I agree with the resident's findings and plan as documented. SUBJECTIVE: No fever or hcills, has no pain , OBJECTIVE: NAD CV: RRR, 2/6 SM at SB. Lungs: CTAB Abd; soft, NT, NL BS Ext: 2+ pitting edema on LE. R forearm with bruising on ventral side extending to palm and fingers and dorsal hand , with nl motor function radial pulse not felt on both sides ASSESSMENT AND PLAN: 62 y/o man with h/o CKD,s/p renal transplant unprovoked DVT, and other medical problems who presented with R arm swelling and was found to have R arm hematoma. Hospital course was complicated by retroperitonel hematoma. 1- Fever and leukocytosis: resolved. no evidence of infection - monitor off abx 2- R upper EXT hematoma , improving .stable HB 3- L retroperitoneal hematoma, stable HB after transfusion. 4- Acute blood loss anemia/on background of chronic anemia ( ACD) : stable 5- H/o DVT in LE: no pharmacologic AC. SCDs has IVC filter 6- HTN: cont meds. 7- DM: SSI and lantus at dc . 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 dc home . d/w pt and onsite case manager. d/w Dr. Thomas
--- NOTE | 2017-11-07 15:45 | PN ---
Progress Note (short form) - Note Progress Note: Renal follow up for WESTON on CKD/Renal Transplant Pt seen and examined at the bedside s/p uncomplicated dialysis this am pt without complaints discharge planning in progress Vital Signs Temperature 98.4 F 11/07/17 14:47 Pulse Rate 90 11/07/17 14:47 Respiratory Rate 16 11/07/17 14:47 Blood Pressure 140/77 11/07/17 14:47 O2 Sat by Pulse Oximetry (%) 98 11/06/17 21:00 Intake & Output 11/04/17 11/05/17 11/06/17 11/07/17 23:59 23:59 23:59 23:59 Intake Total 200 100 300 Balance 200 100 300 Weight 68.748 kg 68.634 kg 74.707 kg NAD RRR CTA trace edema in LE CBC, BMP 11/07/17 08:30 11/07/17 08:30 Laboratory Tests 11/02/17 11/03/17 11/07/17 06:12 05:40 08:30 Calcium 6.4 L* 6.4 L* 6.7 L* Phosphorus 4.2 D 4.4 3.6 Magnesium 2.0 1.9 Albumin 1.8 L 1.5 L Current Medications Amlodipine Besylate (Norvasc -) 10 mg PO DAILY [facility] Last Admin: 11/07/17 12:33 Dose: 10 mg Atorvastatin Calcium (Lipitor -) 40 mg PO HS [facility] Last Admin: 11/06/17 22:54 Dose: 40 mg Calcium Acetate (Phoslo -) 667 mg PO TIDCM [facility] Last Admin: 11/07/17 12:35 Dose: 667 mg Febuxostat (Uloric -) 40 mg PO DAILY [facility] Last Admin: 11/07/17 13:26 Dose: 40 mg Folic Acid (Folic Acid -) 1 mg PO DAILY [facility] Last Admin: 11/07/17 12:33 Dose: 1 mg Hydralazine HCl (Apresoline -) 25 mg PO Q8H PRN PRN Reason: HYPERTENSION Last Admin: 11/06/17 10:28 Dose: 25 mg Insulin Aspart (Novolog Vial Sliding Scale -) 1 vial SQ [facility] PRN Reason: Protocol Last Admin: 11/07/17 12:35 Dose: Not Given Insulin Detemir (Levemir Vial) 15 units SQ [facility] Last Admin: 11/06/17 22:53 Dose: Not Given Magnesium Chloride (Slow-Mag -) 64 mg PO DAILY [facility] Last Admin: 11/07/17 12:34 Dose: 64 mg Prednisone (Deltasone -) 5 mg PO DAILY [facility] Last Admin: 11/07/17 12:33 Dose: 5 mg Tacrolimus (Prograf) 1 mg PO BID [facility] Last Admin: 11/07/17 12:34 Dose: 1 mg 62 year old gentleman with PMhx of Renal Transplant (2000, ) 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 #WESTON on CKD now ESRD on HD pt tolerated dialysis well this am to continue 3x weekly dialysis as outpatient pt to pursue starting PD once pt is discharged outpatient dialysis placement is in progress continue tacrolimus and prednisone and follow up with Dr. Herbert as a outpatient dose all meds for intermittent HD #Acute Anemia Hgb is stable will continue KADE with HD Eagle Thomas DO
[2017-11-07 17:13] VITALS: BP 143/88; PULSE 101; TEMP 98.7
--- NOTE | 2017-11-07 17:29 | DS ---
Physical Exam: SUBJECTIVE: Patient seen and examined at bedside. No acute overnight events. Patient denies any pain, SOB, nausea, vomiting, diarrhea, fevers, chills. OBJECTIVE: Vital Signs Period Temp Pulse Resp BP Sys/Lane Pulse Ox Last 24 Hr 98.0 F-98.9 F 85-101 16-20 115-197/71-102 98 PHYSICAL EXAM GENERAL: The patient is awake, alert, and fully oriented, in no acute distress. HEAD: Normal with no signs of trauma. EYES: PERRL, extraocular movements intact, sclera anicteric, conjunctiva clear. No ptosis. LUNGS: Breath sounds equal, clear to auscultation bilaterally, no wheezes, no crackles, no accessory muscle use. HEART: Regular rate and rhythm, S1, S2, 3/6 systolic murmur appreciated on exam ABDOMEN: Soft, non-tender to palpation nondistended, normoactive bowel sounds, no guarding, norebound, no hepatosplenomegaly, no masses. EXTREMITIES: 2+ pulses, warm, well-perfused, R arm significantly improved with less erythema and swelling. Patient has improved mobility in arm and hand. NEUROLOGICAL: Cranial nerves II through XII grossly intact. Normal speech, gait not observed. PSYCH: Normal mood, normal affect. SKIN: Warm, dry, normal turgor, no rashes or lesions noted LABS Laboratory Results - last 24 hr 11/06/17 11/06/17 11/07/17 17:35 21:46 05:39 WBC RBC Hgb Hct MCV MCH MCHC RDW Plt Count MPV Sodium Potassium Chloride Carbon Dioxide Anion Gap BUN Creatinine POC Glucometer 228 227 121 Random Glucose Calcium Phosphorus 11/07/17 11/07/17 11/07/17 08:30 08:30 12:29 WBC 8.9 RBC 3.47 L Hgb 9.7 L Hct 30.5 L MCV 88.0 MCH 28.1 MCHC 32.0 RDW 17.4 H Plt Count 179 MPV 8.6 Sodium 144 Potassium 3.5 Chloride 107 Carbon Dioxide 28 Anion Gap 9 BUN 47 H Creatinine 6.3 H POC Glucometer 131 Random Glucose 152 H Calcium 6.7 L* Phosphorus 3.6 HOSPITAL COURSE: Date of Admission:10/25/17 Patient is a 62 year old male with PMH unprovoked LE DVT (on Coumadin w/ INR 5.9 2 days before admission), B/L peripheral arterial disease s/p percutaneous angioplasty by Benedict Echavarria with R Hallux ischemic ulcer, and gout, chronic renal failure s/p R renal transplant - patient presented to the ED for a 2wk hx of R arm pain with progressive swelling and erythema. 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 Patient was admitted for supratherapeutic INR and possible cellulitis of R arm and started on antibiotics. Patient had an US of the R arm done which showed superficial thrombophlebitis. A followup CT scan was done which showed a hematoma formation in the R arm. Anticoagulation was held altogether. Over the first weekend the patient was admitted, he had an US of his lower extremity performed which showed DVT (which was likely chronic). Night team placed patient on heparin. Next day patient complained of severe pain in his abdomen. An ultrasound abdomen showed hematoma formation retroperitoneally and followup CT showed a 22cm hematoma. Patients hemoglobin dropped acutely and required several transfusions. He was transferred to the ICU, where a shiley catheter was inserted into the groin and patient was emergently dialyzed. He received a couple episodes of dialysis through the femoral catheter until he received a permacath and was able to be dialyzed again through that catheter. He received blood transfusions and epogen with those dialysis sessions. Patient's hemoglobin stabilized. Over the next couple of days, his R arm improved and abx were stopped due to low risk of being a cellulitis. His abdominal pain from the retroperitoneal bleed resolved. Patient was able to be discharged home with instructions to get dialysis as an outpatient at [facility] 3x a week and to follow up with Dr Kaplan who is both primary care and nephrology. Tacrolimus was changed to 1mg twice a day as opposed to 1.5mg. Lantus 15units was prescribed at bedtime All anticoagulation was held at discharge No NSAIDS on discharge Date of Discharge: 11/07/17 Minutes to complete discharge: 35 Discharge Summary Reason For Visit: ARF Current Active Problems Acute renal failure (ARF) (Acute) Cellulitis (Acute) Hematoma and contusion (Acute) Pain and swelling of right upper extremity (Acute) Renal transplant disorder (Acute) Retroperitoneal bleed (Acute) Diabetes (Chronic) Condition: Improved - Instructions Diet, Activity, Other Instructions: You were admitted to the hospital for hematoma of your right arm and left flank , acute on chronic renal failure (likely due to your chronic kidney transplant rejection), and supratherapeutic INR. Your blood thinners were stopped at the hospital due to your bleeding episodes. The bleeding has resolved and your blood counts are stable, but this needs to be monitored when you leave the hospital. You also required several episodes of dialysis during your hospital stay, which was used to help give you blood transfusions as well as assist your kidneys in clearing toxins and stabilizing your electrolytes. MEDICAL RECOMMENDATIONS: -It is VERY IMPORTANT that you follow the following recommendations Do NOT use ANY medications to thin your blood, such as: aspirin, plavix, ibuprofen, advil, motrin, aleve warfarin (coumadin)... - These medications can make you bleed internally. -You will be scheduled for dialysis sessions at [facility] in the [place]. Please follow with them for your dialysis appointments. -Please get a blood test done within 2 weeks at any local lab ([facility], [employer]) to test your blood counts and make sure there is no active bleed. Take this to your primary care physician within 1 week. -Check your blood sugar every day before each meal and record that number for your primary care physician -Check your blood pressure every day, once before you take your medications and once one hour after you take your blood pressure medications. Record this number and take it to your primary care physician within 1 week -You will take Tacrolimus 1mg twice a day as opposed to 1.5mg -You will take Insulin Glargine (lantus) 15 units at bedtime Please make an appointment to see Dr. Kaplan in 1 week for follow up. Referrals: Celina Herbert MD [Primary Care Provider] - 1 Week Disposition: HOME - Home Medications Comprehensive Discharge Medication List: Ambulatory Orders Amlodipine Besylate 10 mg PO DAILY 01/31/13 Atorvastatin Ca [Lipitor] 40 mg PO HS 01/31/13 Folic Acid 1 mg PO DAILY 01/31/13 Prednisone 5 mg PO DAILY 01/31/13 Febuxostat [Uloric -] 40 mg PO DAILY 10/26/16 Insulin Aspart [Novolog Flexpen] 5 units BID 10/26/17 Insulin Glargine,Hum.rec.anlog [Lantus] 15 unit SQ HS #1 vial 11/07/17 Tacrolimus [Prograf] 1 mg PO BID #60 capsule 11/07/17 This patient is new to me today: No Emergency Visit: No Critical Care patient: No - Discharge Referral Referred to [facility] Med [facility].C.: No
== END 2017-11-07 18:02 | disposition home or self-care (01) | DRG 299 ==
LOC: JER 13:52 → JERBED 23:15 → J4W 10-26 13:40 → JICU 10-31 09:45 → J8W 11-03 10:19
PROVIDERS: ADMIT Internal Medicine; ATTEND Internal Medicine
PROC: 30233M1 Transfusion of Nonautologous Plasma Cryoprecipitate into Peripheral Vein, Percutaneous Approach (ICD-10-PCS; 2017-10-30)
PROC: 06HM33Z Insertion of Infusion Device into Right Femoral Vein, Percutaneous Approach (ICD-10-PCS; 2017-10-31)
PROC: B54BZZA Ultrasonography of Right Lower Extremity Veins, Guidance (ICD-10-PCS; 2017-10-31)
PROC: 30233N1 Transfusion of Nonautologous Red Blood Cells into Peripheral Vein, Percutaneous Approach (ICD-10-PCS; 2017-10-31)
PROC: 5A1D70Z Performance of Urinary Filtration, Intermittent, Less than 6 Hours Per Day (ICD-10-PCS; 2017-11-01)
PROC: B544ZZA Ultrasonography of Left Jugular Veins, Guidance (ICD-10-PCS; 2017-11-03)
PROC: 05HN33Z Insertion of Infusion Device into Left Internal Jugular Vein, Percutaneous Approach (ICD-10-PCS; principal; 2017-11-03 15:00)
DX: I80.8 Phlebitis and thrombophlebitis of other sites (principal); K66.1 Hemoperitoneum; A41.9 Sepsis, unspecified organism; N17.9 Acute kidney failure, unspecified; L03.113 Cellulitis of right upper limb; Z94.0 Kidney transplant status; E87.2 Acidosis; D68.9 Coagulation defect, unspecified; D62 Acute posthemorrhagic anemia; E11.21 Type 2 diabetes mellitus with diabetic nephropathy; Z86.718 Personal history of other venous thrombosis and embolism; Z79.01 Long term (current) use of anticoagulants; I12.9 Hypertensive chronic kidney disease with stage 1 through stage 4 chronic kidney disease, or unspecified chronic kidney disease; E11.22 Type 2 diabetes mellitus with diabetic chronic kidney disease; N18.9 Chronic kidney disease, unspecified; M79.81 Nontraumatic hematoma of soft tissue; D63.1 Anemia in chronic kidney disease; E83.51 Hypocalcemia
CPT/HCPCS: 36415; 36430; 36511; 71045-TC; 71046-TC; 73090-TC-RT; 73110-TC-RT; 73200-TC-RT; 74176-TC; 76000-TC; 76776-TC; 76856-TC; 80048; 80053; 80197; 81003; 81015; 82565; 82570; 82607; 82728; 82746; 82962; 83010; 83540; 83550; 83605; 83615; 83735; 83883; 84100; 84155; 84156; 84165; 84300; 84520; 84550; 85025; 85027; 85044; 85384; 85610; 85651; 85730; 86140; 86704; 86706; 86708; 86803; 86850; 86900; 86901; 86922; 87040; 87324; 87340; 87449; 93005; 93010; 93931; 93970-TC; 93971; 94010; 94760; 99285-25; G0480; J0885; J1644; J2597; P9017; P9038; P9058

== ENCOUNTER 2018-07-24 19:38 | Inpatient (IN) | payer SELFPAY ==
--- NOTE | 2018-07-24 20:11 | PDOC ---
Rapid Medical Evaluation Time Seen by Provider: 07/24/18 20:09 Medical Evaluation: Allergies Allergy/AdvReac Type Severity Reaction Status Date / Time No Known Drug Allergies Allergy Verified 10/25/17 14:07 07/24/18 20:09 I have performed a brief in-person evaluation of this patient. The patient presents with a chief complaint of: elevated wbc. Patient sent from dialysis unit for elevated wbc, and fever. Referred to ed for further evaluation. Denies new symptoms today Pertinent physical exam findings are: NAD skin pale even and unlabored breathing I have ordered the following: labs The patient will proceed to the ED for further evaluation.
--- NOTE | 2018-07-24 22:36 | PDOC ---
History of Present Illness - General History Source: Patient Exam Limitations: No Limitations - History of Present Illness Initial Comments: 07/24/18 23:09 The patient is a 63 year old male with a significant PMH of DVT (on coumadin), PAD, angioplasty, ischemic ulcer (right toe), gout, ESRD, and retroperitoneal hemorrhage who presents to the emergency department with a fever and elevated white count since earlier today. The patient's daughter reports that the patient had an at home fever of 100.7 and white count of 12.6. The patient was sent in by his PD nurse . He states that his last PD was last night . He reports some back pain and foot swelling . The patient denies any other symptoms. He denies any chills, nausea, vomiting, diarrhea, constipation, or urinary symptoms. He denies any belly pain, chest pain, shortness of breath, headache or dizziness. The patient denies any other complaints. PCP: Dr. Kaplan <Naun Hernandez - Last Filed: 07/25/18 02:03> - General History Source: Patient Exam Limitations: No Limitations <Tyra Hartman - Last Filed: 07/25/18 02:10> - General Chief Complaint: Revisit, Lab Variance Stated Complaint: SENT BY PCP Time Seen by Provider: 07/24/18 20:09 Past History <Naun Hernandez - Last Filed: 07/25/18 02:03> - Past Medical History Anemia: No Asthma: No Cancer: No Cardiac Disorders: Yes (stentsx2 2010) CVA: No COPD: No CHF: No Dementia: No Diabetes: Yes (IDDM) GI Disorders: No Disorders: No HTN: Yes Hypercholesterolemia: Yes Kidney Stones: No (KIDNEY TRANSPLANT) Liver Disease: No Seizures: No Thyroid Disease: No Other medical history: Peritoneal Dialysis - Surgical History Abdominal Surgery: No Appendectomy: No Cardiac Surgery: Yes (stentsx2) Cholecystectomy: No Lung Surgery: No Neurologic Surgery: No Orthopedic Surgery: Yes (LEFT FEMUR FRACTURE) - Suicide/Smoking/Psychosocial Hx Smoking History: Never smoked Have you smoked in the past 12 months: No Information on smoking cessation initiated: No Hx Alcohol Use: No Drug/Substance Use Hx: No Substance Use Type: None Hx Substance Use Treatment: No <Tyra Hartman - Last Filed: 07/25/18 02:10> - Past Medical History Allergies/Adverse Reactions: Allergies Allergy/AdvReac Type Severity Reaction Status Date / Time No Known Drug Allergies Allergy Verified 10/25/17 14:07 Home Medications: Ambulatory Orders Amlodipine Besylate 10 mg PO DAILY 01/31/13 Atorvastatin Ca [Lipitor] 40 mg PO HS 01/31/13 Folic Acid 1 mg PO DAILY 01/31/13 Prednisone 5 mg PO DAILY 01/31/13 Febuxostat [Uloric -] 40 mg PO DAILY 10/26/16 Insulin Aspart [Novolog Flexpen] 5 units BID 10/26/17 Insulin Glargine,Hum.rec.anlog [Lantus] 15 unit SQ HS #1 vial 11/07/17 Tacrolimus [Prograf] 1 mg PO BID #60 capsule 11/07/17 Review of Systems - Review of Systems Able to Perform ROS?: Yes Comments:: 07/24/18 23:10 GENERAL/CONSTITUTIONAL: (+)fever No fever or chills. No weakness. HEAD, EYES, EARS, NOSE AND THROAT: No change in vision. No ear pain or discharge. No sore throat. CARDIOVASCULAR: No chest pain or shortness of breath. RESPIRATORY: No cough, wheezing, or hemoptysis. GASTROINTESTINAL: No nausea, vomiting, diarrhea or constipation. GENITOURINARY: No dysuria, frequency, or change in urination. MUSCULOSKELETAL: (+)back pain, foot swelling. No joint or muscle swelling or pain. No neck pain. SKIN: No rash NEUROLOGIC: No headache, vertigo, loss of consciousness, or change in strength/ sensation. ENDOCRINE: No increased thirst. No abnormal weight change. HEMATOLOGIC/LYMPHATIC: No anemia, easy bleeding, or history of blood clots. ALLERGIC/IMMUNOLOGIC: No hives or skin allergy. <Naun Hernandez - Last Filed: 07/25/18 02:03> *Physical Exam - Vital Signs Last Vital Signs Temp Pulse Resp BP Pulse Ox 98.3 F 81 20 134/50 L 96 07/24/18 20:08 07/24/18 20:08 07/24/18 20:08 07/24/18 20:08 07/24/18 20:08 - Physical Exam Comments: 07/24/18 23:11 GENERAL: The patient is in no acute distress. ENT: Ears normal, nares patent, oropharynx clear without exudates. Moist mucous membranes. NECK: Normal range of motion, supple without lymphadenopathy, JVD, or masses. LUNGS: Breath sounds equal, clear to auscultation bilaterally. No wheezes, and no crackles. HEART:Regular rate and rhythm, normal S1 and S2 without murmur, rub or gallop. ABDOMEN: Soft, nontender, normoactive bowel sounds. No guarding, no rebound. No masses palpable. EXTREMITIES: (+)bilateral lower extremity edema to ankles. No ulcers. Normal range of motion, No clubbing or cyanosis. No erythema, or tenderness. NEUROLOGICAL: Cranial nerves II through XII grossly intact. Normal speech. No focal neurological deficits. MUSCULOSKELETAL: Back non-tender to palpation, no CVA tenderness SKIN: Warm, Dry, normal turgor, no rashes or lesions noted. <Naun Hernandez - Last Filed: 07/25/18 02:03> - Vital Signs Last Vital Signs Temp Pulse Resp BP Pulse Ox 98.3 F 81 20 134/50 L 96 07/24/18 20:08 07/24/18 20:08 07/24/18 20:08 07/24/18 20:08 07/24/18 20:08 <Tyra Hartman - Last Filed: 07/25/18 02:10> ED Treatment Course - LABORATORY CBC & Chemistry Diagram: 07/24/18 23:50 07/24/18 23:50 <Nanu Hernandez - Last Filed: 07/25/18 02:03> - LABORATORY CBC & Chemistry Diagram: 07/24/18 23:50 07/24/18 23:50 <Tyra Hartman - Last Filed: 07/25/18 02:10> Medical Decision Making - Medical Decision Making 07/24/18 22:29 Mr Huitron is a 63 yo M who presents to the ER for evaluation of fever and reported elevated WBC Pt has a h/o ESRD s/p prior kidney transplant s/p rejection, now on peritoneal dialysis Pt had last PD last night, clear fluid returned Was seen in the PD clinic today where he was noted to have a temp of 100.7 Labs were then drawn - WBC 12 They were concerned because pt had surgery to remove rejected kidney 3 weeks ago Pt has no complaints of abdominal pain, vomiting, diarrhea, abd distention, cloudy PD dialysate fluid No runny nose, no cough, no headache Will do labs Will re assess 07/25/18 01:25 07/25/18 01:27 Laboratory Tests 07/24/18 07/24/18 07/24/18 13:00 13:00 23:50 WBC 12.6 H 8.8 Hgb 9.0 L 9.5 L Hct 28.7 L 31.2 L Plt Count 341 376 INR BUN 62 H Creatinine 10.9 H* Random Glucose 162 H AST ALT Alkaline Phosphatase Total Protein Albumin 07/24/18 07/24/18 23:50 23:50 WBC Hgb Hct Plt Count INR 1.13 H BUN 68 H Creatinine 11.2 H* Random Glucose 133 H AST 35 ALT 12 L Alkaline Phosphatase 160 H Total Protein 6.3 L Albumin 1.5 L 07/25/18 02:[address] Celina Andrade Would recommend observation given pt hypotensive and febrile at clinic today <Tyra Hartman - Last Filed: 07/25/18 02:10> *DC/Admit/Observation/Transfer - Attestations Scribe Attestion: 07/24/18 23:12 Documentation prepared by Naun Hernandez, acting as medical record retrieval specialist for Tyra Hartman MD. <Naun Hernandez - Last Filed: 07/25/18 02:03> - Discharge Dispostion Decision to Admit order: Yes <Tyra Hartman - Last Filed: 07/25/18 02:10> Diagnosis at time of Disposition: Fever Qualifiers: Fever type: unspecified Qualified Code(s): R50.9 - Fever, unspecified - Discharge Dispostion Condition at time of disposition: Stable - Referrals Referrals: Celina Herbert MD [Primary Care Provider] -
[2018-07-25 00:02] LABS: BASO % 1.2 % (0-2.0); EOS % 16.8 % (0-4.5); HEMATOCRIT 31.2 % (35.4-49); HEMOGLOBIN 9.5 GM/dL (11.7-16.9); LYMPH % 20.1 % (8-40); MCH 27.5 pg (25.7-33.7); MCHC 30.5 g/dl (32.0-35.9); MEAN CELL VOLUME 90.2 fl (80-96); MEAN PLT VOLUME 8.2 fl (7.5-11.1); MONO % 7.4 % (3.8-10.2); NEUT % 54.5 % (42.8-82.8); PLATELET COUNT 376 K/MM3 (134-434); RBC 3.46 M/mm3 (4.00-5.60); RDW 19.6 % (11.9-15.9); WHITE BLOOD COUNT 8.8 K/mm3 (4.0-10.0)
[2018-07-25 00:20] LABS: INR 1.13 (0.83-1.09); PROTHROMBIN TIME (PATIENT) 13.3 SEC (9.7-13.0)
[2018-07-25 00:23] LABS: ACTIVATED PTT 35.3 SECONDS (25.2-36.5)
[2018-07-25 00:40] LABS: MAGNESIUM 2.1 mg/dL (1.8-2.4); PHOSPHOROUS 7.7 mg/dL (2.5-4.9)
[2018-07-25 00:59] LABS: ALBUMIN 1.5 g/dl (3.4-5.0); ALK PHOS 160 U/L (45-117); ANION GAP 10 MMOL/L (8-16); BILIRUBIN,TOTAL 0.2 mg/dL (0.2-1); BLOOD UREA NITROGEN 68 mg/dL (7-18); CALCIUM 8.2 mg/dL (8.5-10.1); CHLORIDE 100 mmol/L (98-107); CO2 28 mmol/L (21-32); GLUCOSE,RANDOM 133 mg/dL (74-106); POTASSIUM 4.9 mmol/L (3.5-5.1); SGOT/AST 35 U/L (15-37); SGPT/ALT 12 U/L (13-61); SODIUM 138 mmol/L (136-145); TOT PROT 6.3 g/dl (6.4-8.2)
[2018-07-25 01:03] LABS: CREATININE 11.2 mg/dL (0.55-1.3)
--- NOTE | 2018-07-25 02:33 | PN ---
Teaching Attending Note Name of Resident: Dorcas Arenas ATTENDING PHYSICIAN STATEMENT I saw and evaluated the patient. I reviewed the resident's note and discussed the case with the resident. I agree with the resident's findings and plan as documented. SUBJECTIVE: Patient is a 63 year old man with a PMH of DVT, NIDDM, PAD, angioplasty, ischemic ulcer (right toe), gout, ESRD on CAPD, ?failed kidney transplant, [place] kidney nephrectomy for tumor and retroperitoneal hemorrhage (prompted discontinuation of coumadin) who presents to the ER with a fever and elevated white count since earlier today. Patient had a fever of 100.7 and white count of 12.6. The patient was sent in by his PD nurse. He states that his last PD was last night. He reports some back pain and foot swelling . The patient denies any other symptoms. He denies any chills, nausea, vomiting, diarrhea, constipation, SOB, headache or abdominal pain. In the ER he was found t be afebrile and WBC was normal. OBJECTIVE: Alert Vital Signs Period Temp Pulse Resp BP Sys/Lane Pulse Ox Last 24 Hr 98.3 F 81 20 134/50 96 HEENT: No Jaundice, eye redness or discharge, PERRLA, EOMI. Normocephalic, atraumatic. External ears are normal and hearing is grossly intact. No nasal discharge. Neck: Supple, nontender. No palpable adenopathy or thyromegaly. No JVD Chest: Good effort. Clear to auscultation and percussion. Heart: Regular. No S3 or rub; 2/6 PIETER Abdomen: Not distended, soft, nontender; PD catheter in place with exit site intact; and no HSM. No rebound or guarding. Normoactive bowel sounds. Ext: Peripheral pulses intact. No leg edema. Skin: Warm and dry. No petechiae, rash or ecchymosis. Neuro: Alert. Oriented x3. CN 2-12 grossly intact. Sensation grossly intact in all four extremities and DTR are symmetric. Home Medications Medication Instructions Recorded Amlodipine Besylate 10 mg PO DAILY 01/31/13 Atorvastatin Ca [Lipitor] 40 mg PO HS 01/31/13 Folic Acid 1 mg PO DAILY 01/31/13 Prednisone 5 mg PO DAILY 01/31/13 Febuxostat [Uloric -] 40 mg PO DAILY 10/26/16 Insulin Aspart [Novolog Flexpen] 5 units BID 10/26/17 Insulin Glargine,Hum.rec.anlog 15 unit SQ HS #1 vial 11/07/17 [Lantus] Tacrolimus [Prograf] 1 mg PO BID #60 capsule 11/07/17 Abnormal Lab Results 07/24/18 07/24/18 07/24/18 23:50 23:50 23:50 RBC 3.46 L Hgb 9.5 L Hct 31.2 L MCHC 30.5 L RDW 19.6 H Eosinophils % 16.8 H PT with INR 13.30 H INR 1.13 H BUN 68 H Creatinine 11.2 H* Random Glucose 133 H Calcium 8.2 L Phosphorus ALT 12 L Alkaline Phosphatase 160 H Total Protein 6.3 L Albumin 1.5 L 07/24/18 23:50 RBC Hgb Hct MCHC RDW Eosinophils % PT with INR INR BUN Creatinine Random Glucose Calcium Phosphorus 7.7 H ALT Alkaline Phosphatase Total Protein Albumin ASSESSMENT AND PLAN: 1. Peritonitis ? - Patient is afebrile and symptom-free with no leukocytosis. No history of cloudy peritoneal effluent at home. ER staff spoke with the site surveyor and will admit as an Obs case to monitor. Antibiotics not indicated at this time. Check PTH and ensure that he is getting phosphate binders with meals. Unclear why he is still on lasix at home. 2. Severe Hypoalbuminemia - Possibly due to combined effects of peritoneal albumin losses, malnutrition and inflammation associated with comorbid chronic conditions. Will ensure adequate dietary protein intake of at least 1.5 gm/Kg per day and also consult mutual funds agent. 3. DM - For now, we will hold the home diabetes drugs and implement sliding scale insulin regimen. Provide comprehensive diabetes care with patient teaching and counseling about the importance of euglycemia, eye care and foot care. 4. Anemia - Likely due to CKD. Will do basic anemia work up including serial stool guaiacs, reticulocyte count and iron studies. Would benefit from Procrit therapy once iron replete. 5. DVT prophylaxis - Heparin 5000u sq tid. 6. Advance directives - Full code
--- NOTE | 2018-07-25 03:36 | HP ---
CHIEF COMPLAINT: Elevated WBCs and fever PCP: Dr. Celina Herbert HISTORY OF PRESENT ILLNESS: 63M w/ pmhx of DVT (not currently on coumadin), PAD, gout, ESRD currently on daily PD, cardiac stents x2 (2010), RP hemorrhage was sent from his PD clinic per his PCP for elevated WBC of 12.6 and fever of 100.7. Upon initial exam, pt was seen with no complaints. Admits to normal clear peritoneal fluid seen during dialysis. Denies salguero/d, f/c, n/v, cp, sob, abd pain, urinary/bowel symptoms, problems walking, generalized weakness. Of note, pt received a kidney transplant 17 years ago. About 3 weeks ago, pt had a nephrectomy of his [place] [facility] as a mass was found on it. Per pt, surgery was uncomplicated. Pt also had post-op visit with surgeon with no acute events noted. 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 ER course was notable for: (1) Initial WBC 12.6 --> now 8.8, Hgb 9 --> 9.5, Hct 28.7 --> 31.2, BUN/Cr 68/ 11.2 (2) Blood cultures ordered (3) Recent Travel: Denies PAST MEDICAL HISTORY: As per HPI PAST SURGICAL HISTORY: cardiac stents x2 (2010) kidney transplant nephrectomy (3 weeks ago, [facility]) L femur fx repair Social History: Smoking: Denies Alcohol: Denies Drugs: Denies Family History: Mother: DM Father: Cancer, unknown Allergies No Known Drug Allergies Allergy (Verified 10/25/17 14:07) HOME MEDICATIONS: Home Medications Medication Instructions Recorded Amlodipine Besylate 10 mg PO DAILY 01/31/13 Atorvastatin Ca [Lipitor] 40 mg PO HS 01/31/13 Folic Acid 1 mg PO DAILY 01/31/13 Prednisone 5 mg PO DAILY 01/31/13 Febuxostat [Uloric -] 40 mg PO DAILY 10/26/16 Insulin Aspart [Novolog Flexpen] 5 units BID 10/26/17 Insulin Glargine,Hum.rec.anlog 15 unit SQ HS #1 vial 11/07/17 [Lantus] Tacrolimus [Prograf] 1 mg PO BID #60 capsule 11/07/17 REVIEW OF SYSTEMS As per HPI PHYSICAL EXAMINATION Vital Signs - 24 hr 07/24/18 20:08 Temperature 98.3 F Pulse Rate 81 Respiratory 20 Rate Blood Pressure 134/50 L O2 Sat by Pulse 96 Oximetry (%) GENERAL: AAOx3. NAD. Resting comfortably. HEENT: AT/NC. EOMI. HÉCTOR. Dry mucus membranes. Deformity of uvula with attachment to L mucus membrane NECK: Supple, no LAD/JVD. LUNGS: CTA B/L. No w/r/r noted. Symmetric chest rise. No accessory muscle use. HEART: RRR. Normal S1, S2. Systolic murmur noted on LUSB. ABDOMEN: PD catheter in place clear, dry, intact. Abd Soft, ND/NT +BS in all 4 Q 's. No masses or bruits noted. MUSCULOSKELETAL: No pedal edema. 5/5 muscle strength in b/l u/l extremities. NEUROLOGICAL: Normal speech. CN II-XII intact. PSYCHIATRIC: Cooperative. Good eye contact. Appropriate mood and affect. SKIN: Warm, dry, normal turgor, normal capillary refill. Laboratory Results - last 24 hr 07/24/18 07/24/18 07/24/18 23:50 23:50 23:50 WBC 8.8 RBC 3.46 L Hgb 9.5 L Hct 31.2 L MCV 90.2 MCH 27.5 MCHC 30.5 L RDW 19.6 H Plt Count 376 MPV 8.2 Absolute Neuts (auto) 4.8 Neutrophils % 54.5 Lymphocytes % 20.1 D Monocytes % 7.4 Eosinophils % 16.8 H Basophils % 1.2 Nucleated RBC % 0 PT with INR 13.30 H INR 1.13 H PTT (Actin FS) 35.3 Sodium 138 Potassium 4.9 Chloride 100 Carbon Dioxide 28 Anion Gap 10 BUN 68 H Creatinine 11.2 H* Creat Clearance w eGFR 4.63 Random Glucose 133 H Calcium 8.2 L Phosphorus Magnesium Total Bilirubin 0.2 AST 35 ALT 12 L Alkaline Phosphatase 160 H Total Protein 6.3 L Albumin 1.5 L 07/24/18 23:50 WBC RBC Hgb Hct MCV MCH MCHC RDW Plt Count MPV Absolute Neuts (auto) Neutrophils % Lymphocytes % Monocytes % Eosinophils % Basophils % Nucleated RBC % PT with INR INR PTT (Actin FS) Sodium Potassium Chloride Carbon Dioxide Anion Gap BUN Creatinine Creat Clearance w eGFR Random Glucose Calcium Phosphorus 7.7 H Magnesium 2.1 Total Bilirubin AST ALT Alkaline Phosphatase Total Protein Albumin ASSESSMENT/PLAN: 63M w/ pmhx of DVT (not currently on coumadin), PAD, gout, ESRD currently on daily PD, cardiac stents x2 (2010), RP hemorrhage was admitted for elevated WBC and fever. #Leukocytosis and fever; Possibly due to questionable peritonitis, however per pt and pt's daughter, peritoneal fluid was clear. Pt is currently asymptomatic, afebrile with no WBC at this time. -Will continue to monitor under observation; No antibiotics needed at this time as pt clinically does not show signs of infection. #Hypoalbuminemia; Possibly 2/2 PD or malnutrition. -Encourage PO intake -Nurse Ldr consult ordered #Anemia; likely 2/2 CKD. -Iron studies, FOBT, retic ct ordered #HLD Resume home med: -Atorvastatin 80 mg PO HS #Gout Resume home med: -Febuxostat 40 mg PO QD #DM; Pt not currently taking DM meds due to history of low glucose. Per pt, was directed by PCP to stop DM medications as they were "no longer needed." #DVT Ppx -Heparin 5000U SQ TID #FEN -no IVF needed -recheck lytes in AM -Renal diet dispo -admit to inpt obs Visit type - Emergency Visit Emergency Visit: Yes ED Registration Date: 07/25/18 Care time: The patient presented to the Emergency Department on the above date and was hospitalized for further evaluation of their emergent condition. - New Patient This patient is new to me today: Yes Date on this admission: 07/25/18 - Critical Care Critical Care patient: No
[2018-07-25 07:47] LABS: HEMATOCRIT 28.6 % (35.4-49); HEMOGLOBIN 8.8 GM/dL (11.7-16.9); MCH 27.5 pg (25.7-33.7); MCHC 30.8 g/dl (32.0-35.9); MEAN CELL VOLUME 89.2 fl (80-96); MEAN PLT VOLUME 8.3 fl (7.5-11.1); PLATELET COUNT 315 K/MM3 (134-434); RBC 3.21 M/mm3 (4.00-5.60); WHITE BLOOD COUNT 8.4 K/mm3 (4.0-10.0)
[2018-07-25 08:03] LABS: ANION GAP 9 MMOL/L (8-16); BLOOD UREA NITROGEN 67 mg/dL (7-18); CHLORIDE 101 mmol/L (98-107); CO2 28 mmol/L (21-32); GLUCOSE,RANDOM 96 mg/dL (74-106); POTASSIUM 4.9 mmol/L (3.5-5.1); SODIUM 138 mmol/L (136-145)
[2018-07-25 08:08] LABS: CREATININE 11.3 mg/dL (0.55-1.3)
[2018-07-25 08:15] VITALS: BMI 20.3
[2018-07-25] MEDS: HEPARIN NA (PORCINE) 5,000 UNITS/ML 1ML VIAL SQ SCH ×3 (08:20→21:37)
--- NOTE | 2018-07-25 10:26 | EKG ---
Test Reason : Blood Pressure : / mmHG Vent. Rate : 073 BPM Atrial Rate : 073 BPM P-R Int : 174 ms QRS Dur : 126 ms QT Int : 434 ms P-R-T Axes : 069 -42 075 degrees QTc Int : 478 ms SINUS RHYTHM WITH PREMATURE ATRIAL COMPLEXES LEFT AXIS DEVIATION RIGHT BUNDLE BRANCH BLOCK INFERIOR INFARCT , AGE UNDETERMINED CANNOT RULE OUT ANTERIOR INFARCT , AGE UNDETERMINED ABNORMAL ECG WHEN COMPARED WITH ECG OF 31-OCT-2017 10:20, PREMATURE ATRIAL COMPLEXES ARE NOW PRESENT T WAVE INVERSION NOW EVIDENT IN ANTERIOR LEADS Confirmed by REI GAMINO, GLENN ([id number]) on 07/25/2018 10:26:10 AM Referred By: Confirmed By:GLENN MINAYA MD
[2018-07-25] MEDS: CALCITRIOL 0.25 MCG CAPSULE (FP) PO SCH (10:36)
[2018-07-25] MEDS: CALCIUM ACETATE 667 MG CAPSULE (FP) PO SCH ×3 (10:36→16:42)
[2018-07-25] MEDS: FUROSEMIDE 40 MG TABLET (FP) PO SCH (10:36)
[2018-07-25] MEDS: FEBUXOSTAT 40 MG TAB PO SCH (10:37)
--- NOTE | 2018-07-25 12:56 | CONSULT ---
Consult - text type - Consultation Consultation Note: Renal Consult for ESRD on PD This is a 63 year old gentleman with hx of ESRD s/p renal transplant (now non functional s/p 17 years), on PD, DVT, DM, PAD, Gout who recently had [facility] nephrectomy for RP hemorrage/mass presented from PD unit with fever, hypotension and weakness and admitted for r/o sepsis. Pt w/o any acute complaints. No sob, cp, abd pain, N/V/D. BP in hospital is normal, no abd pain or fevers. Does report feeling weak. Last dialysis exchange was monday night. PMhx: as above Allergies: NKDA Family Hx: NC Social hx: No T/A/D ROS: as per HPI Home Medications Medication Instructions Recorded Atorvastatin Ca [Lipitor] 80 mg PO HS 01/31/13 Calcitriol [Calcitriol -] 0.25 mcg PO DAILY 07/25/18 Febuxostat [Uloric] 40 mg PO DAILY 07/25/18 Furosemide 80 mg PO DAILY 07/25/18 Vital Signs Temperature 98.1 F 07/25/18 05:30 Pulse Rate 78 07/25/18 05:30 Respiratory Rate 18 07/25/18 05:30 Blood Pressure 147/65 07/25/18 05:30 O2 Sat by Pulse Oximetry (%) 99 07/25/18 04:21 Intake & Output 07/22/18 07/23/18 07/24/18 07/25/18 23:59 23:59 23:59 23:59 Weight 56.699 kg 57.243 kg NAD awake and alert neck supple, no JVD RRR, no M/R CTA, no rales wheeze soft NT/ND no fluid in pd space. CBC, BMP 07/25/18 07:05 07/25/18 07:05 Current Medications Atorvastatin Calcium (Lipitor -) 80 mg PO HS [facility] Calcitriol (Rocaltrol -) 0.25 mcg PO DAILY [facility] Last Admin: 07/25/18 10:36 Dose: 0.25 mcg Calcium Acetate (Phoslo -) 667 mg PO TIDCM [facility] Last Admin: 07/25/18 12:37 Dose: 667 mg Febuxostat (Uloric -) 40 mg PO DAILY [facility] Last Admin: 07/25/18 10:37 Dose: 40 mg Furosemide (Lasix -) 80 mg PO DAILY [facility] Last Admin: 07/25/18 10:36 Dose: 80 mg Heparin Sodium (Porcine) (Heparin -) 5,000 unit SQ TID [facility] Last Admin: 07/25/18 08:20 Dose: Not Given 63 year old gentleman with hx of ESRD s/p renal transplant (now non functional s /p 17 years), on PD, DVT, DM, PAD, Gout who recently had [place] [facility] [facility] nephrectomy for RP hemorrage/mass presented from PD unit with fever, hypotension and weakness and admitted for r/o sepsis. #Fever and hypotension at home #ESRD on PD #Anemia (chronic) #Renal Osteodystrophy blood cultures collected, no growth to date no fever, leukocytosis here Id consult requested no Abx given thsu far and may not need it if pt remains asymptomatic and with negative cultures CT done, offical read is pending air in abd may be introduced thorough pd catheter will resume KADE as outpatient Continue calcitriol d/c phoslo and check phos levels Thank you Will follow Eagle Thomas DO
--- NOTE | 2018-07-25 12:57 | CON.ID ---
Consult Consult Specialty:: infectious disease Referred by:: hospitalist Reason for Consultation:: fever - History of Present Illness Chief Complaint: fever History of Present Illness: was noted to have temp 100.7 yesterday at HD and sent to ED history of failed renal transplant, on peritoneal dialysis no abdominal pain, no nausea or vomiting no dysuria no travel no sick contacts - History Source History Provided By: Patient, Medical Record Limitations to Obtaining History: No Limitations - Past Medical History Cardio/Vascular: Yes: HTN Renal/: Yes: Renal Failure, Renal Inusuff Endocrine: Yes: Diabetes Mellitus - Past Surgical History Past Surgical History: Yes: Nephrectomy (end of June 2018) Additional Surgical History: renal transplant, AVF - Alcohol/Substance Use Hx Alcohol Use: No - Smoking History Smoking history: Never smoked Have you smoked in the past 12 months: No - Social History Usual Living Arrangement: With Child ADL: Independent History of Recent Travel: No Home Medications - Allergies Allergies/Adverse Reactions: Allergies Allergy/AdvReac Type Severity Reaction Status Date / Time No Known Drug Allergies Allergy Verified 10/25/17 14:07 - Home Medications Home Medications: Ambulatory Orders Atorvastatin Ca [Lipitor] 80 mg PO HS 01/31/13 Calcitriol [Calcitriol -] 0.25 mcg PO DAILY 07/25/18 Febuxostat [Uloric] 40 mg PO DAILY 07/25/18 Furosemide 80 mg PO DAILY 07/25/18 Family Disease History - Family Disease History Family History: Denies Review of Systems - Review of Systems Constitutional: reports: No Symptoms. denies: Chills, Fever Eyes: reports: No Symptoms HENT: reports: No Symptoms. denies: Difficult Swallowing Neck: reports: No Symptoms Cardiovascular: reports: No Symptoms. denies: Chest Pain, Edema Respiratory: reports: Cough (chronic and unchanged) Gastrointestinal: reports: No Symptoms. denies: Abdominal Pain, Constipation, Diarrhea, Nausea, Vomiting Genitourinary: reports: No Symptoms. denies: Burning, Discharge Musculoskeletal: reports: No Symptoms Integumentary: reports: No Symptoms Neurological: reports: No Symptoms Physical Exam Vital Signs: Vital Signs Temperature 98.1 F 07/25/18 05:30 Pulse Rate 78 07/25/18 05:30 Respiratory Rate 18 07/25/18 05:30 Blood Pressure 147/65 07/25/18 05:30 O2 Sat by Pulse Oximetry (%) 99 07/25/18 04:21 Constitutional: Yes: Well Nourished, No Distress Eyes: Yes: Conjunctiva Clear HENT: No: Thrush Neck: Yes: Supple, Trachea Midline Cardiovascular: Yes: Regular Rate and Rhythm Respiratory: Yes: Regular, CTA Bilaterally Gastrointestinal: Yes: Normal Bowel Sounds, Soft, Other (pd catheter site clean) . No: Tenderness ...Rectal Exam: No: Deferred Musculoskeletal: Yes: WNL Extremities: Yes: WNL Edema: No Psychiatric: Yes: Alert, Oriented Labs: CBC, BMP 07/25/18 07:05 07/25/18 07:05 cultures pending Imaging - Results Chest X-ray: Report Reviewed (cxray no infiltrates, pneumoperitoneum on the right) Cat Scan: Pending Problem List - Problems (1) Fever Code(s): R50.9 - FEVER, UNSPECIFIED Qualifiers: Fever type: unspecified Qualified Code(s): R50.9 - Fever, unspecified (2) ESRD (end stage renal disease) Code(s): N18.6 - END STAGE RENAL DISEASE Assessment/Plan fevers resolved d/w renal - observe off antibiotics, f/u cultures f/u ct scan prior to d/c
--- NOTE | 2018-07-25 15:10 | CONSULT ---
Consult Consult Specialty:: General Surgery Reason for Consultation:: Retroperitoneal fluid collection - History of Present Illness Chief Complaint: sent byt PMD with fever History of Present Illness: 63 yo male PMH DVT (not currently on coumadin), PAD, gout, ESRD currently on daily PD, s/p kidney transplant, cardiac stents x2 (2010), Retro peritoneal hemorrhage was sent from his PD clinic per his PCP for elevated WBC of 12.6 and fever of 100.7. Upon initial exam, he was was seen with no complaints. Admits to normal clear peritoneal fluid seen during dialysis. right sided kidney transplant 17 years ago. About 3 weeks ago, pt had a nephrectomy of his [place] as a mass was found on it. Per patient the surgery was uncomplicated. He also had post-op visit with surgeon with no acute events noted. 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 we were asked to assess given CTscan findings. - History Source History Provided By: Patient, Medical Record Limitations to Obtaining History: No Limitations - Past Medical History Cardio/Vascular: Yes: HTN Renal/: Yes: Renal Failure, Renal Inusuff, Other (peritoneal dialysis ) Endocrine: Yes: Diabetes Mellitus - Past Surgical History Past Surgical History: Yes: Kidney Transplant Additional Surgical History: renal transplant, AVF - Alcohol/Substance Use Hx Alcohol Use: No - Smoking History Smoking history: Never smoked Have you smoked in the past 12 months: No - Social History Usual Living Arrangement: With Child ADL: Independent History of Recent Travel: No Home Medications - Allergies Allergies/Adverse Reactions: Allergies Allergy/AdvReac Type Severity Reaction Status Date / Time No Known Drug Allergies Allergy Verified 10/25/17 14:07 - Home Medications Home Medications: Ambulatory Orders Atorvastatin Ca [Lipitor] 80 mg PO HS 01/31/13 Calcitriol [Calcitriol -] 0.25 mcg PO DAILY 07/25/18 Febuxostat [Uloric] 40 mg PO DAILY 07/25/18 Furosemide 80 mg PO DAILY 07/25/18 Review of Systems - Review of Systems Constitutional: denies: Chills, Fever Eyes: denies: Blurred Vision, Recent Change in Vision HENT: denies: Difficult Swallowing, Throat Pain Neck: denies: Pain on Movement, Tenderness Cardiovascular: denies: Chest Pain, Palpitations Respiratory: denies: Cough, SOB Gastrointestinal: denies: Abdominal Pain, Constipation, Diarrhea, Nausea Genitourinary: reports: Flank Pain Breasts: reports: No Symptoms Reported. denies: Pain Musculoskeletal: denies: Muscle Cramps, Muscle Weakness Integumentary: denies: Lesions, Lump Neurological: denies: Seizure, Syncope Endocrine: denies: Unexplained Weight Gain, Unexplained Weight Loss Hematology/Lymphatic: denies: Easily Bruised, Excessive Bleeding Psychiatric: denies: Anxiety, Depression Physical Exam Vital Signs: Vital Signs Temperature 98.5 F 07/25/18 14:46 Pulse Rate 80 07/25/18 14:46 Respiratory Rate 18 07/25/18 14:46 Blood Pressure 118/70 07/25/18 14:46 O2 Sat by Pulse Oximetry (%) 99 07/25/18 04:21 Vital Signs Period Temp Pulse Resp BP Sys/Lane Pulse Ox Last 24 Hr 98.0 F-98.8 F 76-91 16-20 109-147/50-90 96-99 Intake & Output 07/25/18 07/25/18 07/25/18 07:59 15:59 23:59 Intake Total 480 500 Balance 480 500 Weight 126 lb 3.2 oz 126 lb Intake: Oral 480 500 Other: Voiding Method Toilet Toilet Toilet # Unmeasured Voids Void 2 Bowel Movement No Height 5 ft 6 in 5 ft 6 in Body Mass Index (BMI) 20.3 20.3 Weight Measurement Method Standing Scale Constitutional: Yes: Well Nourished, No Distress, Calm, Thin Eyes: Yes: Conjunctiva Clear, EOM Intact HENT: Yes: Atraumatic, Normocephalic Neck: Yes: Supple, Trachea Midline Cardiovascular: Yes: Regular Rate and Rhythm, S1, S2 Respiratory: Yes: Regular, CTA Bilaterally, Diminished (lower lu bilaterally ). No: Cough Gastrointestinal: Yes: Normal Bowel Sounds, Soft, Other (peritoneal dialysis catherter) ...Rectal Exam: Yes: Deferred Renal/: No: CVA Tenderness - Left, CVA Tenderness - Right Musculoskeletal: No: Muscle Pain, Muscle Weakness Extremities: No: Cool, Cyanosis Edema: LUE: Trace, RUE: Trace, LLE: Trace, RLE: Trace Peripheral Pulses WNL: Yes Integumentary: No: Jaundice, Rash Wound/Incision: Yes: Clean/Dry, Well Approximated Neurological: Yes: Alert, Oriented Psychiatric: Yes: Alert, Oriented Labs: CBC, BMP 07/25/18 07:05 07/25/18 07:05 Imaging - Results Cat Scan: Report Reviewed, Image Reviewed (new kidney Right upper pelvis, small fluid collection in fosss of ressected [place]) Problem List - Problems (1) Retroperitoneal fluid collection Assessment/Plan: 63yo male MMP s/p renal transplant and recent ressection of [place] for a mass, CT scan shows stigmata of surgical resection, on Peritoneal dialysis. Hemodynamically stable. Some minor constitutional symptoms, immunocomprimised state as he is a transplant recipient. No acute surgical intervention is indicated. continue dialysis empiric IV anticbiotics f/u with tranplant surgeon and/or urology surgeon rest per primary team Thank you for the opportunity to participate in the care of this patient. Code(s): R18.8 - OTHER ASCITES (2) ESRD (end stage renal disease) Code(s): N18.6 - END STAGE RENAL DISEASE (3) Renal transplant disorder Code(s): T86.10 - UNSPECIFIED COMPLICATION OF KIDNEY TRANSPLANT (4) Arterial atherosclerosis Code(s): I70.8 - ATHEROSCLEROSIS OF OTHER ARTERIES (5) Diabetes Code(s): E11.9 - TYPE 2 DIABETES MELLITUS WITHOUT COMPLICATIONS Qualifiers: Diabetes mellitus type: type 2 (6) Retroperitoneal bleed Code(s): R58 - HEMORRHAGE, NOT ELSEWHERE CLASSIFIED
--- NOTE | 2018-07-25 16:14 | PN ---
Teaching Attending Note Name of Resident: Rafael Truong ATTENDING PHYSICIAN STATEMENT I saw and evaluated the patient. I reviewed the resident's note and discussed the case with the resident. I agree with the resident's findings and plan as documented with exceptions below. SUBJECTIVE: Patient seen and examined, no fevers,chills, nausea, vomiting, abdominal pain, diarrhea, urinary symptoms, new cough or URI like illness, feels well. OBJECTIVE: Vital Signs Period Temp Pulse Resp BP Sys/Lane Pulse Ox Last 24 Hr 98.0 F-98.5 F 76-81 16-20 118-147/50-90 96-99 Intake & Output 07/22/18 07/23/18 07/24/18 07/25/18 23:59 23:59 23:59 23:59 Weight 125 lb 126 lb 3.2 oz General: lying in bed in no acute distress Chest: CTAB, no rales or wheezing Abdomen:soft, NT throughout, no voluntary or involuntary guarding or rigidity, positive bowel sounds, no CVA tenderness Extremities: no edema Neck:soft, supple, HEENT: non icteric, EOMI Home Medications Medication Instructions Recorded RX: Atorvastatin Ca [Lipitor] 80 mg PO HS 01/31/13 Febuxostat [Uloric] 40 mg PO DAILY 07/25/18 RX: Calcitriol [Calcitriol -] 0.25 mcg PO DAILY 07/25/18 RX: Furosemide 80 mg PO DAILY 07/25/18 Active Medications Atorvastatin Calcium (Lipitor -) 80 mg PO HS [facility] Calcitriol (Rocaltrol -) 0.25 mcg PO DAILY [facility] Last Admin: 07/25/18 10:36 Dose: 0.25 mcg Calcium Acetate (Phoslo -) 667 mg PO TIDCM [facility] Last Admin: 07/25/18 12:37 Dose: 667 mg Febuxostat (Uloric -) 40 mg PO DAILY [facility] Last Admin: 07/25/18 10:37 Dose: 40 mg Furosemide (Lasix -) 80 mg PO DAILY [facility] Last Admin: 07/25/18 10:36 Dose: 80 mg Heparin Sodium (Porcine) (Heparin -) 5,000 unit SQ TID [facility] Last Admin: 07/25/18 08:20 Dose: Not Given Laboratory Results - last 24 hr 07/24/18 07/24/18 07/24/18 23:50 23:50 23:50 WBC 8.8 RBC 3.46 L Hgb 9.5 L Hct 31.2 L MCV 90.2 MCH 27.5 MCHC 30.5 L RDW 19.6 H Plt Count 376 MPV 8.2 Absolute Neuts (auto) 4.8 Neutrophils % 54.5 Lymphocytes % 20.1 D Monocytes % 7.4 Eosinophils % 16.8 H Basophils % 1.2 Nucleated RBC % 0 Retic Count PT with INR 13.30 H INR 1.13 H PTT (Actin FS) 35.3 Sodium 138 Potassium 4.9 Chloride 100 Carbon Dioxide 28 Anion Gap 10 BUN 68 H Creatinine 11.2 H* Creat Clearance w eGFR 4.63 Random Glucose 133 H Calcium 8.2 L Phosphorus Magnesium Ferritin Total Bilirubin 0.2 AST 35 ALT 12 L Alkaline Phosphatase 160 H Total Protein 6.3 L Albumin 1.5 L 07/24/1818 07/25/18 23:50 07:05 07:05 WBC 8.4 RBC 3.21 L Hgb 8.8 L Hct 28.6 L MCV 89.2 MCH 27.5 MCHC 30.8 L RDW 19.0 H Plt Count 315 MPV 8.3 Absolute Neuts (auto) Neutrophils % Lymphocytes % Monocytes % Eosinophils % Basophils % Nucleated RBC % Retic Count PT with INR INR PTT (Actin FS) Sodium 138 Potassium 4.9 Chloride 101 Carbon Dioxide 28 Anion Gap 9 BUN 67 H Creatinine 11.3 H* Creat Clearance w eGFR 4.58 Random Glucose 96 Calcium 8.0 L Phosphorus 7.7 H Magnesium 2.1 Ferritin 1267.2 H Total Bilirubin AST ALT Alkaline Phosphatase Total Protein Albumin 07/25/18 10:00 WBC RBC Hgb Hct MCV MCH MCHC RDW Plt Count MPV Absolute Neuts (auto) Neutrophils % Lymphocytes % Monocytes % Eosinophils % Basophils % Nucleated RBC % Retic Count 1.71 H D PT with INR INR PTT (Actin FS) Sodium Potassium Chloride Carbon Dioxide Anion Gap BUN Creatinine Creat Clearance w eGFR Random Glucose Calcium Phosphorus Magnesium Ferritin Total Bilirubin AST ALT Alkaline Phosphatase Total Protein Albumin CT A/P results reviewed ASSESSMENT AND PLAN: 63 yom with PMHx of DVT (not currently on coumadin), PAD, gout, ESRD currently on daily PD, cardiac stents x2 (2010), left RP hemorrhage sent from dialysis center with reported fever/hypotension/leucocytosis. -Reported fever/hypotension/leucocytosis -Left retroperitoneal fluid collection -ESRD on peritoneal Dialysis -CAD s/p PCI x 2 2010 -Left retroperitoneal haemorrhage on [place] [facility] in 02/2018 -Failed renal transplant -h/o DVT not on coumadin due to above Plan: afebrile here, normal WBC, benign abdominal exam No focal s/s concerning for infection. ID input noted. Discussed with radiology, recommend repeat study in 24 hours to assess for any changes. Discussed with Dr. Thomas, patient with left retroperitoneal/psoas haemorrhage in 02/2018, no further imaging since. Seen by outpatient urologist yesterday, plan was for follow up imaging. Current findings could be residual fluid collection from above, especially given no systemic concerns for infection, no abdominal pain or tenderness. Surgery input Will repeat CT A/p in 24 hours. Follow up Blood cx monitor off abx. dispo planning in 24hours pending repeat blood cx, clinical course and repeat imaging. Plan discussed with patient and all questions answered. Care co-ordinated with Dr. Thomas, Dr. Jerez and Dr. Gonzalez. Total time spent 25 min.
--- NOTE | 2018-07-25 18:01 | PN ---
Physical Exam: SUBJECTIVE: Patient seen and examined at bedside this morning. Denies any acute complaints. Denies fevers, chills, shortness of breath, chest pain, palpitations , abdominal pain, nausea, vomiting, diarrhea. OBJECTIVE: Vital Signs Period Temp Pulse Resp BP Sys/Lane Pulse Ox Last 24 Hr 98.0 F-98.5 F 76-81 16-20 118-147/50-90 96-99 GENERAL: The patient is awake, alert, and fully oriented, in no acute distress. HEAD: Normocephalic, atraumatic. EYES: PERRLA, extraocular movements intact without nystagmus. Sclera anicteric, conjunctiva non injected b/l. ENT: Oropharynx clear without exudates, or erythema, moist mucous membranes. NECK: Trachea midline, supple without lymphadenopathy LUNGS: Good inspiratory effort, and air entry b/l. Breath sounds equal, clear to auscultation bilaterally. No wheezes, no crackles auscultated b/l. No accessory muscle use. HEART: Regular rate and rhythm, S1, S2. Holosystolic murmur auscultated over left sternal border, without radiation to carotids b/l. ABDOMEN: Soft, nontender, nondistended, normoactive bowel sounds, no guarding, no rebound, no hepatosplenomegaly. PD catheter noted. EXTREMITIES: 2+ radial and dorsalis pedis pulses b/l. Warm, well-perfused. No lower extremity edema or calf tenderness b/l. NEUROLOGICAL: Cranial nerves II through XII grossly intact. Normal speech. Strength 4/5 b/l upper and lower extremities. PSYCH: Mood and affect appropriate upon my encounter today. SKIN: Warm, dry, normal turgor. Laboratory Results - last 24 hr 07/24/18 07/24/18 07/24/18 23:50 23:50 23:50 WBC 8.8 RBC 3.46 L Hgb 9.5 L Hct 31.2 L MCV 90.2 MCH 27.5 MCHC 30.5 L RDW 19.6 H Plt Count 376 MPV 8.2 Absolute Neuts (auto) 4.8 Neutrophils % 54.5 Lymphocytes % 20.1 D Monocytes % 7.4 Eosinophils % 16.8 H Basophils % 1.2 Nucleated RBC % 0 Retic Count PT with INR 13.30 H INR 1.13 H PTT (Actin FS) 35.3 Sodium 138 Potassium 4.9 Chloride 100 Carbon Dioxide 28 Anion Gap 10 BUN 68 H Creatinine 11.2 H* Creat Clearance w eGFR 4.63 Random Glucose 133 H Calcium 8.2 L Phosphorus Magnesium Ferritin Total Bilirubin 0.2 AST 35 ALT 12 L Alkaline Phosphatase 160 H Total Protein 6.3 L Albumin 1.5 L 07/24/18 07/25/18 07/25/18 23:50 07:05 07:05 WBC 8.4 RBC 3.21 L Hgb 8.8 L Hct 28.6 L MCV 89.2 MCH 27.5 MCHC 30.8 L RDW 19.0 H Plt Count 315 MPV 8.3 Absolute Neuts (auto) Neutrophils % Lymphocytes % Monocytes % Eosinophils % Basophils % Nucleated RBC % Retic Count PT with INR INR PTT (Actin FS) Sodium 138 Potassium 4.9 Chloride 101 Carbon Dioxide 28 Anion Gap 9 BUN 67 H Creatinine 11.3 H* Creat Clearance w eGFR 4.58 Random Glucose 96 Calcium 8.0 L Phosphorus 7.7 H Magnesium 2.1 Ferritin 1267.2 H Total Bilirubin AST ALT Alkaline Phosphatase Total Protein Albumin 07/25/18 10:00 WBC RBC Hgb Hct MCV MCH MCHC RDW Plt Count MPV Absolute Neuts (auto) Neutrophils % Lymphocytes % Monocytes % Eosinophils % Basophils % Nucleated RBC % Retic Count 1.71 H D PT with INR INR PTT (Actin FS) Sodium Potassium Chloride Carbon Dioxide Anion Gap BUN Creatinine Creat Clearance w eGFR Random Glucose Calcium Phosphorus Magnesium Ferritin Total Bilirubin AST ALT Alkaline Phosphatase Total Protein Albumin Active Medications Generic Name Dose Route Start Last Admin Trade Name Freq PRN Reason Stop Dose Admin Atorvastatin Calcium 80 mg 07/25/18 22:00 Lipitor - PO HS OZIEL Calcitriol 0.25 mcg 07/25/18 10:00 07/25/18 10:36 Rocaltrol - PO 0.25 mcg DAILY OZIEL Administration Calcium Acetate 667 mg 07/25/18 08:00 07/25/18 16:42 Phoslo - PO Not Given TIDCM OZI[facility] Febuxostat 40 mg 07/25/18 10:00 07/25/18 10:37 Uloric - PO 40 mg DAILY OZIEL Administration Furosemide 80 mg 07/25/18 10:00 07/25/18 10:36 Lasix - PO 80 mg DAILY OZIEL Administration Heparin Sodium (Porcine) 5,000 unit 07/25/18 06:15 07/25/18 15:41 Heparin - SQ 5,000 unit TID OZIEL Administration ASSESSMENT/PLAN: Patient is a 63 year old male with history of ESRD on daily peritoneal dialysis , s/p renal transplant, DVT, retroperitoneal bleed, presents from primary care physician office for WBC of 12.6 and fever 100.7F. Leukocystosis with fever -Patient is asymptomatic. Currently afebrile, with no elevation in WBC. -Chest Xray showed pneumoperitoneum -CT abdomen/pelvis showed free intraperitoneal air, associated with the peritoneal dialysis. Mild diffuse swelling of renal transplant. Nonspecific free intraperitoneal fluid. Left retroperitoneal fluid collection. L2 vertebral body compression fracture. -Will repeat CT in 24 hours to follow any changes. -ID consult (Dr. Jerez) appreciated. Will follow the patient without antibiotics, for now. -F/U blood cultures -F/U general surgery consult (Dr. Perales) ESRD on peritoneal dialysis -Nephrology consult (Dr. Thomas appreciated). Will discuss reinstating peritoneal dialysis -Calcitriol 0.25mcg PO daily Hyperlipidemia -Lipitor 80mg PO HS Gout -Febuxostat 40mg PO daily FEN -No IV fluids. Encourage judicious hydration -Follow CMP -Renal diet, low phosphate Prophylaxis -Heparin 5000u subq TID Disposition -Continue observation in medical-surgical floor. Visit type - Emergency Visit Emergency Visit: Yes ED Registration Date: 07/25/18 Care time: The patient presented to the Emergency Department on the above date and was hospitalized for further evaluation of their emergent condition. - New Patient This patient is new to me today: Yes Date on this admission: 07/25/18 - Critical Care Critical Care patient: No - Discharge Referral Referred to [facility] Med P.C.: No
[2018-07-25] MEDS ORDERED: ATORVASTATIN CA 80 MG TABLET (FP) PO SCH (22:00)
[2018-07-26] MEDS: HEPARIN NA (PORCINE) 5,000 UNITS/ML 1ML VIAL SQ SCH ×2 (05:50→15:18)
[2018-07-26 06:06] LABS: SERUM IRON SATURATION 24 % (15-55); TOTAL IRON BINDING CAPACITY 102 ug/dL (250-450); UIBC 78 ug/dL (111-343)
[2018-07-26 08:25] LABS: HEMOGLOBIN 9.3 GM/dL (11.7-16.9); MCH 27.8 pg (25.7-33.7); MCHC 31.1 g/dl (32.0-35.9); MEAN CELL VOLUME 89.5 fl (80-96); MEAN PLT VOLUME 8.5 fl (7.5-11.1); PLATELET COUNT 345 K/MM3 (134-434); RBC 3.35 M/mm3 (4.00-5.60); RDW 19.4 % (11.9-15.9); WHITE BLOOD COUNT 8.1 K/mm3 (4.0-10.0)
--- NOTE | 2018-07-26 08:27 | PN ---
Teaching Attending Note Name of Resident: Rafael Truong ATTENDING PHYSICIAN STATEMENT I saw and evaluated the patient. I reviewed the resident's note and discussed the case with the resident. I agree with the resident's findings and plan as documented with exceptions below. SUBJECTIVE: Patient seen and examined. No new nausea, vomiting, abdominal pain, fevers, chills, urinary symptoms. Does make urine. Chronic cough with no recent increase. OBJECTIVE: Vital Signs Period Temp Pulse Resp BP Sys/Lane Pulse Ox Last 24 Hr 98.2 F-98.9 F 80-91 16-20 109-147/67-80 96-98 Intake & Output 07/23/18 07/24/18 07/25/18 07/26/18 23:59 23:59 23:59 23:59 Intake Total 980 Balance 980 Weight 125 lb 126 lb General: sitting in bed in no acute distress Chest: CTAB, no rales or wheezing Abdomen: soft, obese, NT throughout, ND, no voluntary or involuntary guarding or rigidity present, positive bowel sounds, Peritoneal dialysis catheter in place Extremities:no edema, erythema or tenderness noted Neck: soft, supple Active Medications Atorvastatin Calcium (Lipitor -) 80 mg PO HS [facility] Last Admin: 07/25/18 21:36 Dose: 80 mg Calcitriol (Rocaltrol -) 0.25 mcg PO DAILY [facility] Last Admin: 07/25/18 10:36 Dose: 0.25 mcg Calcium Acetate (Phoslo -) 667 mg PO TIDCM [facility] Last Admin: 07/25/18 16:42 Dose: Not Given Febuxostat (Uloric -) 40 mg PO DAILY [facility] Last Admin: 07/25/18 10:37 Dose: 40 mg Furosemide (Lasix -) 80 mg PO DAILY [facility] Last Admin: 07/25/18 10:36 Dose: 80 mg Heparin Sodium (Porcine) (Heparin -) 5,000 unit SQ TID [facility] Last Admin: 07/26/18 05:50 Dose: 5,000 unit Laboratory Results - last 24 hr 07/25/18 07/25/18 07/25/18 07:05 10:00 10:45 Retic Count 1.71 H D Sodium 138 Potassium 4.9 Chloride 101 Carbon Dioxide 28 Anion Gap 9 BUN 67 H Creatinine 11.3 H* Creat Clearance w eGFR 4.58 Random Glucose 96 Calcium 8.0 L Iron 24 L TIBC 102 L Iron Saturation 24 Transferrin Ferritin 1267.2 H 07/25/18 10:45 Retic Count Sodium Potassium Chloride Carbon Dioxide Anion Gap BUN Creatinine Creat Clearance w eGFR Random Glucose Calcium Iron TIBC Iron Saturation Transferrin [address] A/P ?LUQ developing abscess ASSESSMENT AND PLAN: 63 yom with PMHx of DVT (not currently on coumadin), PAD, gout, ESRD currently on daily PD, cardiac stents x2 (2010), left RP hemorrhage sent from dialysis center with reported fever/hypotension/leucocytosis. -Reported fever/hypotension/leucocytosis -Left retroperitoneal fluid collection -?LUQ developing abscesss -ESRD on peritoneal Dialysis -CAD s/p PCI x 2 2010 -Left retroperitoneal haemorrhage on [facility] [facility] in 02/2018 -Failed renal transplant -h/o DVT not on coumadin due to above -Iron deficiency anemia Plan: CT A/P results noted. Urology consult, Discussed with Dr. Thomas, Dr. Jerez. ?IR guided fluid aspiration. Discuss with Dr Velazquez. afebrile here, normal WBC, benign abdominal exam Abx per ID. Blood cx neg so far. Start PO iron, counseled on bowel regimen dispo given concerns for developing abscess of LUQ and possible SIRS prior to presention, anticipate additional hospital stay for close hemodynamic monitoring , Possible aspiration vs surgical intervention and IV antibiotics. Admit to inpatient. Patient follows with Dr. Cutler, Case discussed in detail with him, care transferred to him. Total time spent including patient visit, discussion and co-ordination of care with Dr. Cutler, Dr. Thomas, Dr. Jerez, radiology 35 min.
[2018-07-26 08:37] LABS: ALBUMIN 1.5 g/dl (3.4-5.0); ALK PHOS 147 U/L (45-117); ANION GAP 13 MMOL/L (8-16); BILIRUBIN,TOTAL 0.5 mg/dL (0.2-1); BLOOD UREA NITROGEN 72 mg/dL (7-18); CHLORIDE 101 mmol/L (98-107); CO2 25 mmol/L (21-32); GLUCOSE,RANDOM 126 mg/dL (74-106); PHOSPHOROUS 7.1 mg/dL (2.5-4.9); POTASSIUM 5.2 mmol/L (3.5-5.1); SGOT/AST 29 U/L (15-37); SGPT/ALT 12 U/L (13-61); SODIUM 139 mmol/L (136-145); TOT PROT 6.1 g/dl (6.4-8.2)
[2018-07-26 08:56] LABS: CREATININE 11.8 mg/dL (0.55-1.3)
[2018-07-26] MEDS ORDERED: SODIUM POLYSTYRENE SULFONATE 15 GM/60 ML BOTTLE PO ONE (08:56)
[2018-07-26] MEDS: CALCIUM ACETATE 667 MG CAPSULE (FP) PO SCH (09:47)
[2018-07-26] MEDS ORDERED: PT OWN MED DRAWER 7, Y5N ONE (09:59)
[2018-07-26] MEDS ORDERED: FERROUS SO4 325 MG TABLET (FP) PO SCH (10:00)
[2018-07-26] MEDS: CALCITRIOL 0.25 MCG CAPSULE (FP) PO SCH (10:06)
[2018-07-26] MEDS: FUROSEMIDE 40 MG TABLET (FP) PO SCH (10:06)
[2018-07-26] MEDS: FEBUXOSTAT 40 MG TAB PO SCH (10:06)
[2018-07-26 14:14] LABS: PARATHYROID HORM INTACT 90 pg/mL (15-65)
--- NOTE | 2018-07-26 15:28 | PN ---
Progress Note, Physician Chief Complaint: The patient seen in his [place]. Daughter visiting. Feeling well. No abd pain. BP normal denies any chest pain or SOB. History of Present Illness: This is a 63 year old gentleman with hx of ESRD s/p renal transplant (now non- functional s/p 17 years), on PD, DVT, DM, PAD, Gout who recently had [place] kidney nephrectomy for RP hemorrage/mass presented from PD unit with fever, hypotension and weakness and admitted for r/o sepsis. The temp is normal, normal WBC count, BP normal Discussed with Dr. Devries. The retroperitoneal colection and the intrabd fluid are due to the recent surgery when a large mout of air was pumped in, and also related to the PD . The patiet can be discharged home to be followed in the PD clinic ad the surgeon 's office. I will see him tomorrow in the PD cliic. Thank you. Celina Herbert MD - Current Medication List Current Medications: Active Medications Atorvastatin Calcium (Lipitor -) 80 mg PO HS [facility] Last Admin: 07/25/18 21:36 Dose: 80 mg Calcitriol (Rocaltrol -) 0.25 mcg PO DAILY [facility] Last Admin: 07/26/18 10:06 Dose: 0.25 mcg Febuxostat (Uloric -) 40 mg PO DAILY [facility] Last Admin: 07/26/18 10:06 Dose: 40 mg Ferrous Sulfate (Feosol -) 325 mg PO DAILY [facility] Last Admin: 07/26/18 10:06 Dose: 325 mg Furosemide (Lasix -) 80 mg PO DAILY [facility] Last Admin: 07/26/18 10:06 Dose: 80 mg Heparin Sodium (Porcine) (Heparin -) 5,000 unit SQ TID [facility] Last Admin: 07/26/18 15:18 Dose: 5,000 unit - Objective Vital Signs: Vital Signs Temperature 97.6 F 07/26/18 09:30 Pulse Rate 78 07/26/18 09:30 Respiratory Rate 18 07/26/18 09:30 Blood Pressure 124/74 07/26/18 09:30 O2 Sat by Pulse Oximetry (%) 98 07/25/18 20:00 Constitutional: Yes: No Distress, Anxious Eyes: Yes: Conjunctiva Clear HENT: Yes: Atraumatic Cardiovascular: Yes: Regular Rate and Rhythm, S1, S2 Respiratory: Yes: CTA Bilaterally, Diminished Gastrointestinal: Yes: Normal Bowel Sounds, Soft. No: Tenderness, Tenderness, Epigastrium, Tenderness, Rebound Musculoskeletal: Yes: Back Pain Edema: No Labs: CBC, BMP 07/26/18 07:00 07/26/18 07:00 INR, PTT INR 1.13 (0.83-1.09) H 07/24/18 23:50 Problem List - Problems (1) Retroperitoneal fluid collection Code(s): R18.8 - OTHER ASCITES (2) ESRD (end stage renal disease) Code(s): N18.6 - END STAGE RENAL DISEASE (3) Arterial atherosclerosis Code(s): I70.8 - ATHEROSCLEROSIS OF OTHER ARTERIES (4) Diabetes Code(s): E11.9 - TYPE 2 DIABETES MELLITUS WITHOUT COMPLICATIONS Qualifiers: Diabetes mellitus type: type 2
[2018-07-26 15:41] VITALS: BP 118/73; PULSE 83; TEMP 97.8
--- NOTE | 2018-07-26 16:11 | PN ---
Progress Note (short form) - Note Progress Note: remains afebrile feels well no complaints Vital Signs Period Temp Pulse Resp BP Sys/Lane Pulse Ox Last 24 Hr 97.6 F-98.9 F 78-90 18-20 109-125/67-80 98 cor-rrr lungs clear abd soft,nt ext no edema ct scans reviewed with radiologist- collection left abdomen is unchanged on both ct scans CBC, BMP 07/26/18 07:00 07/26/18 07:00 Microbiology 07/24/18 23:50 Blood - Peripheral Venous Blood Culture - Preliminary NO GROWTH OBTAINED AFTER 24 HOURS, INCUBATION TO CONTINUE FOR 4 DAYS. 07/24/18 23:50 Blood - Peripheral Venous Blood Culture - Preliminary NO GROWTH OBTAINED AFTER 24 HOURS, INCUBATION TO CONTINUE FOR 4 DAYS. a/p s/p recent left nephrectomy-fluid collection most likely postop d/w renal- patient to f/u with them and urologist will continue off antibiotics - no signs or symptoms of infection they will obtain PD fluid in am at dialysis for cell count and culture he will f/u with urology as needed Problem List - Problems (1) Fever Code(s): R50.9 - FEVER, UNSPECIFIED Qualifiers: Fever type: unspecified Qualified Code(s): R50.9 - Fever, unspecified (2) ESRD (end stage renal disease) Code(s): N18.6 - END STAGE RENAL DISEASE
--- NOTE | 2018-07-26 16:36 | PN ---
Progress Note (short form) - Note Progress Note: Pt care was transferred today, after Dr. Loyola morning rounds, to my service; case was reviewed with Dr. Tate. Abd/Pelvis CT scans findings were reviewed with Dr. Velazquez, Dr. Herbert -before and after Dr. Herbert reviewed patient's condition and CT scan reports with Dr. Devries ( at [facility]; per Dr. Devries CT scans findings are normal post-op and for a pt on PD). Dr. Jerez report was reviewed. Pt is afebrile since admission, has normal WBC; pt w/o complains, pt is feeling back to his baseline and wants to go home (pt's daughter is at bedside). Pt to be DC'ed home with f/u with PD center tomorrow and Dr. Devries in the next few days.
--- NOTE | 2018-07-26 17:00 | DS ---
Physical Examination Vital Signs: Vital Signs Temperature 97.8 F 07/26/18 14:40 Pulse Rate 83 07/26/18 14:40 Respiratory Rate 18 07/26/18 09:30 Blood Pressure 118/73 07/26/18 14:40 O2 Sat by Pulse Oximetry (%) 98 07/25/18 20:00 Findings/Remarks: See Dr. Loyola Progress note for ROS, PE, labs, CT scan report Labs: CBC, BMP 07/26/18 07:00 07/26/18 07:00 Discharge Summary Reason For Visit: FEVER Current Active Problems Fever (Acute) Retroperitoneal fluid collection (Acute) Status post nephrectomy (Acute) ESRD (end stage renal disease) (Chronic) PVD (peripheral vascular disease) (Chronic) Renal transplant, status post (Chronic) Procedures: Principal: Abd/Pelvis CT scans. CXR Hospital Course: Pt with known Hx/o ESRD, renal transplant, PD, recent left nephrectomy of [place] [facility] (for kidney mass) came to ER from PD center for fever (100.7) and leukocytosis and was admitted for further monitoring. Pt was seen by Renal (Dr. Thomas/ [place]), ID (Dr. Jerez), Sx (Dr. Velazquez). During hospital stay, off antibiotics, pt was afebrile, WBC was normal, CX were normal. Abd/ Pelvis scans findings were considered consistent with PD and recent left nephrectomy. Pt to be DC'ed home with f/u in AM with PD center and Dr. Herbert, and Dr. Devries ( at [facility] in the [place]) ANAND. Condition: Improved - Instructions Diet, Activity, Other Instructions: Resume diet To see Dr. Jaycob MICHEL (at [facility] in the [place]) Referrals: Celina Herbert MD [Primary Care Provider] - 1 Week (within a week) Tom Cutler MD [Staff Physician] - 1 Week (in 1-2 weeks) Disposition: HOME - Home Medications Comprehensive Discharge Medication List: Ambulatory Orders Atorvastatin Ca [Lipitor] 80 mg PO HS 01/31/13 Calcitriol [Calcitriol -] 0.25 mcg PO DAILY 07/25/18 Febuxostat [Uloric] 40 mg PO DAILY 07/25/18 Furosemide 80 mg PO DAILY 07/25/18
== END 2018-07-26 17:44 | disposition home or self-care (01) ==
LOC: JER 19:38 → JERBED 07-25 02:10 → J5S 07-25 05:44 → OBSVTOIN 07-26 12:02
PROVIDERS: ADMIT Internal Medicine; ATTEND Specialist
DX: R18.8 Other ascites (principal); R50.9 Fever, unspecified; Z94.0 Kidney transplant status; N18.9 Chronic kidney disease, unspecified; I95.9 Hypotension, unspecified; I70.8 Atherosclerosis of other arteries; E11.9 Type 2 diabetes mellitus without complications; N25.0 Renal osteodystrophy; D72.829 Elevated white blood cell count, unspecified; D50.9 Iron deficiency anemia, unspecified; M10.9 Gout, unspecified; E88.09 Other disorders of plasma-protein metabolism, not elsewhere classified
CPT/HCPCS: 36415; 71045-TC-FY; 74176-TC; 80048; 80053; 82728; 83540; 83550; 83735; 83970; 84100; 84466; 85025; 85027; 85044; 85610; 85730; 87040; 93005; 93010; 99285-25; G0378; J1644

== ENCOUNTER 2018-11-26 07:15 | Inpatient (IN) | payer BC, OTHER ==
--- NOTE | 2018-11-26 07:52 | PDOC ---
History of Present Illness - General Chief Complaint: Dialysis Shunt Problem Stated Complaint: SENTBY PCP,CATHETER REPLACEMENT Time Seen by Provider: 11/26/18 07:52 - History of Present Illness Initial Comments: 63 year old male with ESRD on PD and HTN presenting with failure of PD and worsening SOB/ weakness. Dr. Celina Castellon told the patient to come to the ED for dialysis catheter placement so the patient came in today. He states that he has been performing PD per the instructions given to him but he is feeling gradually more SOB and weak bilaterally. He can usually walk with his cane but cannot walk more than a 5-10 feet without getting SOB. Dr. Castellon also spoke to Dr. Alvarado to set up the catheter placement. 11/26/18 11:05 Past History - Past Medical History Allergies/Adverse Reactions: Allergies Allergy/AdvReac Type Severity Reaction Status Date / Time No Known Drug Allergies Allergy Verified 10/25/17 14:07 Home Medications: Ambulatory Orders Febuxostat [Uloric] 40 mg PO DAILY 07/25/18 Metoprolol Succinate 25 mg PO DAILY 11/26/18 Anemia: No Asthma: No Cancer: No Cardiac Disorders: Yes (stentsx2 2010) CVA: No COPD: No CHF: No Dementia: No Diabetes: Yes (IDDM) GI Disorders: No Disorders: No HTN: Yes Hypercholesterolemia: Yes Kidney Stones: No (KIDNEY TRANSPLANT) Liver Disease: No Seizures: No Thyroid Disease: No Other medical history: peritoneal dialysis - Surgical History Abdominal Surgery: No Appendectomy: No Cardiac Surgery: Yes (stents) Cholecystectomy: No Lung Surgery: No Neurologic Surgery: No Orthopedic Surgery: Yes (LEFT FEMUR FRACTURE) - Suicide/Smoking/Psychosocial Hx Smoking History: Never smoked Have you smoked in the past 12 months: No Hx Alcohol Use: No Drug/Substance Use Hx: No Substance Use Type: None Hx Substance Use Treatment: No Review of Systems - Review of Systems Constitutional: No: Chills, Diaphoresis, Fever HEENTM: No: Blurred Vision, Tearing Respiratory: Yes: Cough, Shortness of Breath, SOB with Exertion Cardiac (ROS): No: Chest Pain, Irregular Heart Rate, Lightheadedness, Palpitations ABD/GI: No: Diarrhea, Nausea, Vomiting : No: Burning, Dysuria, Discharge Integumentary: No: Erythema, Flushing, Lesions Neurological: Yes: Weakness. No: Numbness, Paresthesia, Tingling Psychiatric: No: Anxiety, Depression Hematologic/Lymphatic: No: Anemia, Blood Clots, Easy Bleeding *Physical Exam - Vital Signs Last Vital Signs Temp Pulse Resp BP Pulse Ox 98.4 F 88 20 161/101 H 96 11/26/18 07:28 11/26/18 07:28 11/26/18 07:28 11/26/18 07:28 11/26/18 07:28 - Physical Exam General Appearance: Yes: Nourished, Appropriately Dressed. No: Apparent Distress HEENT: positive: EOMI, LORENA, Normal ENT Inspection, Normal Voice Neck: positive: Trachea midline, Normal Thyroid, Supple. negative: Tender, Rigid Respiratory/Chest: negative: Chest Tender, Lungs Clear, Normal Breath Sounds ( bilateral lower lung field crackles), Respiratory Distress, Accessory Muscle Use Cardiovascular: positive: Regular Rhythm, Regular Rate Gastrointestinal/Abdominal: positive: Normal Bowel Sounds, Flat, Soft. negative : Tender Lymphatic: negative: Adenopathy, Tenderness Musculoskeletal: positive: Decreased Range of Motion (overall decreased ROm and weakness). negative: Normal Inspection Extremity: positive: Normal Capillary Refill, Normal Inspection, Normal Range of Motion. negative: Tender Integumentary: positive: Normal Color, Dry, Warm Neurologic: positive: Fully Oriented, Alert, Normal Mood/Affect, Normal Response. negative: Motor Strength 5/5 (3/5 globally) Moderate Sedation - Procedure Monitoring Vital Signs: Procedure Monitoring Vital Signs Temperature 98.4 F 11/26/18 07:28 Pulse Rate 88 11/26/18 07:28 Respiratory Rate 20 11/26/18 07:28 Blood Pressure 161/101 H 11/26/18 07:28 O2 Sat by Pulse Oximetry (%) 96 11/26/18 07:28 ED Treatment Course - LABORATORY CBC & Chemistry Diagram: 11/26/18 08:17 11/28/18 07:40 Medical Decision Making - Medical Decision Making 63 year old male with failed trial of PD presenting from Dr. Castellon care for placement of catheter for dialysis. Dr. Castellon was concerned that this patient is fluid overloaded and has been unsucessfulyl undergoing PD. Patient discussed with [facility] service, Dr. Castellon and Dr. Andrew. *DC/Admit/Observation/Transfer Diagnosis at time of Disposition: ESRD (end stage renal disease) Complications, dialysis, catheter, mechanical Qualifiers: Encounter type: initial encounter Qualified Code(s): T82.49XA - Other complication of vascular dialysis catheter, initial encounter - Discharge Dispostion Disposition: HOME Condition at time of disposition: Stable - Referrals - Patient Instructions - Post Discharge Activity
--- NOTE | 2018-11-26 08:20 | PDOC ---
Attending Attestation - Resident Resident Name: Joesph Perez - ED Attending Attestation I have performed the following: I have examined & evaluated the patient, The case was reviewed & discussed with the resident, I agree w/resident's findings & plan, Exceptions are as noted - HPI HPI: 11/26/18 08:19 63-year-old male with history of CAD disease status post 2 stents, diabetes, hypertension, hyperlipidemia, end-stage renal disease status post peritoneal dialysis arrives to the ED for dialysis catheter placement. The patient currently has no complaints. The patient was sent by Dr. Donato for admission. Case discussed with GIANLUCA Mckenzie. Pt is to be NPO and admit to hospitalist. - Physicial Exam PE: 11/26/18 08:19 GENERAL: Awake, alert, and fully oriented, in no acute distress HEAD: No signs of trauma EYES: EOMI, sclera anicteric, conjunctiva clear ENT: Auricles normal inspection, hearing grossly normal, Moist mucosa NECK: Normal ROM, supple, LUNGS: Breath sounds equal, clear to auscultation bilaterally. No wheezes, and no crackles HEART: Regular rate and rhythm, normal S1 and S2, no murmurs, rubs or gallops ABDOMEN: Soft, nontender, No guarding, no rebound. No masses. PD site c/d/i with no erythema. NEUROLOGICAL: Cranial nerves II through XII grossly intact. Normal speech SKIN: Warm, Dry, normal turgor, no rashes or lesions noted. - Medical Decision Making 11/26/18 08:20 Vital Signs Temp Pulse Resp BP Pulse Ox 98.4 F 88 20 161/101 H 96 11/26/18 07:28 11/26/18 07:28 11/26/18 07:28 11/26/18 07:28 11/26/18 07:28 Pt is NPO and to be admitted for dialysis catheter placement. Pre-op labs Admit to hospitalist. Surgery by Dr. Donato. *DC/Admit/Observation/Transfer Diagnosis at time of Disposition: ESRD (end stage renal disease) Complications, dialysis, catheter, mechanical Qualifiers: Encounter type: initial encounter Qualified Code(s): T82.49XA - Other complication of vascular dialysis catheter, initial encounter - Discharge Dispostion Condition at time of disposition: Stable Decision to Admit order: Yes - Referrals Referrals: Celina Herbert MD [Primary Care Provider] - - Patient Instructions - Post Discharge Activity
[2018-11-26 08:38] LABS: BASO % 0.6 % (0-2.0); EOS % 2.5 % (0-4.5); HEMATOCRIT 31.8 % (35.4-49); HEMOGLOBIN 10.6 GM/dL (11.7-16.9); MCHC 33.4 g/dl (32.0-35.9); MEAN CELL VOLUME 95.7 fl (80-96); MEAN PLT VOLUME 8.2 fl (7.5-11.1); MONO % 6.9 % (3.8-10.2); PLATELET COUNT 311 K/MM3 (134-434); RBC 3.32 M/mm3 (4.00-5.60); RDW 21.5 % (11.9-15.9); WHITE BLOOD COUNT 9.3 K/mm3 (4.0-10.0)
--- NOTE | 2018-11-26 08:40 | CONSULT ---
Addendum entered and electronically signed by Chris Mckenzie PA 11/26/18 09:11: He failed out-patient peritoneal dialysis and now needs hemodialysis. Also, I spoke with Dr. Celina Castellon and he will set up HD for today after PC insertion. Original Note: <Chris Mckenzie - Last Filed: 11/26/18 08:50> - Consultation REQUESTING PROVIDER: Sesar Garcia - Vascular Surgery CONSULT REQUEST: We have been asked to surgically evaluate this patient for malfunctioning PD catheter PCP: Celina Castellon HPI: Called to eval 63 yo man with PMHx as noted below. Patient well known to Dr. Garcia. Sent to [facility] ED for evaluation of his malfuntioning PD catheter. Last used on 11/23/18. Spoke with Dr. Garcia who pplans on taking him to the OR today for Permacatheter placement. Last meal eaten was dinner last night. Denies n/v/f/c, CP, palpitations, SOB or PITTMAN. PMHx: ESRD on PD, CAD, DM, HTN, Hyperlipidemia, DVT, PAD, Gout PSHx: Cardiac Stents x2 (2010), PD Catheter, Kidney transplant (17 years ago, non-functional), Left femur fx repair Home Meds: Metoprolol 25mg PO daily Atorvastatin Ca [Lipitor] 80 mg PO HS Calcitriol 0.25 mcg PO DAILY Febuxostat 40 mg PO DAILY Furosemide 80 mg PO DAILY Allergies: NKDA MARVIN: CONSTITUTIONAL: Absent: diaphoresis, generalized weakness, malaise, loss of appetite CARDIOVASCULAR: Absent: syncope, irregular heart rate, lightheadedness RESPIRATORY: Absent: cough, wheezing, stridor, hemoptysis GASTROINTESTINAL:Absent: constipation, melena, hematochezia GENITOURINARY: Absent: dysuria, frequency, urgency, hesitancy, flank pain, genital pain MUSCULOSKELETAL: Absent: myalgia, arthralgia, joint swelling, back pain, neck pain SKIN: Absent: rash, itching, pallor HEMATOLOGIC/IMMUNOLOGIC: Absent: easy bleeding, easy bruising, lymphadenopathy NEUROLOGIC: Absent: headache, focal weakness, paresthesias, unsteady gait, seizure, mental status changes, PSYCHIATRIC: Absent: anxiety, depression, suicidal or homicidal ideation, hallucinations. PE: GENERAL: Awake, alert, and fully oriented, in no acute distress. HEAD: Normal with no signs of trauma. EYES: PERRL, sclera anicteric, conjunctiva clear. NECK: Normal ROM, supple without lymphadenopathy, JVD, or masses. LUNGS: CTA bilat HEART: RRR. ABD: Soft, nt, nd, PD cath in place. Normoactive bs x4, no guarding, no rebound , no masses. MUSCULOSKELETAL: No CVA tenderness. UE: 2+ pulses, warm, well-perfused. No cyanosis. Cap refill <2 seconds. No peripheral edema. LE: 2+ pulses, warm, well-perfused. No calf tenderness. No peripheral edema. NEURO: Normal speech, gait not observed. PSYCH: Cooperative. Good eye contact. Appropriate mood and affect. SKIN: Warm, dry, normal turgor, no rashes or lesions noted. Last Vital Signs Temp Pulse Resp BP Pulse Ox 98.4 F 88 20 161/101 H 96 11/26/18 07:28 11/26/18 07:28 11/26/18 07:28 11/26/18 07:28 11/26/18 07:28 Problem List - Problems (1) Complications, dialysis, catheter, mechanical Assessment/Plan: Admit to Hospitalist Keep NPO Pre-op labs: cbc, bmp, coags EKG CXR Going to OR today for Permacatheter Insertion. Consult Dr. Celina Castellon as patient hasn't had dialysis since 11/23/18 Above plan discussed with Dr. Garcia and agrees. Code(s): T82.49XA - OTH COMPLICATION OF VASCULAR DIALYSIS CATHETER, INIT ENCNTR Qualifiers: Encounter type: initial encounter Qualified Code(s): T82.49XA - Other complication of vascular dialysis catheter, initial encounter (2) ESRD (end stage renal disease) Code(s): N18.6 - END STAGE RENAL DISEASE (3) Diabetes Code(s): E11.9 - TYPE 2 DIABETES MELLITUS WITHOUT COMPLICATIONS Qualifiers: Diabetes mellitus type: type 2 Visit type - Case Type Case Type: ED Admission - Emergency Emergency Visit: Yes Care time: The patient presented to the Emergency Department on the above date and was hospitalized for further evaluation of their emergent condition. - New patient This patient is new to me today: Yes Date on this admission: 11/26/18 <Sesar Garcia - Last Filed: 11/26/18 12:08> - Consultation REQUESTING PROVIDER: CONSULT REQUEST: We have been asked to surgically evaluate this patient for ( specify). PCP:Yudith Cutler HISTORY OF PRESENT ILLNESS: PMHx: PSHx: Home Medications Medication Instructions Recorded Febuxostat [Uloric] 40 mg PO DAILY 07/25/18 Metoprolol Succinate 25 mg PO DAILY 11/26/18 Allergies Allergy/AdvReac Type Severity Reaction Status Date / Time No Known Drug Allergies Allergy Verified 10/25/17 14:07 REVIEW OF SYSTEMS: CONSTITUTIONAL: Absent: fever, chills, diaphoresis, generalized weakness, malaise, loss of appetite, weight change CARDIOVASCULAR: Absent: chest pain, syncope, palpitations, irregular heart rate, lightheadedness , peripheral edema RESPIRATORY: Absent: cough, shortness of breath, dyspnea with exertion, wheezing, stridor, hemoptysis GASTROINTESTINAL: Absent: abdominal pain, abdominal distension, nausea, vomiting, diarrhea, constipation, melena, hematochezia GENITOURINARY: Absent: dysuria, frequency, urgency, hesitancy, hematuria, flank pain, genital pain MUSCULOSKELETAL: Absent: myalgia, arthralgia, joint swelling, back pain, neck pain SKIN: Absent: rash, itching, pallor HEMATOLOGIC/IMMUNOLOGIC: Absent: easy bleeding, easy bruising, lymphadenopathy NEUROLOGIC: Absent: headache, focal weakness, paresthesias, dizziness, unsteady gait, seizure, mental status changes, bladder or bowel incontinence PSYCHIATRIC: Absent: anxiety, depression, suicidal or homicidal ideation, hallucinations. PHYSICAL EXAM: GENERAL: Awake, alert, and fully oriented, in no acute distress. HEAD: Normal with no signs of trauma. EYES: PERRL, sclera anicteric, conjunctiva clear. NECK: Normal ROM, supple without lymphadenopathy, JVD, or masses. LUNGS: Clear to auscultation bilat anteriorly. No wheezes, and no crackles. No accessory muscle use. HEART: Regular rate and rhythm. No murmurs ABDOMEN: Soft, nontender, not distended, normoactive bowel sounds, no guarding, no rebound, no masses. No organomegaly. MUSCULOSKELETAL: Normal ROM at all joints. No bony deformities or tenderness. No CVA tenderness. UPPER EXTREMITIES: 2+ pulses, warm, well-perfused. No cyanosis. Cap refill <2 seconds. No peripheral edema. LOWER EXTREMITIES: 2+ pulses, warm, well-perfused. No calf tenderness. No peripheral edema. NEUROLOGICAL: Normal speech, gait not observed. PSYCH: Cooperative. Good eye contact. Appropriate mood and affect. SKIN: Warm, dry, normal turgor, no rashes or lesions noted. Vital Signs Temperature 98.4 F 11/26/18 07:28 Pulse Rate 88 11/26/18 07:28 Respiratory Rate 20 11/26/18 07:28 Blood Pressure 161/101 H 11/26/18 07:28 O2 Sat by Pulse Oximetry (%) 96 11/26/18 07:28 Lab Results WBC 9.3 K/mm3 (4.0-10.0) 11/26/18 08:17 RBC 3.32 M/mm3 (4.00-5.60) L 11/26/18 08:17 Hgb 10.6 GM/dL (11.7-16.9) L 11/26/18 08:17 Hct 31.8 % (35.4-49) L 11/26/18 08:17 MCV 95.7 fl (80-96) 11/26/18 08:17 MCHC 33.4 g/dl (32.0-35.9) 11/26/18 08:17 RDW 21.5 % (11.9-15.9) H 11/26/18 08:17 Plt Count 311 K/MM3 (134-434) 11/26/18 08:17 Sodium 134 mmol/L (136-145) L 11/26/18 08:17 Potassium 5.1 mmol/L (3.5-5.1) 11/26/18 08:17 Chloride 95 mmol/L (98-107) L 11/26/18 08:17 Carbon Dioxide 22 mmol/L (21-32) 11/26/18 08:17 Anion Gap 17 MMOL/L (8-16) H 11/26/18 08:17 BUN 139 mg/dL (7-18) H* 11/26/18 08:17 Creatinine 10.4 mg/dL (0.55-1.3) H* 11/26/18 08:17 Random Glucose 99 mg/dL (74-106) 02/18/19 08:17 Calcium 5.8 mg/dL (8.5-10.1) L* 11/26/18 08:17 Blood Type O POSITIVE 11/26/18 08:17 Antibody Screen Negative 11/26/18 08:17 INR 1.13 (0.83-1.09) H 11/26/18 08:17 History reviewed and patient examined. I have not previously cared for this patient. He has had multiple Permacaths and AV access procedures in the past. He is right handed. He has distended veins over the right chest wall suggestive of central vein occlusion. Plan Permacath Placement from right side if veins can be traversed.
[2018-11-26 09:06] LABS: ALK PHOS 130 U/L (45-117); ANION GAP 17 MMOL/L (8-16); BILIRUBIN,TOTAL 0.5 mg/dL (0.2-1); CHLORIDE 95 mmol/L (98-107); CO2 22 mmol/L (21-32); GLUCOSE,RANDOM 99 mg/dL (74-106); POTASSIUM 5.1 mmol/L (3.5-5.1); SGOT/AST 7 U/L (15-37); SGPT/ALT 9 U/L (13-61); SODIUM 134 mmol/L (136-145)
[2018-11-26 09:11] LABS: INR 1.13 (0.83-1.09); PROTHROMBIN TIME (PATIENT) 13.3 SEC (9.7-13.0)
[2018-11-26 09:13] LABS: BLOOD UREA NITROGEN 139 mg/dL (7-18)
[2018-11-26 09:14] LABS: CALCIUM 5.8 mg/dL (8.5-10.1); CREATININE 10.4 mg/dL (0.55-1.3)
[2018-11-26] MEDS ORDERED: LIDOCAINE HCL 1%, 10 MG/ML (20ML VIAL) ONE (10:11)
[2018-11-26] MEDS ORDERED: EPOETIN ALFA 10,000 UNIT/1 ML VIAL SQ SCH (10:25)
--- NOTE | 2018-11-26 10:40 | CONSULT ---
Consult Consult Specialty:: Nephrology ( Drs. Herbert/ William) Referred by:: dr. 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 He is being w/u for Renal transplant at [facility], but on hold temporarily because of his recent Dx of renal Cell CA. The patient is extremely short of breath, and can not walk even 20 steps without getting short of breath. The patient needs to be switched to HD after placement of a Permacath. - History of Present Illness Chief Complaint: short of breath, weakness, lack of appetite. - History Source History Provided By: Patient, Family Member - Past Medical History Cardio/Vascular: Yes: HTN Renal/: Yes: Renal Failure, Renal Inusuff Endocrine: Yes: Diabetes Mellitus - Past Surgical History Past Surgical History: Yes: Nephrectomy (end of June 2018) - Alcohol/Substance Use Hx Alcohol Use: No - Smoking History Smoking history: Never smoked Have you smoked in the past 12 months: No - Social History Usual Living Arrangement: With Child ADL: Independent History of Recent Travel: No Home Medications - Allergies Allergies/Adverse Reactions: Allergies Allergy/AdvReac Type Severity Reaction Status Date / Time No Known Drug Allergies Allergy Verified 10/25/17 14:07 - Home Medications Home Medications: Ambulatory Orders Febuxostat [Uloric] 40 mg PO DAILY 07/25/18 Metoprolol Succinate 25 mg PO DAILY 11/26/18 Review of Systems - Review of Systems Constitutional: reports: Loss of Appetite, Weakness Eyes: reports: No Symptoms Neck: reports: No Symptoms Cardiovascular: reports: Edema, Shortness of Breath Respiratory: reports: Orthopnea, SOB, SOB on Exertion Gastrointestinal: reports: No Symptoms, Other (the patient has a PD catheter) Genitourinary: reports: Other (The patient is totally anuric.) Musculoskeletal: reports: Back Pain Integumentary: reports: No Symptoms Neurological: reports: No Symptoms Psychiatric: reports: No Symptoms, Anxiety Physical Exam Vital Signs: Vital Signs Temperature 98.4 F 11/26/18 07:28 Pulse Rate 88 11/26/18 07:28 Respiratory Rate 20 11/26/18 07:28 Blood Pressure 161/101 H 11/26/18 07:28 O2 Sat by Pulse Oximetry (%) 96 11/26/18 07:28 Constitutional: Yes: Anxious, Moderate Distress HENT: Yes: Normocephalic Neck: Yes: Trachea Midline Cardiovascular: Yes: Tachycardia, S1, S2 Respiratory: Yes: CTA Bilaterally, Diminished Gastrointestinal: Yes: Soft, Distention (PD catheter in place. 'Acsites" iatrogenic from the presence of PD fluid.) Renal/: Yes: Anuria. No: Bladder Distention, CVA Tenderness - Left, CVA Tenderness - Right Labs: CBC, BMP 11/26/18 08:17 11/26/18 08:17 Problem List - Problems (1) Uremia Code(s): N19 - UNSPECIFIED KIDNEY FAILURE (2) CHF (congestive heart failure) Code(s): I50.9 - HEART FAILURE, UNSPECIFIED (3) ESRD (end stage renal disease) Code(s): N18.6 - END STAGE RENAL DISEASE (4) Status post nephrectomy Code(s): Z90.5 - ACQUIRED ABSENCE OF KIDNEY (5) Arterial atherosclerosis Code(s): I70.8 - ATHEROSCLEROSIS OF OTHER ARTERIES (6) Diabetes Code(s): E11.9 - TYPE 2 DIABETES MELLITUS WITHOUT COMPLICATIONS Qualifiers: Diabetes mellitus type: type 2 (7) PVD (peripheral vascular disease) Code(s): I73.9 - PERIPHERAL VASCULAR DISEASE, UNSPECIFIED Assessment/Plan 63-year-old male with history of ESRD, s/p renal Transplant rejection, was on APD, but has failed the PD modality as 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 He is being w/u for Renal transplant at [facility], but on hold temporarily because of his recent Dx of renal Cell CA. The patient is extremely short of breath, and can not walk even 20 steps without getting short of breath. The patient needs to be switched to HD after placement of a Permacath. Worsening Azotemia, and developing Uremia...due to treatment modality failure of PD as renal replacement therapy. Congestive Heart failure, in this patient with ESRD, and Anuria, due to UF failure on PD. PLAN: Permacath placement Switch to HD. Placement in outpatient Hd unit. Need to place him in [facility] in the [place]. ( commonly called [place] [id number]) [address] [facility]. Tel. [phone]. ( I spoke to Dr. Roman there. He will accept the patient when he is stable) Thank you. Celina Herbert MD
[2018-11-26] MEDS ORDERED: MIDAZOLAM HCL 2 MG/2 ML SINGLE DOSE VIAL ONE (10:50)
[2018-11-26] MEDS ORDERED: ceFAZolin SODIUM 1 GM VIAL IVPB ONE (11:00)
[2018-11-26] MEDS ORDERED: ceFAZolin SODIUM 1 GM VIAL ONE (11:02)
[2018-11-26] MEDS ORDERED: LIDOCAINE HCL 1%, 10 MG/ML (50 mL VIAL) IJ ONE ×2 (11:04)
[2018-11-26] MEDS ORDERED: PROPOFOL 20 ML ONE ×2 (11:38)
--- NOTE | 2018-11-26 11:41 | HP ---
Admitting History and Physical - Primary Care Physician PCP: Yudith Cutler - Admission Chief Complaint: SOB, dialisys access History of Present Illness: 63 year old male with ESRD on PD and HTN presenting with failure of PD and worsening SOB/ weakness. Dr. Celina Castellon told the patient to come to the ED for dialysis catheter placement so the patient came in today. He states that he has been performing PD per the instructions given to him but he is feeling gradually more SOB and weak bilaterally. He can usually walk with his cane but cannot walk more than a 5-10 feet without getting SOB. Dr. Castellon also spoke to Dr. Garcia to set up the catheter placement. pt seen in ER, daughter and son at bedside PMH PSH [facility] meds d/w pt and family History Source: Patient, Family Member, Medical Record Limitations to Obtaining History: No Limitations - Past Medical History Cardiovascular: Yes: CAD (s/p stent), CHF, HTN Renal/: Yes: Renal Failure, Renal Inusuff Heme/Onc: Yes: Cancer (renal) Endocrine: Yes: Diabetes Mellitus - Past Surgical History Past Surgical History: Yes: Nephrectomy (renal CA; end of June 2018) - Smoking History Smoking history: Never smoked Have you smoked in the past 12 months: No - Alcohol/Substance Use Hx Alcohol Use: No History of Substance Use: reports: None - Social History Usual Living Arrangement: Yes: Alone ADL: Independent History of Recent Travel: No Home Medications - Allergies Allergies/Adverse Reactions: Allergies Allergy/AdvReac Type Severity Reaction Status Date / Time No Known Drug Allergies Allergy Verified 10/25/17 14:07 - Home Medications Home Medications: Ambulatory Orders Febuxostat [Uloric] 40 mg PO DAILY 07/25/18 Metoprolol Succinate 25 mg PO DAILY 11/26/18 Family Disease History - Family Disease History Family History: Unremarkable Review of Systems - Review of Systems Constitutional: denies: Chills, Fever Eyes: denies: Blind Spots, Blurred Vision HENT: denies: Difficult Swallowing Neck: denies: Decreased ROM, Tenderness Cardiovascular: reports: Shortness of Breath. denies: Chest Pain, Palpitations Respiratory: reports: SOB, SOB on Exertion. denies: Cough, Hemoptysis, Orthopnea, Wheezing Gastrointestinal: denies: Abdominal Pain, Constipation, Nausea, Rectal Bleeding , Vomiting, Vomiting Blood Genitourinary: denies: Dysuria, Flank Pain Musculoskeletal: denies: Back Pain, Extremity Pain Integumentary: denies: Blister Neurological: denies: Change in LOC, Change in Speech, Confusion, Dizziness Hematology/Lymphatic: denies: Easily Bruised, Excessive Bleeding Psychiatric: denies: Altered Sleep Pattern, Anxiety, Depression, Suicidal Physical Examination Vital Signs: Vital Signs Temperature 98.4 F 11/26/18 07:28 Pulse Rate 88 11/26/18 07:28 Respiratory Rate 20 11/26/18 07:28 Blood Pressure 161/101 H 11/26/18 07:28 O2 Sat by Pulse Oximetry (%) 96 11/26/18 07:28 Constitutional: Yes: No Distress, Calm Eyes: Yes: Conjunctiva Clear HENT: Yes: Atraumatic Neck: Yes: Supple Cardiovascular: Yes: Regular Rate and Rhythm Respiratory: Yes: Diminished Gastrointestinal: Yes: Soft, Other (abdominal PD catheter). No: Tenderness Renal/: No: CVA Tenderness - Left, CVA Tenderness - Right, Hematuria Musculoskeletal: No: Joint Stiffness, Joint Swelling Extremities: No: Cold, Cool, Cyanosis Edema: No Integumentary: No: Rash Neurological: Yes: WNL, Alert, Oriented ...Motor Strength: WNL Psychiatric: Yes: WNL, Alert, Oriented. No: Agitated, Suicidal Ideation Labs: CBC, BMP 11/26/18 08:17 11/26/18 08:17 Imaging - Results Chest X-ray: Report Reviewed Other: Report Reviewed Assessment/Plan 63 year old male with ESRD on PD and HTN presenting with failure of PD and worsening SOB/ weakness. Dr. Celina Castellon told the patient to come to the ED for dialysis catheter placement - to be inserted by vascular sx dr Garcia also pt to be seen by cardiology and pulmonary (abNL CXR) HTN, DM control falls pfx dialsysis per renal d/w pt and staff d/w pt's family at bedside
--- NOTE | 2018-11-26 12:02 | OP ---
Operative Note - Note: Operative Date: 11/26/18 Pre-Operative Diagnosis: ESRD Operation: Placement Permacath. Venogram SVC. 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
--- NOTE | 2018-11-26 12:11 | EKG ---
Test Reason : Blood Pressure : / mmHG Vent. Rate : 077 BPM Atrial Rate : 077 BPM P-R Int : 144 ms QRS Dur : 116 ms QT Int : 442 ms P-R-T Axes : 046 -38 068 degrees QTc Int : 500 ms NORMAL SINUS RHYTHM ? BASELINE ARTIFACT LEFT AXIS DEVIATION RIGHT BUNDLE BRANCH BLOCK INFERIOR INFARCT (CITED ON OR BEFORE 25-JUL-2018) ANTERIOR INFARCT (CITED ON OR BEFORE 25-JUL-2018) ABNORMAL ECG WHEN COMPARED WITH ECG OF 25-JUL-2018 02:45, BASELINE ARTIFACTS ARE SEEN Confirmed by CONNOR MCPHERSON MD ([id number]) on 11/26/2018 12:11:27 PM Referred By: Confirmed By:CONNOR MCPHERSON MD
[2018-11-26] MEDS ORDERED: EPOETIN ALFA 10,000 UNIT/1 ML VIAL IVPUSH ONE (15:15)
--- NOTE | 2018-11-26 16:17 | CON.CARD ---
Consult Consult Specialty:: Cardiology Referred by:: Omayra Reason for Consultation:: Volume overload - History of Present Illness Chief Complaint: SOB History of Present Illness: 63 year old male with a pmhx of ESRD s/p renal transplant s/p rejection and on peritoneal dialysis, CAD s/p 2 stents at [facility], dm, hld, and htn who presents with worsening sob and fluid retention. No chest pain. No palpitations. + orthopnea. Recent lap nephrectomy of [place] kidney. Dx with renal Cell CA recently. - History Source History Provided By: Patient, Medical Record - Past Medical History Cardio/Vascular: Yes: HTN Renal/: Yes: Renal Failure, Renal Inusuff Endocrine: Yes: Diabetes Mellitus - Past Surgical History Past Surgical History: Yes: Nephrectomy (end of June 2018) - Alcohol/Substance Use Hx Alcohol Use: No - Smoking History Smoking history: Never smoked Have you smoked in the past 12 months: No - Social History Usual Living Arrangement: With Child ADL: Independent History of Recent Travel: No Home Medications - Allergies Allergies/Adverse Reactions: Allergies Allergy/AdvReac Type Severity Reaction Status Date / Time No Known Drug Allergies Allergy Verified 10/25/17 14:07 - Home Medications Home Medications: Ambulatory Orders Febuxostat [Uloric] 40 mg PO DAILY 07/25/18 Metoprolol Succinate 25 mg PO DAILY 11/26/18 Vital Signs: Vital Signs Temperature 98.4 F 11/26/18 13:40 Pulse Rate 80 11/26/18 14:15 Respiratory Rate 18 11/26/18 14:15 Blood Pressure 161/102 H 11/26/18 14:15 O2 Sat by Pulse Oximetry (%) 98 11/26/18 13:00 Constitutional: Yes: No Distress Neck: Yes: Supple Respiratory: Yes: Diminished (bases) Gastrointestinal: Yes: Soft, Distention Cardiovascular: Yes: Regular Rate and Rhythm JVD: Yes Carotid Bruit: No PMI: Non-Displaced Heart Sounds: Yes: S1, S2 Edema: No - Other Data Labs, Other Data: CBC, BMP 11/26/18 08:17 11/26/18 08:17 INR, PTT INR 1.13 (0.83-1.09) H 11/26/18 08:17 Imaging - Results Chest X-ray: Report Reviewed EKG: Image Reviewed Assessment/Plan 63 year old male with a pmhx of ESRD s/p renal transplant s/p rejection and on peritoneal dialysis, CAD s/p 2 stents at [facility], dm, hld, and htn who presents with worsening sob and fluid retention. No chest pain. No palpitations. + orthopnea. Recent lap nephrectomy of [place] kidney. Dx with renal Cell CA recently. EKG: sinus rhythm with lad, inferior and anterior infarct pattern 1) Volume overloaded due renal failure and PD not sufficient Starting HD today Permacath placed today and no cardiac contraindication to this procedure. HD as per renal team 2) CAD On low dose metoprolol Need to clarify his outpt records regarding statins. Also says he was stopped from aspirin and plavix due to bleeding issues. Will clarify
[2018-11-26] MEDS: oxyCODONE HCL 5 MG TABLET PO PRN (18:44)
[2018-11-26] MEDS: ACETAMINOPHEN 325 MG TABLET (FP) PO PRN (18:45)
--- NOTE | 2018-11-26 19:53 | OP ---
DATE OF OPERATION: 11/26/2018 SURGEON: Sesar Lawrence M.D. PROCEDURE: Placement of PermCath with venogram of superior vena cava and venoplasty of superior vena cava. PREOPERATIVE DIAGNOSIS: End-stage renal disease. 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 ANESTHESIA: Fractional. ANESTHESIOLOGIST: Nacho Regalado M.D. OPERATIVE FINDINGS: There were patent veins in the right neck, coalescing in the internal jugular vein which occluded at the junction with the superior vena cava. OPERATIVE PROCEDURE: Following routine patient identification with side and site verification, intravenous sedation was established. The right neck and chest were prepped with ChloraPrep. Using real-time duplex imaging, an external jugular vein branch was identified in the right neck. Lidocaine was infiltrated in the skin over the vein, it was cannulated with a micropuncture needle. A wire was passed proximally but met resistance at the base of the neck. A catheter was advanced over the wire and venography performed through the catheter which revealed occlusion of the patent branch with an area of patent internal jugular vein at the level of the clavicle which then occluded at the superior vena cava. Under road mapping, the internal jugular vein was cannulated with a micropuncture needle and then a wire catheter was placed into the vessel. A 5 Mongolian sheath was then exchanged over a wire. wire and catheter were then advanced to the point of occlusion and into the occluded segment. The wire and catheter were then advanced into the right atrium through the occlusion. Blood was returned to the catheter and contrast injected to confirm intravascular placement. The tract was then dilated with a 3 mm balloon. A Berenstein catheter was then advanced over the wire, and the wire was exchanged for a long, stiff glidewire, which was advanced through the right atrium into the inferior vena cava. The trace around the wire was then dilated with a 6-mm balloon, and then the introducer dilator of the PermCath was passed into the superior vena cava. Additional Xylocaine was infiltrated in the chest wall, and a stab wound made. A 23-cm tip to cuff PermCath was advanced with a tunneler from chest to neck. Tip of the catheter was then passed through the introducer and positioned in the right atrium. The introducer was peeled away leaving the catheter tip in place. Blood was aspirated from both lumens which were then filled with separate saline solution. The neck wound was closed with subcuticular sutures of 3-0 Vicryl, and the catheter was sutured to the skin at the exit site with 3-0 nylon. Sterile dressings were applied. The patient was taken to the recovery room in stable condition for a chest x-ray. SESAR LAWRENCE M.D. [id number]
--- NOTE | 2018-11-27 08:18 | PN ---
Progress Note, Physician Chief Complaint: s/p R permacath placement CXR no pneumothorax; CHF and R sided pseudotumor; no CP; less SOB dialysed per renal pulm eval cardio eval - Current Medication List Current Medications: Active Medications Acetaminophen (Tylenol -) 650 mg PO Q4H PRN PRN Reason: FEVER Acetaminophen (Tylenol -) 325 mg PO Q4H PRN PRN Reason: PAIN LEVEL 1-5 Stop: 11/29/18 12:48 Last Admin: 11/26/18 18:45 Dose: 325 mg Epoetin Agustín (Procrit -) 10,000 unit SQ ONCE ONE Stop: 11/27/18 21:33 Febuxostat (Uloric -) 40 mg PO DAILY OZIEL Metoprolol Succinate (Toprol Xl -) 25 mg PO DAILY OZIEL Oxycodone HCl (Roxicodone -) 5 mg PO Q4H PRN PRN Reason: PAIN LEVEL 1- 5 Last Admin: 11/26/18 18:44 Dose: 5 mg - Objective Vital Signs: Vital Signs Temperature 99.1 F 11/27/18 06:06 Pulse Rate 99 H 11/27/18 06:06 Respiratory Rate 18 11/27/18 06:06 Blood Pressure 144/71 11/27/18 06:06 O2 Sat by Pulse Oximetry (%) 98 11/26/18 21:00 Constitutional: Yes: No Distress, Calm Eyes: Yes: Conjunctiva Clear HENT: Yes: Atraumatic Neck: Yes: Supple Cardiovascular: Yes: Regular Rate and Rhythm Respiratory: Yes: CTA Bilaterally Gastrointestinal: Yes: Soft. No: Tenderness Genitourinary: No: CVA Tenderness - Left, CVA Tenderness - Right Musculoskeletal: No: Joint Stiffness, Joint Swelling Extremities: No: Cold, Cool, Cyanosis Edema: No Integumentary: No: Rash, Venous Stasis Changes Neurological: Yes: WNL, Alert, Oriented ...Motor Strength: WNL Psychiatric: Yes: WNL, Alert, Oriented. No: Agitated, Suicidal Ideation Labs: CBC, BMP 11/26/18 08:17 11/26/18 08:17 INR, PTT INR 1.13 (0.83-1.09) H 11/26/18 08:17 - ....Imaging EKG: Report Reviewed Assessment/Plan 63 year old male with ESRD on PD and HTN presenting with failure of PD and worsening SOB/ weakness. Dr. Celina Castellon told the patient to come to the ED for dialysis catheter placement - to be inserted by vascular sx dr Garcia also pt to be seen by cardiology and pulmonary (abNL CXR); f/u CXR if does not clear will check chest CT HTN, DM control falls pfx dialsysis per renal / vascular catheter; remove PD per renal d/w pt and staff
--- NOTE | 2018-11-27 09:38 | PN ---
Progress Note (short form) - Note Progress Note: 63yo M s/p permacath placement, pt seen and examined at bedside. Pt denies any pain or swelling around permacath. Pt had dialysis yesterday. Last Vital Signs Temp Pulse Resp BP Pulse Ox 99.1 F 99 H 18 144/71 98 11/27/18 06:06 11/27/18 06:06 11/27/18 06:06 11/27/18 06:06 11/26/18 21:00 CBC, BMP 11/26/18 08:17 11/26/18 08:17 PE: Gen: A&O x3 Resp: breathing comfortably Chest: Rt permacath in place with no erythema, old blood noted on dressing. Problem List - Problems (1) ESRD (end stage renal disease) Assessment/Plan: Plan -follow up with Dr. Garcia in 2 weeks as outpatient Code(s): N18.6 - END STAGE RENAL DISEASE
--- NOTE | 2018-11-27 09:54 | PN ---
Progress Note, Physician Chief Complaint: The patient seen in his room. For second hemo-dialysis today. Feeling better. Still having some myoclonic like twitches. Less short of breath now. 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 The patient has recent lap Nehrectomy for hypernephroma in his [place] kidney. He is being w/u for Renal transplant at [facility], but on hold temporarily because of his recent Dx of renal Cell CA. The patient is extremely short of breath, and can not walk even 20 steps without getting short of breath. The patient was switched to HD after placement of a Permacath. Now, he is awaiting placement in an outpatient HD center. - Current Medication List Current Medications: Active Medications Acetaminophen (Tylenol -) 650 mg PO Q4H PRN PRN Reason: FEVER Acetaminophen (Tylenol -) 325 mg PO Q4H PRN PRN Reason: PAIN LEVEL 1-5 Stop: 11/29/18 12:48 Last Admin: 11/26/18 18:45 Dose: 325 mg Epoetin Agustín (Procrit -) 10,000 unit SQ ONCE ONE Stop: 11/27/18 21:33 Febuxostat (Uloric -) 40 mg PO DAILY OZIEL Metoprolol Succinate (Toprol Xl -) 25 mg PO DAILY OZIEL Oxycodone HCl (Roxicodone -) 5 mg PO Q4H PRN PRN Reason: PAIN LEVEL 1- 5 Last Admin: 11/26/18 18:44 Dose: 5 mg - Objective Vital Signs: Vital Signs Temperature 99.1 F 11/27/18 06:06 Pulse Rate 99 H 11/27/18 06:06 Respiratory Rate 18 11/27/18 06:06 Blood Pressure 144/71 11/27/18 06:06 O2 Sat by Pulse Oximetry (%) 98 11/26/18 21:00 Constitutional: Yes: Anxious, Mild Distress, Pallor Eyes: Yes: Conjunctiva Clear Neck: Yes: Trachea Midline Cardiovascular: Yes: Pulse Irregular, S1, S2 Respiratory: Yes: CTA Bilaterally, Diminished, Rales Gastrointestinal: Yes: Normal Bowel Sounds, Soft Genitourinary: Yes: Anuria Extremities: Yes: Other (Minimal Rt arm swelling. Permacath in the right IJ.) Edema: Yes Edema: RUE: Trace Neurological: Yes: Alert, Oriented Labs: CBC, BMP 11/26/18 08:17 11/26/18 08:17 INR, PTT INR 1.13 (0.83-1.09) H 11/26/18 08:17 Problem List - Problems (1) Uremia Code(s): N19 - UNSPECIFIED KIDNEY FAILURE (2) CHF (congestive heart failure) Code(s): I50.9 - HEART FAILURE, UNSPECIFIED (3) ESRD (end stage renal disease) Code(s): N18.6 - END STAGE RENAL DISEASE (4) Status post nephrectomy Code(s): Z90.5 - ACQUIRED ABSENCE OF KIDNEY (5) Arterial atherosclerosis Code(s): I70.8 - ATHEROSCLEROSIS OF OTHER ARTERIES (6) Diabetes Code(s): E11.9 - TYPE 2 DIABETES MELLITUS WITHOUT COMPLICATIONS Qualifiers: Diabetes mellitus type: type 2 (7) PVD (peripheral vascular disease) Code(s): I73.9 - PERIPHERAL VASCULAR DISEASE, UNSPECIFIED Assessment/Plan 63-year-old male with history of ESRD, s/p renal Transplant rejection, was on APD, 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 The patient has recent lap nehrectomy for hypernephroma in his [place] kidney. He is being w/u for Renal transplant at [facility], but on hold temporarily because of his recent Dx of renal Cell CA. The patient is extremely short of breath, and can not walk even 20 steps without getting short of breath. Received HD yesterday throgh Right IJ Permacath. Worsening Azotemia, and developing Uremia...due to treatment modality failure of PD as renal replacement therapy. Congestive Heart failure, in this patient with ESRD, and Anuria, due to UF failure on PD. PLAN: Will do dialysis again today. Orders reviewed with the RN. Placement in outpatient HD unit. Need to place him in [facility] unit in the [place]. ( commonly called [place] [id number]) [address] [facility]. Tel. [phone]. ( I spoke to Dr. Roman there, who had accepted the patient when he is stable) Thank you. Celina Herbert MD
--- NOTE | 2018-11-27 10:29 | PN ---
Progress Note, Physician Chief Complaint: The patient appears comfortable at the time of exam. He has no SOB at rest and denies chest pain or palpitation. History of Present Illness: 63 year old man with a PMHx of ESRD s/p failed renal transplant and on peritoneal dialysis, CAD s/p 2 stents at [facility], HTN, DM, HLD who presents with worsening SOB and fluid retention. No symptoms of angina. No palpitations. + orthopnea. Recent lap nephrectomy of [place] kidney. Dx with renal Cell CA recently. EKG: sinus rhythm with lad, inferior and anterior infarct pattern The patient received first hemodialysis 11/26/2018 with improved dyspnea. No physical signs of fluid overload today on exam. - Current Medication List Current Medications: Active Medications Acetaminophen (Tylenol -) 650 mg PO Q4H PRN PRN Reason: FEVER Acetaminophen (Tylenol -) 325 mg PO Q4H PRN PRN Reason: PAIN LEVEL 1-5 Stop: 11/29/18 12:48 Last Admin: 11/26/18 18:45 Dose: 325 mg Epoetin Agustín (Procrit -) 10,000 unit SQ ONCE ONE Stop: 11/27/18 21:33 Febuxostat (Uloric -) 40 mg PO DAILY OZIEL Metoprolol Succinate (Toprol Xl -) 25 mg PO DAILY OZIEL Oxycodone HCl (Roxicodone -) 5 mg PO Q4H PRN PRN Reason: PAIN LEVEL 1- 5 Last Admin: 11/26/18 18:44 Dose: 5 mg - Objective Vital Signs: Vital Signs Temperature 99.1 F 11/27/18 06:06 Pulse Rate 99 H 11/27/18 06:06 Respiratory Rate 18 11/27/18 06:06 Blood Pressure 144/71 11/27/18 06:06 O2 Sat by Pulse Oximetry (%) 98 11/26/18 21:00 General: Well developed. Well nourished. No acute distress. Head: Normocephalic. Atraumatic, Eyes: PERRLA, EOMI. Sclerae anicteric. Conjunctivae clear. Neck: Supple. No JVD. No bruits. Heart: Normal S1, S2: Regular rhythm and rate. No murmur. No gallop or rub. Lungs: Symmetrical air entry. Clear to auscultation. No crackles. No wheezing or rhonchi. Abdomen: Soft. Bowel sound positive. Non tender. No masses. Extremities: Venous stasis. No edema. No clubbing or cyanosis. PD 2+, equal bilaterally. Neuro: Intact, no focal findings. AAO X3. Labs: CBC, BMP 11/26/18 08:17 11/26/18 08:17 INR, PTT INR 1.13 (0.83-1.09) H 11/26/18 08:17 Assessment/Plan 63 year old man with a PMHx of ESRD s/p failed renal transplant and on peritoneal dialysis, CAD s/p 2 stents at [facility], HTN, DM, HLD who presents with worsening SOB and fluid retention. No symptoms of angina. No palpitations. + orthopnea. Recent lap nephrectomy of [place] kidney. Dx with renal Cell CA recently. EKG: sinus rhythm with lad, inferior and anterior infarct pattern The patient received first hemodialysis 11/26/2018 with improved dyspnea. No physical signs of fluid overload today on exam. 1) Volume overloaded due renal failure and PD not sufficient Hemodialysis started 11/26/2018 with improved dyspnea and fluid overload. Permacath placed 11/26/2018. HD as per renal team 2) CAD On low dose metoprolol Need to clarify his outpt records regarding statins. Also says he was stopped from aspirin and plavix due to bleeding issues. He was last seen by Dr. Miller in office on 10/25/2017 and last discharged from [facility] on 07/07/2018 after lap nephrectomy with aspirin 81 mg daily and atorvastatin 80 mg daily. Out-pt cardiac follow up with Dr. Miller. Please call us for reconsult as needed.
[2018-11-27] MEDS ORDERED: EPOETIN ALFA 10,000 UNIT/1 ML VIAL SQ ONE (10:30)
--- NOTE | 2018-11-27 12:57 | PN ---
Progress Note (short form) - Note Progress Note: Anesthesia postop note 63 y/o M s/p mac for permacath insertion POD#1, vss, aaox3, no anesthesia complications.
--- NOTE | 2018-11-27 14:22 | PN ---
Progress Note (short form) - Note Progress Note: PULMONARY CONSULTATION DICTATED 11/27/18 IMP DYSPNEA VOLUME OVERLOAD ESRD ON HD R MIDLUNG OPACITY LIKELY PSEUDOTUMOR H/O RCC S/P NEPHRECTOMY H/O RENAL TRANSPLANT S/P REJECTION ASHD S/P STENTS DM HTN PLAN HD PER RENAL O2 DAILY WT CHEST X-RAY CHEST CT IF NO IMPROVEMENT DR SAMUEL Problem List - Problems (1) CHF (congestive heart failure) Code(s): I50.9 - HEART FAILURE, UNSPECIFIED (2) ESRD (end stage renal disease) Code(s): N18.6 - END STAGE RENAL DISEASE (3) Renal transplant disorder Code(s): T86.10 - UNSPECIFIED COMPLICATION OF KIDNEY TRANSPLANT (4) Status post nephrectomy Code(s): Z90.5 - ACQUIRED ABSENCE OF KIDNEY (5) Arterial atherosclerosis Code(s): I70.8 - ATHEROSCLEROSIS OF OTHER ARTERIES (6) Diabetes Code(s): E11.9 - TYPE 2 DIABETES MELLITUS WITHOUT COMPLICATIONS Qualifiers: Diabetes mellitus type: type 2 (7) PVD (peripheral vascular disease) Code(s): I73.9 - PERIPHERAL VASCULAR DISEASE, UNSPECIFIED (8) Renal transplant, status post Code(s): Z94.0 - KIDNEY TRANSPLANT STATUS (9) ASHD (arteriosclerotic heart disease) Code(s): I25.10 - ATHSCL HEART DISEASE OF [place] CORONARY ARTERY W/O ANG PCTRS
[2018-11-27] MEDS ORDERED: PT OWN MED DRAWER 7, Y5N ONE (14:23)
[2018-11-27] MEDS: FEBUXOSTAT 40 MG TAB PO SCH (14:26)
[2018-11-27] MEDS: metoPROLOL SUCCINATE 25 MG TAB.SR.24H (FP) PO SCH (14:26)
--- NOTE | 2018-11-27 15:01 | CONS ---
DATE OF CONSULTATION: 11/27/2018 PULMONARY CONSULTATION REFERRING PHYSICIAN: Dr. Yudith Cutler Patient is a 63-year-old male with a past medical history significant for ASHD status post stents x2, diabetes, hypertension, diabetes, hypertension, hyperlipidemia, end-stage renal disease previously maintained on peritoneal dialysis admitted to [facility] on November 26, 2018, for placement of dialysis catheter. Patient was admitted with the above. Hospitalization was significant for patient having a Perm-A-Cath placement without complication. Patient also on admission developed increasing shortness of breath and fluid retention. Patient was started on hemodialysis with good clinical response. PAST MEDICAL HISTORY: Again includes end-stage renal disease, status post renal transplant, history of renal cell carcinoma, status post nephrectomy in 2018, history of renal transplant status post rejection and maintained on peritoneal dialysis, ASHD status post stent. SOCIAL HISTORY: Nonsmoker. No occupational exposures. No recent travel. No history of DVT or PE in the past. CURRENT MEDICATIONS: Include Tylenol, Uloric, Toprol, and Roxicodone. PHYSICAL EXAMINATION: General: Patient is a well-developed, well-nourished male, awake, alert, in no acute distress. Vital Signs: Blood pressure is 164/106, respiratory rate is 18, and O2 saturation is 95%, and he is afebrile. HEENT: Exam is normocephalic, atraumatic. Neck: Supple. Heart: Regular, S1, S2. Chest: Clear. Abdomen: Soft. Bowel sounds positive. Extremities: No cyanosis. Edema. LABORATORIES: WBC is 9.3, hemoglobin 10.6, hematocrit 31.8 with a platelet count 95.5. INR is 1.13. BUN 139, creatinine 10.4. Chest x-ray right mid lung capacity likely pseudotumor fluid within the major or minor fissure and some pleural thickening. IMPRESSION: 1. Dyspnea secondary to volume overload. 2. End-stage renal disease currently on hemodialysis. 3. History of renal cell carcinoma status post nephrectomy. 4. History of renal transplant status post rejection. 5. Right mid lung opacity likely pseudotumor. 6. Arteriosclerotic heart disease. 7. Diabetes. 8. Hypertension. PLAN: Hemodialysis as per Renal. Monitor strict I's and O's. Supplemental O2. Daily weights. Obtain followup chest x-ray. If no improvement, will obtain CT scan of the chest. Monitor electrolytes. TALITA SAMUEL M.D. KAREN/[id number]
[2018-11-27 15:34] LABS: ANION GAP 10 MMOL/L (8-16); BLOOD UREA NITROGEN 19 mg/dL (7-18); CALCIUM 7.4 mg/dL (8.5-10.1); CHLORIDE 98 mmol/L (98-107); CO2 31 mmol/L (21-32); CREATININE 2.5 mg/dL (0.55-1.3); GLUCOSE,RANDOM 164 mg/dL (74-106); SODIUM 139 mmol/L (136-145)
[2018-11-27 15:39] LABS: POTASSIUM 2.8 mmol/L (3.5-5.1)
[2018-11-27] MEDS: oxyCODONE HCL 5 MG TABLET PO PRN (19:08)
[2018-11-27] MEDS: ACETAMINOPHEN 325 MG TABLET (FP) PO PRN (19:09)
[2018-11-28 04:18] LABS: HBsAG SCREEN Negative (Negative)
[2018-11-28 09:07] LABS: ANION GAP 10 MMOL/L (8-16); BLOOD UREA NITROGEN 41 mg/dL (7-18); CHLORIDE 101 mmol/L (98-107); CO2 29 mmol/L (21-32); GLUCOSE,RANDOM 103 mg/dL (74-106); POTASSIUM 3.7 mmol/L (3.5-5.1); SODIUM 139 mmol/L (136-145)
--- NOTE | 2018-11-28 09:12 | DS ---
Physical Examination Vital Signs: Vital Signs Temperature 98.4 F 11/28/18 06:00 Pulse Rate 87 11/28/18 06:00 Respiratory Rate 18 11/28/18 06:00 Blood Pressure 154/81 11/28/18 06:00 O2 Sat by Pulse Oximetry (%) 95 11/27/18 20:00 Findings/Remarks: in bed NAD no new c/o tolerated HD yesterday chest CT pending; less SOB seen by cardio and pulm. d/w renal plan to DC to SNF for rehab with dialsysis unit in the [place] when stable; pt is weak but able to ambulate; dw renal no sq heparin for now s/p recent permacath placement, abNL CXR; he is also getting heparin during dialysis Constitutional: Yes: No Distress, Calm Eyes: Yes: Conjunctiva Clear HENT: Yes: Atraumatic Neck: Yes: Supple Cardiovascular: Yes: Regular Rate and Rhythm Respiratory: Yes: CTA Bilaterally Gastrointestinal: Yes: Soft Renal/: No: CVA Tenderness - Left, CVA Tenderness - Right Musculoskeletal: No: Joint Stiffness, Joint Swelling Extremities: No: Cold, Cool, Cyanosis Edema: No Integumentary: No: Rash, Venous Stasis Changes Neurological: Yes: WNL, Alert, Oriented ...Motor Strength: WNL Psychiatric: Yes: WNL, Alert, Oriented. No: Agitated, Suicidal Ideation Labs: CBC, BMP 11/26/18 08:17 11/28/18 07:40 Discharge Summary Reason For Visit: END STAGE RENAL DISEASE Current Active Problems ASHD (arteriosclerotic heart disease) (Acute) CHF (congestive heart failure) (Acute) Complications, dialysis, catheter, mechanical (Acute) Uremia (Acute) ESRD (end stage renal disease) (Chronic) Procedures: Principal: 63 yom HTN DM ASHD stent, renal CA in the [place] kidney, h/o renal transplant, admitted with SOB and ARF h/o ESRD / PD; needed vascular access for dialsysis Other Procedures: had permacath placed tolerated dyalysis well;. seen by cardiology, pulmonary for SOB and abNL CXR;. chest CT done Hospital Course: improved with hemodialysis f/u as advised Condition: Stable - Instructions Referrals: Celina Herbert MD [Primary Care Provider] - Sesar Garcia MD [Staff Physician] - Mario Narvaez MD [Staff Physician] - Glenn Judge MD [Staff Physician] - Disposition: [facility] FACILITY - Home Medications Comprehensive Discharge Medication List: Ambulatory Orders Febuxostat [Uloric] 40 mg PO DAILY 07/25/18 Metoprolol Succinate 25 mg PO DAILY 11/26/18
[2018-11-28 09:19] LABS: CALCIUM 6.6 mg/dL (8.5-10.1)
[2018-11-28] MEDS ORDERED: PT OWN MED DRAWER 7, Y5N ONE (09:49)
--- NOTE | 2018-11-28 10:10 | PN ---
Progress Note, Physician Chief Complaint: The patient seen in his room. Had uneventful HD yesterday. Less short of breath. The myoclonic jerks are better. Too weak to get out of bed. PT to evaluate. Post dialysis K was 2.7 mEq/L. but repeat this morning in normal range. Will use 3.0 K bath for the next dialysis. 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 The patient has recent Lap Nehrectomy for hypernephroma in his [place] kidney. He is being w/u for Renal transplant at [facility], but on hold temporarily because of his recent Dx of renal Cell CA. The patient has been dialysed throgh a Permcath. Now, he is awaiting placement in an outpatient HD center. - Current Medication List Current Medications: Active Medications Acetaminophen (Tylenol -) 650 mg PO Q4H PRN PRN Reason: FEVER Acetaminophen (Tylenol -) 325 mg PO Q4H PRN PRN Reason: PAIN LEVEL 1-5 Stop: 11/29/18 12:48 Last Admin: 11/27/18 19:09 Dose: 325 mg Febuxostat (Uloric -) 40 mg PO DAILY [facility] Last Admin: 11/27/18 14:26 Dose: 40 mg Metoprolol Succinate (Toprol Xl -) 25 mg PO DAILY [facility] Last Admin: 11/27/18 14:26 Dose: 25 mg Oxycodone HCl (Roxicodone -) 5 mg PO Q4H PRN PRN Reason: PAIN LEVEL 1- 5 Last Admin: 11/27/18 19:08 Dose: 5 mg - Objective Vital Signs: Vital Signs Temperature 98.4 F 11/28/18 06:00 Pulse Rate 87 11/28/18 06:00 Respiratory Rate 18 11/28/18 06:00 Blood Pressure 154/81 11/28/18 06:00 O2 Sat by Pulse Oximetry (%) 95 11/27/18 20:00 Constitutional: Yes: Calm, Anxious, Pallor Eyes: Yes: Conjunctiva Clear HENT: Yes: Normocephalic Neck: Yes: Trachea Midline Cardiovascular: Yes: S1, S2 Respiratory: Yes: CTA Bilaterally, Diminished Gastrointestinal: Yes: Normal Bowel Sounds, Soft Genitourinary: No: Bladder Distention, CVA Tenderness - Left, CVA Tenderness - Right Edema: Yes Edema: LLE: Trace, RLE: Trace Neurological: Yes: Alert, Oriented Labs: CBC, BMP 11/26/18 08:17 11/28/18 07:40 INR, PTT INR 1.13 (0.83-1.09) H 11/26/18 08:17 Problem List - Problems (1) Uremia Code(s): N19 - UNSPECIFIED KIDNEY FAILURE (2) CHF (congestive heart failure) Code(s): I50.9 - HEART FAILURE, UNSPECIFIED (3) ESRD (end stage renal disease) Code(s): N18.6 - END STAGE RENAL DISEASE (4) Status post nephrectomy Code(s): Z90.5 - ACQUIRED ABSENCE OF KIDNEY (5) Arterial atherosclerosis Code(s): I70.8 - ATHEROSCLEROSIS OF OTHER ARTERIES (6) Diabetes Code(s): E11.9 - TYPE 2 DIABETES MELLITUS WITHOUT COMPLICATIONS Qualifiers: Diabetes mellitus type: type 2 (7) PVD (peripheral vascular disease) Code(s): I73.9 - PERIPHERAL VASCULAR DISEASE, UNSPECIFIED Assessment/Plan 63-year-old male with history of ESRD, s/p renal Transplant rejection, was on 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 The patient has recent Lap nehrectomy for hypernephroma in his [place] kidney. He is being w/u for Renal transplant at [facility], but on hold temporarily because of his recent Dx of renal Cell CA. Received HD yesterday throgh Right IJ Permacath. UF well tolerated. The patient had developed uremic symptoms, including asterexis and myoclonic jerks. Worsening Azotemia, and developing Uremia...due to treatment modality failure of PD as renal replacement therapy. Congestive Heart failure, in this patient with ESRD, and Anuria, due to UF failure on PD. PLAN: Next HD tomorrow. Will use 3.0 K Bath Will get PT evaluation for ambulation. Awaiting acceptance at [facility] in [facility]. ( commonly called [place] [id number]) [address] [facility]. Tel. [phone]. ( I spoke to Dr. Roman there, who had accepted the patient when he is stable). Thank you. Celina Herbert MD
[2018-11-28] MEDS: metoPROLOL SUCCINATE 25 MG TAB.SR.24H (FP) PO SCH (10:13)
[2018-11-28] MEDS: FEBUXOSTAT 40 MG TAB PO SCH (10:13)
[2018-11-28] MEDS: oxyCODONE HCL 5 MG TABLET PO PRN ×2 (10:15→17:01)
--- NOTE | 2018-11-28 12:01 | PN ---
Progress Note (short form) - Note Progress Note: Breathing feels comfortable on RA. Some dry cough. Afebrile. No hemoptysis. CT: bilateral small loculated effusions / right fluid in the fissure causing a pseudotumor appearance Intake & Output 11/25/18 11/26/18 11/27/18 11/28/18 23:59 23:59 23:59 23:59 Intake Total 250 990 500 Output Total 10 Balance 240 990 500 Weight 135 lb 131 lb 4.8 oz 126 lb 1.6 oz Last Vital Signs Temp Pulse Resp BP Pulse Ox 98.4 F 87 18 154/81 95 11/28/18 06:00 11/28/18 06:00 11/28/18 06:00 11/28/18 06:00 11/27/18 20:00 Active Medications Acetaminophen (Tylenol -) 650 mg PO Q4H PRN PRN Reason: FEVER Acetaminophen (Tylenol -) 325 mg PO Q4H PRN PRN Reason: PAIN LEVEL 1-5 Stop: 11/29/18 12:48 Last Admin: 11/27/18 19:09 Dose: 325 mg Febuxostat (Uloric -) 40 mg PO DAILY [facility] Last Admin: 11/28/18 10:13 Dose: 40 mg Metoprolol Succinate (Toprol Xl -) 25 mg PO DAILY [facility] Last Admin: 11/28/18 10:13 Dose: 25 mg Oxycodone HCl (Roxicodone -) 5 mg PO Q4H PRN PRN Reason: PAIN LEVEL 1- 5 Last Admin: 11/28/18 10:15 Dose: 5 mg Constitutional: Yes: Calm, NAD Eyes: Yes: Conjunctiva Clear HENT: Yes: Normocephalic Neck: Yes: Trachea Midline Cardiovascular: Yes: S1, S2 Respiratory: Yes: Diminished at the bases Gastrointestinal: Yes: Normal Bowel Sounds, Soft Genitourinary: No: Bladder Distention, CVA Tenderness Edema: Yes Edema: LLE: Trace, RLE: Trace Neurological: Yes: Alert, Oriented Labs: Laboratory Results - last 24 hr 11/26/18 11/26/18 11/27/18 14:15 14:15 05:30 Sodium Potassium Chloride Carbon Dioxide Anion Gap BUN Creatinine Creat Clearance w eGFR Random Glucose Calcium Hep Bs Antigen Negative Hepatitis Be Antigen Negative Hep C Ab Diagnostic 0.2 11/27/18 11/28/18 13:40 07:40 Sodium 139 139 Potassium 2.8 L* 3.7 Chloride 98 101 Carbon Dioxide 31 29 Anion Gap 10 10 BUN 19 H 41 H Creatinine 2.5 H 5.0 H Creat Clearance w eGFR 26.13 11.74 Random Glucose 164 H 103 Calcium 7.4 L 6.6 L* Hep Bs Antigen Hepatitis Be Antigen Hep C Ab Diagnostic Problem List - Problems (1) CHF (congestive heart failure) Code(s): I50.9 - HEART FAILURE, UNSPECIFIED (2) ESRD (end stage renal disease) Code(s): N18.6 - END STAGE RENAL DISEASE (3) Renal transplant disorder Code(s): T86.10 - UNSPECIFIED COMPLICATION OF KIDNEY TRANSPLANT (4) Status post nephrectomy Code(s): Z90.5 - ACQUIRED ABSENCE OF KIDNEY (5) Arterial atherosclerosis Code(s): I70.8 - ATHEROSCLEROSIS OF OTHER ARTERIES (6) Diabetes Code(s): E11.9 - TYPE 2 DIABETES MELLITUS WITHOUT COMPLICATIONS Qualifiers: Diabetes mellitus type: type 2 (7) PVD (peripheral vascular disease) Code(s): I73.9 - PERIPHERAL VASCULAR DISEASE, UNSPECIFIED (8) Renal transplant, status post Code(s): Z94.0 - KIDNEY TRANSPLANT STATUS (9) ASHD (arteriosclerotic heart disease) Code(s): I25.10 - ATHSCL HEART DISEASE OF [place] CORONARY ARTERY W/O ANG PCTRS IMP DYSPNEA VOLUME OVERLOAD ESRD ON HD R MIDLUNG OPACITY -> PSEUDOTUMOR MOST LIKELY BASED ON IMAGING H/O RCC S/P NEPHRECTOMY H/O RENAL TRANSPLANT S/P REJECTION ASHD S/P STENTS DM HTN PLAN HD PER RENAL O2 DAILY WT CAN FOLLOW CXR AN OUTPATIENT IN 1 MONTH NO PULMONARY CONTRAINDICATION FOR D/C DR ROLAND
[2018-11-28 14:13] VITALS: BMI 20.3
[2018-11-28] MEDS: ACETAMINOPHEN 325 MG TABLET (FP) PO PRN (17:02)
[2018-11-29] MEDS: oxyCODONE HCL 5 MG TABLET PO PRN ×2 (03:07→22:25)
--- NOTE | 2018-11-29 06:25 | PN ---
Progress Note, Physician Chief Complaint: in bed tolerated HD well no new c/o awaiting SNF bed - Current Medication List Current Medications: Active Medications Acetaminophen (Tylenol -) 650 mg PO Q4H PRN PRN Reason: FEVER Acetaminophen (Tylenol -) 325 mg PO Q4H PRN PRN Reason: PAIN LEVEL 1-5 Stop: 11/29/18 12:48 Last Admin: 11/28/18 17:02 Dose: 325 mg Febuxostat (Uloric -) 40 mg PO DAILY [facility] Last Admin: 11/28/18 10:13 Dose: 40 mg Metoprolol Succinate (Toprol Xl -) 25 mg PO DAILY [facility] Last Admin: 11/28/18 10:13 Dose: 25 mg Oxycodone HCl (Roxicodone -) 5 mg PO Q4H PRN PRN Reason: PAIN LEVEL 1- 5 Last Admin: 11/29/18 03:07 Dose: 5 mg - Objective Vital Signs: Vital Signs Temperature 98.8 F 11/28/18 22:10 Pulse Rate 79 11/28/18 22:10 Respiratory Rate 20 11/28/18 22:10 Blood Pressure 156/74 11/28/18 22:10 O2 Sat by Pulse Oximetry (%) 96 11/28/18 09:00 Constitutional: Yes: No Distress, Calm Eyes: Yes: Conjunctiva Clear HENT: Yes: Atraumatic Neck: Yes: Supple Cardiovascular: Yes: Regular Rate and Rhythm Respiratory: Yes: CTA Bilaterally Gastrointestinal: Yes: Soft. No: Tenderness Genitourinary: No: CVA Tenderness - Left, CVA Tenderness - Right Musculoskeletal: No: Joint Stiffness, Joint Swelling Extremities: No: Cold, Cool, Cyanosis Edema: No Integumentary: No: Rash, Venous Stasis Changes Neurological: Yes: WNL, Alert, Oriented ...Motor Strength: WNL Psychiatric: Yes: WNL, Alert, Oriented. No: Agitated Labs: CBC, BMP 11/26/18 08:17 11/28/18 07:40 INR, PTT INR 1.13 (0.83-1.09) H 11/26/18 08:17 - ....Imaging Other: Report Reviewed Assessment/Plan 63 year old male with ESRD on PD and HTN presenting with failure of PD and worsening SOB/ weakness. Hemodialysis catheter inserted by vascular sx pt tolerated HD well cardiology and pulmonary f/u HTN, DM control falls pfx dialsysis per renal / vascular catheter; remove PD per renal SNF placement for PT rehab d/w pt and staff
[2018-11-29] MEDS: metoPROLOL SUCCINATE 25 MG TAB.SR.24H (FP) PO SCH (10:20)
[2018-11-29] MEDS: FEBUXOSTAT 40 MG TAB PO SCH (10:20)
--- NOTE | 2018-11-29 10:51 | PN ---
Progress Note, Physician Chief Complaint: The patient seen in dialysis. Stable. The permacath is working well. Less short of breath. The myoclonic jerks are better. Received PT for ambulation. 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 He is being w/u for Renal transplant at [facility], but on hold temporarily because of his recent Dx of renal Cell CA. The patient has been dialysed throgh a Permcath. Now, he is awaiting placement in an outpatient HD center. - Current Medication List Current Medications: Active Medications Acetaminophen (Tylenol -) 650 mg PO Q4H PRN PRN Reason: FEVER Acetaminophen (Tylenol -) 325 mg PO Q4H PRN PRN Reason: PAIN LEVEL 1-5 Stop: 11/29/18 12:48 Last Admin: 11/28/18 17:02 Dose: 325 mg Febuxostat (Uloric -) 40 mg PO DAILY [facility] Last Admin: 11/29/18 10:20 Dose: Not Given Metoprolol Succinate (Toprol Xl -) 25 mg PO DAILY [facility] Last Admin: 11/29/18 10:20 Dose: Not Given Oxycodone HCl (Roxicodone -) 5 mg PO Q4H PRN PRN Reason: PAIN LEVEL 1- 5 Last Admin: 11/29/18 03:07 Dose: 5 mg - Objective Vital Signs: Vital Signs Temperature 98.8 F 11/29/18 09:25 Pulse Rate 85 11/29/18 10:30 Respiratory Rate 18 11/29/18 10:30 Blood Pressure 153/100 11/29/18 10:30 O2 Sat by Pulse Oximetry (%) 96 11/28/18 09:00 Constitutional: Yes: No Distress, Anxious Eyes: Yes: Conjunctiva Clear HENT: Yes: Normocephalic Neck: Yes: Trachea Midline Respiratory: Yes: CTA Bilaterally, Diminished Gastrointestinal: Yes: Normal Bowel Sounds, Soft, Other (PD catheter in place.) Genitourinary: Yes: Anuria Edema: No Labs: CBC, BMP 11/26/18 08:17 INR, PTT INR 1.13 (0.83-1.09) H 11/26/18 08:17 Problem List - Problems (1) Uremia Code(s): N19 - UNSPECIFIED KIDNEY FAILURE (2) CHF (congestive heart failure) Code(s): I50.9 - HEART FAILURE, UNSPECIFIED (3) ESRD (end stage renal disease) Code(s): N18.6 - END STAGE RENAL DISEASE (4) Status post nephrectomy Code(s): Z90.5 - ACQUIRED ABSENCE OF KIDNEY (5) Arterial atherosclerosis Code(s): I70.8 - ATHEROSCLEROSIS OF OTHER ARTERIES (6) Diabetes Code(s): E11.9 - TYPE 2 DIABETES MELLITUS WITHOUT COMPLICATIONS Qualifiers: Diabetes mellitus type: type 2 (7) PVD (peripheral vascular disease) Code(s): I73.9 - PERIPHERAL VASCULAR DISEASE, UNSPECIFIED Assessment/Plan 63-year-old male with history of ESRD, s/p renal Transplant rejection, was on 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 The patient has recent Lap nehrectomy for hypernephroma in his [place] kidney. He is being w/u for Renal transplant at [facility], but on hold temporarily because of his recent Dx of renal Cell CA. Received HD yesterday throgh Right IJ Permacath. UF well tolerated. The patient had developed uremic symptoms, including asterexis and myoclonic jerks. PLAN: The patient's clinical symptoms are much better. PT to continue. Awaiting placement in outpatient dialysis facility...[facility] unit in the [place]. ( commonly called [place] [id number]) [address] [facility]. Tel. [phone]. Thank you. Celina Herbert MD
[2018-11-29 11:00] LABS: ALBUMIN 1.9 g/dl (3.4-5.0); ALK PHOS 104 U/L (45-117); ANION GAP 11 MMOL/L (8-16); BILIRUBIN,TOTAL 0.6 mg/dL (0.2-1); BLOOD UREA NITROGEN 45 mg/dL (7-18); CALCIUM 7.3 mg/dL (8.5-10.1); CHLORIDE 102 mmol/L (98-107); CO2 29 mmol/L (21-32); CREATININE 4.9 mg/dL (0.55-1.3); GLUCOSE,RANDOM 164 mg/dL (74-106); POTASSIUM 3.7 mmol/L (3.5-5.1); SGOT/AST 15 U/L (15-37); SGPT/ALT 8 U/L (13-61); SODIUM 142 mmol/L (136-145); TOT PROT 5.8 g/dl (6.4-8.2)
--- NOTE | 2018-11-29 11:19 | PN ---
Progress Note (short form) - Note Progress Note: In HD. Breathing feels OK. Some dry cough. Afebrile. No hemoptysis. Intake & Output 11/26/18 11/27/18 11/28/18 11/29/18 23:59 23:59 23:59 23:59 Intake Total 250 990 850 Output Total 10 Balance 240 990 850 Weight 135 lb 131 lb 4.8 oz 126 lb 126 lb 12.8 oz Last Vital Signs Temp Pulse Resp BP Pulse Ox 98.8 F 101 H 18 170/106 H 96 11/29/18 09:25 11/29/18 11:00 11/29/18 11:00 11/29/18 11:00 11/28/18 09:00 Active Medications Acetaminophen (Tylenol -) 650 mg PO Q4H PRN PRN Reason: FEVER Acetaminophen (Tylenol -) 325 mg PO Q4H PRN PRN Reason: PAIN LEVEL 1-5 Stop: 11/29/18 12:48 Last Admin: 11/28/18 17:02 Dose: 325 mg Febuxostat (Uloric -) 40 mg PO DAILY [facility] Last Admin: 11/29/18 10:20 Dose: Not Given Metoprolol Succinate (Toprol Xl -) 25 mg PO DAILY [facility] Last Admin: 11/29/18 10:20 Dose: Not Given Oxycodone HCl (Roxicodone -) 5 mg PO Q4H PRN PRN Reason: PAIN LEVEL 1- 5 Last Admin: 11/29/18 03:07 Dose: 5 mg Constitutional: Yes: Calm, NAD Eyes: Yes: Conjunctiva Clear HENT: Yes: Normocephalic Neck: Yes: Trachea Midline Cardiovascular: Yes: S1, S2 Respiratory: Yes: Diminished at the bases Gastrointestinal: Yes: Normal Bowel Sounds, Soft Genitourinary: No: Bladder Distention, CVA Tenderness Edema: Yes Edema: LLE: Trace, RLE: Trace Neurological: Yes: Alert, Oriented Labs: Laboratory Results - last 24 hr 11/26/18 11/29/18 14:15 09:55 Sodium 142 Potassium 3.7 Chloride 102 Carbon Dioxide 29 Anion Gap 11 BUN 45 H Creatinine 4.9 H Creat Clearance w eGFR 12.02 Random Glucose 164 H Calcium 7.3 L Total Bilirubin 0.6 AST 15 ALT 8 L Alkaline Phosphatase 104 Total Protein 5.8 L Albumin 1.9 L Hepatitis Be Antibody Negative Problem List - Problems (1) CHF (congestive heart failure) Code(s): I50.9 - HEART FAILURE, UNSPECIFIED (2) ESRD (end stage renal disease) Code(s): N18.6 - END STAGE RENAL DISEASE (3) Renal transplant disorder Code(s): T86.10 - UNSPECIFIED COMPLICATION OF KIDNEY TRANSPLANT (4) Status post nephrectomy Code(s): Z90.5 - ACQUIRED ABSENCE OF KIDNEY (5) Arterial atherosclerosis Code(s): I70.8 - ATHEROSCLEROSIS OF OTHER ARTERIES (6) Diabetes Code(s): E11.9 - TYPE 2 DIABETES MELLITUS WITHOUT COMPLICATIONS Qualifiers: Diabetes mellitus type: type 2 (7) PVD (peripheral vascular disease) Code(s): I73.9 - PERIPHERAL VASCULAR DISEASE, UNSPECIFIED (8) Renal transplant, status post Code(s): Z94.0 - KIDNEY TRANSPLANT STATUS (9) ASHD (arteriosclerotic heart disease) Code(s): I25.10 - ATHSCL HEART DISEASE OF [place] CORONARY ARTERY W/O ANG PCTRS IMP DYSPNEA VOLUME OVERLOAD ESRD ON HD R MIDLUNG OPACITY -> PSEUDOTUMOR MOST LIKELY BASED ON IMAGING H/O RCC S/P NEPHRECTOMY H/O RENAL TRANSPLANT S/P REJECTION ASHD S/P STENTS DM HTN PLAN HD PER RENAL O2 DAILY WT CAN FOLLOW CXR AN OUTPATIENT IN 1 MONTH NO PULMONARY CONTRAINDICATION FOR D/C DR ROLAND
[2018-11-29] MEDS: ACETAMINOPHEN 325 MG TABLET (FP) PO PRN (22:26)
--- NOTE | 2018-11-30 07:49 | PN ---
Progress Note, Physician History of Present Illness: in bed tolerated another HD well yesterday still waiting for SNF/NH bed d/w pt and CM - Current Medication List Current Medications: Active Medications Acetaminophen (Tylenol -) 650 mg PO Q4H PRN PRN Reason: FEVER Last Admin: 11/29/18 22:26 Dose: 650 mg Febuxostat (Uloric -) 40 mg PO DAILY [facility] Last Admin: 11/29/18 10:20 Dose: Not Given Metoprolol Succinate (Toprol Xl -) 25 mg PO DAILY [facility] Last Admin: 11/29/18 10:20 Dose: Not Given Oxycodone HCl (Roxicodone -) 5 mg PO Q4H PRN PRN Reason: PAIN LEVEL 1- 5 Last Admin: 11/29/18 22:25 Dose: 5 mg - Objective Vital Signs: Vital Signs Temperature 99 F 11/30/18 06:27 Pulse Rate 87 11/30/18 06:27 Respiratory Rate 20 11/30/18 06:27 Blood Pressure 142/77 11/30/18 06:27 O2 Sat by Pulse Oximetry (%) 98 11/29/18 21:00 Constitutional: Yes: No Distress, Calm Eyes: Yes: Conjunctiva Clear HENT: Yes: Atraumatic Neck: Yes: Supple Cardiovascular: Yes: Regular Rate and Rhythm Respiratory: Yes: CTA Bilaterally Gastrointestinal: Yes: Soft. No: Tenderness Genitourinary: No: Hematuria Musculoskeletal: No: Joint Stiffness, Joint Swelling Extremities: No: Cold, Cool, Cyanosis Edema: No Integumentary: No: Rash, Venous Stasis Changes Neurological: Yes: WNL, Alert, Oriented ...Motor Strength: WNL Psychiatric: Yes: WNL, Alert, Oriented. No: Agitated, Suicidal Ideation Labs: CBC, BMP 11/26/18 08:17 11/29/18 09:55 INR, PTT INR 1.13 (0.83-1.09) H 11/26/18 08:17 - ....Imaging Other: Report Reviewed Assessment/Plan 63 year old male with ESRD on PD and HTN presenting with failure of PD and worsening SOB/ weakness. Hemodialysis catheter inserted by vascular sx pt tolerated HD well cardiology and pulmonary f/u outpt, also renal and f/u, ONC f/u for hypernephroma HTN, DM control falls pfx dialsysis per renal / vascular catheter; remove PD catheter per renal - f/u with vascular sx SNF placement for PT rehab d/w pt and staff
[2018-11-30] MEDS ORDERED: PT OWN MED DRAWER 7, Y5N ONE ×2 (09:01→21:12)
[2018-11-30] MEDS: metoPROLOL SUCCINATE 25 MG TAB.SR.24H (FP) PO SCH (09:06)
[2018-11-30] MEDS: FEBUXOSTAT 40 MG TAB PO SCH (09:06)
--- NOTE | 2018-11-30 09:41 | PN ---
Progress Note, Physician Chief Complaint: The patient seen in his room. Started on PT. Less short of breath. The myoclonic jerks are better. Eager to be discharged. Awaiting SNF placement for rehab. 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 He is being w/u for Renal transplant at [facility], but on hold temporarily because of his recent Dx of renal Cell CA. The patient has been dialysed throgh a Permcath. Now, he is awaiting placement in an SNF and outpatient HD center. - Current Medication List Current Medications: Active Medications Acetaminophen (Tylenol -) 650 mg PO Q4H PRN PRN Reason: FEVER Last Admin: 11/29/18 22:26 Dose: 650 mg Febuxostat (Uloric -) 40 mg PO DAILY [facility] Last Admin: 11/30/18 09:06 Dose: 40 mg Metoprolol Succinate (Toprol Xl -) 25 mg PO DAILY [facility] Last Admin: 11/30/18 09:06 Dose: 25 mg Oxycodone HCl (Roxicodone -) 5 mg PO Q4H PRN PRN Reason: PAIN LEVEL 1- 5 Last Admin: 11/29/18 22:25 Dose: 5 mg - Objective Vital Signs: Vital Signs Temperature 99 F 11/30/18 06:27 Pulse Rate 87 11/30/18 06:27 Respiratory Rate 20 11/30/18 06:27 Blood Pressure 142/77 11/30/18 06:27 O2 Sat by Pulse Oximetry (%) 98 11/29/18 21:00 Constitutional: Yes: Anxious Eyes: Yes: Conjunctiva Clear HENT: Yes: Normocephalic Neck: Yes: Trachea Midline Cardiovascular: Yes: Pulse Irregular, S1, S2 Respiratory: Yes: CTA Bilaterally Gastrointestinal: Yes: Normal Bowel Sounds, Soft Musculoskeletal: Yes: Back Pain Edema: No Labs: CBC, BMP 11/26/18 08:17 11/29/18 09:55 INR, PTT INR 1.13 (0.83-1.09) H 02/18/19 08:17 Problem List - Problems (1) Uremia Code(s): N19 - UNSPECIFIED KIDNEY FAILURE (2) CHF (congestive heart failure) Code(s): I50.9 - HEART FAILURE, UNSPECIFIED (3) ESRD (end stage renal disease) Code(s): N18.6 - END STAGE RENAL DISEASE (4) Status post nephrectomy Code(s): Z90.5 - ACQUIRED ABSENCE OF KIDNEY (5) Arterial atherosclerosis Code(s): I70.8 - ATHEROSCLEROSIS OF OTHER ARTERIES (6) Diabetes Code(s): E11.9 - TYPE 2 DIABETES MELLITUS WITHOUT COMPLICATIONS Qualifiers: Diabetes mellitus type: type 2 (7) PVD (peripheral vascular disease) Code(s): I73.9 - PERIPHERAL VASCULAR DISEASE, UNSPECIFIED Assessment/Plan 63-year-old male with history of ESRD, s/p renal Transplant rejection, was on APD, 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 The patient has recent Lap nehrectomy for hypernephroma in his [place] kidney. He is being w/u for Renal transplant at [facility], but on hold temporarily because of his recent Dx of renal Cell CA. Received HD yesterday throgh Right IJ Permacath. UF well tolerated. The patient had developed uremic symptoms, including asterexis and myoclonic jerks. PLAN: The patient's clinical symptoms are much better. PT to continue. Awaiting placement in an SNF and outpatient dialysis facility...[facility] in the [place]. ( commonly called [place] [id number]) [facility]. Tel. [phone]. Discussed with the SSW. Thank you. Celina Herbert MD
--- NOTE | 2018-11-30 10:41 | PN ---
Progress Note (short form) - Note Progress Note: PULMONARY OOB to chair Afebrile. No hemoptysis. Active Medications reviewed Constitutional: Yes: Calm, NAD Eyes: Yes: Conjunctiva Clear HENT: Yes: Normocephalic Neck: Yes: Trachea Midline Cardiovascular: Yes: S1, S2 Respiratory: Yes: Diminished at the bases Gastrointestinal: Yes: Normal Bowel Sounds, Soft Genitourinary: No: Bladder Distention, CVA Tenderness Edema: Yes Edema: LLE: Trace, RLE: Trace Neurological: Yes: Alert, Oriented Labs: noted Problem List - Problems (1) CHF (congestive heart failure) Code(s): I50.9 - HEART FAILURE, UNSPECIFIED (2) ESRD (end stage renal disease) Code(s): N18.6 - END STAGE RENAL DISEASE (3) Renal transplant disorder Code(s): T86.10 - UNSPECIFIED COMPLICATION OF KIDNEY TRANSPLANT (4) Status post nephrectomy Code(s): Z90.5 - ACQUIRED ABSENCE OF KIDNEY (5) Arterial atherosclerosis Code(s): I70.8 - ATHEROSCLEROSIS OF OTHER ARTERIES (6) Diabetes Code(s): E11.9 - TYPE 2 DIABETES MELLITUS WITHOUT COMPLICATIONS Qualifiers: Diabetes mellitus type: type 2 (7) PVD (peripheral vascular disease) Code(s): I73.9 - PERIPHERAL VASCULAR DISEASE, UNSPECIFIED (8) Renal transplant, status post Code(s): Z94.0 - KIDNEY TRANSPLANT STATUS (9) ASHD (arteriosclerotic heart disease) Code(s): I25.10 - ATHSCL HEART DISEASE OF [place] CORONARY ARTERY W/O ANG PCTRS IMP DYSPNEA VOLUME OVERLOAD ESRD ON HD R MIDLUNG OPACITY -> PSEUDOTUMOR MOST LIKELY BASED ON IMAGING H/O RCC S/P NEPHRECTOMY H/O RENAL TRANSPLANT S/P REJECTION ASHD S/P STENTS DM HTN PLAN STABLE CAN FOLLOW CXR AN OUTPATIENT IN 1 MONTH NO PULMONARY CONTRAINDICATION FOR D/C R FRANC GAMINO
[2018-11-30] MEDS: oxyCODONE HCL 5 MG TABLET PO PRN (21:19)
[2018-12-01] MEDS ORDERED: EPOETIN ALFA 10,000 UNIT/1 ML VIAL SQ ONE (09:30)
--- NOTE | 2018-12-01 12:26 | PN ---
Progress Note, Physician History of Present Illness: Pt w/o SOB, CP, palpitations, abd pain. Pt is tolerating HD well. - Current Medication List Current Medications: Active Medications Acetaminophen (Tylenol -) 650 mg PO Q4H PRN PRN Reason: FEVER Last Admin: 11/29/18 22:26 Dose: 650 mg Febuxostat (Uloric -) 40 mg PO DAILY [facility] Last Admin: 11/30/18 09:06 Dose: 40 mg Metoprolol Succinate (Toprol Xl -) 25 mg PO DAILY [facility] Last Admin: 11/30/18 09:06 Dose: 25 mg - Objective Vital Signs: Vital Signs Temperature 98.4 F 12/01/18 08:25 Pulse Rate 83 12/01/18 10:00 Respiratory Rate 18 12/01/18 10:00 Blood Pressure 174/106 H 12/01/18 10:00 O2 Sat by Pulse Oximetry (%) 98 11/30/18 09:00 Constitutional: Yes: No Distress, Calm Cardiovascular: Yes: Regular Rate and Rhythm, S1, S2 Respiratory: Yes: Regular, CTA Bilaterally, Other (coarse BS at bases). No: Rales Gastrointestinal: Yes: Normal Bowel Sounds, Soft. No: Tenderness Edema: No Wound/Incision: Yes: Other (right permacath site: no erytjema, no DC, no pain w palpation) Neurological: Yes: Alert, Oriented Labs: CBC, BMP 11/26/18 08:17 11/29/18 09:55 INR, PTT INR 1.13 (0.83-1.09) H 11/26/18 08:17 Problem List - Problems (1) CHF (congestive heart failure) Code(s): I50.9 - HEART FAILURE, UNSPECIFIED (2) ESRD (end stage renal disease) Code(s): N18.6 - END STAGE RENAL DISEASE (3) Complications, dialysis, catheter, mechanical Code(s): T82.49XA - OTH COMPLICATION OF VASCULAR DIALYSIS CATHETER, INIT ENCNTR Qualifiers: Encounter type: initial encounter Qualified Code(s): T82.49XA - Other complication of vascular dialysis catheter, initial encounter (4) Status post nephrectomy Assessment/Plan: of [place] kidney, secondary to renal CA Code(s): Z90.5 - ACQUIRED ABSENCE OF KIDNEY (5) Renal transplant, status post Assessment/Plan: s/p rejection Code(s): Z94.0 - KIDNEY TRANSPLANT STATUS (6) ASHD (arteriosclerotic heart disease) Code(s): I25.10 - ATHSCL HEART DISEASE OF [place] CORONARY ARTERY W/O ANG PCTRS (7) Diabetes mellitus Code(s): E11.9 - TYPE 2 DIABETES MELLITUS WITHOUT COMPLICATIONS Qualifiers: Diabetes mellitus complication detail: with other ophthalmic complication (8) PVD (peripheral vascular disease) Code(s): I73.9 - PERIPHERAL VASCULAR DISEASE, UNSPECIFIED Assessment/Plan Pt with HTN, CAD with 2 cardiac stents, ESRD on PD presenting with failure of PD and worsening SOB/ weakness. Hemodialysis catheter inserted by vascular sx Pt is tolerating HD well. Cardiology, Pulmonary, Renal, Vasc Sx consult are appreciated. Pt needs to f/u with [facility] as outpatient. Cont HD per Renal. Cont meds. Pt is waiting for Rehab Placement. OOBTC with assistance only. Case was d/w pt's nurse.
[2018-12-01] MEDS: FEBUXOSTAT 40 MG TAB PO SCH (13:09)
[2018-12-01] MEDS: metoPROLOL SUCCINATE 25 MG TAB.SR.24H (FP) PO SCH (13:09)
--- NOTE | 2018-12-01 14:33 | PN ---
Progress Note (short form) - Note Progress Note: PULMONARY OOB to chair Afebrile. No hemoptysis. Active Medications reviewed Constitutional: Yes: Calm, NAD Eyes: Yes: Conjunctiva Clear HENT: Yes: Normocephalic Neck: Yes: Trachea Midline Cardiovascular: Yes: S1, S2 Respiratory: Yes: Diminished at the bases Gastrointestinal: Yes: Normal Bowel Sounds, Soft Genitourinary: No: Bladder Distention, CVA Tenderness Edema: Yes Edema: LLE: Trace, RLE: Trace Neurological: Yes: Alert, Oriented Labs: noted Problem List - Problems (1) CHF (congestive heart failure) Code(s): I50.9 - HEART FAILURE, UNSPECIFIED (2) ESRD (end stage renal disease) Code(s): N18.6 - END STAGE RENAL DISEASE (3) Renal transplant disorder Code(s): T86.10 - UNSPECIFIED COMPLICATION OF KIDNEY TRANSPLANT (4) Status post nephrectomy Code(s): Z90.5 - ACQUIRED ABSENCE OF KIDNEY (5) Arterial atherosclerosis Code(s): I70.8 - ATHEROSCLEROSIS OF OTHER ARTERIES (6) Diabetes Code(s): E11.9 - TYPE 2 DIABETES MELLITUS WITHOUT COMPLICATIONS Qualifiers: Diabetes mellitus type: type 2 (7) PVD (peripheral vascular disease) Code(s): I73.9 - PERIPHERAL VASCULAR DISEASE, UNSPECIFIED (8) Renal transplant, status post Code(s): Z94.0 - KIDNEY TRANSPLANT STATUS (9) ASHD (arteriosclerotic heart disease) Code(s): I25.10 - ATHSCL HEART DISEASE OF [place] CORONARY ARTERY W/O ANG PCTRS IMP DYSPNEA VOLUME OVERLOAD ESRD ON HD R MIDLUNG OPACITY -> PSEUDOTUMOR MOST LIKELY BASED ON IMAGING H/O RCC S/P NEPHRECTOMY H/O RENAL TRANSPLANT S/P REJECTION ASHD S/P STENTS DM HTN PLAN STABLE CAN FOLLOW CXR AN OUTPATIENT IN 1 MONTH NO PULMONARY CONTRAINDICATION FOR D/C AWAITING PLACEMENT Megha BRUNER MD
--- NOTE | 2018-12-01 17:51 | PN ---
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 The patient has recent Lap nehrectomy for hypernephroma in his [place] kidney. He is being w/u for Renal transplant at [facility], but on hold temporarily because of his recent Dx of renal Cell CA. Received HD yesterday throgh Right IJ Permacath. UF well tolerated. Current Medications Acetaminophen (Tylenol -) 650 mg PO Q4H PRN PRN Reason: FEVER Last Admin: 11/29/18 22:26 Dose: 650 mg Febuxostat (Uloric -) 40 mg PO DAILY [facility] Last Admin: 12/01/18 13:09 Dose: Not Given Metoprolol Succinate (Toprol Xl -) 25 mg PO DAILY [facility] Last Admin: 12/01/18 13:09 Dose: Not Given Last Vital Signs Temp Pulse Resp BP Pulse Ox 98.7 F 99 H 18 116/89 98 12/01/18 16:15 12/01/18 16:15 12/01/18 16:15 12/01/18 16:15 11/30/18 09:00 seen on dialysis stable during tc CBC, BMP 11/26/18 08:17 11/29/18 09:55
[2018-12-01] MEDS: ACETAMINOPHEN 325 MG TABLET (FP) PO PRN (21:30)
[2018-12-01] MEDS: oxyCODONE HCL 5 MG TABLET PO PRN (23:13)
--- NOTE | 2018-12-02 07:44 | PN ---
Progress Note, Physician Chief Complaint: awaiting SNF bed has a small ella 1-2 sacral decubitus pt thinks from lying on his back during dyalisis generally weak, d/w pt OOB to chair with support and to turn in bed on the sides occ pain at the site of permacath asked for percocet prn no other c/o - Current Medication List Current Medications: Active Medications Acetaminophen (Tylenol -) 650 mg PO Q4H PRN PRN Reason: FEVER Last Admin: 12/01/18 21:30 Dose: 650 mg Febuxostat (Uloric -) 40 mg PO DAILY [facility] Last Admin: 12/01/18 13:09 Dose: Not Given Metoprolol Succinate (Toprol Xl -) 25 mg PO DAILY [facility] Last Admin: 12/01/18 13:09 Dose: Not Given Oxycodone HCl (Roxicodone -) 5 mg PO Q4H PRN PRN Reason: PAIN LEVEL 6-10 Last Admin: 12/01/18 23:13 Dose: 5 mg - Objective Vital Signs: Vital Signs Temperature 99.3 F 12/02/18 06:00 Pulse Rate 89 12/02/18 06:00 Respiratory Rate 18 12/02/18 06:00 Blood Pressure 123/63 12/02/18 06:00 O2 Sat by Pulse Oximetry (%) 98 11/30/18 09:00 Constitutional: Yes: No Distress, Calm Eyes: Yes: Conjunctiva Clear HENT: Yes: Atraumatic Neck: Yes: Supple Cardiovascular: Yes: Regular Rate and Rhythm Respiratory: Yes: CTA Bilaterally Gastrointestinal: Yes: Soft. No: Tenderness Genitourinary: No: CVA Tenderness - Left, CVA Tenderness - Right Musculoskeletal: No: Joint Stiffness, Joint Swelling Extremities: No: Cold, Cool, Cyanosis Edema: No Integumentary: No: Rash, Venous Stasis Changes Neurological: Yes: Alert, Oriented ...Motor Strength: WNL Psychiatric: Yes: Alert, Oriented Labs: CBC, BMP 11/26/18 08:17 11/29/18 09:55 INR, PTT INR 1.13 (0.83-1.09) H 11/26/18 08:17 - ....Imaging Other: Report Reviewed Assessment/Plan 63 year old male with ESRD on PD and HTN presenting with failure of PD and worsening SOB/ weakness. Hemodialysis catheter inserted by vascular sx pt tolerated HD well cardiology and pulmonary f/u outpt, also renal and f/u, ONC f/u for hypernephroma HTN, DM control falls pfx decubs tx / pfx d/w pt and staff dialsysis per renal / vascular catheter; remove PD catheter per renal - f/u with vascular sx SNF placement for PT rehab d/w pt and staff
[2018-12-02] MEDS: metoPROLOL SUCCINATE 25 MG TAB.SR.24H (FP) PO SCH (09:39)
[2018-12-02] MEDS: FEBUXOSTAT 40 MG TAB PO SCH (09:39)
--- NOTE | 2018-12-02 12:47 | PN ---
Progress Note (short form) - Note Progress Note: PULMONARY Resting comfortably tmax 99.3 No hemoptysis. Active Medications reviewed Constitutional: Yes: Calm, NAD Eyes: Yes: Conjunctiva Clear HENT: Yes: Normocephalic Neck: Yes: Trachea Midline Cardiovascular: Yes: S1, S2 Respiratory: Yes: Diminished at the bases Gastrointestinal: Yes: Normal Bowel Sounds, Soft Genitourinary: No: Bladder Distention, CVA Tenderness Edema: Yes Edema: LLE: Trace, RLE: Trace Neurological: Yes: Alert, Oriented Labs: noted IMP DYSPNEA VOLUME OVERLOAD ESRD ON HD R MIDLUNG OPACITY -> PSEUDOTUMOR MOST LIKELY BASED ON IMAGING H/O RCC S/P NEPHRECTOMY H/O RENAL TRANSPLANT S/P REJECTION ASHD S/P STENTS DM HTN PLAN STABLE CAN FOLLOW CXR AN OUTPATIENT IN 1 MONTH NO PULMONARY CONTRAINDICATION FOR D/C AWAITING PLACEMENT Megha BRUNER MD
--- NOTE | 2018-12-02 20:21 | PN ---
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 He is being w/u for Renal transplant at [facility], but on hold temporarily because of his recent Dx of renal Cell CA. Received HD yesterday throgh Right IJ Permacath. UF well tolerated. Current Medications Acetaminophen (Tylenol -) 650 mg PO Q4H PRN PRN Reason: FEVER Last Admin: 12/01/18 21:30 Dose: 650 mg Febuxostat (Uloric -) 40 mg PO DAILY [facility] Last Admin: 12/02/18 09:39 Dose: 40 mg Metoprolol Succinate (Toprol Xl -) 25 mg PO DAILY [facility] Last Admin: 12/02/18 09:39 Dose: 25 mg Oxycodone HCl (Roxicodone -) 5 mg PO Q4H PRN PRN Reason: PAIN LEVEL 6-10 Last Admin: 12/01/18 23:13 Dose: 5 mg Last Vital Signs Temp Pulse Resp BP Pulse Ox 97.9 F 78 20 151/76 98 12/02/18 16:15 12/02/18 16:15 12/02/18 16:15 12/02/18 16:15 11/30/18 09:00 Lungs clear Heart reg Abd soft nontender Ext no edema CBC, BMP 11/26/18 08:17 11/29/18 09:55 esrd on hd waiting for hd placement Plan- next hd on monday
[2018-12-02] MEDS: oxyCODONE HCL 5 MG TABLET PO PRN (20:32)
[2018-12-02] MEDS: ACETAMINOPHEN 325 MG TABLET (FP) PO PRN (20:35)
--- NOTE | 2018-12-03 06:07 | DS ---
Physical Examination Vital Signs: Vital Signs Temperature 97.9 F 12/02/18 16:15 Pulse Rate 78 12/02/18 16:15 Respiratory Rate 20 12/02/18 16:15 Blood Pressure 151/76 12/02/18 16:15 O2 Sat by Pulse Oximetry (%) 95 12/02/18 21:00 Findings/Remarks: in bed NAD no c/o afebrile VSS no new c/o except small stage 1-2 sacral decub ( alevyn topically) and L foot second digit samll cut (topical bacitracin ordered) d/w pt and renal dr Thomas to do dialysis if possible OOB to chair; d/w pt also turn on the sides in bed avoid lying on the back al the time - if wound not better in 1 week or if worse at any time advised to see vascular sx dr Garcia for debridement awaiting SNF bed f/u as d/w pt Constitutional: Yes: No Distress, Calm Eyes: Yes: Conjunctiva Clear HENT: Yes: Atraumatic Neck: Yes: Supple Cardiovascular: Yes: Regular Rate and Rhythm Respiratory: Yes: CTA Bilaterally Gastrointestinal: Yes: Soft. No: Tenderness Renal/: No: CVA Tenderness - Left, CVA Tenderness - Right Musculoskeletal: No: Joint Stiffness, Joint Swelling, Muscle Pain Extremities: No: Cold, Cool, Cyanosis Edema: No Integumentary: No: Rash Neurological: Yes: WNL, Alert, Oriented ...Motor Strength: WNL Psychiatric: Yes: WNL, Alert, Oriented. No: Agitated, Suicidal Ideation Labs: CBC, BMP 11/26/18 08:17 11/29/18 09:55 Discharge Summary Reason For Visit: END STAGE RENAL DISEASE Current Active Problems ASHD (arteriosclerotic heart disease) (Acute) CHF (congestive heart failure) (Acute) Complications, dialysis, catheter, mechanical (Acute) Diabetes mellitus (Acute) Uremia (Acute) ESRD (end stage renal disease) (Chronic) Procedures: Principal: 63 YOM HTN DM ASHD stent, renal hypernephroma ([place] kidney) , s/p 1 renal transplant, ESRD / PD admitted for IV access for hemodialysis per renal; also seen by cardiology and pulmonary in hospital; had abNL chest CT c/w pseudotumor (most likely fluid overload but to have chest CT in 1 month for f/u) Other Procedures: had R vascular catheter placed by vascular surgery dr Garcia and tolerated hemodialysis OK. Hospital Course: generally weak, needs intensive PT rehab, to be transferred to SNF/NH and then f /u as advised Condition: Stable - Instructions Diet, Activity, Other Instructions: f/u PCP in 1-2 weeks; repeat chest CT in 1 month dialysis per renal cardiology f/u in 2-4 weeks f/u ONC and for renal CA surveillance health maintenance GI, colonoscopy, eye and podiatry exams per PCP Referrals: Glenn Judge MD [Staff Physician] - Celina Herbert MD [Primary Care Provider] - Mario Narvaez MD [Staff Physician] - Sesar Garcia MD [Staff Physician] - Disposition: ALF FACILITY - Home Medications Comprehensive Discharge Medication List: Ambulatory Orders Febuxostat [Uloric] 40 mg PO DAILY 07/25/18 Metoprolol Succinate 25 mg PO DAILY 11/26/18 Acetaminophen [Tylenol .Regular Strength -] 325 mg PO Q4H PRN tablet 11/29/18 oxyCODONE HCL [Roxicodone -] 5 mg PO Q6H PRN tablet MDD 20 mg 11/29/18
[2018-12-03] MEDS ORDERED: oxyCODONE HCL 5 MG TABLET PO PRN (06:09)
--- NOTE | 2018-12-03 09:57 | PN ---
Progress Note (short form) - Note Progress Note: PULMONARY Denies shortness of breath or chest pain. Has been ambulating. Vital Signs Period Temp Pulse Resp BP Sys/Lane Pulse Ox Last 24 Hr 97.9 F-98.9 F 78-99 18-20 139-151/68-76 95 Gen: NAD in chair Heart: RRR Lung: decreased breath sounds at the bases Abd: soft, nontender Ext: no edema CBC, BMP 11/26/18 08:17 11/29/18 09:55 Active Medications Acetaminophen (Tylenol -) 650 mg PO Q4H PRN PRN Reason: FEVER Last Admin: 12/02/18 20:35 Dose: 650 mg Febuxostat (Uloric -) 40 mg PO DAILY [facility] Last Admin: 12/02/18 09:39 Dose: 40 mg Metoprolol Succinate (Toprol Xl -) 25 mg PO DAILY [facility] Last Admin: 12/02/18 09:39 Dose: 25 mg Oxycodone HCl (Roxicodone -) 5 mg PO Q8H PRN PRN Reason: PAIN LEVEL 6-10 A/P Volume Overload improved ESRD on HD Lung Mass 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
[2018-12-03] MEDS: metoPROLOL SUCCINATE 25 MG TAB.SR.24H (FP) PO SCH (10:03)
[2018-12-03] MEDS: FEBUXOSTAT 40 MG TAB PO SCH (10:03)
--- NOTE | 2018-12-03 12:28 | PN ---
Progress Note (short form) - Note Progress Note: Renal follow up for ESRD on HD Pt seen and examined at the bedside awake and alert has no acute complaints last dialysis was Monday no sob, cp, abd pain, N/V Vital Signs Temperature 97.9 F 12/02/18 16:15 Pulse Rate 78 12/02/18 16:15 Respiratory Rate 20 12/02/18 16:15 Blood Pressure 151/76 12/02/18 16:15 O2 Sat by Pulse Oximetry (%) 96 12/03/18 09:00 Intake & Output 11/30/18 12/01/18 12/02/18 12/03/18 23:59 23:59 23:59 23:59 Intake Total 650 480 850 430 Balance 650 480 850 430 Weight 56.841 kg 56.336 kg 56.245 kg NAD awake and alert neck supple RRR CTA soft NT/ND no LE edema CBC, BMP 11/26/18 08:17 11/29/18 09:55 Current Medications Acetaminophen (Tylenol -) 650 mg PO Q4H PRN PRN Reason: FEVER Last Admin: 12/02/18 20:35 Dose: 650 mg Febuxostat (Uloric -) 40 mg PO DAILY O[facility] Last Admin: 12/03/18 10:03 Dose: 40 mg Metoprolol Succinate (Toprol Xl -) 25 mg PO DAILY [facility] Last Admin: 12/03/18 10:03 Dose: 25 mg Oxycodone HCl (Roxicodone -) 5 mg PO Q8H PRN PRN Reason: PAIN LEVEL 6-10 63-year-old male with history of ESRD, s/p renal Transplant rejection, 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 #ESRD now on HD as pt could not achieve clearance goals with PD No acute need for FLE[employer] SALES MANAGER today will plan for next dialysis tomorrow if pt remains inpatient dose all meds for intermittent HD Renal diet, 1.2L Fluid restriction Rehab placement pending Thank you Eagle Bartholomew DO
[2018-12-03] MEDS ORDERED: BACITRACIN 15 GM TUBE TOPICAL OINTMENT TP SCH (15:00)
[2018-12-03 15:04] VITALS: BP 137/70; PULSE 78; TEMP 98.4
[2018-12-04] MEDS ORDERED: BACITRACIN 15 GM TUBE TOPICAL OINTMENT TP SCH (10:00)
== END 2018-12-03 17:33 | DRG 919 ==
LOC: JER 07:15 → JERBED 08:13 → J8W 17:27
PROVIDERS: ADMIT Internal Medicine; ATTEND Internal Medicine
PROC: 02HV33Z Insertion of Infusion Device into Superior Vena Cava, Percutaneous Approach (ICD-10-PCS; principal; 2018-11-26 11:05)
PROC: 5A1D70Z Performance of Urinary Filtration, Intermittent, Less than 6 Hours Per Day (ICD-10-PCS; 2018-12-01)
DX: T85.898A Other specified complication of other internal prosthetic devices, implants and grafts, initial encounter (principal); N18.6 End stage renal disease; I13.2 Hypertensive heart and chronic kidney disease with heart failure and with stage 5 chronic kidney disease, or end stage renal disease; C64.9 Malignant neoplasm of unspecified kidney, except renal pelvis; I50.9 Heart failure, unspecified; E78.5 Hyperlipidemia, unspecified; I25.10 Atherosclerotic heart disease of native coronary artery without angina pectoris; E11.22 Type 2 diabetes mellitus with diabetic chronic kidney disease; Z98.61 Coronary angioplasty status; E87.70 Fluid overload, unspecified; Y83.9 Surgical procedure, unspecified as the cause of abnormal reaction of the patient, or of later complication, without mention of misadventure at the time of the procedure
CPT/HCPCS: 36415; 71045-TC-FY; 71046-TC-FY; 71250-TC; 76000-TC-FY; 80048; 80053; 85025; 85610; 86707; 86803; 86850; 86900; 86901; 87340; 87350; 93005; 93010; 93971; 94010; 94760; 97116-GP; 97161-GP; 99281-25; J0885; J1644